=== PATIENT | female | born 1990 | race Caucasian/White ===

== ENCOUNTER 2023-08-16 20:47 | Outpatient (REF) | payer OTHER, SELFPAY ==
[2023-08-20 14:11] LABS: Age Gdln ACOG Testing Note (.); HPV Aptima Negative (Negative); IGP, Aptima HPV, rfx 16/18,45 Note (.)
== END 2023-08-16 20:48 | disposition home or self-care (01) ==
LOC: LAB 20:47
PROVIDERS: Visit Provider Obstetrics & Gynecology
DX: Z01.419 Encounter for gynecological examination (general) (routine) without abnormal findings (principal)
CPT/HCPCS: 87624; G0145

== ENCOUNTER 2024-01-21 08:25 | Outpatient (OUT) | payer OTHER, SELFPAY ==
--- OUTSIDE RECORDS SUMMARY | 2024-01-21 08:29 | XMS_ITS | CCD ---
Author Organization [facility] Care Team Providers Care Refrigerating Machine Operator Name Role Phone DR REMY GIPSON Admitting Unavailable LEONELA, DR ALBERTO Attending Unavailable JO ANN ZHAO Primary Care Unavailable LEONELA, DR ALBERTO Consulting Unavailable Joseline JOGGLE PRESS OPERATOR-WEATHERIZATION AND HOUSING INSPECTOR, Jo Ann Beckman Attending Unavailable Margarita JOGGLE PRESS OPERATOR-WEATHERIZATION AND HOUSING INSPECTOR, Edilma Vale Attend ing Unavailable Abeba GUPTA, Lea Blanc Attending Aniyah Zhao JOGGLE PRESS OPERATOR-WEATHERIZATION AND HOUSING INSPECTOR, Jo Ann Beckman Attending Unavailable REMY GIPSON Attending Unavailable Results Test Name Value Interpretation Reference Range Facil ity .eGFRon 12-04-2022 GFR/1.73 sq M.predicted MDRD (S/P/Bld) [Vol rate/Area] mL/min/{1.73_m2} Normal >=60 [facility] Comment on above: Result Comment: [facility] have implemented the eGFR calculation approach that does not have a coefficient for race and that conforms to the NKF-ASN Task Force Recommendations. Stages of Chronic Kidney Disease GFR Stage 3a Mild to moderate loss of kidney function 59 to 45 Stage 3b Moderate to severe loss of kidney function 44 to 33 Stage 4 Severe loss of kidney function 29 to 15 Stage 5 Kidney failure Less than 15 GFR calculated using the CKD-Epi Creatinine Equation (2020): eGFR = 142 X min(SCr/?, 1)? X max(SCr /?, 1)-1.200 X 0.9938Age X 1.012 [if female] Abbreviations/Units: eGFR (estimated glomerular filtration rate) = mL/min/1.73 m2 SCr (standardized serum creatinine) = mg/dL ? = 0.7 (females) or 0.9 (males) ? = -0.241 (females) or -0.302 (males) min = indicates the minimum of SCr/? or 1 max = indicates the maximum of SCr/? or 1 Age = years Performed By: #### E GFR #### [place] [id number] CBC w/ Diffon 12-04-2022 Erythrocyte distribution width (RBC) [Ratio] 12.3 % Normal 11.6-14.8 [facility] Comment on above: Performed By: #### C BC #### [place] [id number] Hematocrit (Bld) [Volume fraction] 38.8 % Normal 36.0-46.0 [facility] Comment on above: Performed By: #### C BC #### [place] [id number] Hemoglobin (Bld) [Mass/Vol] 13.5 g/dL Normal 12.0-16.0 [facility] Comment on above: Performed By: #### C BC #### [place] [id number] MCH (RBC) [Entitic mass] 32.1 pg Normal 27.0-35.0 [facility] Comment on above: Performed By: #### C BC #### [place] [id number] MCHC 34.9 % Normal 31.0-37.0 [facility] Comment on above: Performed By: #### C BC #### [place] [id number] MCV (RBC) [Entitic vol] 92.0 fL Normal 80.0-100.0 [facility] Comment on above: Performed By: #### C BC #### [place] [id number] Platelet 277 x10*3/mcL Normal 150-350 [facility] Comment on above: Performed By: #### C BC #### [address] [address] Platelet mean volume (Bld) [Entitic vol] 8.7 fL Normal 6.7-10.6 [facility] Comment on above: Performed By: #### C BC #### [address] [address] RBC 4.21 x10*6/mcL Normal 3.80-5.20 [facility] Comment on above: Performed By: #### C BC #### [address] [address] WBC 8.0 x10*3/mcL Normal 4.5-11.0 [facility] Comment on above: Performed By: #### C BC #### [address] [address] CMPon 12-04-2022 Albumin [Mass/Vol] 4.3 g/dL Normal 3.2-4.9 [facility] Comment on above: Performed By: #### C OMP #### [address] [address] Albumin/Globulin [Mass ratio] 1.6 {ratio} Normal 1.1-2.2 [facility] Comment on above: Performed By: #### C OMP #### [address] [address] Alk Phos 39 IU/L Normal 32-91 [facility] Comment on above: Performed By: #### C OMP #### [address] [address] ALT [Catalytic activity/Vol] 13 U/L Low 14-54 [facility] Comment on above: Performed By: #### C OMP #### [address] [address] Anion gap [Moles/Vol] 8 mmol/L Normal 7-17 [facility] Comment on above: Performed By: #### C OMP #### [address] [address] AST [Catalytic activity/Vol] 18 U/L Normal 15-41 [facility] Comment on above: Performed By: #### C OMP #### [address] [address] Bili Total 0.6 mg/dL Normal 0.3-1.2 [facility] Comment on above: Performed By: #### C OMP #### [address] [address] Calcium [Mass/Vol] 8.9 mg/dL Normal 8.5-10.3 [facility] Comment on above: Performed By: #### C OMP #### [address] [address] Chloride [Moles/Vol] 103 mmol/L Normal 98-110 [facility] Comment on above: Performed By: #### C OMP #### [address] [address] CO2 [Moles/Vol] 27 mmol/L Normal 22-32 [facility] Comment on above: Performed By: #### C OMP #### [address] [address] Creatinine [Mass/Vol] 0.64 mg/dL Normal 0.44-1.03 [facility] Comment on above: Performed By: #### C OMP #### [address] [address] Glucose [Mass/Vol] 111 mg/dL High 70-99 [facility] Comment on above: Performed By: #### C OMP #### [address] [address] Potassium [Moles/Vol] 3.5 mmol/L Normal 3.4-4.8 [facility] Comment on above: Performed By: #### C OMP #### [address] [address] Protein [Mass/Vol] 7.0 g/dL Normal 6.5-8.1 [facility] Comment on above: Performed By: #### C OMP #### [address] [address] Sodium [Moles/Vol] 135 mmol/L Normal 133-142 [facility] Comment on above: Performed By: #### C OMP #### [address] [address] Urea nitrogen [Mass/Vol] 14 mg/dL Normal 8-26 [facility] Comment on above: Performed By: #### C OMP #### [address] [address] Urea nitrogen/Creatinin e [Mass ratio] 21.9 mg/mg High 10.0-20.0 [facility] Comment on above: Performed By: #### C OMP #### [address] [address] Diff Autoon 12-04-2022 Baso Absolute 0.0 x10*3/mcL Normal 0.0-0.2 [facility] Comment on above: Performed By: #### . Automated Diff #### [address] [address] Basophils/100 WBC (Bld) 0.4 % Normal 0.0-1.5 [facility] Comment on above: Performed By: #### . Automated Diff #### [address] [address] Eos Absolute 0.0 x10*3/mcL Normal 0.0-0.4 [facility] Comment on above: Performed By: #### . Automated Diff #### [address] [address] Eosinophils/100 WBC (Bld) 0.4 % Normal 0.0-5.4 [facility] Comment on above: Performed By: #### . Automated Diff #### [address] [address] Lymph Absolute 1.9 x10*3/mcL Normal 1.0-4.8 [facility] Comment on above: Performed By: #### . Automated Diff #### [address] [address] Lymphocytes/100 WBC (Bld) 24.3 % Low 27.2-40.8 [facility] Comment on above: Performed By: #### . Automated Diff #### [address] [address] Carver Absolute 0.5 x10*3/mcL Normal 0.1-1.1 [facility] Comment on above: Performed By: #### . Automated Diff #### [address] [address] Monocytes/100 WBC (Bld) 5.7 % Normal 3.7-11.9 [facility] Comment on above: Performed By: #### . Automated Diff #### [address] [address] Neutro Absolute 5.5 x10*3/mcL Normal 1.8-7.7 [facility] Comment on above: Performed By: #### . Automated Diff #### [place] [id number] Neutro Auto 69.2 % Normal 47.2-70.8 [facility] Comment on above: Performed By: #### . Automated Diff #### [address] [address] Hgb A1con 12-04-2022 Glucose [Mass/Vol] 97 mg/dL Normal 68-114 [facility] Comment on above: Result Comment: Math ematical Calc approx. The mean gluc equivalency of A1c Performed By: #### H BA1C #### [place] [id number] Hgb A1c 5.0 % A1c Normal 4.0-5.6 [facility] Comment on above: Result Comment: Refe rence Range: 4.0 - 5.6 % Normal 5.7 - 6.4 % Pre-Diabetes > 6.5 % Diabetes Performed By: #### H BA1C #### [place] [id number] Insulinon 12-04-2022 Insulin Lvl 8.60 mcIU/mL Normal 1.90-23.00 [facility] Comment on above: Performed By: #### I NS #### [address] [address] Ironon 12-04-2022 Iron [Mass/Vol] 76 ug/dL Normal 28-170 [facility] Comment on above: Performed By: #### F E #### [address] [address] Lipid Panelon 12-04-2022 Cholesterol in LDL [Mass/Vol] 106 mg/dL High 0-99 [facility] Comment on above: Result Comment: The equation being used in this calculation is LDL = (Chol - HDL) - (Trig / 5) The optimal value of LDL for individual patients may vary. The patient's history of Artherosclerosis and other cardiac risk factors should be considered. Performed By: #### L CLANCY #### [address] [address] Cardiac Risk 2.7 Normal [facility] Comment on above: Result Comment: Men Women 1/2 Average 3.43 3.27 Average 4.97 4.44 2x Average 9.55 7.05 3x Average 23.99 11.04 Performed By: #### L CLANCY #### [address] [address] Cholesterol [Mass/Vol] 181 mg/dL Normal 25-199 [facility] Comment on above: Result Comment: 0 - 17 years of age: Desirable 0-170 Borderline High 170-199 High >=200 18 years and older: Acceptable <200 Borderline High 200-239 High >=240 Performed By: #### L CLANCY #### [address] [address] Cholesterol in HDL [Mass/Vol] 68.2 mg/dL High 40.0-60.0 [facility] Comment on above: Performed By: #### L CLANCY #### [address] [address] Cholesterol in VLDL [Mass/Vol] 7 mg/dL Low 8-39 [facility] Comment on above: Performed By: #### L CLANCY #### [address] [address] Triglyceride [Mass/Vol] 33 mg/dL Normal [facility] Comment on above: Result Comment: 0 - 17 years of age: Trig 90 - 129 Borderline High Trig => 130 High 18 years and older: Trig 150 - 199 Borderline High Trig 200 - 499 High Trig =>500 Very High Performed By: #### L CLANCY #### [address] [address] Thyroid Panelon 12-04-2022 Free T4 [Mass/Vol] 0.92 ng/dL Normal 0.61-1.12 [facility] Comment on above: Result Comment: Refe rence Ranges for Females: Females, 1st Trimester 0.52 ? 1.10 ng/dL Females, 2nd Trimester 0.45 ? 0.99 ng/dL Females, 3rd Trimester 0.48 - 0.95 ng/dL Performed By: #### T 347 #### [address] [address] TSH Qn 1.11 m[IU]/L Normal 0.45-5.33 [facility] Comment on above: Result Comment: Refe rence Ranges for individuals from to 18 years of age were obtained from The Mica Becker Handbook (20 ed) published by [facility]. Reference Ranges for Females: Females, 1st Trimester 0.05 ? 3.7 uIU/mL Females, 2nd Trimester 0.31 ? 4.35 uIU/mL Females, 3rd Trimester 0.41 ? 5.18 uIU/mL Performed By: #### T 347 #### [address] [address] Urgent Care Office/Clinic No pita 06-08-2022 Urgent Care Office/Clinic Note Chief Complaint Pt states left ear pain starting Wednesday. Pt is on ANB but feeling like its not helping. History of Present Illness Patient is a 32-year-old female presents with complaint of sinus congestion stuffy nose with postnasal drip. She is on amoxicillin for left ear infection that was started last week. She reports she does not feel like she is getting any better and is continues to have left ear pain. She is currently not taking any medication for sinus congestion. She denies sore throat nausea vomiting or skin rashes. She was afebrile on arrival to [facility] and reports no fevers at home. Review of Systems General: The patient denies fever and POSITIVE headache and pressure over the frontal maxillary sinuses HEENT: POSITIVE rhinorrhea. POSITIVE bilateral ear pressure/pain Denies eye pain. POSITIVE sore throat Cardiovascular: No chest pain or Cardiac history Pulmonary: No shortness of breath, wheezing POSITIVE dry cough GI: No nausea, vomiting or diarrhea Skin: no rashes Physical Exam Vitals & Measurements T: 36.7 ?C (Oral) HR: 78 (Peripheral) RR: 18 BP: 129/87 SpO2: 98 HT: 160 cm WT: 69 kg WT: 69 kg (Dosing) BMI: 26.95 Eyes: no conjunctivitis or drainage Ears: TMs are clear translucent with moderate amount of bulging. Both canals are without redness swelling or drainage Nose: no rhinitis seen Sinuses: Negative for maxillary and frontal tenderness. Throat: is red without exudate or swelling Neck: no anterior cervical adenopathy present Chest: Breath sounds clear without wheezing, rales or rhonchi, cough dry in office. Heart: regular rate without murmurs Additional Vitals No qualifying data available. Assessment/Plan 1. Rhinosinusitis Plan: 1) Patient started to drink at least 8 glasses of non-caffeinated nonalcoholic beverages per day 2) Patient instructed to take Medications as prescribed. Continue Amoxicillin for left otitis media given last week. Ordered Flonase 2 sprays each nostril every A.M. Ordered Zyrtec take 1 tablet daily in a.m. Recommended patient take Benadryl 25 mg at bedtime to help dry sinus drainage and help her rest. Recommended Nasal saline - 2 sprays each nostril every 2 hours to moisturize nasal passages Patient instructed to blow nose with both nostrils open - do not pinch and blow gently 3) If not better and the next 4 or 5 days followup with PCP. Ordered: cetirizine, 1 tabs, Oral, Daily, # 30 tabs, 0 Refill(s), Pharmacy: [facility][id number] fluticasone nasal, 2 sprays, Nasal, Daily, # 16 g, 0 Refill(s), Pharmacy: [facility] #[id number] Discharge Patient Medical Decision Making Viral Rhinosinusitis: less than 4 weeks purulent nasal drainage, facial pain and pressure, decreased smell, ear fullness, cough, headache Acute Bacterial Rhinosinusitis: Severe headache, periorbital edema, inflammation or erythema, vision changes, pain with eye movement, abnormal extra ocular movements, proptosis, cranial nerve palsies, altered mental state, neck stiffness or meningeal signs Chronic Rhinosinusitis: history of polys, nasal fracture, obstruction, swelling of nares with inflammation, facial pain, ear fullness, Common Cold: nasal congestion and discharge (rhinorrhea), sneezing, sore throat, cough, low-grade fever, headache, and malaise. Allergic Rhinitis/Rhinosinusiti s - not taking sinus medication, no fever or facial pressure Chronic conditions NOT treated during this visit that affected my overall medical decision making: [] Treatment plans discussed but not opted for at this time: [] Prescribed medication that requires intensive monitoring for toxicity: [] I have reviewed the patient?s medication list for medication interactions/contraind ications and/or for upcoming procedures: [yes ] Time Spent with the Patient I have personally spent [21] minutes on this date, directly related to today's patient visit, including pre and post visit work, for this date of service. Time listed does not include time spent on separately billable services. Provider Comments Reviewed assessment and plan of care with patient. Patient verbalized understanding and agreed with plan. No further questions or concerns upon discharge. Problem List/Past Medical History Ongoing No chronic problems Historical No qualifying data Procedure/Surgical History denies Medications Aspir 81, 81 mg, Oral, Daily Multi Vitamin+ Allergies No Known Allergies Social History Tobacco Never (less than 100 in lifetime) Use:. Family History Family history is negative Electronically signed by Edilma Marrufo 06/08/22 20:16 EST Normal [facility] Coding Summary.on 01-31-2020 Coding Summary. CODING DATE: 01/31/2020 FINAL [facility] STATUS: Home (Routine DC) PAYOR: Commercial Insurance ADMIT DX: REASON FOR VISIT DX: Z01.84 Encounter for antibody response examination FINAL DX: PRINCIPAL: Z01.84 Encounter for antibody response examination SECONDARY: Z11.59 Encounter for screening for other viral diseases PYMT PROC APC STAT DESCRIPTION DOCTOR NAME DATE NOTE: The code number assigned matches the documented diagnosis and / or procedure in the patient's chart. However, the narrative phrase printed from the coding software may appear abbreviated, or result in slightly different terminology. Coded By: Jocy Munroe Date Saved: 01/31/2020 07:26 pm Normal [facility] Physician Orderon 01-05-2020 Physician Order [id number] D:127 [facility] Encounters Encounter Date Encounter Type Care Provider Facility Start: 08-16-2023 End: 08-16-2023 ambulatory REMY GIPSON Not Available Start: 12-04-2022 End: 12-05-2022 ambulatory Jo Ann Zhao JOGGLE PRESS OPERATOR-[facility] Facility:[facility] Start: 08-11-2022 End: 08-11-[address] REMY GIPSON Facility:[facility] Start: 07-22-2022 ambulatory Lea Coon Facility:[facility] Start: 06-08-2022 End: 06-08-2022 ambulatory Edilma Avila JOGGLE PRESS OPERATOR-[facility] Facility:[facility] Payers Date Payer Category Payer Unknown 2021 Medicaid [id number] 1990 Unknown [id number] 09.10.83 [id number] 1990 Unknown [id number] 2. [id number] 1990 Unknown [id number] 2. [id number] 1990 Unknown [id number] 2. [id number] 1990 Unknown [id number] 2. [id number] 1990 Unknown [id number] [id number] 1959 Unknown [id number] Clinical Note 06-08-2022 Note Date & Type Note Facility 06-08-2022 Note Patient Education Chaz escamilla Name: Ary Ellis Current Date: 06/08/2022 20:15:39 [place] : 1990 The following sheet(s) are the Patient Education Leaflets for Ary Ellis Sinusitis (No Antibiotics) The sinuses are air-filled spaces in the bones of the face. They connect to the inside of the nose. Sinusitis is redness and swelling (inflammation) of the tissue that lines the sinuses. It can occur during a cold. It can also be due to allergies to pollens and other particles in the air. It can cause symptoms such as sinus congestion, headache, sore throat, face swelling, and a feeling of fullness. It may also cause a low-grade fever. Your sinusitis doesn't include an infection with bacteria. So antibiotics aren't used to treat this problem. Home care ? Drink plenty of water, hot tea, and other liquids, as directed by the healthcare provider. This may help thin nasal mucus. It also may help your sinuses drain fluids. ? Heat may help soothe painful parts of your face. Use a towel soaked in hot water. Or store standards associate the shower and direct the warm spray on your face. Using a vaporizer along with a menthol rub at night may also help soothe symptoms. ? An expectorant with guaifenesin may help thin nasal mucus and help your sinuses drain fluids. If you have any questions about an xdin-kqy-joygmeb medicine or its side effects, talk with your healthcare provider or pharmacist before taking it. ? You can use an tkmk-hfi-hcgqfzf decongestant, unless a similar medicine was prescribed to you. Nasal sprays work the fastest. Use one that has phenylephrine or oxymetazoline. First blow your nose gently. Then use the spray. Don't use these medicines more often than directed on the label. If you do, your symptoms may get worse. You may also take pills that contain pseudoephedrine. Don?t use products that combine multiple medicines. This may increase side effects. Read all medicine labels. You can also ask the pharmacist for help. (People with high blood pressure should not use decongestants. They can raise blood pressure.) ? Txih-srv-uisqwfa antihistamines or steroid nasal sprays, if advised by the healthcare provider, may help if allergies helped cause your sinusitis. ? Use acetaminophen or ibuprofen to control pain, unless another pain medicine was prescribed to you. If you have long-term (chronic) liver or kidney disease, or ever had a stomach ulcer, talk with your provider before using these medicines. Aspirin should never be taken by anyone under age 19 unless directed by the provider. It can lead to a risk for Apolonia syndrome. This is a rare but very serious disorder that most often affects the brain and the liver. ? Use nasal rinses or irrigation as instructed by your provider. ? Don't smoke. This can make symptoms worse. Follow-up care Follow up with your healthcare provider if you are not better in 1 week. When to get medical advice Call your healthcare provider if any of these occur: ? Green or yellow fluid draining from your nose or into your throat ? Facial pain or headache that gets worse ? Stiff neck ? Abnormal drowsiness or confusion ? Swelling of your forehead or eyelids ? Vision problems, such as blurred or double vision ? Fever of 100.4?F (38?C) or higher, or as directed by your provider ? Symptoms that don't go away in 10 days Call 911 Call 911 if any of these occur: ? Seizure ? Trouble breathing ? Feeling dizzy or faint ? Fingernails, skin, or lips look blue, purple, or loera ? [employer]. [address] [place] [address]. All rights reserved. This information is not intended as a substitute for professional medical care. Always follow your healthcare professional's instructions. 1. Rhinosinusitis Plan: 1) Patient started to drink at least 8 glasses of non-caffeinated nonalcoholic beverages per day 2) Patient instructed to take Medications as prescribed. Continue Amoxicillin for left otitis media given last week. Recommended patient use Flonase 2 sprays each nostril every A.M. Recommended patient start Zyrtec or Claritin take 1 tablet daily in a.m. Recommended patient take Benadryl 25 mg at bedtime to help dry sinus drainage and help her rest. Recommended Nasal saline - 2 sprays each nostril every 2 hours to moisturize nasal passages Patient instructed to blow nose with both nostrils open - do not pinch and blow gently 3) If not better and the next 4 or 5 days followup with PCP. [facility] Summary Purpose Family History No Family History Records FoundNo Family History Records FoundNo Family History Records FoundNo Family History Records Found Advance Directives No Advanced Directives Records FoundNo Advanced Directives Records FoundNo Advanced Directives Records FoundNo Advanced Directives Records Found Additional Source Comments INFORMATION SOURCE (unrecogn ized section and content) DATE CREATED AUTHOR [facility]10/2020 [facility] DATE CREATED AUTHOR AUTHOR'S ORGANIZ ATION 08/12/2022 [facility] DATE CREATED AUTHOR AUTHOR'S ORGANIZ ATION 12/05/2022 [facility] DATE CREATED AUTHOR AUTHOR'S ORGANIZ ATION 08/17/2023 [facility] [place] FOR RECORDS PERTAINING TO PATIENTS WHO ARE OR HAVE BEEN ENROLLED IN A CHEMICAL DEPENDENCY/SUBSTANCEABUSE PROGRAM, SOME INFORMATION MAY BE OMITTED. This clinical summary was aggregated from multiple sources. Caution should be exercised in using it in the provision of clinical care. This summary normalizes information from multiple sources, and as a consequence, information in this document may materially change the coding, format and clinical context of patient data. In addition, data may be omitted in some cases. CLINICAL DECISIONS SHOULD BE BASED ON THE PRIMARY CLINICAL RECORDS. [facility] Search to Phone [facility]. provides no warranty or guarantee of the accuracy or completeness of information in this document.
--- NOTE | 2024-01-21 08:31 | US_ITS ---
[address] [address] Patient Name: KATHERINE SPAIN MRN: [id number] date: 1990 Sex: F Assigned Patient Location: [facility] Current Patient Location: [facility] Accession/Order Number: [id number] Exam Date: 01/21/2024 08:31 Report Date: 01/21/2024 09:09 At the request of: REMY GIPSON Procedure: US OB transvaginal EXAMINATION: US OB transvaginal HISTORY: MISSED MENSES COMPARISON: No relevant comparison available. FINDINGS: Woo intrauterine gestation Gestational sac: 3.07 cm, 8 weeks 0 days CRL: 1.27 cm, 7 weeks 3 days Yolk sac: 3.3 mm Heart rate: 167 bpm Cervix: Closed, 4.7 cm The uterus is normal, anteverted, anteflexed The right ovary is not visualized The left ovary measures 5.7 x 4.1 x 4.3 cm. 4.6 cm area of anechoic echogenicity possibly corpus luteal cyst Clinical age: 8 weeks 1 day Clinical SANGEETA: 08/31/2024 Ultrasound age: 7 weeks 3 days Ultrasound SANGEETA: 09/05/2024 US/US OB transvaginal IMPRESSION: Viable woo intrauterine gestation measuring 7 weeks 3 days Electronically authenticated by: CHLOE SANTO Date: 01/21/2024 09:09
== END 2024-01-21 08:26 | disposition home or self-care (01) ==
LOC: NOMS 08:26
PROVIDERS: Visit Provider Obstetrics & Gynecology
DX: Z34.91 Encounter for supervision of normal pregnancy, unspecified, first trimester (principal); Z3A.01 Less than 8 weeks gestation of pregnancy; N92.6 Irregular menstruation, unspecified
CPT/HCPCS: 76817

== ENCOUNTER 2024-02-14 11:50 | Outpatient (OUT) | payer OTHER, SELFPAY ==
--- OUTSIDE RECORDS SUMMARY | 2024-02-14 12:11 | XMS_ITS | CCD ---
Author Organization [facility] Inform ion Partnership [facility] CliniSynm Care Team Providers Care Filemaker Developer Name Role Phone DR REMY RAY Admitting Unavailable FLOR, DR ALBERTO Attending Unavailable LEXI ZHAO Primary Care Unavailable FLOR, DR ALBERTO Consulting Unavailable REMY RAY Attending Unavailable FlorRemy batista DO Attending Unavaila ble Results Test Name Value Interpretation Reference Range Facil ity Trep Abon 02-01-2024 Treponema Total Ab <0.10 Normal [facility] Comment on above: Performed By: #### C [id number] #### [address] [address] Treponema Total Ab Interp Negative Normal Negative [facility] Comment on above: Result Comment: No s erologic evidence of syphilis. No follow- up necessary unless clinically indicated (eg, early syphilis). Performed By: #### C [id number] #### [address] [address] HIV1/2 Ab,Ag Scnon 4 HIV-1/2 Ab,Ag 0.26 Normal [facility] Comment on above: Performed By: #### C [id number] #### [address] [address] HIV-1/2 Ab,Ag Interp Non-Reactive Normal Non-Reactive [facility] Comment on above: Performed By: #### C [id number] #### [address] [address] Hep Bs Agon 01-31-2024 Hep Bs Ag Interp Non-Reactive Normal Non-Reactive [facility] Comment on above: Performed By: #### H BSAG #### [address] [address] Hep C Ab w/reflex HCV RNA Qn t, PCRon 01-31-2024 Hep C IgG Interp Non-Reactive Normal Non-Reactive [facility] Comment on above: Performed By: #### H CV #### [address] [address] C Urineon 01-30-2024 C Urine - ---- Final 30-50,000 cfu/ml Mixed gram positive alicia isolated. This urine contains 3 or more organisms which is inconsistent with clean catch collection. Consider the possibility of contamination during collection. No identification or susceptibility performed as results would be misleading Normal [facility] Comment on above: Performed By: #### U RC #### [address] [address] ABO/Rhon 01-29-2024 ABO/Rh ABO/Rh: A POS Normal [facility] Comment on above: Performed By: #### H CV #### [address] [address] CBC w/ Diffon 01-29-2024 Erythrocyte distribution width (RBC) [Ratio] 12.0 % Normal 11.6-14.8 [facility] Comment on above: Performed By: #### C BC #### [address] [address] Hematocrit (Bld) [Volume fraction] 37.7 % Normal 36.0-46.0 [facility] Comment on above: Performed By: #### C BC #### [address] [address] Hemoglobin (Bld) [Mass/Vol] 12.8 g/dL Normal 12.0-16.0 [facility] Comment on above: Performed By: #### C BC #### [address] [address] MCH (RBC) [Entitic mass] 31.0 pg Normal 27.0-35.0 [facility] Comment on above: Performed By: #### C BC #### [address] [address] MCHC 34.0 % Normal 31.0-37.0 [facility] Comment on above: Performed By: #### C BC #### [address] [address] MCV (RBC) [Entitic vol] 91.1 fL Normal 80.0-100.0 [facility] Comment on above: Performed By: #### C BC #### [address] [address] Platelet 370 x10*3/mcL Normal 150-450 [facility] Comment on above: Performed By: #### C BC #### [address] [address] Platelet mean volume (Bld) [Entitic vol] 8.0 fL Normal 6.7-10.6 [facility] Comment on above: Performed By: #### C BC #### [address] [address] RBC 4.13 x10*6/mcL Normal 3.80-5.20 [facility] Comment on above: Performed By: #### C BC #### [address] [address] WBC 12.3 x10*3/mcL High 4.5-11.0 [facility] Comment on above: Performed By: #### C BC #### [address] [address] Diff Autoon 01-29-2024 Baso Absolute 0.0 x10*3/mcL Normal 0.0-0.2 [facility] Comment on above: Performed By: #### . Automated Diff #### [address] [address] Basophils/100 WBC (Bld) 0.4 % Normal 0.0-1.5 [facility] Comment on above: Performed By: #### . Automated Diff #### [address] [address] Eos Absolute 0.0 x10*3/mcL Normal 0.0-0.4 [facility] Comment on above: Performed By: #### . Automated Diff #### [address] [address] Eosinophils/100 WBC (Bld) 0.3 % Normal 0.0-5.4 [facility] Comment on above: Performed By: #### . Automated Diff #### [address] [address] Lymph Absolute 2.0 x10*3/mcL Normal 1.0-4.8 [facility] Comment on above: Performed By: #### . Automated Diff #### [address] [address] Lymphocytes/100 WBC (Bld) 16.2 % Low 27.2-40.8 [facility] Comment on above: Performed By: #### . Automated Diff #### [address] [address] [place] Absolute 0.6 x10*3/mcL Normal 0.1-1.1 [facility] Comment on above: Performed By: #### . Automated Diff #### [address] [address] Monocytes/100 WBC (Bld) 4.6 % Normal 3.7-11.9 [facility] Comment on above: Performed By: #### . Automated Diff #### [address] [address] Neutro Absolute 9.7 x10*3/mcL High 1.8-7.7 [facility] Comment on above: Performed By: #### . Automated Diff #### [address] [address] Neutro Auto 78.5 % High 47.2-70.8 [facility] Comment on above: Performed By: #### . Automated Diff #### [place] [id number] Hgb A1con 01-29-2024 Glucose [Mass/Vol] 105 mg/dL Normal 68-114 [facility] Comment on above: Result Comment: Math ematical Calc approx. The mean gluc equivalency of A1c Performed By: #### H BA1C #### [place] [address] Hgb A1c 5.3 % A1c Normal 4.0-5.6 [facility] Comment on above: Result Comment: Refe rence Range: 4.0 - 5.6 % Normal 5.7 - 6.4 % Pre-Diabetes > 6.5 % Diabetes Performed By: #### H BA1C #### [place] [id number] Pren ABSCon 01-29-2024 Pren ABSC Negative Normal [facility] Comment on above: Performed By: #### A SRG #### [facility] ([facility] [address] [place], [place] [id number] Rubella IgGon 01-29-2024 Rubella IgG Ab Interp Positive Normal [facility] Comment on above: Result Comment: The presence of detectable IgG-class antibodies indicates immunity to the rubella virus through prior immunization or exposure. Individuals testing reactive (positive) are considered immune to rubella infection. This result was obtained with the Access Rubella IgG EIA. Despite calibration by means of a reference preparation, values obtained with different drawbridge tender's assay methods may not be used interchangeably. The magnitude of the reported IgG level CANNOT be correlated to an endpoint titer. Performed By: #### R UB #### [place] [address] Coding Summary.on 01-31-2020 Coding Summary. CODING DATE: 01/31/2020 FINAL [facility] STATUS: Home (Routine DC) PAYOR: Commercial Insurance [...] Jocy Munroe Date Saved: 01/31/2020 07:[address] [facility] Physician Orderon 01-05-2020 Physician Order [id number]#[id number] 0CD:[address] [facility] Encounters Encounter Date Encounter Type Care Provider Facility Start: 01-29-2024 End: 01-29-2024 ambulatory Remy Ray Facility:[facility] Start: 01-21-2024 End: 01-21-2024 ambulatory REMY RAY Not Available Start: 08-16-2023 End: 08-16-2023 ambulatory REMY RAY Not Available Start: 08-11-2022 End: 08-11-[address] REMY RAY Facility: Payers Date Payer Category Payer Unknown 2023 Unknown [id number] 2021 Medicaid [id number] 1990 Unknown [id number] 2.16.84 [id number] 1990 Unknown [id number] 2.16.84 [id number] 1990 Unknown [id number] 2.16.84 [id number] 1990 Unknown [id number] 2.16. [id number] 1959 Unknown [id number] Summary Purpose Family History No Family History Records FoundNo Family History Records FoundNo Family History Records FoundNo Family History Records Found Advance Directives No Advanced Directives Records FoundNo Advanced Directives Records FoundNo Advanced Directives Records FoundNo Advanced Directives Records Found Additional Source Comments INFORMATION SOURCE (unrecogn ized section and content) DATE CREATED AUTHOR 02/10/2020 [facility] DATE CREATED AUTHOR AUTHOR'S ORGANIZ ATION 08/12/2022 [facility] DATE CREATED AUTHOR AUTHOR'S ORGANIZ ATION 01/23/[address] [facility] dical [facility] DATE CREATED AUTHOR AUTHOR'S ORGANIZ ATION 02/07/2024 [facility] FOR RECORDS PERTAINING TO PATIENTS WHO ARE [...] BE BASED ON THE PRIMARY CLINICAL RECORDS. [employer] provides no warranty or guarantee of the accuracy or completeness of information in this document.
== END 2024-02-14 11:51 | disposition home or self-care (01) ==
LOC: LAB 11:52
PROVIDERS: Visit Provider Obstetrics & Gynecology
DX: Z34.80 Encounter for supervision of other normal pregnancy, unspecified trimester (principal)
CPT/HCPCS: 36415

== ENCOUNTER 2024-04-01 08:18 | Outpatient (OUT) | payer OTHER, SELFPAY ==
--- OUTSIDE RECORDS SUMMARY | 2024-04-01 08:21 | XMS_ITS | CCD ---
Author Organization [facility] Inform ion Partnership [facility] CliniSytx Care Team Providers Care Poker Supervisor Name Role Phone DR REMY RAY Admitting Unavailable FLOR, DR ALBERTO Attending Unavailable LEXI ZHAO Primary Care Unavailable FLOR, DR ALBERTO Consulting Unavailable FLORREMY Attending Unavailable FLORREMY Attending Unavailable Flor DORemy Attending Unavaila ble Flor DORemy Attending Unavaila ble Results Test Name Value Interpretation Reference Range Facil ity CBCon 03-18-2024 Erythrocyte distribution width (RBC) [Ratio] 13.0 % Normal 11.6-14.8 [facility] Comment on above: Performed By: #### C BCI #### [place] [address] Hematocrit (Bld) [Volume fraction] 36.7 % Normal 36.0-46.0 [facility] Comment on above: Performed By: #### C BCI #### [place] [id number] Hemoglobin (Bld) [Mass/Vol] 12.6 g/dL Normal 12.0-16.0 [facility] Comment on above: Performed By: #### C BCI #### [place] [id number] MCH (RBC) [Entitic mass] 31.8 pg Normal 27.0-35.0 [facility] Comment on above: Performed By: #### C BCI #### [place] [id number] MCHC 34.2 % Normal 31.0-37.0 [facility] Comment on above: Performed By: #### C BCI #### [place] [address] MCV (RBC) [Entitic vol] 92.9 fL Normal 80.0-100.0 [facility] Comment on above: Performed By: #### C BCI #### [address] [address] Platelet 295 x10*3/mcL Normal 150-450 [facility] Comment on above: Performed By: #### C BCI #### [place] [id number] Platelet mean volume (Bld) [Entitic vol] 8.7 fL Normal 6.7-10.6 [facility] Comment on above: Performed By: #### C BCI #### [place] [address] RBC 3.95 x10*6/mcL Normal 3.80-5.20 [facility] Comment on above: Performed By: #### C BCI #### [place] [address] WBC 11.6 x10*3/mcL High 4.5-11.0 [facility] Comment on above: Performed By: #### C BCI #### [place] [id number] Gest Diab Scn (ACOG)on 03-18 History of diabetes or gastric bypass? Unknown Normal [facility] Comment on above: Performed By: #### G DS #### [place] [id number] Glucose [Mass/Vol] 136 mg/dL High 70-134 [facility] Comment on above: Result Comment: Acco rding to the ADA, a glucose threshold of > 139 mg/dL after a 50-gram load identifies approximately 80% of women with gestational diabetes mellitus, while the sensitivity is further increased to approximately 90% by a threshold of >129 mg/dL. Performed By: #### G DS #### [place] [address] Trep Abon 02-01-2024 Treponema Total Ab <0.10 Normal [facility] Comment on above: Performed By: #### C [id number] #### [address] [address] Treponema Total Ab Interp Negative Normal Negative [facility] Comment on above: Result Comment: No s erologic evidence of syphilis. No follow- up necessary unless clinically indicated (eg, early syphilis). Performed By: #### C [id number] #### [address] [address] HIV1/2 Ab,Ag Scnon HIV-1/2 Ab,Ag 0.26 Normal [facility] Comment on above: Performed By: #### C [id number] #### [address] [address] HIV-1/2 Ab,Ag Interp Non-Reactive Normal Non-Reactive [facility] Comment on above: Performed By: #### C [id number] #### [address] [address] Hep Bs Agon 01-31-2024 Hep Bs Ag Interp Non-Reactive Normal Non-Reactive [facility] Comment on above: Performed By: #### H BSAG #### [address] [address] Hep C Ab w/reflex HCV RNA Qn t, PCRon 01-31-2024 Hep C IgG Interp Non-Reactive Normal Non-Reactive [facility] Comment on above: Performed By: #### H CV #### [address] [address] C Urineon 01-30-2024 C Urine - ---- Final 30-50,000 cfu/ml Mixed gram positive alicia isolated. This urine contains 3 or more organisms which is inconsistent with clean catch collection. Consider the possibility of contamination during collection. No identification or susceptibility performed as results would be misleading Normal [facility] Comment on above: Performed By: #### H CV #### [address] [address] ABO/Rhon 01-29-2024 ABO/Rh ABO/Rh: A POS Normal [facility] Comment on above: Performed By: #### H CV #### [address] [address] CBC w/ Diffon 01-29-2024 Erythrocyte distribution width (RBC) [Ratio] 12.0 % Normal 11.6-14.8 [facility] Comment on above: Performed By: #### C BC #### [address] [address] Hematocrit (Bld) [Volume fraction] 37.7 % Normal 36.0-46.0 [facility] Comment on above: Performed By: #### C BC #### [address] [address] Hemoglobin (Bld) [Mass/Vol] 12.8 g/dL Normal 12.0-16.0 [facility] Comment on above: Performed By: #### C BC #### [address] [address] MCH (RBC) [Entitic mass] 31.0 pg Normal 27.0-35.0 [facility] Comment on above: Performed By: #### C BC #### [address] [address] MCHC 34.0 % Normal 31.0-37.0 [facility] Comment on above: Performed By: #### C BC #### [address] [address] MCV (RBC) [Entitic vol] 91.1 fL Normal 80.0-100.0 [facility] Comment on above: Performed By: #### C BC #### [address] [address] Platelet 370 x10*3/mcL Normal 150-450 [facility] Comment on above: Performed By: #### C BC #### [address] [address] Platelet mean volume (Bld) [Entitic vol] 8.0 fL Normal 6.7-10.6 [facility] Comment on above: Performed By: #### C BC #### [address] [address] RBC 4.13 x10*6/mcL Normal 3.80-5.20 [facility] Comment on above: Performed By: #### C BC #### [address] [address] WBC 12.3 x10*3/mcL High 4.5-11.0 [facility] Comment on above: Performed By: #### C BC #### [address] [address] Diff Autoon 01-29-2024 Baso Absolute 0.0 x10*3/mcL Normal 0.0-0.2 [facility] Comment on above: Performed By: #### . Automated Diff #### [address] [address] Basophils/100 WBC (Bld) 0.4 % Normal 0.0-1.5 [facility] Comment on above: Performed By: #### . Automated Diff #### [address] [address] Eos Absolute 0.0 x10*3/mcL Normal 0.0-0.4 [facility] Comment on above: Performed By: #### . Automated Diff #### [address] [address] Eosinophils/100 WBC (Bld) 0.3 % Normal 0.0-5.4 [facility] Comment on above: Performed By: #### . Automated Diff #### [address] [address] Lymph Absolute 2.0 x10*3/mcL Normal 1.0-4.8 [facility] Comment on above: Performed By: #### . Automated Diff #### [address] [address] Lymphocytes/100 WBC (Bld) 16.2 % Low 27.2-40.8 [facility] Comment on above: Performed By: #### . Automated Diff #### [address] [address] [place] Absolute 0.6 x10*3/mcL Normal 0.1-1.1 [facility] Comment on above: Performed By: #### . Automated Diff #### [address] [address] Monocytes/100 WBC (Bld) 4.6 % Normal 3.7-11.9 [facility] Comment on above: Performed By: #### . Automated Diff #### [address] [address] Neutro Absolute 9.7 x10*3/mcL High 1.8-7.7 [facility] Comment on above: Performed By: #### . Automated Diff #### [address] [address] Neutro Auto 78.5 % High 47.2-70.8 [facility] Comment on above: Performed By: #### . Automated Diff #### [address] [address] Hgb A1con 01-29-2024 Glucose [Mass/Vol] 105 mg/dL Normal 68-114 [facility] Comment on above: Result Comment: Math ematical Calc approx. The mean gluc equivalency of A1c Performed By: #### H CV #### [address] [address] Hgb A1c 5.3 % A1c Normal 4.0-5.6 [facility] Comment on above: Result Comment: Refe rence Range: 4.0 - 5.6 % Normal 5.7 - 6.4 % Pre-Diabetes > 6.5 % Diabetes Performed By: #### H CV #### [facility] [address] [place] [address] Pren ABSCon 01-29-2024 Pren ABSC Negative Normal [facility] Comment on above: Performed By: #### A SRG #### [facility] ([facility]) [address] [place] [address] Rubella IgGon 01-29-2024 Rubella IgG Ab Interp Positive Normal [facility] Comment on above: Result Comment: The presence of detectable IgG-class antibodies indicates immunity to the rubella virus through prior immunization or exposure. Individuals testing reactive (positive) are considered immune to rubella infection. This result was obtained with the Access Rubella IgG EIA. Despite calibration by means of a reference preparation, values obtained with different jewelry casting model maker's assay methods may not be used interchangeably. The magnitude of the reported IgG level CANNOT be correlated to an endpoint titer. Performed By: #### R UB #### [facility] [address] [place] [address] Coding Summary.on 01-31-2020 Coding Summary. CODING DATE: 01/31/2020 FINAL [facility] STATUS: Home (Routine DC) PAYOR: Commercial Insurance [...] Jocy Munroe Date Saved: 01/31/2020 07:26 pm [facility] Physician Orderon 01-05-2020 Physician Order [id number] 0CD:127 [facility] Encounters Encounter Date Encounter Type Care Provider Facility Start: 03-18-2024 End: 03-18-2024 ambulatory Remy Ray DO Facility:[facility] Start: 02-29-2024 End: 02-29-2024 ambulatory REMY RAY Not Available Start: 01-29-2024 End: 01-29-2024 ambulatory Remy Tay Ray DO Facility:[facility] Start: 01-21-2024 End: 01-21-2024 ambulatory REMY FLOR Not Available Start: 08-16-2023 End: 08-16-2023 ambulatory REMY RAY Not Available Start: 08-11-2022 End: 08-11-[address] REMY RAY Facility: Payers Date Payer Category Payer Unknown 2023 Unknown [id number] 2021 Medicaid [id number] 1990 Unknown [id number] 2.16.84 [id number] 1990 Unknown [id number] 2.16.84 [id number] 1990 Unknown [id number] 2.16.84 [id number] 1990 Unknown [id number] 2.16.84 [id number] 1990 Unknown [id number] 2.16. [id number] 1990 Unknown [id number] 2.16. [id number] 1959 Unknown [id number] Summary Purpose Family History No Family History Records FoundNo Family History Records FoundNo Family History Records FoundNo Family History Records Found Advance Directives No Advanced Directives Records FoundNo Advanced Directives Records FoundNo Advanced Directives Records FoundNo Advanced Directives Records Found Additional Source Comments INFORMATION SOURCE (unrecogn ized section and content) DATE CREATED AUTHOR 02/10/2020 [facility] DATE CREATED AUTHOR AUTHOR'S ORGANIZ ATION 08/12/2022 Vika Cannon [facility] DATE CREATED AUTHOR AUTHOR'S ORGANIZ ATION 03/02/2024 [facility] DATE CREATED AUTHOR AUTHOR'S ORGANIZ ATION 03/20/2024 [facility] FOR RECORDS PERTAINING TO PATIENTS WHO [...] BE BASED ON THE PRIMARY CLINICAL RECORDS. [facility] [employer] [facility]. provides no warranty or guarantee of the accuracy or completeness of information in this document.
[2024-04-01 09:39] LABS: Glucose Fasting 109 mg/dL (<95)
[2024-04-01 10:55] LABS: Glucose 1 Hour 138 mg/dL (<180)
[2024-04-01 11:51] LABS: Glucose 2 Hour 128 mg/dL (<155)
[2024-04-01 12:40] LABS: Glucose 3 Hour 104 mg/dL (<140)
[2024-04-05 01:08] LABS: AFP Value 21.9 ng/mL (.); Gest. Age on Collection Date 17.7 weeks (.); Gestat. Age Based On As provided (.); Insulin Dep Diabetes No (.); Maternal Age At EDD 34.3 yr (.); OSBR Risk 1 IN 10000 (.); Results Report (.)
== END 2024-04-01 08:19 | disposition home or self-care (01) ==
PROVIDERS: PCP Nurse Practitioner Family; Visit Provider Obstetrics & Gynecology
DX: Z34.92 Encounter for supervision of normal pregnancy, unspecified, second trimester (principal); Z36.1 Encounter for antenatal screening for raised alphafetoprotein level; R73.09 Other abnormal glucose
CPT/HCPCS: 36415; 82105; 82951; 82952

== ENCOUNTER 2024-04-24 13:30 | Outpatient (OUT) | payer OTHER, SELFPAY ==
--- NOTE | 2024-04-24 13:32 | US_ITS ---
[address] [address] Patient Name: KATHERINE SPAIN MRN: [id number] date: 1990 Sex: F Assigned Patient Location: [facility] Current Patient Location: [facility] Accession/Order Number: [id number] Exam Date: 04/24/2024 13:34 Report Date: 04/24/2024 14:35 At the request of: TY LATIF Procedure: US OB cervical length EXAMINATION: US OB anatomy, US OB cervical length HISTORY: anatomic survey COMPARISON: Ultrasound OB transvaginal 01/13/2024 TECHNIQUE: Transabdominal sonographic examination was performed for obstetrical and evaluation. FINDINGS: Number: 1 Heart Rate: 143 bpm H.B. /min Amniotic Fluid Volume: Subjectively normal Placental Location: Anterior-fundal with lower margin 5.5 cm from os. Cervix Length: 5.42 cm ; closed BIOMETRY: BPD: 4.79 cm; 20 weeks 3 days; 11.40 % HC: 19.17 cm; 21 weeks 3 days; 32.80 % AC: 15.85 cm 21 weeks 0 days; 24.20 % FL: 3.60 cm; 21 weeks 3 days; 34.60 % EFW:375.10 g; 24.90 % FL/AC: 22.71 FL/BPD: 75.16 HC/AC: 1.21 GESTATIONAL AGE: Age by EDC: 21 weeks 4 days Age by current US: 21 weeks 1 day SANGEETA by current US: 2024-09-03 SANGEETA by EDC: 2024-08-31 US/US OB cervical length IMPRESSION: 1. Single live intrauterine with growth detailed above. Electronically authenticated by: RENEE NAVARRO Date: 04/24/2024 14:35
--- NOTE | 2024-04-24 13:32 | US_ITS ---
[address] [address] Patient Name: KATHERINE SPAIN MRN: [id number] date: 1990 Sex: F Assigned Patient Location: [facility] Current Patient Location: [facility] Accession/Order Number: [id number] Exam Date: 04/24/2024 13:34 Report Date: 04/24/2024 14:35 At the request of: TY LATIF Procedure: US OB anatomy EXAMINATION: US OB anatomy, US OB cervical length HISTORY: anatomic survey COMPARISON: Ultrasound OB transvaginal 01/13/2024 TECHNIQUE: Transabdominal sonographic examination was performed for obstetrical and evaluation. FINDINGS: Number: 1 Heart Rate: 143 bpm H.B. /min Amniotic Fluid Volume: Subjectively normal Placental Location: Anterior-fundal with lower margin 5.5 cm from os. Cervix Length: 5.42 cm ; closed BIOMETRY: BPD: 4.79 cm; 20 weeks 3 days; 11.40 % HC: 19.17 cm; 21 weeks 3 days; 32.80 % AC: 15.85 cm 21 weeks 0 days; 24.20 % FL: 3.60 cm; 21 weeks 3 days; 34.60 % EFW:375.10 g; 24.90 % FL/AC: 22.71 FL/BPD: 75.16 HC/AC: 1.21 GESTATIONAL AGE: Age by EDC: 21 weeks 4 days Age by current US: 21 weeks 1 day SANGEETA by current US: 2024-09-03 SANGEETA by EDC: 2024-08-31 US/US OB anatomy IMPRESSION: 1. Single live intrauterine with growth detailed above. Electronically authenticated by: RENEE NAVARRO Date: 04/24/2024 14:35
--- OUTSIDE RECORDS SUMMARY | 2024-04-24 13:38 | XMS_ITS | CCD ---
Author Organization [facility] Inform ion Partnership [facility] Care Team Providers Care Bus Transportation Manager Name Role Phone DR REMY RAY Admitting Unavailable FLOR, DR ALBERTO Attending Unavailable LEXI ZHAO Primary Care Unavailable FLOR, DR ALBERTO Consulting Unavailable FLORREMY Attending Unavailable FLORREMY Attending Unavailable Flor DORemy Attending Unavaila ble Flor DORemy Attending Unavaila ble Results Test Name Value Interpretation Reference Range Facil ity CBCon 03-18-2024 Erythrocyte distribution width (RBC) [Ratio] 13.0 % Normal 11.6-14.8 [facility] Comment on above: Performed By: #### C BCI #### [place] [address] Hematocrit (Bld) [Volume fraction] 36.7 % Normal 36.0-46.0 [facility] Comment on above: Performed By: #### C BCI #### [place] [id number] Hemoglobin (Bld) [Mass/Vol] 12.6 g/dL Normal 12.0-16.0 [facility] Comment on above: Performed By: #### C BCI #### [place] [id number] MCH (RBC) [Entitic mass] 31.8 pg Normal 27.0-35.0 [facility] Comment on above: Performed By: #### C BCI #### [place] [id number] MCHC 34.2 % Normal 31.0-37.0 [facility] Comment on above: Performed By: #### C BCI #### [place] [id number] MCV (RBC) [Entitic vol] 92.9 fL Normal 80.0-100.0 [facility] Comment on above: Performed By: #### C BCI #### [address] [address] Platelet 295 x10*3/mcL Normal 150-450 [facility] Comment on above: Performed By: #### C BCI #### [place] [id number] Platelet mean volume (Bld) [Entitic vol] 8.7 fL Normal 6.7-10.6 [facility] Comment on above: Performed By: #### C BCI #### [place] [id number] RBC 3.95 x10*6/mcL Normal 3.80-5.20 [facility] Comment on above: Performed By: #### C BCI #### [place] [id number] WBC 11.6 x10*3/mcL High 4.5-11.0 [facility] Comment on above: Performed By: #### C BCI #### [place] [id number] Gest Diab Scn (ACOG)on 03-18 History of diabetes or gastric bypass? Unknown Normal [facility] Comment on above: Performed By: #### G DS #### [place] [id number] Glucose [Mass/Vol] 136 mg/dL High 70-134 [facility] Comment on above: Result Comment: Acco rding to the ADA, a glucose threshold of > 139 mg/dL after a 50-gram load identifies approximately 80% of women with gestational diabetes mellitus, while the sensitivity is further increased to approximately 90% by a threshold of >129 mg/dL. Performed By: #### G DS #### [place] [address] Trep Abon 02-01-2024 Treponema Total Ab <0.10 Normal [facility] Comment on above: Performed By: #### C [id number] #### [address] [address] Treponema Total Ab Interp Negative Normal Negative [facility] Comment on above: Result Comment: No s erologic evidence of syphilis. No follow- up necessary unless clinically indicated (eg, early syphilis). Performed By: #### C [id number] #### [address] [address] HIV1/2 Ab,Ag Scnon HIV-1/2 Ab,Ag 0.26 Normal [facility] Comment on above: Performed By: #### C [id number] #### [address] [address] HIV-1/2 Ab,Ag Interp Non-Reactive Normal Non-Reactive [facility] Comment on above: Performed By: #### C [id number] #### [address] [address] Hep Bs Agon 01-31-2024 Hep Bs Ag Interp Non-Reactive Normal Non-Reactive [facility] Comment on above: Performed By: #### H BSAG #### [address] [address] Hep C Ab w/reflex HCV RNA Qn t, PCRon 01-31-2024 Hep C IgG Interp Non-Reactive Normal Non-Reactive [facility] Comment on above: Performed By: #### H CV #### [address] [address] C Urineon 01-30-2024 C Urine - ---- Final 30-50,000 cfu/ml Mixed gram positive alicia isolated. This urine contains 3 or more organisms which is inconsistent with clean catch collection. Consider the possibility of contamination during collection. No identification or susceptibility performed as results would be misleading Normal [facility] Comment on above: Performed By: #### H CV #### [address] [address] ABO/Rhon 01-29-2024 ABO/Rh ABO/Rh: A POS Normal [facility] Comment on above: Performed By: #### H CV #### [address] [address] CBC w/ Diffon 01-29-2024 Erythrocyte distribution width (RBC) [Ratio] 12.0 % Normal 11.6-14.8 [facility] Comment on above: Performed By: #### C BC #### [address] [address] Hematocrit (Bld) [Volume fraction] 37.7 % Normal 36.0-46.0 [facility] Comment on above: Performed By: #### C BC #### [address] [address] Hemoglobin (Bld) [Mass/Vol] 12.8 g/dL Normal 12.0-16.0 [facility] Comment on above: Performed By: #### C BC #### [address] [address] MCH (RBC) [Entitic mass] 31.0 pg Normal 27.0-35.0 [facility] Comment on above: Performed By: #### C BC #### [address] [address] MCHC 34.0 % Normal 31.0-37.0 [facility] Comment on above: Performed By: #### C BC #### [address] [address] MCV (RBC) [Entitic vol] 91.1 fL Normal 80.0-100.0 [facility] Comment on above: Performed By: #### C BC #### [address] [address] Platelet 370 x10*3/mcL Normal 150-450 [facility] Comment on above: Performed By: #### C BC #### [address] [address] Platelet mean volume (Bld) [Entitic vol] 8.0 fL Normal 6.7-10.6 [facility] Comment on above: Performed By: #### C BC #### [address] [address] RBC 4.13 x10*6/mcL Normal 3.80-5.20 [facility] Comment on above: Performed By: #### C BC #### [address] [address] WBC 12.3 x10*3/mcL High 4.5-11.0 [facility] Comment on above: Performed By: #### C BC #### [address] [address] Diff Autoon 01-29-2024 Baso Absolute 0.0 x10*3/mcL Normal 0.0-0.2 [facility] Comment on above: Performed By: #### . Automated Diff #### [address] [address] Basophils/100 WBC (Bld) 0.4 % Normal 0.0-1.5 [facility] Comment on above: Performed By: #### . Automated Diff #### [address] [address] Eos Absolute 0.0 x10*3/mcL Normal 0.0-0.4 [facility] Comment on above: Performed By: #### . Automated Diff #### [address] [address] Eosinophils/100 WBC (Bld) 0.3 % Normal 0.0-5.4 [facility] Comment on above: Performed By: #### . Automated Diff #### [address] [address] Lymph Absolute 2.0 x10*3/mcL Normal 1.0-4.8 [facility] Comment on above: Performed By: #### . Automated Diff #### [address] [address] Lymphocytes/100 WBC (Bld) 16.2 % Low 27.2-40.8 [facility] Comment on above: Performed By: #### . Automated Diff #### [address] [address] [place] Absolute 0.6 x10*3/mcL Normal 0.1-1.1 [facility] Comment on above: Performed By: #### . Automated Diff #### [address] [address] Monocytes/100 WBC (Bld) 4.6 % Normal 3.7-11.9 [facility] Comment on above: Performed By: #### . Automated Diff #### [address] [address] Neutro Absolute 9.7 x10*3/mcL High 1.8-7.7 [facility] Comment on above: Performed By: #### . Automated Diff #### [address] [address] Neutro Auto 78.5 % High 47.2-70.8 [facility] Comment on above: Performed By: #### . Automated Diff #### [address] [address] Hgb A1con 01-29-2024 Glucose [Mass/Vol] 105 mg/dL Normal 68-114 [facility] Comment on above: Result Comment: Math ematical Calc approx. The mean gluc equivalency of A1c Performed By: #### H CV #### [address] [address] Hgb A1c 5.3 % A1c Normal 4.0-5.6 [facility] Comment on above: Result Comment: Refe rence Range: 4.0 - 5.6 % Normal 5.7 - 6.4 % Pre-Diabetes > 6.5 % Diabetes Performed By: #### H CV #### [facility] [address] [place] [address] Pren ABSCon 01-29-2024 Pren ABSC Negative Normal [facility] Comment on above: Performed By: #### A SRG #### [facility] ([facility] [address] [place] [address] Rubella IgGon 01-29-2024 Rubella IgG Ab Interp Positive Normal [facility] Comment on above: Result Comment: The presence of detectable IgG-class antibodies indicates immunity to the rubella virus through prior immunization or exposure. Individuals testing reactive (positive) are considered immune to rubella infection. This result was obtained with the Access Rubella IgG EIA. Despite calibration by means of a reference preparation, values obtained with different house designer's assay methods may not be used interchangeably. The magnitude of the reported IgG level CANNOT be correlated to an endpoint titer. Performed By: #### R UB #### [facility] [address] [place] [address] Coding Summary.on 01-31-2020 Coding Summary. CODING DATE: 01/31/2020 FINAL [facility] STATUS: Home (Routine DC) PAYOR: Commercial [...] Jocy Munroe Date Saved: 01/31/2020 07:26 pm [facility] Physician Orderon 01-05-2020 Physician Order [id number] [facility] Encounters Encounter Date Encounter Type Care Provider Facility Start: 03-18-2024 End: 03-18-2024 ambulatory Remy Ray DO Facility:[facility] Start: 02-29-2024 End: 02-29-2024 ambulatory REMY RAY Not Available Start: 01-29-2024 End: 01-29-2024 ambulatory Remy Tay Ray DO Facility:[facility] Start: 01-21-2024 End: 01-21-2024 ambulatory REYM FLOR Not Available Start: 08-16-2023 End: 08-16-2023 ambulatory REMY RAY Not Available Start: 08-11-2022 End: 08-11-[address] REMY RAY Facility: Payers Date Payer Category Payer Unknown 2023 Unknown [id number] 2021 Medicaid [id number] 1990 Unknown [id number] 2.16.84 [id number] 1990 Unknown [id number] 2.16.84 [id number] 1990 Unknown [id number] 2.16.84 [id number] 1990 Unknown [id number] 2.16.84 [id number] 1990 Unknown [id number] 2.16. [id number] 1990 Unknown [id number] 2.16. [id number] 1959 Unknown [id number] Summary Purpose Family History No Family History Records FoundNo Family History Records FoundNo Family History Records FoundNo Family History Records Found Advance Directives No Advanced Directives Records FoundNo Advanced Directives Records FoundNo Advanced Directives Records FoundNo Advanced Directives Records Found Additional Source Comments INFORMATION SOURCE (unrecogn ized section and content) DATE CREATED AUTHOR 02/10/2020 [facility] DATE CREATED AUTHOR AUTHOR'S ORGANIZ ATION 08/12/2022 V[facility] DATE CREATED AUTHOR AUTHOR'S ORGANIZ ATION 03/02/2024 [facility] DATE CREATED AUTHOR AUTHOR'S ORGANIZ ATION 03/20/2024 [facility] FOR RECORDS PERTAINING TO PATIENTS WHO ARE [...] BE BASED ON THE PRIMARY CLINICAL RECORDS. [facility] [employer] [facility]. provides no warranty or guarantee of the accuracy or completeness of information in this document.
== END 2024-04-24 13:31 | disposition home or self-care (01) ==
LOC: NOMS 13:30
PROVIDERS: PCP Nurse Practitioner Family; Visit Provider Physician Assistant
DX: Z36.89 Encounter for other specified antenatal screening (principal); Z3A.21 21 weeks gestation of pregnancy
CPT/HCPCS: 76805; 76817

== ENCOUNTER 2024-07-11 06:09 | Outpatient (OUT) | payer OTHER, SELFPAY ==
--- OUTSIDE RECORDS SUMMARY | 2024-07-11 06:11 | XMS_ITS | CCD ---
Author Organization [facility] Care Team Providers Care Engineering Leader Name Role Phone DR REMY RAY Admitting Unavailable FLOR, DR ALBERTO Attending Unavailable LEXI ZHAO Primary Care Unavailable FLOR, DR ALBERTO Consulting Unavailable Unavailable Primary Care Provider Marielle Latif PA-C, Jenifer Blanc Attending Unavailable Flor DO, Remy Cross Attending Unavaila ble Flor DO, Remy Cross Attending Unavaila ble FLRO, REMY Attending Unavailable FLOR, REMY Attending Unavailable JENIFER LATIF Attending Unavailable FLOR, REMY Attending Unavailable JENIFER LATIF Attending Unavailable FLOR, REMY Attending Unavailable FLOR, REMY Attending Unavailable Medications Current Medications Medication Drug Class(es) Dates Sig (Normalized) Sig (Original) aspirin 81 mg delayed release oral tablet (12 sources) Platelet Aggregation Inhibitor, Nonsteroidal Anti-inflammatory Drug Start: 10-11-2023 take 1 tablet by mouth once daily aspirin (Aspirin Low Dose) 81 MG EC tablet Indications: Encounter for supervision of normal , unspecified, unspecified trimester TAKE 1 TABLET BY MOUTH EVERY DAY FOR 30 DAYS 30 tablet 3 03/28/2024 Active Blood Glucose Monitoring Suppl (D-Care Glucometer) w/Device kit (1 source) Start: 06-19-2024 End: 06-19-2025 Blood Glucose Monitoring Suppl (D-Care Glucometer) w/Device kit Indications: Gestational diabetes mellitus (GDM), antepartum, gestational diabetes method of control unspecified , Elevated glucose tolerance test 1 kit Daily Use four times daily to check FSBS. In the morning prior to breakfast & 1 hour after each meal for a total of 4times daily. 1 kit 06/19/2024 06/19/2025 Active cholecalciferol 0.01 mg oral tablet (12 sources) Vitamin D Cholecalciferol (Vitamin D) 125 MCG (5000 UT) capsule Active cholecalciferol (Vitamin D-3) 10 MCG (400 UNIT) tablet 1 (one) time each day at the same time Active Docusate (6 sources) Docusate Sodium (COLACE PO) Take by mouth Active Doxylamine Succinate, Sleep, (UNISOM PO) (6 sources) Doxylamine Succi chidi, Sleep, (UNISOM PO) Take by mouth Active isopropyl alcohol 0.7 ml/ml medicated pad (1 source) Start: 4 End: 4 Alcohol Swabs (Alcohol Prep Pad) 70 % pads Indications: Gestational diabetes mellitus (GDM), antepartum, gestational diabetes method of control unspecified , Elevated glucose tolerance test Apply 1 Pad topically Daily Use four times daily to check FSBS. 150 each 3 06/19/2024 07/19/2024 Active ondansetron 4 mg oral tablet (12 sources) Serotonin-3 Receptor Antagonist Start: 4 take 1 tablet by mouth every six hours as needed for nausea ondansetron (Zofran) 4 MG tablet Indications: Nausea TAKE 1 TABLET BY MOUTH EVERY 6 HOURS NEEDED NAUSEA/VOMITING UP TO 120 DOSES 30 tablet 3 04/27/2024 Active polyethylene glycol 3350 45315 mg powder for oral solution (6 sources) Osmotic Laxative polyethylene gl ycol, PEG, 3350 (Miralax) 17 g packet Take by mouth Active Vit-Fe Fumarate-FA (M- Plus) 27-1 MG tablet (6 sources) Start: 3 take 1 tablet by mouth once daily Vit-Fe Fumarate-FA (M-Leann Plus) 27-1 MG tablet Indications: Other specified health status TAKE 1 TABLET BY MOUTH EVERY DAY FOR 30 DAYS 90 tablet 2 04/15/2023 Active Vit-Fe Fumarate-FA (PNV Plus Multivitamin) 27-1 MG tablet (6 sources) Start: 4 take 1 tablet by mouth once daily Vit-Fe Fumarate-FA (PNV Plus Multivitamin) 27-1 MG tablet Indications: Encounter for supervision of normal , unspecified, unspecified trimester Take 1 tablet by mouth Daily 30 tablet 11 03/28/2024 Active Problems Problem Classification Problem Date Documented Da te Episodic/Chronic Diabetes mellitus without complication (2 sources) Abnormal glucose tolerance test; Translations: [Other abnormal glucose] 05-25-2024 Episodic Other and delivery including normal (10 sources) Second trimester ; Translations: [Encounter for supervision of normal , unspecified, second trimester] Onset: 04-24-2024 05-25-2024 Episodic Residual codes; unclassified (2 sources) Gestation period, 26 weeks; Translations: [26 weeks gestation of ] 05-25-2024 Episodic Residual codes; unclassified (6 sources) Gestation period, 21 weeks; Translations: [21 weeks gestation of ] Onset: 04-24-2024 04-24-2024 Episodic Residual codes; unclassified (2 sources) Gestation period, 29 weeks; Translations: [29 weeks gestation of ] 06-19-2024 Episodic Results Test Name Value Interpretation Reference Range Facil ity Urinalysis macro (dipstick) panel (U)on 06-19-2024 Bilirubin, UA Negative Negative - 4(70) +++ mg/dL [facility] Blood, UA Positive Negative - 50 Kyle/mcL [facility] Comment on above: trace Clarity, UA Clear [facility] Healthdc re Color, UA Yellow [facility] Healthcar e Glucose, UA Negative Negative - 1999(110) ++++ mg/dL [facility] Interpretation and review of laboratory results Abnormal [facility] Ketones, UA Negative Negative - 160(16) ++++ mg/dL [facility] Leukocytes, UA Positive Negative - 500+++ Ren/mcL [facility] Comment on above: small Nitrite, UA Negative Negative - Positive [facility] pH, UA 7 5 - 9 [facility] Protein, UA Negative Negative - 1999(20) ++++ mg/dL [facility] Spec Grav, UA 1.02 1 - 1.03 [facility] Urobilinogen, UA 0.2 0.2 - 12 mg/dL [facility] .Glu 1 Hron 06-03-2024 Glucose [Mass/Vol] 180 mg/dL Normal 70-199 [facility] Comment on above: Performed By: #### R UB #### [facility] [address] [place] [address] .Glu 2 Hron 06-03-2024 Glucose [Mass/Vol] 163 mg/dL High 70-139 [facility] Comment on above: Result Comment: A 2 Hour glucose of less than 140 mg/dL is normal. A value of more than 200 mg/dL after 2 hours indicates diabetes. A value between 140 and 199 mg/dL indicates pre-diabetes. Performed By: #### . Glucose 2 Hour #### [address] [address] .Glu 3 Hron 06-03-2024 Glucose [Mass/Vol] 69 mg/dL Low 70-99 [facility] Comment on above: Performed By: #### R UB #### [address] [address] .Glu Baseon 06-03-2024 Glucose [Mass/Vol] 108 mg/dL High 70-99 [facility] Comment on above: Performed By: #### R UB #### [address] [address] POC Glucon 06-03-2024 Glucose [Mass/Vol] 120 mg/dL Normal 78-120 [facility] Comment on above: Performed By: #### R UB #### [address] [address] Urinalysis macro (dipstick) panel (U)on 05-25-2024 Bilirubin, UA Negative Negative - 4(70) +++ mg/dL [facility] Blood, UA Negative Negative - 50 Kyle/mcL [facility] Clarity, UA Clear [facility] re Color, UA Yellow [facility] Healthcar e Glucose, UA Positive Negative - 1999(110) ++++ mg/dL [facility] Interpretation and review of laboratory results Abnormal [facility] Ketones, UA Negative Negative - 160(16) ++++ mg/dL [facility] Leukocytes, UA Negative Negative - 500+++ Ren/mcL [facility] Nitrite, UA Negative Negative - Positive [facility] pH, UA 7 5 - 9 [facility] Protein, UA Negative Negative - 1999(20) ++++ mg/dL [facility] Spec Grav, UA 1.02 1 - 1.03 [facility] care Urobilinogen, UA 1.0 0.2 - 12 mg/dL [facility] e CBCon 03-18-2024 Erythrocyte distribution width (RBC) [Ratio] 13.0 % Normal 11.6-14.8 [facility] Comment on above: Performed By: #### R UB #### [address] [address] Hematocrit (Bld) [Volume fraction] 36.7 % Normal 36.0-46.0 [facility] Comment on above: Performed By: #### R UB #### [address] [address] Hemoglobin (Bld) [Mass/Vol] 12.6 g/dL Normal 12.0-16.0 [facility] Comment on above: Performed By: #### R UB #### [address] [address] MCH (RBC) [Entitic mass] 31.8 pg Normal 27.0-35.0 [facility] Comment on above: Performed By: #### R UB #### [address] [address] MCHC 34.2 % Normal 31.0-37.0 [facility] Comment on above: Performed By: #### R UB #### [address] [address] MCV (RBC) [Entitic vol] 92.9 fL Normal 80.0-100.0 [facility] Comment on above: Performed By: #### R UB #### [address] [address] Platelet 295 x10*3/mcL Normal 150-450 [facility] Comment on above: Performed By: #### R UB #### [address] [address] Platelet mean volume (Bld) [Entitic vol] 8.7 fL Normal 6.7-10.6 [facility] Comment on above: Performed By: #### R UB #### [address] [address] RBC 3.95 x10*6/mcL Normal 3.80-5.20 [facility] Comment on above: Performed By: #### R UB #### [address] [address] WBC 11.6 x10*3/mcL High 4.5-11.0 [facility] Comment on above: Performed By: #### R UB #### [address] [address] Gest Diab Scn (ACOG)on 03-18 History of diabetes or gastric bypass? Unknown Normal [facility] Comment on above: Performed By: #### G DS #### [place] [id number] Glucose [Mass/Vol] 136 mg/dL High 70-134 [facility] Comment on above: Result Comment: Acco rding to the ADA, a glucose threshold of > 139 mg/dL after a 50-gram load identifies approximately 80% of women with gestational diabetes mellitus, while the sensitivity is further increased to approximately 90% by a threshold of >129 mg/dL. Performed By: #### G DS #### [address] [address] Trep Abon 02-01-2024 Treponema Total Ab <0.10 Normal [facility] Comment on above: Performed By: #### C [id number] #### [address] [address] Treponema Total Ab Interp Negative Normal Negative [facility] Comment on above: Result Comment: No s erologic evidence of syphilis. No follow- up necessary unless clinically indicated (eg, early syphilis). Performed By: #### C [id number] #### [address] [address] HIV1/2 Ab,Ag Scnon HIV-1/2 Ab,Ag 0.26 Normal [facility] Comment on above: Performed By: #### C [id number] #### [address] [address] HIV-1/2 Ab,Ag Interp Non-Reactive Normal Non-Reactive [facility] Comment on above: Performed By: #### C [id number] #### [address] [address] Hep Bs Agon 01-31-2024 Hep Bs Ag Interp Non-Reactive Normal Non-Reactive [facility] Comment on above: Performed By: #### H BSAG #### [address] [address] Hep C Ab w/reflex HCV RNA Qn t, PCRon 01-31-2024 Hep C IgG Interp Non-Reactive Normal Non-Reactive [facility] Comment on above: Performed By: #### H CV #### [address] [address] C Urineon 01-30-2024 C Urine ------- Final 30-50,000 cfu/ml Mixed gram positive alicia isolated. This urine contains 3 or more organisms which is inconsistent with clean catch collection. Consider the possibility of contamination during collection. No identification or susceptibility performed as results would be misleading [facility] Comment on above: Performed By: #### U RC #### [address] [address] ABO/Rhon 01-29-2024 ABO/Rh ABO/Rh: A POS Normal [facility] Comment on above: Performed By: #### A BAN #### [facility] (UNKNOWN) [address] [place] [id number] CBC w/ Diffon 01-29-2024 Erythrocyte distribution width (RBC) [Ratio] 12.0 % Normal 11.6-14.8 [facility] Comment on above: Performed By: #### R UB #### [address] [address] Hematocrit (Bld) [Volume fraction] 37.7 % Normal 36.0-46.0 [facility] Comment on above: Performed By: #### R UB #### [address] [address] Hemoglobin (Bld) [Mass/Vol] 12.8 g/dL Normal 12.0-16.0 [facility] Comment on above: Performed By: #### R UB #### [address] [address] MCH (RBC) [Entitic mass] 31.0 pg Normal 27.0-35.0 [facility] Comment on above: Performed By: #### R UB #### [address] [address] MCHC 34.0 % Normal 31.0-37.0 [facility] Comment on above: Performed By: #### R UB #### [address] [address] MCV (RBC) [Entitic vol] 91.1 fL Normal 80.0-100.0 [facility] Comment on above: Performed By: #### R UB #### [address] [address] Platelet 370 x10*3/mcL Normal 150-450 [facility] Comment on above: Performed By: #### R UB #### [address] [address] Platelet mean volume (Bld) [Entitic vol] 8.0 fL Normal 6.7-10.6 [facility] Comment on above: Performed By: #### R UB #### [address] [address] RBC 4.13 x10*6/mcL Normal 3.80-5.20 [facility] Comment on above: Performed By: #### R UB #### [address] [address] WBC 12.3 x10*3/mcL High 4.5-11.0 [facility] Comment on above: Performed By: #### R UB #### [address] [address] Diff Autoon 01-29-2024 Baso Absolute 0.0 x10*3/mcL Normal 0.0-0.2 [facility] Comment on above: Performed By: #### . Automated Diff #### [address] [address] Basophils/100 WBC (Bld) 0.4 % Normal 0.0-1.5 [facility] Comment on above: Performed By: #### . Automated Diff #### [address] [address] Eos Absolute 0.0 x10*3/mcL Normal 0.0-0.4 [facility] Comment on above: Performed By: #### . Automated Diff #### [address] [address] Eosinophils/100 WBC (Bld) 0.3 % Normal 0.0-5.4 [facility] Comment on above: Performed By: #### . Automated Diff #### [address] [address] Lymph Absolute 2.0 x10*3/mcL Normal 1.0-4.8 [facility] Comment on above: Performed By: #### . Automated Diff #### [address] [address] Lymphocytes/100 WBC (Bld) 16.2 % Low 27.2-40.8 [facility] Comment on above: Performed By: #### . Automated Diff #### [address] [address] Starke Absolute 0.6 x10*3/mcL Normal 0.1-1.1 [facility] Comment on above: Performed By: #### . Automated Diff #### [address] [address] Monocytes/100 WBC (Bld) 4.6 % Normal 3.7-11.9 [facility] Comment on above: Performed By: #### . Automated Diff #### [place] [id number] Neutro Absolute 9.7 x10*3/mcL High 1.8-7.7 [facility] Comment on above: Performed By: #### . Automated Diff #### [place] [id number] Neutro Auto 78.5 % High 47.2-70.8 [facility] Comment on above: Performed By: #### . Automated Diff #### [place] [id number] Hgb A1con 01-29-2024 Glucose [Mass/Vol] 105 mg/dL Normal 68-114 [facility] Comment on above: Result Comment: Math ematical Calc approx. The mean gluc equivalency of A1c Performed By: #### R UB #### [place] [id number] Hgb A1c 5.3 % A1c Normal 4.0-5.6 [facility] Comment on above: Result Comment: Refe rence Range: 4.0 - 5.6 % Normal 5.7 - 6.4 % Pre-Diabetes > 6.5 % Diabetes Performed By: #### R UB #### [address] [address] Pren ABSCon 01-29-2024 Pren ABSC Negative Normal [facility] Comment on above: Performed By: #### R UB #### [address] [address] Rubella IgGon 01-29-2024 Rubella IgG Ab Interp Positive Normal [facility] Comment on above: Result Comment: The presence of detectable IgG-class antibodies indicates immunity to the rubella virus through prior immunization or exposure. Individuals testing reactive (positive) are considered immune to rubella infection. This result was obtained with the Access Rubella IgG EIA. Despite calibration by means of a reference preparation, values obtained with different missile inspector's assay methods may not be used interchangeably. The magnitude of the reported IgG level CANNOT be correlated to an endpoint titer. Performed By: #### R UB #### [place] [address] [place] [id number] Coding Summary.on 01-31-2020 Coding Summary. CODING DATE: 01/31/2020 [facility] STATUS: Home (Routine DC) PAYOR: Commercial Insurance [...] Jocy Munroe Date Saved: 01/31/2020 07:26 pm [facility] Physician Orderon 01-05-2020 Physician Order [id number] [facility] Vital Signs Date Time Vital Sign Value Performing Clinician Dilciai lity 06-19-2024 15:50-0500 Body mass index (BMI) [Ratio] 31.18 kg/m2 [employer] Work Phone: [facility] 06-19-2024 15:50-0500 Body weight 79.83 kg [employer] Work Phone: [facility] 06-19-2024 15:50-0500 Diastolic blood pressure 72 mm[Hg] Remy Flor [place] [facility] [place] Work Phone: [facility] 06-19-2024 15:50-0500 Systolic blood pressure 118 mm[Hg] Remy Flor [place] [place] Work Phone: [facility] 05-25-2024 16:00-0400 Body mass index (BMI) [Ratio] 30.61 kg/m2 Jenifer SHEEHAN Work Phone: [facility] 05-25-2024 16:00-0400 Body weight 78.38 kg Jenifer SHEEHAN Work Phone: [facility] 05-25-2024 16:00-0400 Diastolic blood pressure 74 mm[Hg] Jenifer SHEEHAN Work Phone: [facility] 05-25-2024 16:00-0400 Systolic blood pressure 110 mm[Hg] Jenifer SHEEHAN Work Phone: [facility] Encounters Encounter Date Encounter Type Care Provider Facility Start: 07-05-2024 End: 07-05-2024 ambulatory REMY FLOR Not Available Start: 07-05-2024 End: 07-05-2024 Bamboo flowsheet Remy Flor DO Work Phone: [facility] Start: 07-05-2024 End: 07-05-2024 Bamboo flowsheet Remy Flor DO Work Phone: [facility] Start: 06-19-2024 End: 06-19-2024 flow sheet Remy Flor DO Work Phone: [facility] Comment on above: Third trimester preg matthias; 29 weeks gestation of Start: 06-19-2024 End: 06-19-2024 ambulatory REMY FLRO Not Available Start: 06-19-2024 End: 06-19-2024 Bamboo flowsheet Remy Flor DO Work Phone: [facility] Start: 06-19-2024 End: 06-19-2024 Bamboo flowsheet Remy Flor DO Work Phone: [facility] Start: 06-03-2024 End: 06-03-2024 ambulatory Jenifer Latif PA-C Facility:[facility] Start: 05-25-2024 End: 05-25-2024 ambulatory JENIFER LATIF Not Available Start: 05-25-2024 End: 05-25-2024 flow sheet Jenifer SHEEHAN Work Phone: [facility] Comment on above: 26 weeks gestation o f ; Second trimester ; Elevated glucose tolerance test Start: 04-24-2024 End: 04-24-2024 ambulatory REMY FLOR Not Available Start: 03-28-2024 End: 03-28-2024 ambulatory JENIFER LATIF Not Available Start: 03-18-2024 End: 03-18-2024 ambulatory Remy Ray DO Facility:[facility] Start: 02-29-2024 End: 02-29-2024 ambulatory REMY CROWDERZIO Not Available Start: 01-29-2024 End: 01-29-2024 ambulatory Remy Tay Flor SCHAEFER Facility:[facility] Start: 01-21-2024 End: 01-21-2024 ambulatory REMY CROWDERZIO Not Available Start: 08-16-2023 End: 08-16-2023 ambulatory REMY CROWDERZIO Not Available Start: 08-11-2022 End: 08-11-[address] REMY RAY Facility:[facility] Procedures Date Procedure Procedure Detail Performing Clinician Start: 06-19-2024 Urnls dip stick/tabl et rgnt non-auto w/o micrscp Remy Ray DO Work Phone: Start: 05-25-2024 Urnls dip stick/tabl et rgnt non-auto w/o micrscp Jenifer Latif PA Work Phone: Plan of Treatment Date Care Activity Detail Author Start: 08-21-2024 End: 08-21-2024 Patient encounter procedure 08/21/2024 2:00 PM EST Office Visit [facility] [address] [place] [id number] Remy Ray DO [address] [place] [address] [facility] Start: 07-05-2024 End: 07-05-2024 Patient encounter procedure [facility] Comment on above: Arrived Start: 06-19-2024 End: 06-19-2024 Patient encounter procedure [facility] Comment on above: Arrived Start: 05-25-2024 End: 05-25-2025 Measurement of glucose 3 hours after glucose challenge for glucose tolerance test Glucose tolerance, 3 hours Lab Routine Elevated glucose tolerance test Expected: 05/25/2024 (Approximate), Expires: 05/25/2025 [facility] Work Phone: Comment on above: Expected: 05/25/2024 (Approximate), Expires: 05/25/2025 Payers Date Payer Category Payer Unknown 2023 Private Health Insurance [facility] Member Subscriber Plan / Payer (Effective 2023-Present) Name: Ary Ellis Member ID: [id number] Relation to Subscriber: Spouse Name: Sam Ellis Subscriber ID: [id number] Date of : 1990 Address: [address] [place] [address] [place] [address] Payer ID: Not on file Group ID: [id number] Type: Not on file Address: [place] [address] [place] [id number] [id number] 2023 Unknown [id number] 2021 Medicaid [id number] 1990 Unknown [id number] [id number]. 593 1990 Unknown [id number] [id number]. 196 1990 Unknown [id number] [id number]. 196 1990 Unknown [id number] [id number]. 196 1990 Unknown [id number] [id number]. 1259 1990 Unknown [id number] 2.16.840.1.414485.3.579.2. 1259 1990 Unknown [id number] 2.16840.1.447550.3.579.2. 1259 1990 Unknown [id number] [id number]. 1259 1990 Unknown [id number] 2.16.840.1.928691.3.579.2. 1259 1990 Unknown [id number] [id number]. 1259 1990 Unknown [id number] [id number]. 1259 1990 Unknown [id number] [id number]. 1259 1959 Unknown [id number] Social History Date Type Detail Facility Start: [facility]28[facility]23 [facility] Start: 07-28-2023 Tobacco use and exposure Smokeless t obacco non-user [facility] Start: 04-24-2024 Alcoholic beverage intake Curr ent drinker of alcohol (finding) [facility] Start: 08-16-2023 End: 04-24-2024 Alcoholic beverage intake [facility] Start: 08-16-2023 Tobacco use panel [facility] Start: 07-28-2023 Alcohol Comment Occasional alcohol u se [facility] Start: 12-09-2023 [facility] Start: 1990 Sex assigned at Female [facility] Start: 08-11-2023 Gender identity Identifies as female gender (finding) [facility] Start: 08-11-2023 Sexual orientation Heterosexual (fin ding) [facility] Medical Equipment Procedure Code Equipment Code Equipment Origin al Text Equipment Identifier Dates 1 strip by In Vi tro route Daily Use in the morning prior to breakfast, 1 hour after each meal for a total of 4times daily. [id number] Start: 06-19-2024 End: 07-19-2024 1 each by In Vit ro route Daily Use to check FSBS four times daily [id number] Start: 06-19-2024 End: 07-19-2024 History of Present illness Narrative 06-19-2024 Sadaf Little LPN - 06/19/2024 3:30 PM EST Note Date & Type Note Facility 06-19-2024 History of Presen t illness Narrative Reason for Appointment: Patient ID: Ary Ellis is a 34 y.o. female who presents for Routine Visit Patient presents today for Return OB appointment. MEDICATIONS Current Outpatient Medications Medication Instructions aspirin (Aspirin Low Dose) 81 MG EC tablet TAKE 1 TABLET BY MOUTH EVERY DAY FOR 30 DAYS aspirin (Aspirin Low Dose) 81 MG EC tablet TAKE 1 TABLET BY MOUTH EVERY DAY FOR 30 DAYS Cholecalciferol (Vitamin D) 125 MCG (5000 UT) capsule cholecalciferol (Vitamin D-3) 10 MCG (400 UNIT) tablet Every 24 hours Docusate Sodium (COLACE PO) Oral Doxylamine Succinate, Sleep, (UNISOM PO) Oral ondansetron (Zofran) 4 MG tablet TAKE 1 TABLET BY MOUTH EVERY 6 HOURS NEEDED NAUSEA/VOMITING UP TO 120 DOSES ondansetron (ZOFRAN) 4 mg, Oral, Every 6 hours PRN, Take 1 tablet by mouth every 6 hours as needed for nausea. polyethylene glycol, PEG, 3350 (Miralax) 17 g packet Oral Vit-Fe Fumarate-FA (M- Plus) 27-1 MG tablet TAKE 1 TABLET BY MOUTH EVERY DAY FOR 30 DAYS Vit-Fe Fumarate-FA (PNV Plus Multivitamin) 27-1 MG tablet 1 tablet, Oral, Daily ALLERGIES No Known Allergies PROBLEMS Active Ambulatory Problems Diagnosis Date Noted 21 weeks gestation of 04/24/2024 Second trimester 04/24/2024 Resolved Ambulatory Problems Diagnosis Date Noted No Resolved Ambulatory Problems Past Medical History: Diagnosis Date BMI 23.0-23.9, adult Depression screening Encounter for well woman exam Family history of diabetes mellitus Family history of pulmonary embolism Mother currently breast-feeding MTHFR gene mutation hypertension HISTORY PAST MEDICAL HISTORY SOCIAL HISTORY Past Medical History: Diagnosis Date BMI 23.0-23.9, adult Depression screening Encounter for well woman exam Family history of diabetes mellitus Family history of pulmonary embolism Mother currently breast-feeding MTHFR gene mutation hypertension Social History Tobacco Use Smoking status: Never Smokeless tobacco: Never Substance Use Topics Alcohol use: Yes Alcohol/week: 5.0 standard drinks of alcohol Types: 5 Cans of beer per week Comment: Occasional alcohol use Drug use: Never FAMILY HISTORY Family History Problem Relation Name Age of Onset Hypertension Father Sergio Casillas Osteoarthritis Father Sergio Casillas Cancer Other Grandfather SURGICAL HISTORY Past Surgical History: Procedure Laterality Date MOUTH SURGERY 2005 REVIEW OF SYSTEMS Review of Systems: Review of Systems All other systems reviewed and are negative. OBJECTIVE Objective: Physical Exam Constitutional: Appearance: Normal appearance. She is well-developed. Cardiovascular: Rate and Rhythm: Normal rate and regular rhythm. Pulmonary: Effort: Pulmonary effort is normal. Breath sounds: Normal breath sounds. Abdominal: General: Bowel sounds are normal. There is no distension. Palpations: Abdomen is soft. Tenderness: There is no abdominal tenderness. There is no guarding or rebound. Musculoskeletal: General: No swelling. Normal range of motion. Right lower leg: No edema. Left lower leg: No edema. Neurological: Mental Status: She is alert and oriented to person, place, and time. Skin: General: Skin is warm and dry. Psychiatric: Mood and Affect: Mood normal. Behavior: Behavior normal. Vitals and nursing note reviewed. Exam conducted with a senior accounts payable clerk present. Vitals: Estimated body mass index is 31.18 kg/m as calculated from the following: Height as of 08/11/22: 5' 3 . Weight as of this encounter: 176 lb. BP: 118/72 Patient's last menstrual period was 11/25/2023. ASSESSMENT & PLAN ICD-10-CM 1. Third trimester Z34.93 POCT urinalysis dipstick manually resulted 2. 29 weeks gestation of Z3A.29 Patient presents today for a routine obstetrics appointment. Patient is currently 29w4d with a Estimated Date of Delivery: 08/31/24. Patient verbalized results for recent glucose testing. Nursing will obtain results and diabetic supplies already sent to patients pharmacy. Patient to return to clinic in 2 weeks. Documented by Sadaf Little LPN on behalf of: Remy Ray DO documented in this encounter [facility] History of Present illness Narrative 05-25-2024 AGUILA Carbone - 05/25/2024 3:50 PM EDT Note Date & Type Note Facility 05-25-2024 History of Presen t illness Narrative Reason for Appointment: Patient ID: Ary Ellis is a 34 y.o. female who presents for Routine Visit Patient presents today for Return OB appointment. MEDICATIONS Current Outpatient Medications Medication Instructions aspirin (Aspirin Low Dose) 81 MG EC tablet TAKE 1 TABLET BY MOUTH EVERY DAY FOR 30 DAYS aspirin (Aspirin Low Dose) 81 MG EC tablet TAKE 1 TABLET BY MOUTH EVERY DAY FOR 30 DAYS Cholecalciferol (Vitamin D) 125 MCG (5000 UT) capsule cholecalciferol (Vitamin D-3) 10 MCG (400 UNIT) tablet Every 24 hours Docusate Sodium (COLACE PO) Oral Doxylamine Succinate, Sleep, (UNISOM PO) Oral ondansetron (Zofran) 4 MG tablet TAKE 1 TABLET BY MOUTH EVERY 6 HOURS NEEDED NAUSEA/VOMITING UP TO 120 DOSES ondansetron (ZOFRAN) 4 mg, Oral, Every 6 hours PRN, Take 1 tablet by mouth every 6 hours as needed for nausea. polyethylene glycol, PEG, 3350 (Miralax) 17 g packet Oral Vit-Fe Fumarate-FA (M- Plus) 27-1 MG tablet TAKE 1 TABLET BY MOUTH EVERY DAY FOR 30 DAYS Vit-Fe Fumarate-FA (PNV Plus Multivitamin) 27-1 MG tablet 1 tablet, Oral, Daily ALLERGIES No Known Allergies PROBLEMS Active Ambulatory Problems Diagnosis Date Noted 21 weeks gestation of 04/24/2024 Second trimester 04/24/2024 Resolved Ambulatory Problems Diagnosis Date Noted No Resolved Ambulatory Problems Past Medical History: Diagnosis Date BMI 23.0-23.9, adult Depression screening Encounter for well woman exam Family history of diabetes mellitus Family history of pulmonary embolism Mother currently breast-feeding MTHFR gene mutation hypertension HISTORY PAST MEDICAL HISTORY SOCIAL HISTORY Past Medical History: Diagnosis Date BMI 23.0-23.9, adult Depression screening Encounter for well woman exam Family history of diabetes mellitus Family history of pulmonary embolism Mother currently breast-feeding MTHFR gene mutation hypertension Social History Tobacco Use Smoking status: Never Smokeless tobacco: Never Substance Use Topics Alcohol use: Yes Alcohol/week: 5.0 standard drinks of alcohol Types: 5 Cans of beer per week Comment: Occasional alcohol use Drug use: Never FAMILY HISTORY Family History Problem Relation Name Age of Onset Hypertension Father Sergio Casillas Osteoarthritis Father Sergio Casillas Cancer Other Grandfather SURGICAL HISTORY Past Surgical History: Procedure Laterality Date MOUTH SURGERY 2005 REVIEW OF SYSTEMS Review of Systems: Review of Systems Constitutional: Negative. HENT: Negative. Eyes: Negative. Respiratory: Negative. Cardiovascular: Negative. Gastrointestinal: Negative. Genitourinary: Negative. Musculoskeletal: Negative. Skin: Negative. Neurological: Negative. All other systems reviewed and are negative. Hematological: Negative. Endocrine: Negative. Allergic/Immunologic: Negative. OBJECTIVE Objective: Physical Exam Constitutional: Appearance: Normal appearance. She is normal weight. HENT: Head: Normocephalic. Cardiovascular: Rate and Rhythm: Normal rate. Pulses: Normal pulses. Pulmonary: Effort: Pulmonary effort is normal. Breath sounds: Normal breath sounds. Abdominal: Palpations: Abdomen is soft. Musculoskeletal: General: Normal range of motion. Neurological: General: No focal deficit present. Mental Status: She is alert and oriented to person, place, and time. Psychiatric: Mood and Affect: Mood normal. Behavior: Behavior normal. Thought Content: Thought content normal. Judgment: Judgment normal. Vitals and nursing note reviewed. Vitals: Estimated body mass index is 30.61 kg/m as calculated from the following: Height as of 08/11/22: 5' 3 . Weight as of this encounter: 172 lb 12.8 oz. BP: 110/74 Patient's last menstrual period was 11/25/2023. ASSESSMENT & PLAN ICD-10-CM 1. 26 weeks gestation of Z3A.26 Urine dip 2. Second trimester Z34.92 Urine dip 3. Elevated glucose tolerance test R73.09 Glucose tolerance, 3 hours Glucose tolerance, 3 hours Documented by AGUILA Carbone on behalf of: AGUILA Carbone documented in this encounter [facility] Evaluation note Note Date & Type Note Facility Evaluation note Diagnosis 26 weeks gestation of Second trimester state, incidental Elevated glucose tolerance test Impaired glucose tolerance test documented in this encounter [facility] Evaluation note Note Date & Type Note Facility Evaluation note Diagnosis Third trimester state, incidental 29 weeks gestation of documented in this encounter [facility] Healthcare Summary Purpose Family History No Family History Records FoundNo Family History Records FoundNo Family History Records FoundNo Family History Records Found Advance Directives No Advanced Directives Records FoundNo Advanced Directives Records FoundNo Advanced Directives Records FoundNo Advanced Directives Records Found Additional Source Comments INFORMATION SOURCE (unrecogn ized section and content) DATE CREATED AUTHOR [facility] DATE CREATED AUTHOR AUTHOR'S ORGANIZ ATION 08/12/2022 [facility] DATE CREATED AUTHOR AUTHOR'S ORGANIZ ATION 07/06/2024 [facility] DATE CREATED AUTHOR AUTHOR'S ORGANIZ ATION 07/08/2024 [facility] EPIC Reason for Visit (unrecogniz ed section and content) Reason Comments Routine Visit FOR RECORDS PERTAINING TO PATIENTS WHO ARE [...] BE BASED ON THE PRIMARY CLINICAL RECORDS. [facility] [employer] [facility]. provides no warranty or guarantee of the accuracy or completeness of information in this document.
[2024-07-11 17:05] VITALS: BP 134/86; PULSE 115
--- NOTE | 2024-07-11 17:07 | US_ITS ---
[address] [address] Patient Name: KATHERINE SPAIN MRN: [id number] date: 1990 Sex: F Assigned Patient Location: [facility] [place] Current Patient Location: [facility] [place] Accession/Order Number: [id number] Exam Date: 07/11/2024 17:33 Report Date: 07/12/2024 05:50 At the request of: REMY GIPSON Procedure: US OB growth EXAMINATION: US OB growth HISTORY: GDM COMPARISON: No relevant comparison available. FINDINGS: Heart Rate: 141.36 bpm Amniotic Fluid Volume: 12.0 cm; normal range. Number: 1 Position: CEPHALIC BIOMETRY: BPD: 7.93 cm; 31 weeks 6 days; 18.80 % HC: 29.68 cm; 32 weeks 6 days; 17 % AC: 27.59 cm; 31 weeks 5 days; 20.60 % FL: 6.14 cm; 31 weeks 6 days; 17.80 % EFW: 1851.40 g; 17.40 % FL/AC: 22.27 FL/BPD: 77.45 HC/AC: 1.08 GESTATIONAL AGE: Age by EDC: 32 weeks 5 days SANGEETA by EDC: 2024-08-31 Age by US: 32 weeks 1 day SANGEETA by US: 2024-09-04 US/US OB growth IMPRESSION: 1. Single live intrauterine with growth detailed above. Electronically authenticated by: RENEE NAVARRO Date: 07/12/2024 05:50
--- NOTE | 2024-07-11 17:07 | US_ITS ---
[address] [address] Patient Name: KATHERINE SPAIN MRN: [id number] date: 1990 Sex: F Assigned Patient Location: [facility] [place] Patient Location: [facility] [place] Accession/Order Number: [id number] Exam Date: 07/11/2024 17:33 Report Date: 07/12/2024 05:49 At the request of: REMY GIPSON Procedure: US OB BPP w non-stress EXAM: US OB BPP w non-stress HISTORY: GDM COMPARISON: Obstetric ultrasound dated 04/24/2024. TECHNIQUE: Routine sonographic biophysical profile examination. FINDINGS: breathing movement: Adequate, score 2 gross body movement: Adequate, score 2 tone: Adequate, score 2 Amniotic fluid: Adequate, score 2 Total sonographic biophysical profile score: 8/8 Single live intrauterine in cephalic presentation with a heart rate of 141 bpm. Amniotic fluid index 12.0 cm. US/US OB BPP w non-stress IMPRESSION: Normal sonographic biophysical profile score of 8/8. Electronically authenticated by: DANE BYRNES Date: 07/12/2024 05:49
== END 2024-07-11 18:08 | disposition home or self-care (01) ==
LOC: FBCO 16:57 → FBC 17:00
PROVIDERS: PCP Nurse Practitioner Family; Visit Provider Obstetrics & Gynecology
DX: O24.419 Gestational diabetes mellitus in pregnancy, unspecified control (principal); Z15.89 Genetic susceptibility to other disease; Z3A.32 32 weeks gestation of pregnancy
CPT/HCPCS: 76816; 76818

== ENCOUNTER 2024-07-14 05:24 | Outpatient (OUT) | payer OTHER, SELFPAY ==
--- OUTSIDE RECORDS SUMMARY | 2024-07-14 05:26 | XMS_ITS | CCD ---
Author Organization [facility] InformFormerly [facility] Care Team Providers Care Demonstrator [employer]ing [employer] Name Role Phone DR REMY RAY Admitting Unavailable FLOR, DR ALBERTO Attending Unavailable LEXI ZHAO Primary Care Unavailable FLOR, DR ALBERTO Consulting Unavailable Unavailable Primary Care Provider Marielle Latif PA-C, Jenifer Blanc Attending Unavailable Flor DO, Remy Cross Attending Unavaila ble Flor DO, Remy Cross Attending Unavaila ble FLOR, REMY Attending Unavailable FLOR, REMY Attending Unavailable JENIFER LATIF Attending Unavailable FLOR, REMY Attending Unavailable JENIFER LATIF Attending Unavailable FLOR, REMY Attending Unavailable FLOR, REMY Attending Unavailable Medications Current Medications Medication Drug Class(es) Dates Sig (Normalized) Sig (Original) aspirin 81 mg delayed release oral tablet (20 sources) Platelet Aggregation Inhibitor, Nonsteroidal Anti-inflammatory Drug Start: 10-11-2023 End: 03-28-2024 take 1 tablet by mouth once daily aspirin (Aspirin Low Dose) 81 MG EC tablet Indications: Encounter for supervision of normal , unspecified, unspecified trimester TAKE 1 TABLET BY MOUTH EVERY DAY FOR 30 DAYS 30 tablet 3 03/28/2024 Active Blood Glucose Monitoring Suppl (D-Care Glucometer) w/Device kit (3 sources) Start: 06-19-2024 End: 06-19-2025 Blood Glucose Monitoring [...] 06/19/2025 Active cholecalciferol 0.01 mg oral tablet (20 sources) Vitamin D Cholecalciferol (Vitamin D) 125 MCG (5000 UT) capsule Active cholecalciferol (Vitamin D-3) 10 MCG (400 UNIT) tablet 1 (one) time each day at the same time Active Docusate (13 sources) Docusate Sodium (COLACE PO) Take by mouth Active Doxylamine Succinate, Sleep, (UNISOM PO) (13 sources) Doxylamine Succinate, Sleep, (UNISOM PO) Take by mouth Active isopropyl alcohol 0.7 ml/ml medicated pad (3 sources) Start: End: 4 Alcohol Swabs (Alcohol Prep Pad) 70 % pads Indications: Gestational diabetes mellitus (GDM), antepartum, gestational diabetes method of control unspecified , Elevated glucose tolerance test Apply 1 Pad topically Daily Use four times daily to check FSBS. 150 each 3 06/19/2024 07/19/2024 Active ondansetron 4 mg oral tablet (20 sources) Serotonin-3 Receptor Antagonist Start: take 1 tablet by mouth every six hours as needed for nausea ondansetron (Zofran) 4 MG tablet Indications: Nausea TAKE 1 TABLET BY MOUTH EVERY 6 HOURS NEEDED NAUSEA/VOMITING UP TO 120 DOSES 30 tablet 3 04/27/2024 Active Start: 01-21-2024 take 1 tablet by chip th every six hours as needed for nausea and vomiting and nausea and nausea ondansetron (Zofran) 4 MG tablet Indications: Nausea Take 1 tablet (4 mg) by mouth every 6 (six) hours if needed for nausea or vomiting for up to 120 doses Take 1 tablet by mouth every 6 hours as needed for nausea. 30 tablet 3 01/21/2024 Active polyethylene glycol 3350 45451 mg powder for oral solution (13 sources) Osmotic Laxative polyethylene gl ycol, PEG, 3350 (Miralax) 17 g packet Take by mouth Active Vit-Fe Fumarate-FA (M- Plus) 27-1 MG tablet (13 sources) Start: 04-15-2023 take 1 tablet by mouth once daily Vit-Fe Fumarate-FA (M- Plus) 27-1 MG tablet Indications: Other specified health status TAKE 1 TABLET BY MOUTH EVERY DAY FOR 30 DAYS 90 tablet 2 04/15/2023 Active Vit-Fe Fumarate-FA (PNV Plus Multivitamin) 27-1 MG tablet (12 sources) Start: 03-28-2024 take 1 tablet by mouth once daily Vit-Fe Fumarate-FA (PNV Plus Multivitamin) 27-1 MG tablet Indications: Encounter for supervision of normal , unspecified, unspecified trimester Take 1 tablet by mouth Daily 30 tablet 11 03/28/2024 Active Completed/Discontinued Medications Medication Drug Class(es) Dates Sig (Normalized) Sig (Original) insulin isophane, human 100 unt/ml injectable suspension (2 sources) Start: 07-05-2024 End: 07-06-2024 inject 5 [IU] by subcutaneous injection at bedtime insulin NPH, Isophane, (NovoLIN N) 100 UNIT/ML injection Indications: Gestational diabetes mellitus (GDM), antepartum, gestational diabetes method of control unspecified Inject 5 Units under the skin at bedtime 10 mL 2 07/05/2024 07/06/2024 Discontinued (Reorder) Vit w/ Fe Bisg-FA (PNV Tabs 20-1) 20-1 MG tablet (2 sources) Start: 03-28-2024 End: 03-28-2024 Vit w/ Fe Bisg-FA (PNV Tabs 20-1) 20-1 MG tablet Indications: Encounter for supervision of normal , unspecified, unspecified trimester Take 1 tablet by mouth Daily 30 tablet 11 03/28/2024 03/28/2024 Discontinued Problems Active Problems Problem Classification Problem Date Documented Date Episodic/Chronic Diabetes mellitus without complication (2 sources) Abnormal glucose tolerance test; Translations: [Other abnormal glucose] 05-25-2024 Episodic Diabetes or abnormal glucose tolerance complicating ; childbirth; or the puerperium (2 sources) Gestational diabetes mellitus; Translations: [Gestational diabetes mellitus in , unspecified control] 07-05-2024 Episodic Other and delivery including normal (18 sources) Second trimester ; Translations: [Encounter for supervision of normal , unspecified, second trimester] Onset: 04-24-2024 05-25-2024 Episodic Residual codes; unclassified (2 sources) Gestation period, 26 weeks; Translations: [26 weeks gestation of ] 05-25-2024 Episodic Residual codes; unclassified (8 sources) Gestation period, 21 weeks; Translations: [21 weeks gestation of ] Onset: 04-24-2024 04-24-2024 Episodic Residual codes; unclassified (2 sources) Gestation period, 29 weeks; Translations: [29 weeks gestation of ] 06-19-2024 Episodic Residual codes; unclassified (2 sources) Gestation period, 30 weeks; Translations: [30 weeks gestation of ] 07-05-2024 Episodic Residual codes; unclassified (2 sources) Hereditary disorder of endocrine system; Translations: [Genetic susceptibility to other disease] 07-05-2024 Episodic Past or Other Problems Problem Classification Problem Date Documented Da te Episodic/Chronic Immunizations and screening for infectious disease (2 sources) Exposure to sexually transmissible disorder; Translations: [Contact with and (suspected) exposure to infections with a predominantly sexual mode of transmission] 03-28-2024 Episodic Other screening for suspected conditions (not mental disorders or infectious disease) (4 sources) Alpha-fetoprotein blood test status; Translations: [Encounter for screening for raised alphafetoprotein level] 03-28-2024 Episodic Results Test Name Value Interpretation Reference Range Facil ity Urinalysis macro (dipstick) panel (U)on 07-05-2024 Bilirubin, UA Negative Negative - 4(70) +++ mg/dL [facility] Blood, UA Negative Negative - 50 Kyle/mcL [facility] Clarity, UA Clear [facility] re Color, UA Yellow [facility] Glucose, UA Negative Negative - 1999(110) ++++ mg/dL [facility] Interpretation and review of laboratory results Abnormal [facility] Ketones, UA Positive Negative - 160(16) ++++ mg/dL [facility] Comment on above: 15 Leukocytes, UA Positive Negative - 500+++ Ren/mcL [facility] Comment on above: small Nitrite, UA Negative Negative - Positive [facility] pH, UA 7 5 - 9 [facility] Protein, UA Negative Negative - 1999(20) ++++ mg/dL [facility] Spec Grav, UA 1.02 1 - 1.03 [facility] Urobilinogen, UA 0.2 0.2 - 12 mg/dL [facility] Urinalysis macro (dipstick) panel (U)on 06-19-2024 Bilirubin, UA Negative Negative - 4(70) +++ mg/dL [facility] Blood, UA Positive Negative - 50 Kyle/mcL [facility] Comment on above: trace Clarity, UA Clear [facility] re Color, UA Yellow [facility] Glucose, UA Negative Negative - 1999(110) ++++ mg/dL [facility] Interpretation and review of laboratory results Abnormal [facility] Ketones, UA Negative Negative - 160(16) ++++ mg/dL [facility] Leukocytes, UA Positive Negative - 500+++ Ren/mcL [facility] Comment on above: small Nitrite, UA Negative Negative - Positive [facility] pH, UA 7 5 - 9 [facility] Protein, UA Negative Negative - 1999(20) ++++ mg/dL [facility] Spec Grav, UA 1.02 1 - 1.03 [facility] Urobilinogen, UA 0.2 0.2 - 12 mg/dL [facility] .Glu 1 Hron 06-03-2024 Glucose [Mass/Vol] 180 mg/dL Normal 70-[address] [facility] Comment on above: Performed By: #### R UB #### [place] [address] .Glu 2 Hron 06-03-2024 Glucose [Mass/Vol] 163 mg/dL High 70-[address] [facility] Comment on above: Result Comment: A 2 Hour glucose of less than 140 mg/dL is normal. A value of more than 200 mg/dL after 2 hours indicates diabetes. A value between 140 and 199 mg/dL indicates pre-diabetes. Performed By: #### . Glucose 2 Hour #### [place] [id number] .Glu 3 Hron 06-03-2024 Glucose [Mass/Vol] 69 mg/dL Low 70-[address] [facility] Comment on above: Performed By: #### R UB #### [place] [id number] .Glu Baseon 06-03-2024 Glucose [Mass/Vol] 108 mg/dL High 70-[address] [facility] Comment on above: Performed By: #### R UB #### [place] [address] POC Glucon 06-03-2024 Glucose [Mass/Vol] 120 mg/dL Normal 78-[address] [facility] Comment on above: Performed By: #### R UB #### [facility] [address] [place] [address] Urinalysis macro (dipstick) panel (U)on 05-25-2024 Bilirubin, UA Negative Negative - 4(70) +++ mg/dL [facility] Blood, UA Negative Negative - 50 Kyle/mcL [facility] Clarity, UA Clear [facility] re Color, UA Yellow [facility] Glucose, UA Positive Negative - 1999(110) ++++ mg/dL [facility] Interpretation and review of laboratory results Abnormal [facility] Ketones, UA Negative Negative - 160(16) ++++ mg/dL [facility] Leukocytes, UA Negative Negative - 500+++ Ren/mcL [facility] Nitrite, UA Negative Negative - Positive [facility] pH, UA 7 5 - 9 [facility] e Protein, UA Negative Negative - 1999(20) ++++ mg/dL [facility] Spec Grav, UA 1.02 1 - 1.03 [facility] Urobilinogen, UA 1.0 0.2 - 12 mg/dL [facility] GLUCOSE TOLERANCE 3 HOURon 0 04-01-2024 GLUCOSE TOLERANCE 3 HOUR High mg/dL [facility] Comment on above: GLU FAST 109H (<95) Col: 04/01/24 0839 GLU 1HR 138 (<180) Col: 04/01/24 0945 GLU 2HR 128 (<155) Col: 04/01/24 1043 GLU 3HR 104 (<140) Col: 04/01/24 1143 Interpretation and review of laboratory results Abnormal [facility] URETHRITIS/DISCHARGE PLUS VA GINITIS (HTRX)on 03-29-2024 ATOPOBIUM VAGINAE 0.000 [facility] ATOPOBIUM VAGINAE Not detected [facility] BVAB 2,3 (BACTERIAL VAGINOSIS ASSOCIATED BACTERIA 2, 3); MOBILUNCUS SPP 0.000 [facility] BVAB 2,3 (BACTERIAL VAGINOSIS ASSOCIATED BACTERIA 2, 3); MOBILUNCUS SPP Not detected [facility] SERAFIN ALBICANS, PARAPSILOSIS, TROPICALIS 0.000 [facility] SERAFIN ALBICANS, PARAPSILOSIS, TROPICALIS Not detected [facility] SERAFIN GLABRATA 0.000 [facility] SERAFIN GLABRATA Not detected [facility] SERAFIN KRUSEI 0.000 [facility] SERAFIN KRUSEI Not detected [facility] CHLAMYDIA TRACHOMATIS 0.000 [facility] CHLAMYDIA TRACHOMATIS [facility] GARDN[facility]LLA [facility]AL[facility] GARDNERELLA VAGINALIS Not detected [facility] MEGASPHAERA (TYPES 1, 2) 0.000 [facility] MEGASPHA[facility]A (TYPES 1, 2) Not detected [facility] MYCOPLASMA GENITALIUM 0.000 [facility] MYCOPLAS[facility] GENITALIUM Not [facility] NEISSERIA GONORRHOEAE 0.000 [facility] NEISSERIA GONORRHOEAE Not detected [facility] TRICHOMONAS VAGINALIS 0.000 [facility] TRICHOMONAS VAGINALIS Not detected [facility] Urinalysis macro (dipstick) panel (U)on 03-28-2024 Bilirubin, UA Negative Negative - 4(70) +++ mg/dL [facility] Blood, UA Negative Negative - 50 Kyle/mcL [facility] Clarity, UA Clear [facility] re Color, UA Yellow [facility] Glucose, UA Negative Negative - 1999(110) ++++ mg/dL [facility] Interpretation and review of laboratory results Abnormal [facility] Ketones, UA Negative Negative - 160(16) ++++ mg/dL [facility] Leukocytes, UA Trace Negative - 500+++ Ren/mcL [facility] Nitrite, UA Negative Negative - Positive [facility] pH, UA 6.5 5 - 9 [facility] Protein, UA Negative Negative - 1999(20) ++++ mg/dL [facility] Spec Grav, UA 1.020 1 - 1.03 [facility] Urobilinogen, UA 0.2 0.2 - 12 mg/dL [facility] CBCon 03-18-2024 Erythrocyte distribution width (RBC) [Ratio] 13.0 % Normal 11.6-14.8 [facility] Comment on above: Performed By: #### R UB #### [facility] [address] [place] [address] Hematocrit (Bld) [Volume fraction] 36.7 % Normal 36.0-46.0 [facility] Comment on above: Performed By: #### R UB #### [address] [address] Hemoglobin (Bld) [Mass/Vol] 12.6 g/dL Normal 12.0-16.0 [facility] Comment on above: Performed By: #### R UB #### [address] [address] MCH (RBC) [Entitic mass] 31.8 pg Normal 27.0-35.0 [facility] Comment on above: Performed By: #### R UB #### [address] [address] MCHC 34.2 % Normal 31.0-37.0 [facility] Comment on above: Performed By: #### R UB #### [address] [address] MCV (RBC) [Entitic vol] 92.9 fL Normal 80.0-100.0 [facility] Comment on above: Performed By: #### R UB #### [address] [address] Platelet 295 x10*3/mcL Normal 150-450 [facility] Comment on above: Performed By: #### R UB #### [address] [address] Platelet mean volume (Bld) [Entitic vol] 8.7 fL Normal 6.7-10.6 [facility] Comment on above: Performed By: #### R UB #### [address] [address] RBC 3.95 x10*6/mcL Normal 3.80-5.20 [facility] Comment on above: Performed By: #### R UB #### [address] [address] WBC 11.6 x10*3/mcL High 4.5-11.0 [facility] Comment on above: Performed By: #### R UB #### [address] [address] Gest Diab Scn (ACOG)on 03-18 History of diabetes or gastric bypass? Unknown Normal [facility] Comment on above: Performed By: #### G DS #### [address] [address] Glucose [Mass/Vol] 136 mg/dL High 70-[address] [facility] Comment on above: Result Comment: Acco rding to the ADA, a glucose threshold of > 139 mg/dL after a 50-gram load identifies approximately 80% of women with gestational diabetes mellitus, while the sensitivity is further increased to approximately 90% by a threshold of >129 mg/dL. Performed By: #### G DS #### [address] [address] Trep Abon 02-01-2024 Treponema Total Ab <0.[address] [facility] Comment on above: Performed By: #### C [id number] #### [address] [address] Treponema Total Ab Interp Negative Normal Negative [facility] Comment on above: Result Comment: No s erologic evidence of syphilis. No follow- up necessary unless clinically indicated (eg, early syphilis). Performed By: #### C [id number] #### [address] [address] HIV1/2 Ab,Ag Scnon HIV-1/2 Ab,Ag 0.26 Normal [facility] Comment on above: Performed By: #### C [id number] #### [address] [address] HIV-1/2 Ab,Ag Interp Non-Reactive Normal Non-Reactive [facility] Comment on above: Performed By: #### C [id number] #### [address] [address] Hep Bs Agon 07-08-2024 Hep Bs Ag Interp Non-Reactive Normal Non-Reactive [facility] Comment on above: Performed By: #### H BSAG #### [address] [address] Hep C Ab w/reflex HCV RNA Qn t, PCRon 01-31-2024 Hep C IgG Interp Non-Reactive Normal Non-Reactive [facility] Comment on above: Performed By: #### H CV #### [address] [address] C Urineon 01-30-2024 C Urine ------- Final 30-50,000 cfu/ml Mixed gram positive alicia isolated. This urine contains 3 or more organisms which is inconsistent with clean catch collection. Consider the possibility of contamination during collection. No identification or susceptibility performed as results would be misleading Normal [facility] Comment on above: Performed By: #### U RC #### [address] [address] ABO/Rhon 01-29-2024 ABO/Rh ABO/Rh: A POS Normal [facility] Comment on above: Performed By: #### A BAN #### [facility] (UNKNOWN) [address] [place] [address] CBC w/ Diffon 01-29-2024 Erythrocyte distribution width (RBC) [Ratio] 12.0 % Normal 11.6-14.8 [facility] Comment on above: Performed By: #### R UB #### [address] [address] Hematocrit (Bld) [Volume fraction] 37.7 % Normal 36.0-46.0 [facility] Comment on above: Performed By: #### R UB #### [address] [address] Hemoglobin (Bld) [Mass/Vol] 12.8 g/dL Normal 12.0-16.0 [facility] Comment on above: Performed By: #### R UB #### [place] [id number] MCH (RBC) [Entitic mass] 31.0 pg Normal 27.0-35.0 [facility] Comment on above: Performed By: #### R UB #### [place] [id number] MCHC 34.0 % Normal 31.0-37.0 [facility] Comment on above: Performed By: #### R UB #### [place] [id number] MCV (RBC) [Entitic vol] 91.1 fL Normal 80.0-100.0 [facility] Comment on above: Performed By: #### R UB #### [place] [id number] Platelet 370 x10*3/mcL Normal 150-450 [facility] Comment on above: Performed By: #### R UB #### [place] [id number] Platelet mean volume (Bld) [Entitic vol] 8.0 fL Normal 6.7-10.6 [facility] Comment on above: Performed By: #### R UB #### [place] [id number] RBC 4.13 x10*6/mcL Normal 3.80-5.20 [facility] Comment on above: Performed By: #### R UB #### [place] [id number] WBC 12.3 x10*3/mcL High 4.5-11.0 [facility] Comment on above: Performed By: #### R UB #### [place] [address] Diff Autoon 01-29-2024 Baso Absolute 0.0 x10*3/mcL Normal 0.0-0.2 [facility] Comment on above: Performed By: #### . Automated Diff #### [address] [address] Basophils/100 WBC (Bld) 0.4 % Normal 0.0-1.5 [facility] Comment on above: Performed By: #### . Automated Diff #### [address] [address] Eos Absolute 0.0 x10*3/mcL Normal 0.0-0.4 [facility] Comment on above: Performed By: #### . Automated Diff #### [address] [address] Eosinophils/100 WBC (Bld) 0.3 % Normal 0.0-5.4 [facility] Comment on above: Performed By: #### . Automated Diff #### [address] [address] Lymph Absolute 2.0 x10*3/mcL Normal 1.0-4.8 [facility] Comment on above: Performed By: #### . Automated Diff #### [address] [address] Lymphocytes/100 WBC (Bld) 16.2 % Low 27.2-40.8 [facility] Comment on above: Performed By: #### . Automated Diff #### [address] [address] Fannin Absolute 0.6 x10*3/mcL Normal 0.1-1.1 [facility] Comment on above: Performed By: #### . Automated Diff #### [address] [address] Monocytes/100 WBC (Bld) 4.6 % Normal 3.7-11.9 [facility] Comment on above: Performed By: #### . Automated Diff #### [address] [address] Neutro Absolute 9.7 x10*3/mcL High 1.8-7.[address] [facility] Comment on above: Performed By: #### . Automated Diff #### [address] [address] Neutro Auto 78.5 % High 47.2-70.8 [facility] Comment on above: Performed By: #### . Automated Diff #### [address] [address] Hgb A1con 01-29-2024 Glucose [Mass/Vol] 105 mg/dL Normal 68-[address] [facility] Comment on above: Result Comment: Math ematical Calc approx. The mean gluc equivalency of A1c Performed By: #### R UB #### [place] [id number] Hgb A1c 5.3 % A1c Normal 4.0-5.6 [facility] Comment on above: Result Comment: Refe rence Range: 4.0 - 5.6 % Normal 5.7 - 6.4 % Pre-Diabetes > 6.5 % Diabetes Performed By: #### R UB #### [address] [address] Pren ABSCon 01-29-2024 Pren ABSC Negative Normal [facility] Comment on above: Performed By: #### R UB #### [address] [address] Rubella IgGon 01-29-2024 Rubella IgG Ab Interp Positive Normal [facility] Comment on above: Result Comment: The presence of detectable IgG-class antibodies indicates immunity to the rubella virus through prior immunization or exposure. Individuals testing reactive (positive) are considered immune to rubella infection. This result was obtained with the Access Rubella IgG EIA. Despite calibration by means of a reference preparation, values obtained with different space operations officer's assay methods may not be used interchangeably. The magnitude of the reported IgG level CANNOT be correlated to an endpoint titer. Performed By: #### R UB #### [place] [id number] Coding Summary.on 01-31-2020 Coding Summary. CODING DATE: 01/31/2020 [facility] STATUS: Home (Routine DC) PAYOR: Commercial [...] Jocy Munroe Date Saved: 01/31/2020 07:26 pm [facility] Physician Orderon 01-05-2020 Physician Order [id number] [facility] Vital Signs Date Time Vital Sign Value Performing Clinician Keira araujo 07-05-2024 16:18-0500 Body mass index (BMI) [Ratio] 30.65 kg/m2 [employer] Work Phone: [facility] 07-05-2024 16:18-0500 Body weight 78.47 kg Remy Flor DO Work Phone: [facility] 07-05-2024 16:18-0500 Diastolic blood pressure 70 mm[Hg] Remy Flor DO Work Phone: [facility] 07-05-2024 16:18-0500 Systolic blood pressure 118 mm[Hg] Remy Flor DO Work Phone: [facility] 06-19-2024 15:50-0500 Body mass index (BMI) [Ratio] 31.18 kg/m2 Remy Flor DO Work Phone: [facility] 06-19-2024 15:50-0500 Body weight 79.83 kg Remy Flor DO Work Phone: [facility] 06-19-2024 15:50-0500 Diastolic blood pressure 72 mm[Hg] Remy Flor Chloe + Isabel Work Phone: [facility] 06-19-2024 15:50-0500 Systolic blood pressure 118 mm[Hg] Remy Flor DO Work Phone: [facility] 05-25-2024 16:00-0400 Body mass index (BMI) [Ratio] 30.61 kg/m2 Jenifer Marjan PA Work Phone: [facility] 05-25-2024 16:00-0400 Body weight 78.38 kg Jenifer Waupaca PA Work Phone: [facility] 05-25-2024 16:00-0400 Diastolic blood pressure 74 mm[Hg] Jenifer Marjan PA Work Phone: [facility] 05-25-2024 16:00-0400 Systolic blood pressure 110 mm[Hg] Jenifer Waupaca PA Work Phone: [facility] 03-28-2024 14:01-0400 Body mass index (BMI) [Ratio] 29.23 kg/m2 Jenifer Waupaca PA Work Phone: [facility] 03-28-2024 14:01-0400 Body weight 74.84 kg Jenifer Waupaca PA Work Phone: [facility] 03-28-2024 14:01-0400 Diastolic blood pressure 74 mm[Hg] Jenifer Marjan PA Work Phone: [facility] 03-28-2024 14:01-0400 Systolic blood pressure 116 mm[Hg] Jenifer Marjan PA Work Phone: [facility] Healthcare Encounters Encounter Date Encounter Type Care Provider Facility Start: 07-05-2024 End: 07-05-2024 flow sheet Remy Flor DO Work Phone: [facility] BCP OB Comment on above: Third trimester preg matthias; 30 weeks gestation of ; Gestational diabetes mellitus (GDM), antepartum, gestational diabetes method of control unspecified; MTHFR mutation Start: 07-05-2024 End: 07-05-2024 ambulatory REMY FLOR Not Available Start: 07-05-2024 End: 07-05-2024 Bamboo flowsheet Remy Flor DO Work Phone: [facility] Start: 07-05-2024 End: 07-05-2024 Bamboo flowsheet Remy Flor DO Work Phone: [facility] Start: 06-19-2024 End: 06-19-2024 flow sheet Remy Flor DO Work Phone: [facility] Comment on above: Third trimester preg matthias; 29 weeks gestation of Start: 06-19-2024 End: 06-19-2024 ambulatory REMY FLOR Not Available Start: 06-19-2024 End: 06-19-2024 Bamboo flowsheet Remy Flor DO Work Phone: [facility] Start: 06-19-2024 End: 06-19-2024 Bamboo flowsheet Remy Flor DO Work Phone: [facility] Start: 06-03-2024 End: 06-03-2024 ambulatory Jenifer Latif PA-C Facility:[facility] Start: 05-25-2024 End: 05-25-2024 ambulatory JENIFER LATIF Not Available Start: 05-25-2024 End: 05-25-2024 flow sheet Jenifer SHEEHAN Work Phone: [facility] Comment on above: 26 weeks gestation o f ; Second trimester ; Elevated glucose tolerance test Start: 04-24-2024 End: 04-24-2024 ambulatory REMY FLOR Not Available Start: 04-01-2024 End: 04-01-2024 Clinisync Result Encounter Remy Flor DO Work Phone: [facility] External Department Unsolicited Start: 04-01-2024 End: 04-01-2024 Clinisync Result Encounter Remy Flor DO Work Phone: [facility] External Department Unsolicited Start: 03-28-2024 End: 03-28-2024 Bamboo flowsheet Jenifer SHEEHAN Work Phone: [facility] Start: 03-28-2024 End: 03-29-2024 Bamboo flowsheet Jenifer SHEEHAN Work Phone: [facility] Start: 03-28-2024 End: 03-29-2024 External Result Encounter Jenifer SHEEHAN Work Phone: [facility] External Department Unsolicited Start: 03-28-2024 End: 03-28-2024 flow sheet Jenifer SHEEHAN Work Phone: [facility] Comment on above: Exposure to STD; Need for maternal serum alpha-protein (MSAFP) screening; Screening, , for anatomic survey; Second trimester ; Encounter for supervision of normal , unspecified, unspecified trimester Start: 03-28-2024 End: 03-28-2024 ambulatory JENIFER LATIF Not Available Start: 03-18-2024 End: 03-18-2024 ambulatory Remy Ray DO Facility:[facility] Start: 02-29-2024 End: 02-29-2024 ambulatory REMY RAY Not Available Start: 01-29-2024 End: 01-29-2024 ambulatory Remy Ray DO Facility:[facility] Start: 01-21-2024 End: 01-21-2024 ambulatory REMY RAY Not Available Start: 08-16-2023 End: 08-16-2023 ambulatory REMY RAY Not Available Start: 08-11-2022 End: 08-11-[address] REMY RAY Facility: Procedures Date Procedure Procedure Detail Performing Clinician Start: 07-05-2024 Urnls dip stick/tabl et rgnt non-auto w/o micrscp Remy Flor DO Work Phone: Start: 06-19-2024 Urnls dip stick/tabl et rgnt non-auto w/o micrscp Remy Flor DO Work Phone: Start: 05-25-2024 Urnls dip stick/tabl et rgnt non-auto w/o micrscp Jenifer SHEEHAN Work Phone: Start: 04-01-2024 GLUCOSE TOLERANCE 3 HOUR Remy Flor DO Work Phone: Start: 03-28-2024 Urnls dip stick/tabl et rgnt non-auto w/o micrscp Jenifer SHEEHAN Work Phone: Start: 03-28-2024 URETHRITIS/DISCHARGE PLUS VAGINITIS (HTRX) Jenifer SHEEHAN Work Phone: Plan of Treatment Date Care Activity Detail Author Start: 08-21-2024 End: 08-21-2024 Patient encounter procedure 08/21/2024 2:00 PM EST Office Visit [facility] [address] [place] [id number] Remy Ray, DO [address] [place] [address] [facility] Start: 07-17-2024 End: 07-17-2024 Patient encounter procedure 07/17/2024 3:40 PM EST Routine [facility] [address] [place] [id number] Remy Ray, DO [address] [place] [address] [facility] Start: 07-05-2024 End: 07-05-2024 Patient encounter procedure [facility] Comment on above: Arrived Start: 07-05-2024 End: 07-05-2025 US biophysical profile w non stress test US biophysical profile w non stress test Imaging Routine Gestational diabetes mellitus (GDM), antepartum, gestational diabetes method of control unspecified MTHFR mutation Expected: 07/05/2024, Expires: 07/05/2025 [facility] Work Phone: Comment on above: Expected: 07/05/2024 , Expires: 07/05/2025 Start: 07-05-2024 End: 07-05-2025 US for US OB SCAN FOR GROWTH Imaging Routine Gestational diabetes mellitus (GDM), antepartum, gestational diabetes method of control unspecified MTHFR mutation Expected: 07/05/2024 (Approximate), Expires: 07/05/2025 [facility] Comment on above: Expected: 07/05/2024 (Approximate), Expires: 07/05/2025 Start: 06-19-2024 End: 06-19-2024 Patient encounter procedure [facility] Comment on above: Arrived Start: 05-25-2024 End: 05-25-2025 Measurement of glucose 3 hours after glucose challenge for glucose tolerance test Glucose tolerance, 3 hours Lab Routine Elevated glucose tolerance test Expected: 05/25/2024 (Approximate), Expires: 05/25/2025 [facility] Work Phone: Comment on above: Expected: 05/25/2024 (Approximate), Expires: 05/25/2025 Start: 04-24-2024 End: 04-24-2024 Patient encounter procedure 04/24/2024 2:40 PM EDT Routine [facility] [address] [place] [address] Remy Ray, [address], [place] [id number] [facility] Start: 04-24-2024 End: 04-24-2024 Professional / ancillary services management 04/24/2024 1:30 PM EDT Ancillary Procedure [facility] [address] [place] [address] [facility] Start: 03-28-2024 End: 04-27-2024 Alpha fetoprotein, maternal Alpha fetoprotein, maternal Lab Routine Need for maternal serum alpha-protein (MSAFP) screening Expected: 03/28/2024 (Approximate), Expires: 04/27/2024 [facility] Comment on above: Expected: 03/28/2024 (Approximate), Expires: 04/27/2024 Start: 03-28-2024 End: 03-28-2025 US for US OB ANATOMY SINGLE W US OB CERVICAL LENGTH Imaging Routine Screening, , for anatomic survey Expected: 03/28/2024 (Approximate), Expires: 03/28/2025 [facility] Comment on above: Expected: 03/28/2024 (Approximate), Expires: 03/28/2025 CHLAMYDIA TRACHOMATI S (GENITO/STI) CHLAMYDIA TRACHOMATIS (GENITO/STI) Lab Routine Exposure to STD Ordered: 03/28/2024 [facility] Comment on above: Ordered: 03/28/2024 Neisseria gonorrhoea e DNA [Presence] in Unspecified specimen by EFRAIN with probe detection Neisseria gonorrhea DNA probe, direct Lab Routine Exposure to STD Ordered: 03/28/2024 [facility] Comment on above: Ordered: 03/28/2024 SURESWAB(R) ADVANCED VAGINITIS PLUS, TMA SURESWAB(R) ADVANCED VAGINITIS PLUS, TMA Pathology and Cytology Routine Exposure to STD Ordered: 03/28/2024 [facility] Work Phone: Comment on above: Ordered: 03/28/2024 Payers Date Payer Category Payer Private Health Insurance [facility] [place] [id number] 2023 Unknown 2023 Unknown [id number] 2021 Medicaid [id number] 1990 Unknown [id number]. 593 1990 Unknown [id number] [id number]. 196 1990 Unknown [id number] [id number]. 196 1990 Unknown [id number] [id number]. 196 1990 Unknown [id number] [id number]. 1259 1990 Unknown [id number] [id number]. 1259 1990 Unknown [id number] [id number]. 1259 1990 Unknown [id number] [id number]. 1259 1990 Unknown [id number] [id number]. 1259 1990 Unknown [id number] 2.16.840.1.194539.3.579.2. 1259 1990 Unknown [id number] [id number]. 1259 1990 Unknown [id number] [id number]. 1259 1959 Unknown [id number] Social History Date Type Detail Facility Start: 07-28-2023 Tobacco smoking stat [facility] Never smoked tobacco [facility] Start: 07-28-2023 Tobacco use and exposure Smokeless t obacco non-user [facility] Start: 02-29-2024 End: 04-24-2024 Alcoholic beverage intake Current drinker of alcohol (finding) [facility] Start: [...] meal for a total of 4times daily. [id number] Start: 06-19-2024 End: 07-19-2024 1 each by In Vit ro route Daily Use to check FSBS four times daily [id number] Start: 06-19-2024 End: 07-19-2024 Use as instructed [id number] Start: 07-05-2024 History of Present illness Narrative 07-05-2024 Monica Casey, GEORGE - 07/05/2024 3:30 PM EST Note Date & Type Note Facility 07-05-2024 History of Presen t illness Narrative Reason for Appointment: Patient ID: Ary Ellis is a 34 y.o. female who presents for Routine Visit Patient presents today for Return OB appointment. MEDICATIONS Current Outpatient Medications Medication Instructions Alcohol Swabs (Alcohol Prep Pad) 70 % pads 1 Pad, Topical, Daily, Use four times daily to check FSBS. aspirin (Aspirin Low Dose) 81 MG EC tablet TAKE 1 TABLET BY MOUTH EVERY DAY FOR 30 DAYS aspirin (Aspirin Low Dose) 81 MG EC tablet TAKE 1 TABLET BY MOUTH EVERY DAY FOR 30 DAYS Blood Glucose Monitoring Suppl (D-Care Glucometer) w/Device kit 1 kit, Does not apply, Daily, Use four times daily to check FSBS. In the morning prior to breakfast & 1 hour after each meal for a total of 4times daily. Cholecalciferol (Vitamin D) 125 MCG (5000 UT) capsule cholecalciferol (Vitamin D-3) 10 MCG (400 UNIT) tablet Every 24 hours Docusate Sodium (COLACE PO) Oral Doxylamine Succinate, Sleep, (UNISOM PO) Oral Glucose Blood (Blood Glucose Test) strip 1 strip, In Vitro, Daily, Use in the morning prior to breakfast, 1 hour after each meal for a total of 4times daily. Lancets Ultra Thin misc 1 each, In Vitro, Daily, Use to check FSBS four times daily ondansetron (Zofran) 4 MG tablet TAKE 1 TABLET BY MOUTH EVERY 6 HOURS NEEDED NAUSEA/VOMITING UP TO 120 DOSES ondansetron (ZOFRAN) 4 mg, Oral, Every 6 hours PRN, Take 1 tablet by mouth every 6 hours as needed for nausea. polyethylene glycol, PEG, 3350 (Miralax) 17 g packet Oral Vit-Fe Fumarate-FA (M-Leann Plus) 27-1 MG tablet TAKE 1 TABLET [...] nursing note reviewed. 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 Vitals: Estimated body mass index is 30.65 kg/m as calculated from the following: Height as of 08/11/22: 5' 3 . Weight as of this encounter: 173 lb. BP: 118/70 Patient's last menstrual period was 11/25/2023. ASSESSMENT & PLAN ICD-10-CM 1. Third trimester Z34.93 POCT urinalysis dipstick manually resulted 2. 30 weeks gestation of Z3A.30 Return OB: Patient presents today for a routine obstetrics appointment. Patient is currently 31w6d . Patient states she is doing well but has complaints of being tired due to current . Patient has verbalizes frequent movement. labor precautions was discussed/given and patient was instructed to perform kick counts three times a day. Rx for NPH 5 units at hs ordered Pt given NST/BPP and growth ultrasound orders to have obtained. Orders Placed This Encounter Procedures POCT urinalysis dipstick manually resulted Follow Up: Patient is to return to office in 2 week for routine OB appointment. Documented by Monica Casey LPN on behalf of: Remy Ray DO documented in this encounter [facility] History of Present illness Narrative 06-19-2024 Sadaf [...] nursing note reviewed. 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 Vitals: Estimated body mass index is [...] Surgical History: Procedure Laterality Date MOUTH SURGERY 2006 REVIEW OF SYSTEMS Review of Systems: Review [...] Carbone documented in this encounter [facility] History of Present illness Narrative 03-28-2024 AGUILA Carbone - 03/28/2024 1:40 PM EDT Note Date & Type Note Facility 03-28-2024 History of Presen t illness Narrative Reason for Appointment: Patient ID: Ary Ellis is a 33 y.o. female who presents for Routine Visit [...] Doxylamine Succinate, Sleep, (UNISOM PO) Oral ondansetron (ZOFRAN) 4 mg, Oral, Every 6 hours PRN, Take 1 tablet by mouth every 6 hours as needed for nausea. polyethylene glycol, PEG, 3350 (Miralax) 17 g packet Oral Vit-Fe Fumarate-FA (M-Leann Plus) 27-1 MG tablet TAKE 1 TABLET BY MOUTH EVERY DAY FOR 30 DAYS ALLERGIES No Known Allergies PROBLEMS Active Ambulatory Problems Diagnosis Date Noted No Active Ambulatory Problems Resolved Ambulatory Problems Diagnosis Date Noted No [...] reviewed. Vitals: Estimated body mass index is 29.23 kg/m as calculated from the following: Height as of 08/11/22: 5' 3 . Weight as of this encounter: 165 lb. BP: 116/74 Patient's last menstrual period was 11/25/2023. ASSESSMENT & PLAN ICD-10-CM 1. Exposure to STD Z20.2 SURESWAB(R) ADVANCED VAGINITIS PLUS, TMA CHLAMYDIA TRACHOMATIS (GENITO/STI) Neisseria gonorrhea DNA probe, direct 2. Need for maternal serum alpha-protein (MSAFP) screening Z36.1 Alpha fetoprotein, maternal Alpha fetoprotein, maternal 3. Screening, , for anatomic survey Z36.89 US OB ANATOMY SINGLE W US OB CERVICAL LENGTH 4. Second trimester Z34.92 POCT urinalysis dipstick manually resulted Pt present today for OB visit and only issue she has is vaginal odor off and on. Pt is having vaginal cx's done on today's visit. Cx's were preformed and collected by Jenifer Latif. Pt was given her MSAFP and 3 hour glucose orders to have done at [facility] prior to next visit. Pt verbally understood. Return OB: Patient presents today for a routine obstetrics appointment. Patient is currently 17w5d . Patient states she is doing well but has complaints of being tired due to current . Patient has verbalizes frequent movement. Orders Placed This Encounter Procedures US OB ANATOMY SINGLE W US OB CERVICAL LENGTH CHLAMYDIA TRACHOMATIS (GENITO/STI) Neisseria gonorrhea DNA probe, direct Alpha fetoprotein, maternal POCT urinalysis dipstick manually resulted Follow Up: Patient is to return to office in 4 week for routine OB appointment. 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 documented in this encounter [facility] Evaluation note Note Date & Type Note Facility Evaluation note Diagnosis Exposure to STD Need for maternal serum alpha-protein (MSAFP) screening Screening, , for anatomic survey Encounter for anatomic survey Second trimester state, incidental Encounter for supervision of normal , unspecified, unspecified trimester documented in this encounter [facility] Summary Purpose Family History No Family History Records FoundNo Family History Records FoundNo Family History Records FoundNo Family History Records Found Advance Directives No Advanced Directives Records FoundNo Advanced Directives Records FoundNo Advanced Directives Records FoundNo Advanced Directives Records Found Additional Source Comments INFORMATION SOURCE (unrecogn ized section and content) DATE CREATED AUTHOR [facility]10/2020 [facility] DATE CREATED AUTHOR AUTHOR'S ORGANIZ ATION 08/12/2022 [facility] DATE CREATED AUTHOR AUTHOR'S ORGANIZ ATION 07/06/2024 [facility] DATE CREATED AUTHOR AUTHOR'S ORGANIZ ATION 07/08/2024 [facility] [place] Reason for Visit (unrecogniz ed section and [...] BE BASED ON THE PRIMARY CLINICAL RECORDS. [facility] [employer] provides no warranty or guarantee of the accuracy or completeness of information in this document.
[2024-07-14 17:04] VITALS: BP 127/89; PULSE 101
== END 2024-07-14 17:30 | disposition home or self-care (01) ==
LOC: FBCO 05:24 → FBC 16:53
PROVIDERS: PCP Nurse Practitioner Family; Visit Provider Obstetrics & Gynecology
DX: O24.419 Gestational diabetes mellitus in pregnancy, unspecified control (principal)
CPT/HCPCS: 59025

== ENCOUNTER 2024-07-17 05:52 | Outpatient (OUT) | payer OTHER, SELFPAY ==
--- OUTSIDE RECORDS SUMMARY | 2024-07-17 05:56 | XMS_ITS | CCD ---
Author Organization [facility] InformFormerly [facility] Care Team Providers Care Chair Lift Operator Name Role Phone DR REMY RYA Admitting Unavailable FLOR, DR ALBERTO Attending Unavailable [...] day at the same time Active Docusate (16 sources) Docusate Sodium (COLACE PO) Take by mouth Active Doxylamine Succinate, Sleep, (UNISOM PO) (16 sources) Doxylamine Succinate, Sleep, (UNISOM PO) Take [...] tablet 3 01/21/2024 Active polyethylene glycol 3350 03420 mg powder for oral solution (16 sources) Osmotic Laxative polyethylene gl ycol, PEG, 3350 (Miralax) 17 g packet Take by mouth Active Vit-Fe Fumarate-FA (M- Plus) 27-1 MG tablet (16 sources) Start: 04-15-2023 take 1 tablet by mouth once daily Vit-Fe Fumarate-FA (M- Plus) 27-1 MG tablet Indications: Other specified health status TAKE 1 TABLET BY MOUTH EVERY DAY FOR 30 DAYS 90 tablet 2 04/15/2023 Active Vit-Fe Fumarate-FA (PNV Plus Multivitamin) 27-1 MG tablet (15 sources) Start: 03-28-2024 take 1 tablet by [...] 07-05-2024 Episodic Other and delivery including normal (20 sources) Second trimester ; Translations: [Encounter for supervision of normal , unspecified, second trimester] Onset: 04-24-2024 05-25-2024 Episodic Residual codes; unclassified (2 sources) Gestation period, 26 weeks; Translations: [26 weeks gestation of ] 05-25-2024 Episodic Residual codes; unclassified (12 sources) Gestation period, 21 weeks; Translations: [21 [...] UA Negative Negative - 4(70) +++ mg/dL [facility] Blood, UA Negative Negative - 50 Kyle/mcL [facility] Clarity, UA [facility] re Color, UA Yellow [facility] Healthcar e Glucose, UA Negative Negative - 1999(110) ++++ mg/dL [facility] Interpretation and review of laboratory results Abnormal [facility] Ketones, UA Positive Negative - 160(16) ++++ mg/dL [facility] Comment on above: 15 Leukocytes, UA Positive Negative - 500+++ Ren/mcL [facility] Comment on above: small Nitrite, UA Negative Negative - Positive [facility] pH, UA 7 5 - 9 [facility] Health[facility] Protein, UA Negative Negative - 1999(20) ++++ mg/dL [facility] Spec Grav, UA 1.02 1 - 1.03 [facility] Urobilinogen, UA 0.2 0.2 - 12 mg/dL [facility] Urinalysis macro (dipstick) panel (U)on 06-19-2024 Bilirubin, UA Negative Negative - 4(70) +++ mg/dL [facility] Blood, UA Positive Negative - 50 Kyle/mcL [facility] Comment on above: trace Clarity, UA Clear [facility] Healthca re Color, UA Yellow [facility] Glucose, UA Negative Negative - 1999(110) ++++ mg/dL [facility] Interpretation and review of laboratory results Abnormal [facility] Ketones, UA Negative Negative - 160(16) ++++ mg/dL [facility] Leukocytes, UA Positive Negative - 500+++ Ren/mcL [facility] Comment on above: small Nitrite, UA Negative Negative - Positive [facility] pH, UA 7 5 - 9 [facility] Health[facility] Protein, UA Negative Negative - 1999(20) ++++ mg/dL [facility] Spec Grav, UA 1.02 1 - 1.03 [facility] Urobilinogen, UA 0.2 0.2 - 12 mg/dL [facility] .Glu 1 Hron 06-03-2024 Glucose [Mass/Vol] 180 mg/dL Normal 70-199 [facility] Comment on above: Performed By: #### R UB #### [place] [address] .Glu 2 Hron 06-03-2024 Glucose [Mass/Vol] 163 mg/dL High 70-139 [facility] Comment on above: Result Comment: A 2 Hour glucose of less than 140 mg/dL is normal. A value of more than 200 mg/dL after 2 hours indicates diabetes. A value between 140 and 199 mg/dL indicates pre-diabetes. Performed By: #### . Glucose 2 Hour #### [place] [id number] .Glu 3 Hron 06-03-2024 Glucose [Mass/Vol] 69 mg/dL Low 70-99 [facility] Comment on above: Performed By: #### R UB #### [place] [id number] .Glu Baseon 06-03-2024 Glucose [Mass/Vol] 108 mg/dL High 70-99 [facility] Comment on above: Performed By: #### R UB #### [place] [address] POC Glucon 06-03-2024 Glucose [Mass/Vol] 120 mg/dL Normal 78-120 [facility] Comment on above: Performed By: #### R UB #### [facility] [address] [place] [address] Urinalysis macro (dipstick) panel (U)on 05-25-2024 Bilirubin, UA Negative Negative - 4(70) +++ mg/dL [facility] Blood, UA Negative Negative - 50 Kyle/mcL [facility] Clarity, UA Clear [facility] Color, UA Yellow [facility] Glucose, UA Positive Negative - 1999(110) ++++ mg/dL [facility] Interpretation and review of laboratory results Abnormal [facility] Ketones, UA Negative Negative - 160(16) ++++ mg/dL [facility] Leukocytes, UA Negative Negative - 500+++ Ren/mcL [facility] Nitrite, UA Negative Negative - Positive [facility] pH, UA 7 5 - 9 [facility] Protein, UA Negative Negative - 1999(20) ++++ mg/dL [facility] Spec Grav, UA 1.02 1 - 1.03 [facility] Urobilinogen, UA 1.0 0.2 - 12 mg/dL [facility] Urinalysis macro (dipstick) panel (U)on 04-24-2024 Bilirubin, UA Negative Negative - 4(70) +++ mg/dL [facility] Blood, UA Negative Negative - 50 Kyle/mcL [facility] Clarity, UA Clear [facility] Color, UA Light Yellow [facility] Glucose, UA Negative Negative - 1999(110) ++++ mg/dL [facility] Healthcare Interpretation and review of laboratory results Abnormal [facility] Healthcare Ketones, UA Negative Negative - 160(16) ++++ mg/dL [facility] Leukocytes, UA Trace Negative - 500+++ Ren/mcL [facility] Nitrite, UA Negative Negative - Positive [facility] pH, UA 6.0 5 - 9 [facility] Protein, UA Negative Negative - 1999(20) ++++ mg/dL [facility] Spec Grav, UA 1.015 1 - 1.03 [facility] Urobilinogen, UA 1.0 0.2 - 12 mg/dL [facility] GLUCOSE TOLERANCE 3 HOURon 0 04-01-2024 GLUCOSE TOLERANCE 3 HOUR High mg/dL [facility] Comment on above: GLU FAST 109H (<95) Col: 04/01/24 0839 GLU 1HR 138 (<180) Col: 04/01/24 0945 GLU 2HR 128 (<155) Col: 04/01/24 1043 GLU 3HR 104 (<140) Col: 04/01/24 1143 Interpretation and review of laboratory results Abnormal [facility] e URETHRITIS/DISCHARGE PLUS VA GINITIS (HTRX)on 03-29-2024 ATOPOBIUM VAGINAE 0.000 [facility] ATOPOBIUM VAGINAE Not detected [facility] BVAB 2,3 (BACTERIAL VAGINOSIS ASSOCIATED BACTERIA 2, 3); MOBILUNCUS SPP 0.000 [facility] BVAB 2,3 (BACTERIAL VAGINOSIS ASSOCIATED BACTERIA 2, 3); MOBILUNCUS SPP Not detected [facility] SERAFIN ALBICANS, PARAPSILOSIS, TROPICALIS 0.000 [facility] SERAFIN ALBICANS, PARAPSILOSIS, TROPICALIS Not detected [facility] SERAFIN GLABRATA 0.000 [facility] Hea lthcare SERAFIN GLABRATA Not detected [facility] ealthcare SERAFIN KRUSEI 0.000 [facility] SERAFIN KRUSEI Not [facility] CHLAMYDIA TRACHOMATIS 0.000 [facility] CHLAMYDIA TRACHOMATIS Not detected [facility] GARDNERELLA VAGINALIS 0.000 [facility] GARDNERELLA VAGINALIS Not detected [facility] MEGASPHAERA (TYPES 1, 2) 0.000 [facility] MEGASPHAERA (TYPES 1, 2) Not detected [facility] MYCOPLASMA GENITALIUM 0.000 [facility] MYCOPLASMA GENITALIUM Not detected [facility] NEISSERIA GONORRHOEAE 0.000 [facility] NEISSERIA GONORRHOEAE Not detected [facility] TRICHOMONAS VAGINALIS 0.000 [facility] TRICHOMONAS VAGINALIS Not detected [facility] Urinalysis macro (dipstick) panel (U)on 03-28-2024 Bilirubin, UA Negative Negative - 4(70) +++ mg/dL [facility] Blood, UA Negative Negative - 50 Kyle/mcL [facility] Clarity, UA [facility] re Color, UA Yellow [facility] e Glucose, UA Negative Negative - 1999(110) ++++ mg/dL [facility] Interpretation and review of laboratory results Abnormal [facility] Ketones, UA Negative Negative - 160(16) ++++ mg/dL [facility] Leukocytes, UA Trace Negative - 500+++ Ren/mcL [facility] Nitrite, UA Negative Negative - Positive [facility] pH, UA 6.5 5 - 9 [facility] e Protein, UA Negative Negative - 1999(20) ++++ mg/dL [facility] Spec Grav, UA 1.020 1 - 1.03 [facility] Urobilinogen, UA 0.2 0.2 - 12 mg/dL [facility] CBCon 03-18-2024 Erythrocyte distribution width (RBC) [Ratio] 13.0 % Normal 11.6-14.8 [facility] Comment on above: Performed By: #### R UB #### [place] [id number] Hematocrit (Bld) [Volume fraction] 36.7 % Normal 36.0-46.0 [facility] Comment on above: Performed By: #### R UB #### [address] [address] Hemoglobin (Bld) [Mass/Vol] 12.6 g/dL Normal 12.0-16.0 [facility] Comment on above: Performed By: #### R UB #### [address] [address] MCH (RBC) [Entitic mass] 31.8 pg Normal 27.0-35.0 [facility] Comment on above: Performed By: #### R UB #### [address] [address] MCHC 34.2 % Normal 31.0-37.0 [facility] Comment on above: Performed By: #### R UB #### [address] [address] MCV (RBC) [Entitic vol] 92.9 fL Normal 80.0-100.0 [facility] Comment on above: Performed By: #### R UB #### [address] [address] Platelet 295 x10*3/mcL Normal 150-450 [facility] Comment on above: Performed By: #### R UB #### [address] [address] Platelet mean volume (Bld) [Entitic vol] 8.7 fL Normal 6.7-10.6 [facility] Comment on above: Performed By: #### R UB #### [address] [address] RBC 3.95 x10*6/mcL Normal 3.80-5.20 [facility] Comment on above: Performed By: #### R UB #### [address] [address] WBC 11.6 x10*3/mcL High 4.5-11.0 [facility] Comment on above: Performed By: #### R UB #### [address] [address] Gest Diab Scn (ACOG)on 03-18 History of diabetes or gastric bypass? Unknown Normal [facility] Comment on above: Performed By: #### G DS #### [address] [address] Glucose [Mass/Vol] 136 mg/dL High 70-134 [facility] Comment on above: Result Comment: Acco rding to the ADA, a glucose threshold of > 139 mg/dL after a 50-gram load identifies approximately 80% of women with gestational diabetes mellitus, while the sensitivity is further increased to approximately 90% by a threshold of >129 mg/dL. Performed By: #### G DS #### [address] [address] Trep Abon 02-01-2024 Treponema Total Ab <0.10 Normal [facility] Comment on above: Performed By: #### C D:[id number] #### [address] [address] Treponema Total Ab Interp Negative Normal Negative [facility] Comment on above: Result Comment: No s erologic evidence of syphilis. No follow- up necessary unless clinically indicated (eg, early syphilis). Performed By: #### C D:[id number] #### [address] [address] HIV1/2 Ab,Ag Scnon HIV-1/2 Ab,Ag 0.26 Normal [facility] Comment on above: Performed By: #### C [id number] #### [address] [address] HIV-1/2 Ab,Ag Interp Non-Reactive Normal Non-Reactive [facility] Comment on above: Performed By: #### C D:[id number] #### [address] [address] Hep Bs Agon 01-31-2024 Hep Bs Ag Interp Non-Reactive Normal Non-Reactive [facility] Comment on above: Performed By: #### H BSAG #### [address] [address] Hep C Ab w/reflex HCV RNA Qn t, PCRon 01-31-2024 Hep C IgG Interp Non-Reactive Normal Non-Reactive [facility] Comment on above: Performed By: #### H CV #### [address] [address] C Urineon 01-30-2024 C Urine ------- Final 30-50,000 cfu/ml Mixed gram positive alicia isolated. This urine contains 3 or more organisms which is inconsistent with clean catch collection. Consider the possibility of contamination during collection. No identification or susceptibility performed as results would be misleading [facility] Comment on above: Performed By: #### U RC #### [address] [address] ABO/Rhon 01-29-2024 ABO/Rh ABO/Rh: A POS Normal [facility] Comment on above: Performed By: #### A BAN #### [facility] (UNKNOWN) [address] [place] [address] CBC w/ Diffon 01-29-2024 Erythrocyte distribution width (RBC) [Ratio] 12.0 % Normal 11.6-14.8 [facility] Comment on above: Performed By: #### R UB #### [address] [address] Hematocrit (Bld) [Volume fraction] 37.7 % Normal 36.0-46.0 [facility] Comment on above: Performed By: #### R UB #### [address] [address] Hemoglobin (Bld) [Mass/Vol] 12.8 g/dL Normal 12.0-16.0 [facility] Comment on above: Performed By: #### R UB #### [address] [address] MCH (RBC) [Entitic mass] 31.0 pg Normal 27.0-35.0 [facility] Comment on above: Performed By: #### R UB #### [address] [address] MCHC 34.0 % Normal 31.0-37.0 [facility] Comment on above: Performed By: #### R UB #### [address] [address] MCV (RBC) [Entitic vol] 91.1 fL Normal 80.0-100.0 [facility] Comment on above: Performed By: #### R UB #### [address] [address] Platelet 370 x10*3/mcL Normal 150-450 [facility] Comment on above: Performed By: #### R UB #### [address] [place] [address] Platelet mean volume (Bld) [Entitic vol] 8.0 fL Normal 6.7-10.6 [facility] Comment on above: Performed By: #### R UB #### [address] [address] RBC 4.13 x10*6/mcL Normal 3.80-5.20 [facility] Comment on above: Performed By: #### R UB #### [address] [address] WBC 12.3 x10*3/mcL High 4.5-11.0 [facility] Comment on above: Performed By: #### R UB #### [address] [address] Diff Autoon 01-29-2024 Baso Absolute 0.0 x10*3/mcL Normal 0.0-0.2 [facility] Comment on above: Performed By: #### . Automated Diff #### [address] [address] Basophils/100 WBC (Bld) 0.4 % Normal 0.0-1.5 [facility] Comment on above: Performed By: #### . Automated Diff #### [address] [address] Eos Absolute 0.0 x10*3/mcL Normal 0.0-0.4 [facility] Comment on above: Performed By: #### . Automated Diff #### [address] [address] Eosinophils/100 WBC (Bld) 0.3 % Normal 0.0-5.4 [facility] Comment on above: Performed By: #### . Automated Diff #### [address] [address] Lymph Absolute 2.0 x10*3/mcL Normal 1.0-4.8 [facility] Comment on above: Performed By: #### . Automated Diff #### [address] [address] Lymphocytes/100 WBC (Bld) 16.2 % Low 27.2-40.8 [facility] Comment on above: Performed By: #### . Automated Diff #### [address] [address] [place] Absolute 0.6 x10*3/mcL Normal 0.1-1.1 [facility] Comment on above: Performed By: #### . Automated Diff #### [address] [address] Monocytes/100 WBC (Bld) 4.6 % Normal 3.7-11.9 [facility] Comment on above: Performed By: #### . Automated Diff #### [address] [address] Neutro Absolute 9.7 x10*3/mcL High 1.8-7.7 [facility] Comment on above: Performed By: #### . Automated Diff #### [place] [id number] Neutro Auto 78.5 % High 47.2-70.8 [facility] Comment on above: Performed By: #### . Automated Diff #### [address] [address] Hgb A1con 01-29-2024 Glucose [Mass/Vol] 105 mg/dL Normal 68-114 [facility] Comment on above: Result Comment: Math ematical Calc approx. The mean gluc equivalency of A1c Performed By: #### R UB #### [address] [address] Hgb A1c 5.3 % A1c Normal 4.0-5.6 [facility] Comment on above: Result Comment: Refe rence Range: 4.0 - 5.6 % Normal 5.7 - 6.4 % Pre-Diabetes > 6.5 % Diabetes Performed By: #### R UB #### [address] [address] Pren ABSCon 01-29-2024 Pren ABSC Negative Normal [facility] Comment on above: Performed By: #### R UB #### [address] [address] Rubella IgGon 01-29-2024 Rubella IgG Ab Interp Positive Normal [facility] Comment on above: Result Comment: The presence of detectable IgG-class antibodies indicates immunity to the rubella virus through prior immunization or exposure. Individuals testing reactive (positive) are considered immune to rubella infection. This result was obtained with the Access Rubella IgG EIA. Despite calibration by means of a reference preparation, values obtained with different video presentation operator's assay methods may not be used interchangeably. The magnitude of the reported IgG level CANNOT be correlated to an endpoint titer. Performed By: #### R UB #### [address] [address] Coding Summary.on 01-31-2020 Coding Summary. CODING DATE: 01/31/2020 [facility] STATUS: Home (Routine DC) PAYOR: Commercial Insurance [...] Munroe Date Saved: 01/31/2020 07:26 pm Normal [facility] Physician Orderon 01-05-2020 Physician Order [id number] Normal [facility] Vital Signs Date Time Vital Sign Value Performing Clinician Keira araujo 07-05-2024 16:18-0500 Body mass index (BMI) [Ratio] 30.65 kg/m2 Remy Flor DO Work Phone: [facility] 07-05-2024 16:18-0500 Body weight 78.47 kg Remy [employer] Work Phone: [facility] 07-05-2024 16:18-0500 Diastolic blood pressure 70 mm[Hg] Remy Flor DO Work Phone: [facility] 07-05-2024 16:18-0500 Systolic blood pressure 118 mm[Hg] Remy Flor DO Work Phone: [facility] 06-19-2024 15:50-0500 Body mass index (BMI) [Ratio] 31.18 kg/m2 Remy Flor DO Work Phone: [facility] 06-19-2024 15:50-0500 Body weight 79.83 kg Remy Flor DO Work Phone: [facility] 06-19-2024 15:50-0500 Diastolic blood pressure 72 mm[Hg] Remy Flor DO Work Phone: [facility] 06-19-2024 15:50-0500 Systolic blood pressure 118 mm[Hg] Remy Flor DO Work Phone: [facility] 05-25-2024 16:00-0400 Body mass index (BMI) [Ratio] 30.61 kg/m2 Jenifer Latif PA Work Phone: [facility] 05-25-2024 16:00-0400 Body weight 78.38 kg Jenifer Latif PA Work Phone: [facility] 05-25-2024 16:00-0400 Diastolic blood pressure 74 mm[Hg] Jenifer Latif PA Work Phone: [facility] 05-25-2024 16:00-0400 Systolic blood pressure 110 mm[Hg] Jenifer Marjan PA Work Phone: [facility] 04-24-2024 14:42-0400 Body mass index (BMI) [Ratio] 29.58 kg/m2 Remy Flor DO Work Phone: [facility] 04-24-2024 14:42-0400 Body weight 75.75 kg Remy Flor DO Work Phone: [facility] 04-24-2024 14:42-0400 Diastolic blood pressure 76 mm[Hg] Remy Flor DO Work Phone: [facility] 04-24-2024 14:42-0400 Systolic blood pressure 114 mm[Hg] Remy Flor DO Work Phone: [facility] 03-28-2024 14:01-0400 Body mass index (BMI) [Ratio] 29.23 kg/m2 Jenifer SHEEHAN Work Phone: [facility] 03-28-2024 14:01-0400 Body weight 74.84 kg Jenifer SHEEHAN Work Phone: [facility] 03-28-2024 14:01-0400 Diastolic blood pressure 74 mm[Hg] Jenifer SHEEHAN Work Phone: [facility] 03-28-2024 14:01-0400 Systolic blood pressure 116 mm[Hg] Jenifer SHEEHAN Work Phone: [facility] Healthcare Encounters Encounter Date Encounter Type Care Provider Facility Start: 07-05-2024 End: 07-05-2024 flow sheet Remy Flor DO Work Phone: [facility] Comment on above: Third trimester preg matthias; 30 weeks gestation of ; Gestational diabetes mellitus (GDM), antepartum, gestational diabetes method of control unspecified; MTHFR mutation Start: 07-05-2024 End: 07-05-2024 ambulatory REMY FLOR Not Available Start: 07-05-2024 End: 07-05-2024 Bamboo flowsheet Remy Flor DO Work Phone: [facility] Start: 07-05-2024 End: 07-05-2024 [...] DO Work Phone: [facility] Start: 06-03-2024 End: 06-03-2024 ambulatory Jenifer Latif PA-C Facility:[facility] Start: 05-25-2024 End: 05-25-2024 ambulatory JENIFER LATIF Not Available Start: 05-25-2024 End: 05-25-2024 flow sheet Jenifer SHEEHAN Work Phone: [facility] Comment on above: 26 weeks gestation o f ; Second trimester ; Elevated glucose tolerance test Start: 04-24-2024 End: 04-24-2024 flow sheet Remy Flor DO Work Phone: [facility] Comment on above: Second trimester pre gnancy; 21 weeks gestation of Start: 04-24-2024 End: 04-24-2024 ambulatory REMY FLOR Not Available Start: 04-24-2024 End: 04-24-2024 Bamboo flowsheet Remy Flor DO Work Phone: [facility] Start: 04-24-2024 End: 04-24-2024 Bamboo flowsheet Remy Flor DO Work Phone: [facility] Start: 04-01-2024 End: 04-01-2024 Clinisync Result Encounter Remy Flor DO Work Phone: [facility] Unsolicited Start: 04-01-2024 End: 04-01-2024 Clinisync Result Encounter Remy Flor DO Work Phone: [facility] Unsolic[facility] Start: 03-28-2024 End: 03-28-2024 Bamboo flowsheet Jenifer SHEEHAN Work Phone: [facility] Start: 03-28-2024 End: 03-29-2024 Bamboo flowsheet Jenifer SHEEHAN Work Phone: [facility] Start: 03-28-2024 End: 03-29-2024 External Result Encounter Jenifer SHEEHAN Work Phone: [facility] External Department Unsolicited Start: 03-28-2024 End: [...] 03-18-2024 End: 03-18-2024 ambulatory Remy Ray DO Facility:[facility] Start: 02-29-2024 End: 02-29-2024 ambulatory REMY RAY Not Available Start: 01-29-2024 End: 01-29-2024 ambulatory Remy Ray DO Facility:[facility] Start: 01-21-2024 End: 01-21-2024 ambulatory REMY [...] w/o micrscp Jenifer SHEEHAN Work Phone: Start: 04-24-2024 Urnls dip stick/tabl et rgnt non-auto w/o micrscp Remy Flor DO Work Phone: Start: 04-01-2024 GLUCOSE TOLERANCE 3 HOUR Remy Ray DO Work Phone: Start: 03-28-2024 Urnls dip stick/tabl et rgnt non-auto w/o micrscp Jenifer SHEEHAN Work Phone: Start: 03-28-2024 URETHRITIS/DISCHARGE PLUS VAGINITIS (HTRX) Jenifer SHEEHAN Work Phone: Plan of Treatment Date Care Activity Detail Author Start: 08-21-2024 End: 08-21-2024 Patient encounter procedure 08/21/2024 2:00 PM EST Office Visit [facility] [address] [facility] [facility] [place] [id number] Remy Ray, DO [address] [place], [place] [id number] [facility] Start: 07-17-2024 End: 07-17-2024 Patient encounter procedure 07/17/2024 3:40 PM EST Routine [facility] [address] [place] [id number] Remy Ray, DO [address], [place] [id number] [facility] Start: 07-05-2024 End: 07-05-2024 Patient encounter procedure [facility] Comment on above: Arrived Start: 07-05-2024 End: 07-05-2025 US biophysical profile w non stress test US biophysical profile w non stress test Imaging Routine Gestational diabetes mellitus (GDM), antepartum, gestational diabetes method of control unspecified MTHFR mutation Expected: 07/05/2024, Expires: 07/05/2025 [facility] Work Phone: Comment on above: Expected: 07/05/2024 , Expires: 07/05/2025 Start: 07-05-2024 End: 07-05-2025 US for US OB SCAN FOR GROWTH Imaging Routine Gestational diabetes mellitus (GDM), antepartum, gestational diabetes method of control unspecified MTHFR mutation Expected: 07/05/2024 (Approximate), Expires: 07/05/2025 [facility] Comment on above: Expected: 07/05/2024 (Approximate), Expires: 07/05/2025 Start: 06-19-2024 End: 06-19-[address] [facility] Comment on above: Arrived Start: 05-25-2024 End: 05-25-2024 Patient encounter procedure 05/25/2024 3:[address] [facility] [address] [place] [id number] Jenifer Latif PA [address] [place], [place] [id number] [facility] Start: 05-25-2024 End: 05-25-2025 Measurement of glucose 3 hours after glucose challenge for glucose tolerance test Glucose tolerance, 3 hours Lab Routine Elevated glucose tolerance test Expected: 05/25/2024 (Approximate), Expires: 05/25/2025 [facility] Work Phone: Comment on above: Expected: 05/25/2024 (Approximate), Expires: 05/25/2025 Start: 04-24-2024 End: 04-24-[address] [facility] Comment on above: Arrived Start: 04-24-2024 End: 04-24-2024 Professional / ancillary services management 04/24/2024 1:30 PM EDT Ancillary Procedure [facility] [address] [facility] [place] [address] [facility] Start: 03-28-2024 End: 04-27-2024 Alpha fetoprotein, maternal Alpha fetoprotein, maternal Lab Routine Need for maternal serum alpha-protein (MSAFP) screening Expected: 03/28/2024 (Approximate), Expires: 04/27/2024 [facility] Comment on above: Expected: 03/28/2024 (Approximate), Expires: 04/27/2024 Start: 03-28-2024 End: 03-28-2025 US for US OB ANATOMY SINGLE W US OB CERVICAL LENGTH Imaging Routine Screening, , for anatomic survey Expected: 03/28/2024 (Approximate), Expires: 03/28/2025 [facility] Comment on above: Expected: 03/28/2024 (Approximate), Expires: 03/28/2025 CHLAMYDIA TRACHOMATI S (GENITO/STI) CHLAMYDIA TRACHOMATIS (GENITO/STI) Lab Routine Exposure to STD Ordered: 03/28/2024 [facility] Comment on above: Ordered: 03/28/2024 Neisseria gonorrhoea e DNA [Presence] in Unspecified specimen by EFRAIN with probe detection Neisseria gonorrhea DNA probe, direct Lab Routine Exposure to STD Ordered: 03/28/2024 [facility] Comment on above: Ordered: 03/28/2024 SURESWAB(R) ADVANCED VAGINITIS PLUS, TMA SURESWAB(R) ADVANCED VAGINITIS PLUS, TMA Pathology and Cytology Routine Exposure to STD Ordered: 03/28/2024 [facility] Work Phone: Comment on above: Ordered: 03/28/2024 Payers Date Payer Category Payer Private Health Insurance [facility] [place] [id number] 2023 Unknown 2023 Unknown [id number] 2021 Medicaid [id number] 1990 Unknown [id number]. 593 1990 Unknown [id number] 20.1.424915.3.579.2. 196 1990 Unknown [id number] 2.16.840.1.890220.3.579.2. 196 1990 Unknown [id number] 2.16.840.1.006925.3.579.2. 196 1990 Unknown [id number] 2.16.840.1.557768.3.579.2. 1259 1990 Unknown [id number] 2.16.840.1.458242.3.579.2. 1259 1990 Unknown [id number] 2.16.840.1.624752.3.579.2. 1259 1990 Unknown [id number] 2.16.840.1.115441.3.579.2. 1259 1990 Unknown [id number] 2.16.840.1.851689.3.579.2. 1259 1990 Unknown [id number] 2.16.840.1.550968.3.579.2. 1259 1990 Unknown [id number] 2.16.840.1.528618.3.579.2. 1259 1990 Unknown [id number] 2.16.840.1.779998.3.579.2. 1259 1959 Unknown [id number] Social History Date Type Detail Facility Start: 07-28-2023 Tobacco smoking stat [facility] Never smoked tobacco [facility] Start: 07-28-2023 [...] [facility] Start: 08-11-2023 Sexual orientation Heterosexual (alphonso colón) [facility] Medical Equipment Procedure Code Equipment Code Equipment Origin al Text Equipment Identifier Dates 1 strip by In Vi tro route Daily Use in the morning prior to breakfast, 1 hour after each meal for a total of 4times daily. [id number] Start: 06-19-2024 End: 07-19-2024 1 each by In Vit ro route Daily Use to check FSBS four times daily [id number] Start: 06-19-2024 End: 07-19-2024 Use as instructed [id number] Start: 07-05-2024 History of Present illness Narrative 07-05-2024 Monica Casey, ADULT NEUROPSYCHOLOGIST - 07/05/2024 3:30 PM EST Note Date [...] nursing note reviewed. Exam conducted with a manager business management present. Vitals: Estimated body mass index is [...] nursing note reviewed. Exam conducted with a manager business management present. Vitals: Estimated body mass index is [...] calculated from the following: Height as of 23: 5' 3 . Weight as of this [...] [facility] History of Present illness Narrative 04-24-2024 Sadaf Little LPN - 04/24/2024 2:40 PM EDT Note Date & Type Note Facility 04-24-2024 History of Presen t illness Narrative Reason [...] nursing note reviewed. Exam conducted with a manager business management present. Vitals: Estimated body mass index is 29.58 kg/m as calculated from the following: Height as of 08/11/22: 5' 3 . Weight as of this encounter: 167 lb. BP: 114/76 Patient's last menstrual period was 11/25/2023. ASSESSMENT & PLAN ICD-10-CM 1. Second trimester Z34.92 POCT urinalysis dipstick manually resulted Patient presents today for a routine obstetrics appointment. Patient is currently 21w4d with a Estimated Date of Delivery: 08/31/24. Patient had anatomy scan done prior to appointment today. Patient to return to clinic in 4 weeks for routine OB appointment. Patient passed 3 hour gtt. Patient will recheck glucose routinely at normal time during . Patient is able to obtain Flu Vaccine and Tdap. Ptient to RTC in 4 weeks. Documented by Sadaf Little LPN on [...] hour glucose orders to have done at [facility] prior to next visit. Pt [...] trimester documented in this encounter [facility] Evaluation note Note Date & Type Note Facility Evaluation note Diagnosis Second trimester state, incidental 21 weeks gestation of documented in this encounter [facility] Summary Purpose Family History No Family History Records FoundNo Family History Records FoundNo Family History Records FoundNo Family History Records Found Advance Directives No Advanced Directives Records FoundNo Advanced Directives Records FoundNo Advanced Directives Records FoundNo Advanced Directives Records Found Additional Source Comments INFORMATION SOURCE (unrecogn ized section and content) DATE CREATED AUTHOR 02/10/2020 Michael Suresh [facility] DATE CREATED AUTHOR AUTHOR'S ORGANIZ ATION 08/12/2022 [facility] DATE CREATED AUTHOR AUTHOR'S ORGANIZ ATION 07/06/2024 [facility] DATE CREATED AUTHOR AUTHOR'S ORGANIZ ATION 07/08/2024 [facility] EPIC Reason for Visit (unrecogniz ed [...] BE BASED ON THE PRIMARY CLINICAL RECORDS. [facility] [employer] [facility]. provides no warranty or guarantee of the accuracy or completeness of information in this document.
--- NOTE | 2024-07-17 19:59 | US_ITS ---
[address] [address] Patient Name: KATHERINE SPAIN MRN: [id number] date: 1990 Sex: F Assigned Patient Location: [facility] Current Patient Location: Accession/Order Number: [id number] Exam Date: 07/17/2024 20:05 Report Date: 07/20/2024 08:07 At the request of: REMY GIPSON Procedure: US OB BPP w non-stress EXAMINATION: US OB BPP w non-stress HISTORY:GESTATIONAL DIABETES MELLITUS O24.419 COMPARISON: Ultrasound OB biophysical 07/11/2024 TECHNIQUE: Ultrasound biophysical profile was performed in the radiology department. BREATHING MOVEMENTS: 2 GROSS BODY MOVEMENTS: 2 TONE: 2 QUALITATIVE AMNIOTIC FLUID VOLUME: 2 PRESENTATION: CEPHALIC HEART RATE: 138.46 bpm AMNIOTIC FLUID VOLUME: 10.98 cm GESTATIONAL AGE: 33 weeks 4 days US/US OB BPP w non-stress IMPRESSION: Total biophysical profile score: 8 Electronically authenticated by: RENEE NAVARRO Date: 07/20/2024 08:07
[2024-07-17 20:37] VITALS: BP 135/89; PULSE 95
[2024-07-17 20:57] VITALS: BP 129/79; PULSE 82
== END 2024-07-17 21:01 | disposition home or self-care (01) ==
LOC: US 05:53 → FBCO 06:05 → FBC 19:54
PROVIDERS: PCP Nurse Practitioner Family; Visit Provider Obstetrics & Gynecology
DX: O24.419 Gestational diabetes mellitus in pregnancy, unspecified control (principal); Z3A.33 33 weeks gestation of pregnancy
CPT/HCPCS: 76818

== ENCOUNTER 2024-07-21 00:05 | Outpatient (OUT) | payer OTHER, SELFPAY ==
--- OUTSIDE RECORDS SUMMARY | 2024-07-21 00:08 | XMS_ITS | CCD ---
Author Organization [facility] Care Team Providers Care Electronic Test Technician Name Role Phone DR REMY RAY Admitting [...] REMY Attending Unavailable FLOR, REMY Attending Unavailable FLOR, REMY Attending Unavailable Medications Current Medications Medication Drug Class(es) Dates Sig (Normalized) Sig (Original) Blood Glucose Monitoring Suppl (D-Care Glucometer) w/Device kit (6 sources) Start: 06-19-2024 End: 06-19-2025 Blood Glucose [...] day at the same time Active Docusate (19 sources) Docusate Sodium (COLACE PO) Take by mouth Active Doxylamine Succinate, Sleep, (UNISOM PO) (19 sources) Doxylamine Succinate, Sleep, (UNISOM PO) Take by mouth Active insulin isophane, human 100 unt/ml injectable suspension (5 sources) Start: 07-05-20 End: 10-05-19 inject 5 [IU] by subcutaneous injection at bedtime insulin NPH, Isophane, (NovoLIN N) 100 UNIT/ML injection Indications: Gestational diabetes mellitus (GDM), antepartum, gestational diabetes method of control unspecified Inject 5 Units under the skin at bedtime 10 mL 2 07/06/2024 10/04/2024 Active isopropyl alcohol 0.7 ml/ml medicated pad (6 sources) Start: 06-19-20 End: 07-19-20 Alcohol Swabs (Alcohol Prep Pad) 70 % pads Indications: Gestational diabetes mellitus (GDM), antepartum, gestational diabetes method of control unspecified , Elevated glucose tolerance test Apply 1 Pad topically Daily Use four times daily to check FSBS. 150 each 3 06/19/2024 07/19/2024 Active ondansetron 4 mg oral tablet (20 sources) Serotonin-3 Receptor Antagonist Start: 04-27-20 End: 07-17-20 take 1 tablet by mouth every six hours as needed for nausea and vomiting and nausea and nausea ondansetron (Zofran) 4 MG tablet Indications: Nausea Take 1 tablet (4 mg) by mouth every 6 (six) hours if needed for nausea or vomiting for up to 120 doses Take 1 tablet by mouth every 6 hours as needed for nausea. 30 tablet 3 04/27/2024 Active Start: 01-21-2024 [...] tablet 3 01/21/2024 Active polyethylene glycol 3350 06371 mg powder for oral solution (19 sources) Osmotic Laxative polyethylene gl ycol, PEG, 3350 (Miralax) 17 g packet Take by mouth Active Vit-Fe Fumarate-FA (PNV Plus Multivitamin) 27-1 MG tablet (18 sources) Start: 03-28-2024 take 1 tablet by [...] Inhibitor, Nonsteroidal Anti-inflammatory Drug Start: 10-11-2023 End: 07-17-2024 take 1 tablet by mouth once daily aspirin (Aspirin Low Dose) 81 MG EC tablet Indications: Encounter for supervision of normal , unspecified, unspecified trimester TAKE 1 TABLET BY MOUTH EVERY DAY FOR 30 DAYS 30 tablet 3 03/28/2024 07/17/2024 Discontinued Vit w/ Fe Bisg-FA (PNV Tabs 20-1) 20-1 MG tablet (2 sources) Start: 03-28-2024 End: 03-28-2024 Vit w/ Fe Bisg-FA (PNV Tabs 20-1) 20-1 MG tablet Indications: Encounter for supervision of normal , unspecified, unspecified trimester Take 1 tablet by mouth Daily 30 tablet 11 03/28/2024 03/28/2024 Discontinued Vit-Fe Fumarate-FA (M- Plus) 27-1 MG tablet (19 sources) Start: 04-15-2023 End: 07-17-2024 take 1 tablet by mouth once daily Vit-Fe Fumarate-FA (M-Leann Plus) 27-1 MG tablet Indications: Other specified health status TAKE 1 TABLET BY MOUTH EVERY DAY FOR 30 DAYS 90 tablet 2 04/15/2023 07/17/2024 Discontinued Start: 04-15-2023 take 1 tablet by chip th once daily Vit-Fe Fumarate-FA (M- Plus) 27-1 MG tablet Indications: Other specified health status TAKE 1 TABLET BY MOUTH EVERY DAY FOR 30 DAYS 90 tablet 2 04/15/2023 Active Problems Active Problems Problem Classification Problem Date [...] of ] 05-25-2024 Episodic Residual codes; unclassified (15 sources) Gestation period, 21 weeks; Translations: [21 [...] [Genetic susceptibility to other disease] 07-05-2024 Episodic Residual codes; unclassified (2 sources) Gestation period, 33 weeks; Translations: [33 weeks gestation of ] 07-17-2024 Episodic Past or Other Problems Problem Classification [...] Facil ity Urinalysis macro (dipstick) panel (U)on 07-17-2024 Bilirubin, UA Negative Negative - 4(70) +++ mg/dL [facility] Blood, UA Negative Negative - 50 Kyle/mcL [facility] Clarity, UA Clear [facility] re Color, UA Yellow [facility] Glucose, UA Negative Negative - 2000(110) ++++ mg/dL [facility] Interpretation and review of laboratory results Abnormal [facility] Ketones, UA Negative Negative - 160(16) ++++ mg/dL [facility] Leukocytes, UA Trace Negative - 500+++ Ren/mcL [facility] Nitrite, UA Negative Negative - Positive [facility] pH, UA 7 5 - 9 [facility] Protein, UA Negative Negative - 1999(20) ++++ mg/dL [facility] Spec Grav, UA 1.015 1 - 1.03 [facility] Urobilinogen, UA 0.2 0.2 - 12 mg/dL [facility] Urinalysis macro (dipstick) panel (U)on 07-05-2024 Bilirubin, UA Negative Negative - 4(70) +++ mg/dL [facility] Blood, UA Negative Negative - 50 Kyle/mcL [facility] Clarity, UA Clear [facility] Color, UA Yellow [facility] Glucose, UA Negative Negative - 1999(110) ++++ mg/dL [facility] Interpretation and review of laboratory results Abnormal [facility] Ketones, UA Positive Negative - 160(16) ++++ mg/dL [facility] Comment on above: 15 Leukocytes, UA Positive Negative - 500+++ Ren/mcL [facility] Comment on above: small Nitrite, UA Negative Negative - Positive [facility] pH, UA 7 5 - 9 [facility] Protein, UA Negative Negative - 1999(20) ++++ mg/dL [facility] Spec Grav, UA 1.02 1 - 1.03 [facility] Urobilinogen, UA 0.2 0.2 - 12 mg/dL [facility] Urinalysis macro (dipstick) panel (U)on 06-19-2024 Bilirubin, UA Negative Negative - 4(70) +++ mg/dL [facility] Blood, UA Positive Negative - 50 Kyle/mcL [facility] Comment on above: trace Clarity, UA Clear [facility] Color, UA Yellow [facility] Glucose, UA Negative Negative - 1999(110) ++++ mg/dL [facility] Interpretation and review of laboratory results Abnormal [facility] Ketones, UA Negative Negative - 160(16) ++++ mg/dL [facility] Leukocytes, UA Positive Negative - 500+++ Ren/mcL [facility] Comment on above: small Nitrite, UA Negative Negative - Positive [facility] pH, UA 7 5 - 9 [facility] Protein, UA Negative Negative - 1999(20) ++++ mg/dL [facility] Spec Grav, UA 1.02 1 - 1.03 [facility] care Urobilinogen, UA 0.2 0.2 - 12 mg/dL [facility] .Glu 1 Hron 06-03-2024 Glucose [Mass/Vol] 180 mg/dL Normal 70-199 [facility] Comment on above: Performed By: #### R UB #### [place] [id number] .Glu 2 Hron 06-03-2024 Glucose [Mass/Vol] 163 mg/dL High 70-139 [facility] Comment on above: Result Comment: A 2 Hour glucose of less than 140 mg/dL is normal. A value of more than 200 mg/dL after 2 hours indicates diabetes. A value between 140 and 199 mg/dL indicates pre-diabetes. Performed By: #### . Glucose 2 Hour #### [place] [id number] .Glu 3 Hron 06-03-2024 Glucose [Mass/Vol] 69 mg/dL Low 70-99 [facility] Comment on above: Performed By: #### R UB #### [place] [id number] .Glu Baseon 06-03-2024 Glucose [Mass/Vol] 108 mg/dL High 70-99 [facility] Comment on above: Performed By: #### R UB #### [place] [id number] POC Glucon 06-03-2024 Glucose [Mass/Vol] 120 mg/dL Normal 78-120 [facility] Comment on above: Performed By: #### R UB #### [place] [id number] Urinalysis macro (dipstick) panel (U)on 05-25-2024 Bilirubin, UA Negative Negative - 4(70) +++ mg/dL [facility] Blood, UA Negative Negative - 50 Kyle/mcL [facility] Clarity, UA Clear [facility] re Color, UA Yellow [facility] Glucose, UA Positive Negative - 1999(110) ++++ mg/dL [facility] Interpretation and review of laboratory results Abnormal [facility] Ketones, UA Negative Negative - 160(16) ++++ mg/dL [facility] Leukocytes, UA Negative Negative - 500+++ Ren/mcL [facility] Nitrite, UA Negative Negative - Positive [facility] pH, UA 7 5 - 9 [facility] Protein, UA Negative Negative - 1999(20) ++++ mg/dL [facility] Spec Grav, UA 1.02 1 - 1.03 [facility] Urobilinogen, UA 1.0 0.2 - 12 mg/dL [facility] Urinalysis macro (dipstick) panel (U)on 04-24-2024 Bilirubin, UA Negative Negative - 4(70) +++ mg/dL [facility] Blood, UA Negative Negative - 50 Kyle/mcL [facility] Clarity, UA Clear [facility] re Color, UA Light Yellow [facility] are Glucose, UA Negative Negative - 1999(110) ++++ mg/dL [facility] Interpretation and review of laboratory results Abnormal [facility] Ketones, UA Negative Negative - 160(16) ++++ mg/dL [facility] Leukocytes, UA Trace Negative - 500+++ Ren/mcL [facility] Nitrite, UA Negative Negative - Positive [facility] pH, UA 6.0 5 - 9 [facility] Protein, UA Negative Negative - 1999(20) ++++ mg/dL [facility] Spec Grav, UA 1.015 1 - 1.03 [facility] Urobilinogen, UA 1.0 0.2 - 12 mg/dL [facility] GLUCOSE TOLERANCE 3 HOURon 0 04-01-2024 GLUCOSE TOLERANCE 3 HOUR High mg/dL [facility] Comment on above: GLU FAST 109H (<95) Col: 04/01/24 0839 GLU 1HR 138 (<180) Col: 04/01/24 0945 GLU 2HR 128 (<155) Col: 04/01/24 1043 GLU 3HR 104 (<140) Col: 04/01/24 1143 Interpretation and review of laboratory results Abnormal [facility] URETHRITIS/DISCHARGE PLUS VA GINITIS (HTRX)on 03-29-2024 ATOPOBIUM VAGINAE 0.000 [facility] ATOPOBIUM VAGINAE Not detected [facility] BVAB 2,3 (BACTERIAL VAGINOSIS ASSOCIATED BACTERIA 2, 3); MOBILUNCUS SPP 0.000 [facility] BVAB 2,3 (BACTERIAL VAGINOSIS ASSOCIATED BACTERIA 2, 3); MOBILUNCUS SPP Not detected [facility] SERAFIN ALBICANS, PARAPSILOSIS, TROPICALIS 0.000 [facility] SERAFIN ALBICANS, PARAPSILOSIS, TROPICALIS Not detected [facility] SERAFIN GLABRATA 0.000 [facility] SERAFIN GLABRATA Not [facility] SERAFIN KRUSEI 0.000 [facility] SEARFIN KRUSEI Not detected [facility] CHLAMYDIA TRACHOMATIS 0.000 [facility] CHLAM[facility] TRACHOMATIS Not detected [facility] GARDNERELLA VAGINALIS 0.000 [facility] GARDNERELLA VAGINALIS Not detected [facility] MEGASPHAERA (TYPES 1, 2) 0.000 [facility] MEGASPHAERA (TYPES 1, 2) Not detected [facility] MYCOPLASMA GENITALIUM 0.000 [facility] MYCOPLASMA GENITALIUM Not detected [facility] NEISSERIA GONORRHOEAE 0.000 [facility] NEISSERIA GONORRHOEAE Not detected [facility] TRICHOMONAS VAGINALIS 0.000 [facility] TRICHOMONAS VAGINALIS Not detected [facility] Urinalysis macro (dipstick) panel (U)on 03-28-2024 Bilirubin, UA Negative Negative - 4(70) +++ mg/dL [facility] Blood, UA Negative Negative - 50 Kyle/mcL [facility] Clarity, UA Clear [facility] re Color, UA Yellow [facility] e Glucose, UA Negative Negative - 1999(110) ++++ mg/dL [facility] Interpretation and review of laboratory results Abnormal [facility] Ketones, UA Negative Negative - 160(16) ++++ mg/dL [facility] Leukocytes, UA Trace Negative - 500+++ Ren/mcL [facility] Nitrite, UA Negative Negative - Positive [facility] pH, UA 6.5 5 - 9 [facility] e Protein, UA Negative Negative - 1999(20) ++++ mg/dL [facility] Spec Grav, UA 1.020 1 - 1.03 [facility] Urobilinogen, UA 0.2 0.2 - 12 mg/dL [facility] CBCon 03-18-2024 Erythrocyte distribution width (RBC) [Ratio] 13.0 % Normal 11.6-14.8 [facility] Comment on above: Performed By: #### R UB #### [address] [address] Hematocrit (Bld) [Volume fraction] 36.7 % Normal 36.0-46.0 [facility] Comment on above: Performed By: #### R UB #### [address] [address] Hemoglobin (Bld) [Mass/Vol] 12.6 g/dL Normal 12.0-16.0 [facility] Comment on above: Performed By: #### R UB #### [address] [address] MCH (RBC) [Entitic mass] 31.8 pg Normal 27.0-35.0 [facility] Comment on above: Performed By: #### R UB #### [address] [address] MCHC 34.2 % Normal 31.0-37.0 [facility] Comment on above: Performed By: #### R UB #### [address] [address] MCV (RBC) [Entitic vol] 92.9 fL Normal 80.0-100.0 [facility] Comment on above: Performed By: #### R UB #### [address] [address] Platelet 295 x10*3/mcL Normal 150-450 [facility] Comment on above: Performed By: #### R UB #### [address] [address] Platelet mean volume (Bld) [Entitic vol] 8.7 fL Normal 6.7-10.6 [facility] Comment on above: Performed By: #### R UB #### [address] [address] RBC 3.95 x10*6/mcL Normal 3.80-5.20 [facility] Comment on above: Performed By: #### R UB #### [address] [address] WBC 11.6 x10*3/mcL High 4.5-11.0 [facility] Comment on above: Performed By: #### R UB #### [address] [address] Gest Diab Scn (ACOG)on 03-18 History of diabetes or gastric bypass? Unknown Normal [facility] Comment on above: Performed By: #### G DS #### [place] [id number] Glucose [Mass/Vol] 136 mg/dL High 70-134 [facility] Comment on above: Result Comment: Acco rding to the ADA, a glucose threshold of > 139 mg/dL after a 50-gram load identifies approximately 80% of women with gestational diabetes mellitus, while the sensitivity is further increased to approximately 90% by a threshold of >129 mg/dL. Performed By: #### G DS #### [address] [address] Trep Abon 02-01-2024 Treponema Total Ab <0.10 Normal [facility] Comment on above: Performed By: #### C [id number] #### [address] [address] Treponema Total Ab Interp Negative Normal Negative [facility] Comment on above: Result Comment: No s erologic evidence of syphilis. No follow- up necessary unless clinically indicated (eg, early syphilis). Performed By: #### C [id number] #### [address] [address] HIV1/2 Ab,Ag Scnon HIV-1/2 Ab,Ag 0.26 Normal [facility] Comment on above: Performed By: #### C [id number] #### [address] [address] HIV-1/2 Ab,Ag Interp Non-Reactive Normal Non-Reactive [facility] Comment on above: Performed By: #### C [id number] #### [address] [address] Hep Bs Agon 01-31-2024 Hep Bs Ag Interp Non-Reactive Normal Non-Reactive [facility] Comment on above: Performed By: #### H BSAG #### [address] [address] Hep C Ab w/reflex HCV RNA Qn t, PCRon 01-31-2024 Hep C IgG Interp Non-Reactive Normal Non-Reactive [facility] Comment on above: Performed By: #### H CV #### [address] [address] C Urineon 01-30-2024 C Urine ------- Final 30-50,000 cfu/ml Mixed gram positive alicia isolated. This urine contains 3 or more organisms which is inconsistent with clean catch collection. Consider the possibility of contamination during collection. No identification or susceptibility performed as results would be misleading [facility] Comment on above: Performed By: #### U RC #### [address] [address] ABO/Rhon 01-29-2024 ABO/Rh ABO/Rh: A POS Normal [facility] Comment on above: Performed By: #### A BAN #### [facility] (UNKNOWN) [address] [place] [id number] CBC w/ Diffon 01-29-2024 Erythrocyte distribution width (RBC) [Ratio] 12.0 % Normal 11.6-14.8 [facility] Comment on above: Performed By: #### R UB #### [address] [address] Hematocrit (Bld) [Volume fraction] 37.7 % Normal 36.0-46.0 [facility] Comment on above: Performed By: #### R UB #### [address] [address] Hemoglobin (Bld) [Mass/Vol] 12.8 g/dL Normal 12.0-16.0 [facility] Comment on above: Performed By: #### R UB #### [address] [address] MCH (RBC) [Entitic mass] 31.0 pg Normal 27.0-35.0 [facility] Comment on above: Performed By: #### R UB #### [address] [address] MCHC 34.0 % Normal 31.0-37.0 [facility] Comment on above: Performed By: #### R UB #### [address] [address] MCV (RBC) [Entitic vol] 91.1 fL Normal 80.0-100.0 [facility] Comment on above: Performed By: #### R UB #### [address] [address] Platelet 370 x10*3/mcL Normal 150-450 [facility] Comment on above: Performed By: #### R UB #### [address] [address] Platelet mean volume (Bld) [Entitic vol] 8.0 fL Normal 6.7-10.6 [facility] Comment on above: Performed By: #### R UB #### [address] [address] RBC 4.13 x10*6/mcL Normal 3.80-5.20 [facility] Comment on above: Performed By: #### R UB #### [address] [address] WBC 12.3 x10*3/mcL High 4.5-11.0 [facility] Comment on above: Performed By: #### R UB #### [address] [address] Diff Autoon 01-29-2024 Baso Absolute 0.0 x10*3/mcL Normal 0.0-0.2 [facility] Comment on above: Performed By: #### . Automated Diff #### [address] [address] Basophils/100 WBC (Bld) 0.4 % Normal 0.0-1.5 [facility] Comment on above: Performed By: #### . Automated Diff #### [address] [address] Eos Absolute 0.0 x10*3/mcL Normal 0.0-0.4 [facility] Comment on above: Performed By: #### . Automated Diff #### [address] [address] Eosinophils/100 WBC (Bld) 0.3 % Normal 0.0-5.4 [facility] Comment on above: Performed By: #### . Automated Diff #### [address] [address] Lymph Absolute 2.0 x10*3/mcL Normal 1.0-4.8 [facility] Comment on above: Performed By: #### . Automated Diff #### [address] [address] Lymphocytes/100 WBC (Bld) 16.2 % Low 27.2-40.8 [facility] Comment on above: Performed By: #### . Automated Diff #### [address] [address] [place] Absolute 0.6 x10*3/mcL Normal 0.1-1.1 [facility] Comment on above: Performed By: #### . Automated Diff #### [address] [address] Monocytes/100 WBC (Bld) 4.6 % Normal 3.7-11.9 [facility] Comment on above: Performed By: #### . Automated Diff #### [address] [address] Neutro Absolute 9.7 x10*3/mcL High 1.8-7.7 [facility] Comment on above: Performed By: #### . Automated Diff #### [place] [id number] Neutro Auto 78.5 % High 47.2-70.8 [facility] Comment on above: Performed By: #### . Automated Diff #### [place] [id number] Hgb A1con 01-29-2024 Glucose [Mass/Vol] 105 mg/dL Normal 68-114 [facility] Comment on above: Result Comment: Math ematical Calc approx. The mean gluc equivalency of A1c Performed By: #### R UB #### [place] [id number] Hgb A1c 5.3 % A1c Normal 4.0-5.6 [facility] Comment on above: Result Comment: Refe rence Range: 4.0 - 5.6 % Normal 5.7 - 6.4 % Pre-Diabetes > 6.5 % Diabetes Performed By: #### R UB #### [place] [id number] Pren ABSCon 01-29-2024 Pren ABSC Negative Normal [facility] Comment on above: Performed By: #### R UB #### [address] [address] Rubella IgGon 01-29-2024 Rubella IgG Ab Interp Positive Normal [facility] Comment on above: Result Comment: The presence of detectable IgG-class antibodies indicates immunity to the rubella virus through prior immunization or exposure. Individuals testing reactive (positive) are considered immune to rubella infection. This result was obtained with the Access Rubella IgG EIA. Despite calibration by means of a reference preparation, values obtained with different card checker's assay methods may not be used interchangeably. The magnitude of the reported IgG level CANNOT be correlated to an endpoint titer. Performed By: #### R UB #### [address] [address] Coding Summary.on 01-31-2020 Coding Summary. CODING DATE: 01/31/2020 FINAL [facility] STATUS: Home (Routine DC) PAYOR: Commercial [...] Munroe Date Saved: 01/31/2020 07:26 pm Normal [facility] Physician Orderon 01-05-2020 Physician Order [id number]:[id number] Normal [facility] Vital Signs Date Time Vital Sign Value Performing Clinician Dilciai lity 07-17-2024 16:07-0500 Body mass index (BMI) [Ratio] 30.89 kg/m2 Remy Flor DO Work Phone: [facility] 07-17-2024 16:07-0500 Body weight 79.11 kg Remy Flor DO Work Phone: [facility] 07-17-2024 16:07-0500 Diastolic blood pressure 80 mm[Hg] Remy Flor DO Work Phone: [facility] 07-17-2024 16:07-0500 Systolic blood pressure 122 mm[Hg] Remy Flor DO Work Phone: [facility] 07-05-2024 16:18-0500 Body mass index (BMI) [Ratio] 30.65 kg/m2 Remy Flor DO Work Phone: [facility] 07-05-2024 16:18-0500 Body weight 78.47 kg Remy Flor DO Work Phone: [facility] 07-05-2024 16:18-0500 Diastolic blood pressure 70 mm[Hg] Remy Flor DO Work Phone: [facility] 07-05-2024 16:18-0500 Systolic blood pressure 118 mm[Hg] Remy Flor DO Work Phone: [facility] 06-19-2024 15:50-0500 Body mass index (BMI) [Ratio] 31.18 kg/m2 Remy Flor DO Work Phone: [facility] 06-19-2024 15:50-0500 Body weight 79.83 kg Remy Flor DO Work Phone: [facility] 06-19-2024 15:50-0500 Diastolic blood pressure 72 mm[Hg] Remy Flor DO Work Phone: [facility] 06-19-2024 15:50-0500 Systolic blood pressure 118 mm[Hg] Remy Flor DO Work Phone: [facility] 05-25-2024 16:00-0400 Body mass index (BMI) [Ratio] 30.61 kg/m2 Jenifer SHEEHAN Work Phone: [facility] 05-25-2024 16:00-0400 Body weight 78.38 kg Jenifer SHEEHAN Work Phone: [facility] 05-25-2024 16:00-0400 Diastolic blood pressure 74 mm[Hg] Jenifer SHEEHAN Work Phone: [facility] 05-25-2024 16:00-0400 Systolic blood pressure 110 mm[Hg] Jenifer SHEEHAN Work Phone: [facility] 04-24-2024 14:42-0400 Body mass index (BMI) [Ratio] 29.58 kg/m2 Remy Flor DO Work Phone: [facility] 04-24-2024 14:42-0400 Body weight 75.75 kg Remy Flor DO Work Phone: [facility] 04-24-2024 14:42-0400 Diastolic blood pressure 76 mm[Hg] Remy Flor DO Work Phone: [facility] 04-24-2024 14:42-0400 Systolic blood pressure 114 mm[Hg] Remy Flor DO Work Phone: [facility] 03-28-2024 14:01-0400 Body mass index (BMI) [Ratio] 29.23 kg/m2 Jenifer SHEEHAN Work Phone: [facility] 03-28-2024 14:01-0400 Body weight 74.84 kg Jenifer SHEEHAN Work Phone: [facility] 03-28-2024 14:01-0400 Diastolic blood pressure 74 mm[Hg] Jenifer SHEEHAN Work Phone: [facility] 03-28-2024 14:01-0400 Systolic blood pressure 116 mm[Hg] Jenifer SHEEHAN Work Phone: [facility] Healthcare Encounters Encounter Date Encounter Type Care Provider Facility Start: 07-17-2024 End: 07-17-2024 flow sheet Remy Flor DO Work Phone: [facility] Comment on above: 33 weeks gestation o f ; Third trimester Start: 07-17-2024 End: 07-17-2024 ambulatory REMY FLOR Not Available Start: 07-17-2024 End: 07-17-2024 Bamboo flowsheet Remy Flor DO Work Phone: [facility] Start: 07-17-2024 End: 07-17-2024 Bamboo flowsheet Remy Flor DO Work Phone: [facility] Start: 07-05-2024 End: 07-05-2024 flow sheet Remy Flor DO Work Phone: [facility] Comment on above: Third trimester preg matthias; 30 weeks gestation of ; Gestational diabetes mellitus (GDM), antepartum, gestational diabetes method of control unspecified; MTHFR mutation Start: 07-05-2024 End: 07-05-2024 ambulatory REMY FLOR Not Available Start: 07-05-2024 End: 07-05-2024 Bamboo flowsheet Remy Flor DO Work Phone: [facility] Start: 07-05-2024 End: 07-05-2024 Bamboo [...] End: 06-03-2024 ambulatory Jenifer Latif PA-C Facility:[facility] Start: 05-25-2024 End: 05-25-2024 ambulatory JENIFER LATIF Not Available Start: 05-25-2024 End: 05-25-2024 flow sheet Jenifer Latif PA Work Phone: [facility] Comment on [...] DO Work Phone: [facility] Start: 04-24-2024 End: 04-24-2024 Bamboo flowsheet Remy Flor DO Work Phone: [facility] Start: 04-01-2024 End: 04-01-2024 Clinisync Result Encounter Remy Flor DO Work Phone: [facility] Unsolicited Start: 04-01-2024 End: 04-01-2024 Clinisync Result Encounter Remy Flor DO Work Phone: [facility]solic[facility] Start: 03-28-2024 End: 03-28-2024 Bamboo flowsheet Jenifer SHEEHAN Work Phone: [facility] Start: 03-28-2024 End: 03-29-2024 Bamboo flowsheet Jenifer SHEEHAN Work Phone: [facility] Start: 03-28-2024 End: 03-29-2024 External [...] Available Start: 03-18-2024 End: 03-18-2024 ambulatory Remy Tay Amoro DO Facility:[facility] Start: 02-29-2024 End: 02-29-2024 ambulatory REMY FLOR Not Available Start: 01-29-2024 End: 01-29-2024 ambulatory Remy Tay Flor DO Facility:[facility] Start: 01-21-2024 End: 01-21-2024 ambulatory REMY FLOR Not Available Start: 08-16-2023 End: 08-16-2023 ambulatory REMY FLOR Not Available Start: 08-11-2022 End: 08-11-[address] REMY RAY Facility:[facility] Procedures Date Procedure Procedure Detail Performing Clinician Start: 07-17-2024 Urnls dip stick/tabl et rgnt non-auto w/o micrscp Remy Flor DO Work Phone: Start: 07-05-2024 Urnls dip stick/tabl et rgnt [...] Office Visit [facility] [address] [place] [id number] Remy Ray DO [address] [place] [address] [facility] Start: 08-15-2024 End: 08-15-2024 Patient encounter procedure 08/15/2024 2:50 PM EST Routine [facility] [address] [place] [address] Remy Ray, DO [address] [place] [address] [facility] Start: 08-08-2024 End: 08-08-2024 Patient encounter procedure 08/08/2024 2:50 PM EST Routine [facility] [address] [facility] [place] [place] [address] Remy Ray, DO [address] [place] [address] [facility] Start: 08-01-2024 End: 08-01-2024 Patient encounter procedure 08/01/2024 2:40 PM EST Routine [facility] [address] [facility] [place] [place] [id number] Remy Ray, DO [address] [facility] [address] [place] [address] [facility] Start: 07-17-2024 End: 07-17-2024 Patient encounter procedure [facility] Comment on above: Arrived Start: 07-05-2024 End: 07-05-2024 Patient encounter procedure [...] MTHFR mutation Expected: 07/05/2024 (Approximate), Expires: 07/05/2025 [facility] Comment on above: Expected: 07/05/2024 (Approximate), Expires: 07/05/2025 Start: 06-19-2024 End: 06-19-2024 Patient encounter procedure [facility] Comment on above: Arrived Start: 05-25-2024 End: 05-25-2024 Patient encounter procedure 05/25/2024 3:50 PM EDT Routine [facility] [address] [facility] [place] [place] [address] Jenifer Latif PA [address], [place] [id number] [facility] Start: 05-25-2024 End: 05-25-2025 Measurement of glucose 3 hours after glucose challenge for glucose tolerance test Glucose tolerance, 3 hours Lab Routine Elevated glucose tolerance test Expected: 05/25/2024 (Approximate), Expires: 05/25/2025 [facility] Work Phone: Comment on above: Expected: 05/25/2024 (Approximate), Expires: 05/25/2025 Start: 04-24-2024 End: 04-24-2024 Patient encounter procedure [facility] Comment on above: Arrived Start: 04-24-2024 End: 04-24-2024 Professional / ancillary services management 04/24/2024 1:30 PM EDT Ancillary Procedure [facility] [address] [facility] [place] [place] [address] [facility] Start: 03-28-2024 End: 04-27-2024 Alpha fetoprotein, maternal Alpha fetoprotein, maternal Lab Routine Need for maternal serum alpha-protein (MSAFP) screening Expected: 03/28/2024 (Approximate), Expires: 04/27/2024 [facility] Comment on above: Expected: 03/28/2024 (Approximate), Expires: 04/27/2024 Start: 03-28-2024 End: 03-28-2025 US for US OB ANATOMY SINGLE W US OB CERVICAL LENGTH Imaging Routine Screening, , for anatomic survey Expected: 03/28/2024 (Approximate), Expires: 03/28/2025 [facility] Comment on above: Expected: 03/28/2024 (Approximate), Expires: 03/28/2025 CHLAMYDIA TRACHOMATI S (GENITO/STI) CHLAMYDIA TRACHOMATIS (GENITO/STI) Lab Routine Exposure to STD Ordered: 03/28/2024 [facility] Comment on above: Ordered: 03/28/2024 Neisseria gonorrhoea e DNA [Presence] in Unspecified specimen by EFRAIN with probe detection Neisseria gonorrhea DNA probe, direct Lab Routine Exposure to STD Ordered: 03/28/2024 [facility] Comment on above: Ordered: 03/28/2024 SURESWAB(R) ADVANCED VAGINITIS PLUS, TMA SURESWAB(R) ADVANCED VAGINITIS PLUS, TMA Pathology and Cytology Routine Exposure to STD Ordered: 03/28/2024 [facility] Work Phone: Comment on above: Ordered: 03/28/2024 Payers Date Payer Category Payer Private Health Insurance [facility] [place] [id number] 2023 Unknown 2023 Unknown [id number] 2021 Medicaid [id number] 1990 Unknown [id number] [id number]. 593 1990 Unknown [id number] 2.16.840.1.671635.3.579.2. 196 1990 Unknown [id number] 2.16.840.1.492510.3.579.2. 196 1990 Unknown [id number] 2.16.840.1.280532.3.579.2. 196 1990 Unknown [id number] 2.16.840.1.126771.3.579.2. 1259 1990 Unknown [id number] 2.16.840.1.208836.3.579.2. 1259 1990 Unknown [id number] 2.16.840.1.818832.3.579.2. 1259 1990 Unknown [id number] 2.16.840.1.365845.3.579.2. 1259 1990 Unknown [id number] 2.16.840.1.201738.3.579.2. 1259 1990 Unknown [id number] 2.16.840.1.888708.3.579.2. 9 1990 Unknown [id number] 2.16.840.1.000612.3.579.2. 1259 1990 Unknown [id number] 2.16.840.1.675378.3.579.2. 9 1990 Unknown [id number] [id number]. 1259 1959 Unknown [id number] Social History Date Type Detail Facility Start: 07-28-2023 Tobacco smoking stat [facility] Never smoked tobacco [facility] Start: 07-28-2023 Tobacco use and exposure Smokeless t obacco non-user [facility] Start: 04-24-2024 End: 07-17-2024 Alcoholic beverage intake Current drinker of alcohol (finding) [facility] Start: 08-16-2023 End: 04-24-2024 [facility]coholic beverage intake [facility] Start: 08-16-2023 Tobacco use panel [facility] Start: 07-28-2023 Alcohol Comment Occasional alcohol u se [facility] Start: 12-09-2023 [facility] Start: 1990 Sex assigned at Female [facility] Start: 08-11-2023 Gender identity Identifies as female gender (finding) [facility] Start: 08-11-2023 Sexual orientation Heterosexual (alphonso colón) [facility] Medical Equipment Procedure Code Equipment Code Equipment Origin al Text Equipment Identifier Dates 1 strip by In Vi tro route Daily Use in the morning prior to breakfast, 1 hour after each meal for a total of 4times daily. [id number] Start: 06-19-2024 End: 07-19-2024 1 each by In Vit ro route Daily Use to check FSBS four times daily [id number] Start: 06-19-2024 End: 07-19-2024 Use as instructed [id number] Start: 07-05-2024 1 each by In Vit ro route Daily Use to check FSBS four times daily [id number] Start: 07-14-2024 End: 08-13-2024 Clinical Notes 03-28-2024 to 07-17-2024 Sadaf Little, [facility] - 07/17/2024 3:40 PM Rupal Casey, [facility] - 07/05/2024 3:30 PM Louis Little, [facility] - 06/19/2024 3:30 PM AGUILA Reynolds - 05/25/2024 3:50 PM EDT Note Date & Type Note Facility 07-17-2024 History of Presen t illness Narrative Reason [...] Every 24 hours Docusate Sodium (COLACE PO) Take by mouth Doxylamine Succinate, Sleep, (UNISOM PO) Take by mouth Glucose Blood (Blood Glucose Test) strip 1 strip, In Vitro, Daily, Use in the morning prior to breakfast, 1 hour after each meal for a total of 4times daily. insulin syringe 29G X 1/2 0.5 mL misc Use as instructed Lancets Ultra Thin misc 1 each, In Vitro, Daily, Use to check FSBS four times daily NovoLIN N 5 Units, Subcutaneous, Nightly ondansetron (ZOFRAN) 4 mg, Oral, Every 6 hours PRN, Take 1 tablet by mouth every 6 hours as needed for nausea. polyethylene glycol, PEG, 3350 (Miralax) 17 g packet Take by mouth Vit-Fe Fumarate-FA (PNV Plus Multivitamin) 27-1 MG [...] nursing note reviewed. Exam conducted with a water softener servicer present. Vitals: Estimated body mass index is 30.89 kg/m as calculated from the following: Height as of 08/11/22: 5' 3 . Weight as of this encounter: 174 lb 6.4 oz. BP: 122/80 Patient's last menstrual period was 11/25/2023. ASSESSMENT & PLAN ICD-10-CM 1. 33 weeks gestation of Z3A.33 POCT urinalysis dipstick manually resulted 2. Third trimester Z34.93 POCT urinalysis dipstick manually resulted Patient presents today for a routine obstetrics appointment. Patient is currently 33w4d with a Estimated Date of Delivery: 08/31/24. Documented by Sadaf Little LPN on behalf of: Remy Ray DO documented in this encounter [facility] 07-05-2024 History of Presen t illness Narrative [...] nursing note reviewed. Exam conducted with a water softener servicer present. Vitals: Estimated body mass index is [...] Remy Ray DO documented in this encounter [facility] 06-19-2024 History of Presen t illness Narrative [...] nursing note reviewed. Exam conducted with a water softener servicer present. Vitals: Estimated body mass index is [...] Remy Ray DO documented in this encounter [facility] 05-25-2024 History of Presen t illness Narrative [...] of: AGUILA Carbone documented in this encounter [facility] 04-24-2024 History of Presen t illness Narrative [...] nursing note reviewed. Exam conducted with a water softener servicer present. Vitals: Estimated body mass index is [...] Remy Ray DO documented in this encounter [facility] 03-28-2024 History of Presen t illness Narrative [...] hour glucose orders to have done at [facility] prior to next visit. 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 documented [facility]* Diagnosis Exposure to STD Need for maternal serum alpha-protein (MSAFP) screening Screening, , for anatomic survey Encounter for anatomic survey Second trimester state, incidental Encounter for supervision of normal , unspecified, unspecified trimester [facility] Diagnosis Second trimester state, incidental 21 weeks gestation of documented [facility] Diagnosis 33 weeks gestation of Third trimester state, incidental documented in this encounter [facility] Summary Purpose Family History No Family History Records FoundNo Family History Records FoundNo Family History Records FoundNo Family History Records Found Advance Directives No Advanced Directives Records FoundNo Advanced Directives Records FoundNo Advanced Directives Records FoundNo Advanced Directives Records Found Additional Source Comments INFORMATION SOURCE (unrecogn ized section and content) DATE CREATED AUTHOR 02/10/2020 [employer] [facility] DATE CREATED AUTHOR AUTHOR'S ORGANIZ ATION 08/12/2022 [facility] DATE CREATED AUTHOR AUTHOR'S ORGANIZ ATION 07/06/2024 [facility] DATE CREATED AUTHOR AUTHOR'S ORGANIZ ATION 07/20/2024 [facility] EPIC Reason for Visit (unrecogniz [...] BE BASED ON THE PRIMARY CLINICAL RECORDS. [facility] [employer] [facility]. provides no warranty or guarantee of the accuracy or completeness of information in this document.
[2024-07-21 17:17] VITALS: BP 130/77; PULSE 85
== END 2024-07-21 18:00 | disposition home or self-care (01) ==
LOC: FBCO 00:05 → FBC 16:58
PROVIDERS: PCP Nurse Practitioner Family; Visit Provider Obstetrics & Gynecology
DX: O24.419 Gestational diabetes mellitus in pregnancy, unspecified control (principal); Z3A.34 34 weeks gestation of pregnancy
CPT/HCPCS: 59025

== ENCOUNTER 2024-07-25 05:35 | Outpatient (OUT) | payer OTHER, SELFPAY ==
--- OUTSIDE RECORDS SUMMARY | 2024-07-25 05:37 | XMS_ITS | CCD ---
Author Organization [facility] Care Team Providers Care [employer] Name Role Phone DR REMY RAY Admitting [...] tablet 3 01/21/2024 Active polyethylene glycol 3350 64989 mg powder for oral solution (19 sources) [...] UA Negative Negative - 4(70) +++ mg/dL [facility] Blood, UA Negative Negative - 50 Kyle/mcL [facility] Clarity, UA Clear [facility] Color, UA Yellow [facility] Glucose, UA Negative Negative - 2000(110) ++++ mg/dL [facility] Interpretation and review of laboratory results Abnormal [facility] Ketones, UA Negative Negative - 160(16) ++++ mg/dL [facility] Leukocytes, UA Trace Negative - 500+++ Ren/mcL [facility] Nitrite, UA Negative Negative - Positive [facility] pH, UA 7 5 - 9 [facility] Protein, UA Negative Negative - 1999(20) ++++ mg/dL [facility] Spec Grav, UA 1.015 1 - 1.03 [facility] Urobilinogen, UA 0.2 0.2 - 12 mg/dL [facility]inal[facility] macro (dipstick) panel (U)on 07-05-2024 Bilirubin, UA Negative Negative - 4(70) +++ mg/dL [facility] Blood, UA Negative Negative - 50 Kyle/mcL [facility] Clarity, UA Clear [facility] Color, UA Yellow [facility] Glucose, UA Negative Negative - 1999(110) ++++ mg/dL [facility] Interpretation and review of laboratory results Abnormal [facility] Ketones, UA Positive Negative - 160(16) ++++ mg/dL [facility] Comment on above: 15 Leukocytes, UA Positive Negative - 500+++ Ren/mcL [facility] Comment on above: small Nitrite, UA Negative Negative - Positive [facility] pH, UA 7 5 - 9 [facility] Protein, UA Negative Negative - 1999(20) ++++ mg/dL [facility] Spec Grav, UA 1.02 1 - 1.03 [facility] Urobilinogen, UA 0.2 0.2 - 12 mg/dL [facility] macro (dipstick) panel (U)on 06-19-2024 Bilirubin, UA Negative Negative - 4(70) +++ mg/dL [facility] Blood, UA Positive Negative - 50 Kyle/mcL [facility] Comment on above: trace Clarity, UA Clear [facility] Color, UA Yellow [facility] Glucose, UA Negative Negative - 1999(110) ++++ mg/dL [facility] Interpretation and review of laboratory results Abnormal [facility] Ketones, UA Negative Negative - 160(16) ++++ mg/dL [facility] Leukocytes, UA Positive Negative - 500+++ Ren/mcL [facility] Comment on above: small Nitrite, UA Negative Negative - Positive [facility] pH, UA 7 5 - 9 [facility] Protein, UA Negative Negative - 1999(20) ++++ mg/dL [facility] Spec Grav, UA 1.02 1 - 1.03 [facility] care Urobilinogen, UA 0.2 0.2 - 12 mg/dL [facility] .Glu 1 Hron 06-03-2024 Glucose [Mass/Vol] 180 mg/dL Normal 70-199 [facility] Comment on above: Performed By: #### R UB #### [place] [id number] .Glu 2 Hron 06-03-2024 Glucose [Mass/Vol] 163 mg/dL High 70-139 [facility] Comment on above: Result Comment: A 2 Hour glucose of less than 140 mg/dL is normal. A value of more than 200 mg/dL after 2 hours indicates diabetes. A value between 140 and 199 mg/dL indicates pre-diabetes. Performed By: #### . Glucose 2 Hour #### [place] [address] .Glu 3 Hron 06-03-2024 Glucose [Mass/Vol] 69 mg/dL Low 70-99 [facility] Comment on above: Performed By: #### R UB #### [place] [id number] .Glu Baseon 06-03-2024 Glucose [Mass/Vol] 108 mg/dL High 70-99 [facility] Comment on above: Performed By: #### R UB #### [place] [id number] POC Glucon 06-03-2024 Glucose [Mass/Vol] 120 mg/dL Normal 78-120 [facility] Comment on above: Performed By: #### R UB #### [place] [id number] Urinalysis macro (dipstick) panel (U)on 05-25-2024 Bilirubin, UA Negative Negative - 4(70) +++ mg/dL [facility] Blood, UA Negative Negative - 50 Kyle/mcL [facility] Clarity, UA Clear [facility] re Color, UA Yellow [facility] Glucose, UA Positive Negative - 1999(110) ++++ mg/dL [facility] Interpretation and review of laboratory results Abnormal [facility] Ketones, UA Negative Negative - 160(16) ++++ mg/dL [facility] Leukocytes, UA Negative Negative - 500+++ Ren/mcL [facility] Nitrite, UA Negative Negative - Positive [facility] pH, UA 7 5 - 9 [facility] Protein, UA Negative Negative - 1999(20) ++++ mg/dL [facility] Spec Grav, UA 1.02 1 - 1.03 [facility] Urobilinogen, UA 1.0 0.2 - 12 mg/dL [facility] Urinalysis macro (dipstick) panel (U)on 04-24-2024 Bilirubin, UA Negative Negative - 4(70) +++ mg/dL [facility] Blood, UA Negative Negative - 50 Kyle/mcL [facility] Clarity, UA Clear [facility] re Color, UA Light Yellow [facility] are Glucose, UA Negative Negative - 1999(110) ++++ mg/dL [facility] Interpretation and review of laboratory results Abnormal [facility] Ketones, UA Negative Negative - 160(16) ++++ mg/dL [facility] Leukocytes, UA Trace Negative - 500+++ Ren/mcL [facility] Nitrite, UA Negative Negative - Positive [facility] pH, UA 6.0 5 - 9 [facility] Protein, UA Negative Negative - 1999(20) ++++ mg/dL [facility] Spec Grav, UA 1.015 1 - 1.03 [facility] Urobilinogen, UA 1.0 0.2 - 12 mg/dL [facility] GLUCOSE TOLERANCE 3 HOURon 0 04-01-2024 GLUCOSE TOLERANCE 3 HOUR High mg/dL [facility] Comment on above: GLU FAST 109H (<95) Col: 04/01/24 0839 GLU 1HR 138 (<180) Col: 04/01/24 0945 GLU 2HR 128 (<155) Col: 04/01/24 1043 GLU 3HR 104 (<140) Col: 04/01/24 1143 Interpretation and review of laboratory results Abnormal [facility] URETHRITIS/DISCHARGE PLUS VA GINITIS (HTRX)on 03-29-2024 ATOPOBIUM VAGINAE 0.000 [facility] ATOPOBIUM VAGINAE Not detected [facility] BVAB 2,3 (BACTERIAL VAGINOSIS ASSOCIATED BACTERIA 2, 3); MOBILUNCUS SPP 0.000 [facility] BVAB 2,3 (BACTERIAL VAGINOSIS ASSOCIATED BACTERIA 2, 3); MOBILUNCUS SPP Not detected [facility] SERAFIN ALBICANS, PARAPSILOSIS, TROPICALIS 0.000 [facility] SERAFIN ALBICANS, PARAPSILOSIS, TROPICALIS Not detected [facility] SERAFIN GLABRATA 0.000 [facility] SERAFIN GLABRATA Not [facility] SERAFIN KRUSEI 0.000 [facility] SERAFIN KRUSEI Not detected [facility] CHLAMYDIA TRACHOMATIS 0.000 [facility] CHLAMYDIA TRACHOMATIS Not detected [facility] GARDNERELLA VAGINALIS 0.000 [facility] GARDNERELLA VAGINALIS Not detected [facility] MEGASPHAERA (TYPES 1, 2) 0.000 [facility] MEGASPHAERA (TYPES 1, 2) Not detected [facility] MYCOPLASMA GENITALIUM 0.000 [facility] MYCOPLASMA GENITALIUM Not detected [facility] NEISSERIA GONORRHOEAE 0.000 [facility] NEISSERIA GONORRHOEAE Not detected [facility] TRICHOMONAS VAGINALIS 0.000 [facility] TRICHOMONAS VAGINALIS Not detected [facility] Urinalysis macro (dipstick) panel (U)on 03-28-2024 Bilirubin, UA Negative Negative - 4(70) +++ mg/dL [facility] Blood, UA Negative Negative - 50 Kyle/mcL [facility] Clarity, UA Clear [facility] re Color, UA Yellow [facility] e Glucose, UA Negative Negative - 1999(110) ++++ mg/dL [facility] Interpretation and review of laboratory results Abnormal [facility] Ketones, UA Negative Negative - 160(16) ++++ mg/dL [facility] Leukocytes, UA Trace Negative - 500+++ Ren/mcL [facility] Nitrite, UA Negative Negative - Positive [facility] pH, UA 6.5 5 - 9 [facility] e Protein, UA Negative Negative - 1999(20) ++++ mg/dL [facility] Spec Grav, UA 1.020 1 - 1.03 [facility] Urobilinogen, UA 0.2 0.2 - 12 mg/dL [facility]-18-2024 Erythrocyte distribution width (RBC) [Ratio] 13.0 % Normal 11.6-14.8 [facility] Comment on above: Performed By: #### R UB #### [address] [address] Hematocrit (Bld) [Volume fraction] 36.7 % Normal 36.0-46.0 [facility] Comment on above: Performed By: #### R UB #### [address] [address] Hemoglobin (Bld) [Mass/Vol] 12.6 g/dL Normal 12.0-16.0 [facility] Comment on above: Performed By: #### R UB #### [address] [address] MCH (RBC) [Entitic mass] 31.8 pg Normal 27.0-35.0 [facility] Comment on above: Performed By: #### R UB #### [address] [address] MCHC 34.2 % Normal 31.0-37.0 [facility] Comment on above: Performed By: #### R UB #### [address] [address] MCV (RBC) [Entitic vol] 92.9 fL Normal 80.0-100.0 [facility] Comment on above: Performed By: #### R UB #### [address] [address] Platelet 295 x10*3/mcL Normal 150-450 [facility] Comment on above: Performed By: #### R UB #### [address] [address] Platelet mean volume (Bld) [Entitic vol] 8.7 fL Normal 6.7-10.6 [facility] Comment on above: Performed By: #### R UB #### [address] [address] RBC 3.95 x10*6/mcL Normal 3.80-5.20 [facility] Comment on above: Performed By: #### R UB #### [address] [address] WBC 11.6 x10*3/mcL High 4.5-11.0 [facility] Comment on above: Performed By: #### R UB #### [address] [address] Gest Diab Scn (ACOG)on 03-18 History of diabetes or gastric bypass? Unknown Normal [facility] Comment on above: Performed By: #### G DS #### [place] [id number] Glucose [Mass/Vol] 136 mg/dL High 70-134 [facility] Comment on above: Result Comment: Acco rding to the ADA, a glucose threshold of > 139 mg/dL after a 50-gram load identifies approximately 80% of women with gestational diabetes mellitus, while the sensitivity is further increased to approximately 90% by a threshold of >129 mg/dL. Performed By: #### G DS #### [address] [address] Trep Abon 02-01-2024 Treponema Total Ab <0.10 Normal [facility] Comment on above: Performed By: #### C [id number] #### [address] [address] Treponema Total Ab Interp Negative Normal Negative [facility] Comment on above: Result Comment: No s erologic evidence of syphilis. No follow- up necessary unless clinically indicated (eg, early syphilis). Performed By: #### C [id number] #### [address] [address] HIV1/2 Ab,Ag Scnon HIV-1/2 Ab,Ag 0.26 Normal [facility] Comment on above: Performed By: #### C [id number] #### [address] [address] HIV-1/2 Ab,Ag Interp Non-Reactive Normal Non-Reactive [facility] Comment on above: Performed By: #### C [id number] #### [address] [address] Hep Bs Agon 01-31-2024 Hep Bs Ag Interp Non-Reactive Normal Non-Reactive [facility] Comment on above: Performed By: #### H BSAG #### [address] [address] Hep C Ab w/reflex HCV RNA Qn t, PCRon 01-31-2024 Hep C IgG Interp Non-Reactive Normal Non-Reactive [facility] Comment on above: Performed By: #### H CV #### [address] [address] C Urineon 01-30-2024 C Urine ------- Final 30-50,000 cfu/ml Mixed gram positive alicia isolated. This urine contains 3 or more organisms which is inconsistent with clean catch collection. Consider the possibility of contamination during collection. No identification or susceptibility performed as results would be misleading [facility] Comment on above: Performed By: #### U RC #### [address] [address] ABO/Rhon 01-29-2024 ABO/Rh ABO/Rh: A POS Normal [facility] Comment on above: Performed By: #### A BAN #### [facility] (UNKNOWN) [address] [place] [address] CBC w/ Diffon 01-29-2024 Erythrocyte distribution width (RBC) [Ratio] 12.0 % Normal 11.6-14.8 [facility] Comment on above: Performed By: #### R UB #### [address] [address] Hematocrit (Bld) [Volume fraction] 37.7 % Normal 36.0-46.0 [facility] Comment on above: Performed By: #### R UB #### [address] [address] Hemoglobin (Bld) [Mass/Vol] 12.8 g/dL Normal 12.0-16.0 [facility] Comment on above: Performed By: #### R UB #### [address] [address] MCH (RBC) [Entitic mass] 31.0 pg Normal 27.0-35.0 [facility] Comment on above: Performed By: #### R UB #### [address] [address] MCHC 34.0 % Normal 31.0-37.0 [facility] Comment on above: Performed By: #### R UB #### [address] [address] MCV (RBC) [Entitic vol] 91.1 fL Normal 80.0-100.0 [facility] Comment on above: Performed By: #### R UB #### [address] [address] Platelet 370 x10*3/mcL Normal 150-450 [facility] Comment on above: Performed By: #### R UB #### [address] [address] Platelet mean volume (Bld) [Entitic vol] 8.0 fL Normal 6.7-10.6 [facility] Comment on above: Performed By: #### R UB #### [address] [address] RBC 4.13 x10*6/mcL Normal 3.80-5.20 [facility] Comment on above: Performed By: #### R UB #### [address] [address] WBC 12.3 x10*3/mcL High 4.5-11.0 [facility] Comment on above: Performed By: #### R UB #### [address] [address] Diff Autoon 01-29-2024 Baso Absolute 0.0 x10*3/mcL Normal 0.0-0.2 [facility] Comment on above: Performed By: #### . Automated Diff #### [address] [address] Basophils/100 WBC (Bld) 0.4 % Normal 0.0-1.5 [facility] Comment on above: Performed By: #### . Automated Diff #### [address] [address] Eos Absolute 0.0 x10*3/mcL Normal 0.0-0.4 [facility] Comment on above: Performed By: #### . Automated Diff #### [address] [address] Eosinophils/100 WBC (Bld) 0.3 % Normal 0.0-5.4 [facility] Comment on above: Performed By: #### . Automated Diff #### [address] [address] Lymph Absolute 2.0 x10*3/mcL Normal 1.0-4.[address] [facility] Comment on above: Performed By: #### . Automated Diff #### [address] [address] Lymphocytes/100 WBC (Bld) 16.2 % Low 27.2-40.8 [facility] Comment on above: Performed By: #### . Automated Diff #### [address] [address] Gibson Absolute 0.6 x10*3/mcL Normal 0.1-1.1 [facility] Comment on above: Performed By: #### . Automated Diff #### [address] [address] Monocytes/100 WBC (Bld) 4.6 % Normal 3.7-11.9 [facility] Comment on above: Performed By: #### . Automated Diff #### [address] [address] Neutro Absolute 9.7 x10*3/mcL High 1.8-7.7 [facility] Comment on above: Performed By: #### . Automated Diff #### [place] [id number] Neutro Auto 78.5 % High 47.2-70.8 [facility] Comment on above: Performed By: #### . Automated Diff #### [place] [id number] Hgb A1con 01-29-2024 Glucose [Mass/Vol] 105 mg/dL Normal 68-114 [facility] Comment on above: Result Comment: Math ematical Calc approx. The mean gluc equivalency of A1c Performed By: #### R UB #### [place] [id number] Hgb A1c 5.3 % A1c Normal 4.0-5.6 [facility] Comment on above: Result Comment: Refe rence Range: 4.0 - 5.6 % Normal 5.7 - 6.4 % Pre-Diabetes > 6.5 % Diabetes Performed By: #### R UB #### [place] [id number] Pren ABSCon 01-29-2024 Pren ABSC Negative Normal [facility] Comment on above: Performed By: #### R UB #### [address] [address] Rubella IgGon 01-29-2024 Rubella IgG Ab Interp Positive Normal [facility] Comment on above: Result Comment: The presence of detectable IgG-class antibodies indicates immunity to the rubella virus through prior immunization or exposure. Individuals testing reactive (positive) are considered immune to rubella infection. This result was obtained with the Access Rubella IgG EIA. Despite calibration by means of a reference preparation, values obtained with different electronics supervisor's assay methods may not be used interchangeably. The magnitude of the reported IgG level CANNOT be correlated to an endpoint titer. Performed By: #### R UB #### [address] [address] Coding Summary.on 01-31-2020 Coding Summary. CODING DATE: 01/31/2020 FINAL [facility] STATUS: Home (Routine DC) PAYOR: Commercial Insurance [...] Munroe Date Saved: 01/31/2020 07:26 pm Normal [facility] Physician Orderon 01-05-2020 Physician Order [id number] Normal [facility] Vital Signs Date Time Vital Sign Value Performing Clinician Dilciai lity 07-17-2024 16:07-0500 Body mass index (BMI) [Ratio] 30.89 kg/m2 Remy Flor DO Work Phone: [facility] 07-17-2024 16:07-0500 Body weight 79.11 kg Remy Flor DO Work Phone: [facility] 07-17-2024 16:07-0500 Diastolic blood pressure 80 mm[Hg] Remy Flor DO Work Phone: [facility] 07-17-2024 16:07-0500 Systolic blood pressure 122 mm[Hg] Remy Flor DO Work Phone: [facility] 07-05-2024 16:18-0500 Body mass index (BMI) [Ratio] 30.65 kg/m2 Remy Flor DO Work Phone: [facility] 07-05-2024 16:18-0500 Body weight 78.47 kg Remy Flor DO Work Phone: [facility] 07-05-2024 16:18-0500 Diastolic blood pressure 70 mm[Hg] Remy Flor DO Work Phone: [facility] 07-05-2024 16:18-0500 Systolic blood pressure 118 mm[Hg] Remy Flor DO Work Phone: [facility] 06-19-2024 15:50-0500 Body mass index (BMI) [Ratio] 31.18 kg/m2 Remy Flor DO Work Phone: [facility] 06-19-2024 15:50-0500 Body weight 79.83 kg Remy Flor DO Work Phone: [facility] 06-19-2024 15:50-0500 Diastolic blood pressure 72 mm[Hg] Remy Flor DO Work Phone: [facility] 06-19-2024 15:50-0500 Systolic blood pressure 118 mm[Hg] Remy Flor DO Work Phone: [facility] 05-25-2024 16:00-0400 Body mass index (BMI) [Ratio] 30.61 kg/m2 Jenifer SHEEHAN Work Phone: [facility] 05-25-2024 16:00-0400 Body weight 78.38 kg Jenifer SHEEHAN Work Phone: [facility] 05-25-2024 16:00-0400 Diastolic blood pressure 74 mm[Hg] Jenifer SHEEHAN Work Phone: [facility] 05-25-2024 16:00-0400 Systolic blood pressure 110 mm[Hg] Jenifer SHEEHAN Work Phone: [facility] 04-24-2024 14:42-0400 Body mass index (BMI) [Ratio] 29.58 kg/m2 Remy Flor DO Work Phone: [facility] 04-24-2024 14:42-0400 Body weight 75.75 kg Remy Flor DO Work Phone: [facility] 04-24-2024 14:42-0400 Diastolic blood pressure 76 mm[Hg] Remy Flor DO Work Phone: [facility] 04-24-2024 14:42-0400 Systolic blood pressure 114 mm[Hg] Remy Flor DO Work Phone: [facility] 03-28-2024 14:01-0400 Body mass index (BMI) [Ratio] 29.23 kg/m2 Jenifer SHEEHAN Work Phone: [facility] 03-28-2024 14:01-0400 Body weight 74.84 kg Jenifer SHEEHAN Work Phone: [facility] 03-28-2024 14:01-0400 Diastolic blood pressure 74 mm[Hg] Jenifer SHEEHAN Work Phone: [facility] 03-28-2024 14:01-0400 Systolic blood pressure 116 mm[Hg] Jenifer SHEEHAN Work Phone: [facility] Healthcare Encounters Encounter Date Encounter Type Care Provider Facility Start: 07-17-2024 End: 07-17-2024 flow sheet Remy Flor DO Work Phone: [facility] Comment on above: 33 weeks gestation o f ; Third trimester Start: 07-17-2024 End: 07-17-2024 ambulatory REMY FLOR Not Available Start: 07-17-2024 End: 07-17-2024 Bamboo flowsheet Remy Flor DO Work Phone: [facility] Start: 07-17-2024 End: 07-17-2024 Bamboo flowsheet Remy Flor DO Work Phone: [facility] Start: 07-05-2024 End: 07-05-2024 flow sheet Remy Flor DO Work Phone: [facility] Comment on above: Third [...] 06-03-2024 End: 06-03-2024 ambulatory Jenifer Latif PA-C Facility:[facility] Start: 05-25-2024 End: 05-25-2024 ambulatory JENIFER [...] End: 03-18-2024 ambulatory Remy Tay Amoro DO Facility:[facility] Start: 02-29-2024 End: 02-29-2024 ambulatory REMY FLOR Not Available Start: 01-29-2024 End: 01-29-2024 ambulatory Remy Tay Flor DO Facility:[facility] Start: 01-21-2024 End: 01-21-2024 ambulatory REMY [...] OB [address] [place] [id number] Remy Ray DO [address] [place] [address] [facility] Start: 08-15-2024 End: 08-15-2024 Patient encounter procedure 08/15/2024 2:50 PM EST Routine [facility] [address] [place] [address] Remy Ray, DO [address] [place] [address] [facility] Start: 08-08-2024 End: 08-08-2024 Patient encounter procedure 08/08/2024 2:50 PM EST Routine [facility] [address] [facility] [place] [place] [address] Remy Ray, DO [address] [place] [address] [facility] Start: 08-01-2024 End: 08-01-2024 Patient encounter procedure 08/01/2024 2:40 PM EST Routine [facility] [address] [facility] [place] [place] [id number] Remy Ray, DO [address] [address] [facility] Start: 07-17-2024 End: 07-17-2024 [...] MTHFR mutation Expected: 07/05/2024 (Approximate), Expires: 07/05/2025 [facility] Comment on above: Expected: 07/05/2024 (Approximate), Expires: 07/05/2025 Start: 06-19-2024 End: 06-19-2024 Patient encounter procedure [facility] Comment on above: Arrived Start: 05-25-2024 End: 05-25-2024 Patient encounter procedure 05/25/2024 3:50 PM EDT Routine [facility] [address] [facility] [place] [address] Jenifer Latif PA [address] [place], [place] [id number] [facility] Start: 05-25-2024 End: 05-25-2025 Measurement of glucose 3 hours after glucose challenge for glucose tolerance test Glucose tolerance, 3 hours Lab Routine Elevated glucose tolerance test Expected: 05/25/2024 (Approximate), Expires: 05/25/2025 [facility] Work Phone: Comment on above: Expected: 05/25/2024 (Approximate), Expires: 05/25/2025 Start: 04-24-2024 End: 04-24-2024 Patient encounter procedure [facility] Comment on above: Arrived Start: 04-24-2024 End: 04-24-2024 Professional / ancillary services management 04/24/2024 1:30 PM EDT Ancillary Procedure [facility] [address] [facility] [place] [address] [facility] Start: 03-28-2024 End: 04-27-2024 Alpha fetoprotein, maternal Alpha fetoprotein, maternal Lab Routine Need for maternal serum alpha-protein (MSAFP) screening Expected: 03/28/2024 (Approximate), Expires: 04/27/2024 [facility] Comment on above: Expected: 03/28/2024 (Approximate), Expires: 04/27/2024 Start: 03-28-2024 End: 03-28-2025 US for US OB ANATOMY SINGLE W US OB CERVICAL LENGTH Imaging Routine Screening, , for anatomic survey Expected: 03/28/2024 (Approximate), Expires: 03/28/2025 [facility] Comment on above: Expected: 03/28/2024 (Approximate), Expires: 03/28/2025 CHLAMYDIA TRACHOMATI S (GENITO/STI) CHLAMYDIA TRACHOMATIS (GENITO/STI) Lab Routine Exposure to STD Ordered: 03/28/2024 [facility] Comment on above: Ordered: 03/28/2024 Neisseria gonorrhoea e DNA [Presence] in Unspecified specimen by EFRAIN with probe detection Neisseria gonorrhea DNA probe, direct Lab Routine Exposure to STD Ordered: 03/28/2024 [facility] Comment on above: Ordered: 03/28/2024 SURESWAB(R) ADVANCED VAGINITIS PLUS, TMA SURESWAB(R) ADVANCED VAGINITIS PLUS, TMA Pathology and Cytology Routine Exposure to STD Ordered: 03/28/2024 [facility] Work Phone: Comment on above: Ordered: 03/28/2024 Payers Date Payer Category Payer Private Health Insurance [facility] [id number] 2023 Unknown 2023 Unknown [id number] 2021 Medicaid [id number] 1990 Unknown [id number] 1990 Unknown [id number] 2.16.840.1.408454.3.579.2. 196 1990 Unknown [id number] 2.16.840.1.495911.3.579.2. 196 1990 Unknown [id number] 2.16.840.1.785961.3.579.2. 196 1990 Unknown [id number] 2.16.840.1.999951.3.579.2. 1259 1990 Unknown [id number] 2.16.840.1.392416.3.579.2. 1259 1990 Unknown [id number] 2.16.840.1.494953.3.579.2. 1259 1990 Unknown [id number] 2.16.840.1.519189.3.579.2. 1259 1990 Unknown [id number] 2.16.840.1.965917.3.579.2. 1259 1990 Unknown [id number] 2.16.840.1.194515.3.579.2. 9 1990 Unknown [id number] 2.16.840.1.847531.3.579.2. 1259 1990 Unknown [id number] 2.16.840.1.805395.3.579.2. 9 1990 Unknown [id number] 2.16.840.1.056598.3.579.2. 1259 1959 Unknown [id number] Social History Date Type Detail Facility Start: 07-28-2023 Tobacco smoking stat [facility] Never smoked tobacco [facility] Start: [...] Gender identity Identifies as female gender (finding) [facility] Start: 08-11-2023 Sexual orientation Heterosexual (alphonso colón) [facility] Medical Equipment Procedure Code Equipment Code Equipment Origin al Text Equipment Identifier Dates 1 strip by In Vi tro route Daily Use in the morning prior to breakfast, 1 hour after each meal for a total of 4times daily. [id number] Start: 06-19-2024 End: 07-19-2024 1 each by In Vit ro route Daily Use to check FSBS four times daily [id number] Start: 06-19-2024 End: 07-19-2024 Use as instructed [id number] Start: 07-05-2024 1 each by In Vit ro route Daily Use to check FSBS four times daily [id number] Start: 07-14-2024 End: 08-13-2024 Clinical Notes 03-28-2024 to 07-17-2024 Sadaf Little, [facility] - 07/17/2024 3:40 PM Rupal Casey, [facility] - 07/05/2024 3:30 PM Louis Little, [facility] - 06/19/2024 3:30 PM AGUILA Reynolds - [...] nursing note reviewed. Exam conducted with a kettle cleaner present. Vitals: Estimated body mass index is [...] Remy Ray DO documented in this encounter [facility] 07-05-2024 History of Presen t illness [...] nursing note reviewed. Exam conducted with a kettle cleaner present. Vitals: Estimated body mass index is [...] Remy Ray DO documented in this encounter [facility] 06-19-2024 History of Presen t illness [...] nursing note reviewed. Exam conducted with a kettle cleaner present. Vitals: Estimated body mass index is [...] Remy Ray DO documented in this encounter [facility] 05-25-2024 History of Presen t illness [...] of: AGUILA Carbone documented in this encounter [facility] 04-24-2024 History of Presen t illness Narrative Reason for Appointment: Patient ID: Ayr Ellis is a 33 y.o. female who [...] nursing note reviewed. Exam conducted with a kettle cleaner present. Vitals: Estimated body mass index is [...] Remy Ray DO documented in this encounter [facility] 03-28-2024 History of Presen t illness [...] hour glucose orders to have done at [facility] prior to next visit. Pt verbally understood. [...] and content) DATE CREATED AUTHOR 02/10/2020 [facility] [employer] [facility] DATE CREATED AUTHOR AUTHOR'S ORGANIZ ATION 08/12/2022 [facility] DATE CREATED AUTHOR AUTHOR'S ORGANIZ ATION 07/06/2024 [facility] DATE CREATED AUTHOR AUTHOR'S ORGANIZ ATION 07/20/2024 [facility] EPIC Reason for Visit [...] BE BASED ON THE PRIMARY CLINICAL RECORDS. [facility] [employer] [facility]. provides no warranty or guarantee of the accuracy or completeness of information in this document.
--- NOTE | 2024-07-25 16:52 | US_ITS ---
[address] [address] Patient Name: KATHERINE SPAIN MRN: [id number] date: 1990 Sex: F Assigned Patient Location: [facility] Current Patient Location: Accession/Order Number: [id number] Exam Date: 07/25/2024 16:53 Report Date: 07/26/2024 03:28 At the request of: REMY GIPSON Procedure: US OB BPP w non-stress EXAMINATION: US OB BPP w non-stress HISTORY:GESTATIONAL DIABETES MELLITUS O24.419 COMPARISON: Ultrasound OB biophysical 07/17/2024 TECHNIQUE: Ultrasound biophysical profile was performed in the radiology department. BREATHING MOVEMENTS: 2 GROSS BODY MOVEMENTS: 2 TONE: 2 QUALITATIVE AMNIOTIC FLUID VOLUME: 2 PRESENTATION: CEPHALIC HEART RATE: 142.11 bpm AMNIOTIC FLUID VOLUME: 13.89 cm GESTATIONAL AGE: 34 weeks 5 days US/US OB BPP w non-stress IMPRESSION: Total biophysical profile score: 8 Electronically authenticated by: RENEE NAVARRO Date: 07/26/2024 03:28
[2024-07-25 17:17] VITALS: BP 127/80; PULSE 88
== END 2024-07-25 17:50 | disposition home or self-care (01) ==
LOC: US 05:35 → FBC 16:49
PROVIDERS: PCP Nurse Practitioner Family; Visit Provider Obstetrics & Gynecology
DX: O24.419 Gestational diabetes mellitus in pregnancy, unspecified control (principal); Z3A.34 34 weeks gestation of pregnancy
CPT/HCPCS: 76818

== ENCOUNTER 2024-07-28 01:24 | Outpatient (OUT) | payer OTHER, SELFPAY ==
--- OUTSIDE RECORDS SUMMARY | 2024-07-28 01:27 | XMS_ITS | CCD ---
Author Organization [facility] Care Team Providers Care Hand Candy Cutter Name Role Phone DR REMY RAY Admitting [...] tablet 3 01/21/2024 Active polyethylene glycol 3350 43950 mg powder for oral solution (19 sources) [...] tablet 11 03/28/2024 03/28/2024 Discontinued Vit-Fe Fumarate-FA (M-Leann Plus) 27-1 MG tablet (19 sources) Start: [...] UA Negative Negative - 4(70) +++ mg/dL [facility] Blood, UA Negative Negative - 50 Kyle/mcL [facility] Clarity, UA Clear [facility] re Color, UA Yellow [facility] Glucose, UA Negative Negative - 2000(110) ++++ mg/dL [facility] Interpretation and review of laboratory results Abnormal [facility] Ketones, UA Negative Negative - 160(16) ++++ mg/dL [facility] Leukocytes, UA Trace Negative - 500+++ Ren/mcL [facility] Nitrite, UA Negative Negative - Positive [facility] pH, UA 7 5 - 9 [facility] Protein, UA Negative Negative - 1999(20) ++++ mg/dL [facility] Spec Grav, UA 1.015 1 - 1.03 [facility] Urobilinogen, UA 0.2 0.2 - 12 mg/dL [facility] Urinalysis macro (dipstick) panel (U)on 07-05-2024 Bilirubin, UA Negative Negative - 4(70) +++ mg/dL [facility] Blood, UA Negative Negative - 50 Kyle/mcL [facility] Clarity, UA Clear [facility] Color, UA Yellow [facility] Glucose, UA Negative Negative - 1999(110) ++++ mg/dL [facility] Interpretation and review of laboratory results Abnormal [facility] Ketones, UA Positive Negative - 160(16) ++++ mg/dL [facility] Comment on above: 15 Leukocytes, UA Positive Negative - 500+++ Ren/mcL [facility] Comment on above: small Nitrite, UA Negative Negative - Positive [facility] pH, UA 7 5 - 9 [facility] Protein, UA Negative Negative - 1999(20) ++++ mg/dL [facility] Spec Grav, UA 1.02 1 - 1.03 [facility] Urobilinogen, UA 0.2 0.2 - 12 mg/dL [facility] Urinalysis macro (dipstick) panel (U)on 06-19-2024 Bilirubin, UA Negative Negative - 4(70) +++ mg/dL [facility] Blood, UA Positive Negative - 50 Kyle/mcL [facility] Comment on above: trace Clarity, UA Clear [facility] Color, UA Yellow [facility] Glucose, UA Negative Negative - 1999(110) ++++ mg/dL [facility] Interpretation and review of laboratory results Abnormal [facility] Ketones, UA Negative Negative - 160(16) ++++ mg/dL [facility] Leukocytes, UA Positive Negative - 500+++ Ren/mcL [facility] Comment on above: small Nitrite, UA Negative Negative - Positive [facility] pH, UA 7 5 - 9 [facility] Protein, UA Negative Negative - 1999(20) ++++ mg/dL [facility] Spec Grav, UA 1.02 1 - 1.03 [facility] care Urobilinogen, UA 0.2 0.2 - 12 mg/dL [facility] .Glu 1 Hron 06-03-2024 Glucose [Mass/Vol] 180 mg/dL Normal 70-199 [facility] Comment on above: Performed By: #### R UB #### [place] [id number] .Glu 2 Hron 06-03-2024 Glucose [Mass/Vol] 163 mg/dL High 70-139 [facility] Comment on above: Result Comment: A 2 Hour glucose of less than 140 mg/dL is normal. A value of more than 200 mg/dL after 2 hours indicates diabetes. A value between 140 and 199 mg/dL indicates pre-diabetes. Performed By: #### . Glucose 2 Hour #### [place] [address] .Glu 3 Hron 06-03-2024 Glucose [Mass/Vol] 69 mg/dL Low 70-99 [facility] Comment on above: Performed By: #### R UB #### [place] [id number] .Glu Baseon 06-03-2024 Glucose [Mass/Vol] 108 mg/dL High 70-99 [facility] Comment on above: Performed By: #### R UB #### [place] [id number] POC Glucon 06-03-2024 Glucose [Mass/Vol] 120 mg/dL Normal 78-120 [facility] Comment on above: Performed By: #### R UB #### [place] [id number] Urinalysis macro (dipstick) panel (U)on 05-25-2024 Bilirubin, UA Negative Negative - 4(70) +++ mg/dL [facility] Blood, UA Negative Negative - 50 Ykle/mcL [facility] Clarity, UA Clear [facility] re Color, UA Yellow [facility] Glucose, UA Positive Negative - 1999(110) ++++ mg/dL [facility] Interpretation and review of laboratory results Abnormal [facility] Ketones, UA Negative Negative - 160(16) ++++ mg/dL [facility] Leukocytes, UA Negative Negative - 500+++ Ren/mcL [facility] Nitrite, UA Negative Negative - Positive [facility] pH, UA 7 5 - 9 [facility] Protein, UA Negative Negative - 1999(20) ++++ mg/dL [facility] Spec Grav, UA 1.02 1 - 1.03 [facility] Urobilinogen, UA 1.0 0.2 - 12 mg/dL [facility] Urinalysis macro (dipstick) panel (U)on 04-24-2024 Bilirubin, UA Negative Negative - 4(70) +++ mg/dL [facility] Blood, UA Negative Negative - 50 Kyle/mcL [facility] Clarity, UA Clear [facility] re Color, UA Light Yellow [facility] are Glucose, UA Negative Negative - 1999(110) ++++ mg/dL [facility] Interpretation and review of laboratory results Abnormal [facility] Ketones, UA Negative Negative - 160(16) ++++ mg/dL [facility] Leukocytes, UA Trace Negative - 500+++ Ren/mcL [facility] Nitrite, UA Negative Negative - Positive [facility] pH, UA 6.0 5 - 9 [facility] Protein, UA Negative Negative - 1999(20) ++++ mg/dL [facility] Spec Grav, UA 1.015 1 - 1.03 [facility] Urobilinogen, UA 1.0 0.2 - 12 mg/dL [facility] GLUCOSE TOLERANCE 3 HOURon 0 04-01-2024 GLUCOSE TOLERANCE 3 HOUR High mg/dL [facility] Comment on above: GLU FAST 109H (<95) Col: 04/01/24 0839 GLU 1HR 138 (<180) Col: 04/01/24 0945 GLU 2HR 128 (<155) Col: 04/01/24 1043 GLU 3HR 104 (<140) Col: 04/01/24 1143 Interpretation and review of laboratory results Abnormal [facility] URETHRITIS/DISCHARGE PLUS VA GINITIS (HTRX)on 03-29-2024 ATOPOBIUM VAGINAE 0.000 [facility] ATOPOBIUM VAGINAE Not detected [facility] BVAB 2,3 (BACTERIAL VAGINOSIS ASSOCIATED BACTERIA 2, 3); MOBILUNCUS SPP 0.000 [facility] BVAB 2,3 (BACTERIAL VAGINOSIS ASSOCIATED BACTERIA 2, 3); MOBILUNCUS SPP Not detected [facility] SERAFIN ALBICANS, PARAPSILOSIS, TROPICALIS 0.000 [facility] SERAFIN ALBICANS, PARAPSILOSIS, TROPICALIS Not detected [facility] SERAFIN GLABRATA 0.000 [facility] SERAFIN GLABRATA Not detected [facility] SERAFIN KRUSEI 0.000 [facility] SERAFIN KRUSEI Not detected [facility] CHLAMYDIA TRACHOMATIS 0.000 [facility] CHLAM[facility] TRACHOMATIS Not detected [facility] GARDNERELLA VAGINALIS 0.000 [facility] GARDNERELLA VAGINALIS Not detected [facility] MEGASPHAERA (TYPES 1, 2) 0.000 [facility] MEGASPHAERA (TYPES 1, 2) Not detected [facility] MYCOPLASMA GENITALIUM 0.000 [facility] MYCOPLASMA GENITALIUM Not detected [facility] NEISSERIA GONORRHOEAE 0.000 [facility] NEISSERIA GONORRHOEAE Not detected [facility] TRICHOMONAS VAGINALIS 0.000 [facility] TRICHOMONAS VAGINALIS Not detected [facility] Urinalysis macro (dipstick) panel (U)on 03-28-2024 Bilirubin, UA Negative Negative - 4(70) +++ mg/dL [facility] Blood, UA Negative Negative - 50 Kyle/mcL [facility] Clarity, UA Clear [facility] re Color, UA Yellow [facility] e Glucose, UA Negative Negative - 1999(110) ++++ mg/dL [facility] Interpretation and review of laboratory results Abnormal [facility] Ketones, UA Negative Negative - 160(16) ++++ mg/dL [facility] Leukocytes, UA Trace Negative - 500+++ Ren/mcL [facility] Nitrite, UA Negative Negative - Positive [facility] pH, UA 6.5 5 - 9 [facility] e Protein, UA Negative Negative - 1999(20) ++++ mg/dL [facility] Spec Grav, UA 1.020 1 - 1.03 [facility] Urobilinogen, UA 0.2 0.2 - 12 mg/dL [facility] CBCon 03-18-2024 Erythrocyte distribution width (RBC) [Ratio] 13.0 % Normal 11.6-14.8 [facility] Comment on above: Performed By: #### R UB #### [address] [address] Hematocrit (Bld) [Volume fraction] 36.7 % Normal 36.0-46.0 [facility] Comment on above: Performed By: #### R UB #### [address] [address] Hemoglobin (Bld) [Mass/Vol] 12.6 g/dL Normal 12.0-16.0 [facility] Comment on above: Performed By: #### R UB #### [address] [address] MCH (RBC) [Entitic mass] 31.8 pg Normal 27.0-35.0 [facility] Comment on above: Performed By: #### R UB #### [address] [address] MCHC 34.2 % Normal 31.0-37.0 [facility] Comment on above: Performed By: #### R UB #### [address] [address] MCV (RBC) [Entitic vol] 92.9 fL Normal 80.0-100.0 [facility] Comment on above: Performed By: #### R UB #### [address] [address] Platelet 295 x10*3/mcL Normal 150-450 [facility] Comment on above: Performed By: #### R UB #### [address] [address] Platelet mean volume (Bld) [Entitic vol] 8.7 fL Normal 6.7-10.6 [facility] Comment on above: Performed By: #### R UB #### [address] [address] RBC 3.95 x10*6/mcL Normal 3.80-5.20 [facility] Comment on above: Performed By: #### R UB #### [address] [address] WBC 11.6 x10*3/mcL High 4.5-11.0 [facility] Comment on above: Performed By: #### R UB #### [address] [address] Gest Diab Scn (ACOG)on 03-18 History of diabetes or gastric bypass? Unknown Normal [facility] Comment on above: Performed By: #### G DS #### [place] [id number] Glucose [Mass/Vol] 136 mg/dL High 70-134 [facility] Comment on above: Result Comment: Acco rding to the ADA, a glucose threshold of > 139 mg/dL after a 50-gram load identifies approximately 80% of women with gestational diabetes mellitus, while the sensitivity is further increased to approximately 90% by a threshold of >129 mg/dL. Performed By: #### G DS #### [address] [address] Trep Abon 02-01-2024 Treponema Total Ab <0.10 Normal [facility] Comment on above: Performed By: #### C [id number] #### [address] [address] Treponema Total Ab Interp Negative Normal Negative [facility] Comment on above: Result Comment: No s erologic evidence of syphilis. No follow- up necessary unless clinically indicated (eg, early syphilis). Performed By: #### C [id number] #### [address] [address] HIV1/2 Ab,Ag Scnon HIV-1/2 Ab,Ag 0.26 Normal [facility] Comment on above: Performed By: #### C [id number] #### [address] [address] HIV-1/2 Ab,Ag Interp Non-Reactive Normal Non-Reactive [facility] Comment on above: Performed By: #### C [id number] #### [address] [address] Hep Bs Agon 01-31-2024 Hep Bs Ag Interp Non-Reactive Normal Non-Reactive [facility] Comment on above: Performed By: #### H BSAG #### [address] [address] Hep C Ab w/reflex HCV RNA Qn t, PCRon 01-31-2024 Hep C IgG Interp Non-Reactive Normal Non-Reactive [facility] Comment on above: Performed By: #### H CV #### [address] [address] C Urineon 01-30-2024 C Urine ------- Final 30-50,000 cfu/ml Mixed gram positive alicia isolated. This urine contains 3 or more organisms which is inconsistent with clean catch collection. Consider the possibility of contamination during collection. No identification or susceptibility performed as results would be misleading [facility] Comment on above: Performed By: #### U RC #### [address] [address] ABO/Rhon 01-29-2024 ABO/Rh ABO/Rh: A POS Normal [facility] Comment on above: Performed By: #### A BAN #### [facility] (UNKNOWN) [address] [place] [address] CBC w/ Diffon 01-29-2024 Erythrocyte distribution width (RBC) [Ratio] 12.0 % Normal 11.6-14.8 [facility] Comment on above: Performed By: #### R UB #### [address] [address] Hematocrit (Bld) [Volume fraction] 37.7 % Normal 36.0-46.0 [facility] Comment on above: Performed By: #### R UB #### [address] [address] Hemoglobin (Bld) [Mass/Vol] 12.8 g/dL Normal 12.0-16.0 [facility] Comment on above: Performed By: #### R UB #### [address] [address] MCH (RBC) [Entitic mass] 31.0 pg Normal 27.0-35.0 [facility] Comment on above: Performed By: #### R UB #### [address] [address] MCHC 34.0 % Normal 31.0-37.0 [facility] Comment on above: Performed By: #### R UB #### [address] [address] MCV (RBC) [Entitic vol] 91.1 fL Normal 80.0-100.0 [facility] Comment on above: Performed By: #### R UB #### [address] [address] Platelet 370 x10*3/mcL Normal 150-450 [facility] Comment on above: Performed By: #### R UB #### [address] [address] Platelet mean volume (Bld) [Entitic vol] 8.0 fL Normal 6.7-10.6 [facility] Comment on above: Performed By: #### R UB #### [address] [address] RBC 4.13 x10*6/mcL Normal 3.80-5.20 [facility] Comment on above: Performed By: #### R UB #### [address] [address] WBC 12.3 x10*3/mcL High 4.5-11.0 [facility] Comment on above: Performed By: #### R UB #### [address] [address] Diff Autoon 01-29-2024 Baso Absolute 0.0 x10*3/mcL Normal 0.0-0.2 [facility] Comment on above: Performed By: #### . Automated Diff #### [address] [address] Basophils/100 WBC (Bld) 0.4 % Normal 0.0-1.5 [facility] Comment on above: Performed By: #### . Automated Diff #### [address] [address] Eos Absolute 0.0 x10*3/mcL Normal 0.0-0.4 [facility] Comment on above: Performed By: #### . Automated Diff #### [address] [address] Eosinophils/100 WBC (Bld) 0.3 % Normal 0.0-5.4 [facility] Comment on above: Performed By: #### . Automated Diff #### [address] [address] Lymph Absolute 2.0 x10*3/mcL Normal 1.0-4.8 [facility] Comment on above: Performed By: #### . Automated Diff #### [address] [address] Lymphocytes/100 WBC (Bld) 16.2 % Low 27.2-40.8 [facility] Comment on above: Performed By: #### . Automated Diff #### [address] [address] [address] Absolute 0.6 x10*3/mcL Normal 0.1-1.1 [facility] Comment on above: Performed By: #### . Automated Diff #### [address] [address] Monocytes/100 WBC (Bld) 4.6 % Normal 3.7-11.9 [facility] Comment on above: Performed By: #### . Automated Diff #### [address] [address] Neutro Absolute 9.7 x10*3/mcL High 1.8-7.7 [facility] Comment on above: Performed By: #### . Automated Diff #### [place] [id number] Neutro Auto 78.5 % High 47.2-70.8 [facility] Comment on above: Performed By: #### . Automated Diff #### [place] [id number] Hgb A1con 01-29-2024 Glucose [Mass/Vol] 105 mg/dL Normal 68-114 [facility] Comment on above: Result Comment: Math ematical Calc approx. The mean gluc equivalency of A1c Performed By: #### R UB #### [place] [id number] Hgb A1c 5.3 % A1c Normal 4.0-5.6 [facility] Comment on above: Result Comment: Refe rence Range: 4.0 - 5.6 % Normal 5.7 - 6.4 % Pre-Diabetes > 6.5 % Diabetes Performed By: #### R UB #### [place] [id number] Pren ABSCon 01-29-2024 Pren ABSC Negative Normal [facility] Comment on above: Performed By: #### R UB #### [address] [address] Rubella IgGon 01-29-2024 Rubella IgG Ab Interp [...] a reference preparation, values obtained with different bookkeeping assistant's assay methods may not be used interchangeably. The magnitude of the reported IgG level CANNOT be correlated to an endpoint titer. Performed By: #### R UB #### [address] [address] Coding Summary.on 01-31-2020 Coding Summary. CODING DATE: 01/31/2020 FINAL [facility] STATUS: Home (Routine DC) PAYOR: Commercial [...] Munroe Date Saved: 01/31/2020 07:26 pm Normal [facility] Physician Orderon 01-05-2020 Physician Order [id number] Normal [facility] Vital Signs Date Time Vital Sign Value Performing Clinician Dilciai lity 07-17-2024 16:07-0500 Body mass index (BMI) [Ratio] 30.89 kg/m2 Remy Flor DO Work Phone: [facility] 07-17-2024 16:07-0500 Body weight 79.11 kg Remy Flor DO Work Phone: [facility] 07-17-2024 16:07-0500 Diastolic blood pressure 80 mm[Hg] Remy Flor DO Work Phone: [facility] 07-17-2024 16:07-0500 Systolic blood pressure 122 mm[Hg] Remy Flor DO Work Phone: [facility] 07-05-2024 16:18-0500 Body mass index (BMI) [Ratio] 30.65 kg/m2 Remy Flor DO Work Phone: [facility] 07-05-2024 16:18-0500 Body weight 78.47 kg Remy Flor DO Work Phone: [facility] 07-05-2024 16:18-0500 Diastolic blood pressure 70 mm[Hg] Remy Flor DO Work Phone: [facility] 07-05-2024 16:18-0500 Systolic blood pressure 118 mm[Hg] Ermy Flor DO Work Phone: [facility] 06-19-2024 15:50-0500 Body mass index (BMI) [Ratio] 31.18 kg/m2 Remy Flor DO Work Phone: [facility] 06-19-2024 15:50-0500 Body weight 79.83 kg Remy Flor DO Work Phone: [facility] 06-19-2024 15:50-0500 Diastolic blood pressure 72 mm[Hg] Remy Flor DO Work Phone: [facility] 06-19-2024 15:50-0500 Systolic blood pressure 118 mm[Hg] Remy Flor DO Work Phone: [facility] 05-25-2024 16:00-0400 Body mass index (BMI) [Ratio] 30.61 kg/m2 Jenifer SHEEHAN Work Phone: [facility] 05-25-2024 16:00-0400 Body weight 78.38 kg Jenifer SHEEHAN Work Phone: [facility] 05-25-2024 16:00-0400 Diastolic blood pressure 74 mm[Hg] Jenifer SHEEHAN Work Phone: [facility] 05-25-2024 16:00-0400 Systolic blood pressure 110 mm[Hg] Jenifer SHEEHAN Work Phone: [facility] 04-24-2024 14:42-0400 Body mass index (BMI) [Ratio] 29.58 kg/m2 Remy Flor DO Work Phone: [facility] 04-24-2024 14:42-0400 Body weight 75.75 kg Remy Flor DO Work Phone: [facility] 04-24-2024 14:42-0400 Diastolic blood pressure 76 mm[Hg] Remy Flor DO Work Phone: [facility] 04-24-2024 14:42-0400 Systolic blood pressure 114 mm[Hg] Remy Flor DO Work Phone: [facility] 03-28-2024 14:01-0400 Body mass index (BMI) [Ratio] 29.23 kg/m2 Jenifer SHEEHAN Work Phone: [facility] 03-28-2024 14:01-0400 Body weight 74.84 kg Jenifer SHEEHAN Work Phone: [facility] 03-28-2024 14:01-0400 Diastolic blood pressure 74 mm[Hg] Jenifer SHEEHAN Work Phone: [facility] 03-28-2024 14:01-0400 Systolic blood pressure 116 mm[Hg] Jenifer SHEEHAN Work Phone: [facility] Healthcare Encounters Encounter Date Encounter Type Care Provider Facility Start: 07-17-2024 End: 07-17-2024 flow sheet Remy Flor DO Work Phone: [facility] Comment on above: 33 weeks gestation o f ; Third trimester Start: 07-17-2024 End: 07-17-2024 ambulatory REMY FLOR Not Available Start: 07-17-2024 End: 07-17-2024 Bamboo flowsheet Remy Flor DO Work Phone: [facility] Start: 07-17-2024 End: 07-17-2024 Bamboo flowsheet Remy Flor DO Work Phone: [facility] Start: 07-05-2024 End: 07-05-2024 flow sheet Remy Flor DO Work Phone: [facility] Comment on above: Third trimester [...] 06-03-2024 End: 06-03-2024 ambulatory Jenifer Latif PA-C Facility:[facility] Start: 05-25-2024 End: 05-25-2024 ambulatory JENIFER [...] End: 03-18-2024 ambulatory Remy Tay Amoro DO Facility:[facility] Start: 02-29-2024 End: 02-29-2024 ambulatory REMY FLOR Not Available Start: 01-29-2024 End: 01-29-2024 ambulatory Remy Tay Flor DO Facility:[facility] Start: 01-21-2024 End: 01-21-2024 ambulatory REMY FLOR [...] OB [address] [place] [id number] Remy Ray DO [address] [place] [address] [facility] Start: 08-15-2024 End: 08-15-2024 Patient encounter procedure 08/15/2024 2:50 PM EST Routine [facility] [address] [place] [address] Remy Ray, DO [address] [place] [address] [facility] Start: 08-08-2024 End: 08-08-2024 Patient encounter procedure 08/08/2024 2:50 PM EST Routine [facility] [address] [facility] [place] [address] Remy Ray, DO [address] [place] [address] [facility] Start: 08-01-2024 End: 08-01-2024 Patient encounter procedure 08/01/2024 2:40 PM EST Routine [facility] [address] [facility] [place] [address] Remy Ray, DO [address] [facility] [address] [place] [address] [facility] Start: 07-17-2024 End: 07-17-2024 [...] MTHFR mutation Expected: 07/05/2024 (Approximate), Expires: 07/05/2025 [facility] Comment on above: Expected: 07/05/2024 (Approximate), Expires: 07/05/2025 Start: 06-19-2024 End: 06-19-2024 Patient encounter procedure [facility] Comment on above: Arrived Start: 05-25-2024 End: 05-25-2024 Patient encounter procedure 05/25/2024 3:50 PM EDT Routine [facility] [address] [facility] [place] [address] Jenifer Latif PA [address] [place], [place] [id number] [facility] Start: 05-25-2024 End: 05-25-2025 Measurement of glucose 3 hours after glucose challenge for glucose tolerance test Glucose tolerance, 3 hours Lab Routine Elevated glucose tolerance test Expected: 05/25/2024 (Approximate), Expires: 05/25/2025 [facility] Work Phone: Comment on above: Expected: 05/25/2024 (Approximate), Expires: 05/25/2025 Start: 04-24-2024 End: 04-24-2024 Patient encounter procedure [facility] Comment on above: Arrived Start: 04-24-2024 End: 04-24-2024 Professional / ancillary services management 04/24/2024 1:30 PM EDT Ancillary Procedure [facility] [address] [facility] [place] [address] [facility] Start: 03-28-2024 End: 04-27-2024 Alpha fetoprotein, maternal Alpha fetoprotein, maternal Lab Routine Need for maternal serum alpha-protein (MSAFP) screening Expected: 03/28/2024 (Approximate), Expires: 04/27/2024 [facility] Comment on above: Expected: 03/28/2024 (Approximate), Expires: 04/27/2024 Start: 03-28-2024 End: 03-28-2025 US for US OB ANATOMY SINGLE W US OB CERVICAL LENGTH Imaging Routine Screening, , for anatomic survey Expected: 03/28/2024 (Approximate), Expires: 03/28/2025 [facility] Comment on above: Expected: 03/28/2024 (Approximate), Expires: 03/28/2025 CHLAMYDIA TRACHOMATI S (GENITO/STI) CHLAMYDIA TRACHOMATIS (GENITO/STI) Lab Routine Exposure to STD Ordered: 03/28/2024 [facility] Comment on above: Ordered: 03/28/2024 Neisseria gonorrhoea e DNA [Presence] in Unspecified specimen by EFRAIN with probe detection Neisseria gonorrhea DNA probe, direct Lab Routine Exposure to STD Ordered: 03/28/2024 [facility] Comment on above: Ordered: 03/28/2024 SURESWAB(R) ADVANCED VAGINITIS PLUS, TMA SURESWAB(R) ADVANCED VAGINITIS PLUS, TMA Pathology and Cytology Routine Exposure to STD Ordered: 03/28/2024 [facility] Work Phone: Comment on above: Ordered: 03/28/2024 Payers Date Payer Category Payer Private Health Insurance [facility] [place] [id number] 2023 Unknown 2023 Unknown [id number] 2021 Medicaid [id number] 1990 Unknown [id number] 2.16.840.1.993052.3.579.2. 593 1990 Unknown [id number] 2.16.840.1.286742.3.579.2. 196 1990 Unknown [id number] 2.16.840.1.026799.3.579.2. 196 1990 Unknown [id number] 2.16.840.1.776976.3.579.2. 196 1990 Unknown [id number] 2.16.840.1.869723.3.579.2. 1259 1990 Unknown [id number] 2.16.840.1.152903.3.579.2. 1259 1990 Unknown [id number] 2.16.840.1.982547.3.579.2. 1259 1990 Unknown [id number] 2.16.840.1.535203.3.579.2. 1259 1990 Unknown [id number] 2.16.840.1.065918.3.579.2. 1259 1990 Unknown [id number] 2.16.840.1.650810.3.579.2. 9 1990 Unknown [id number] 2.16.840.1.493172.3.579.2. 1259 1990 Unknown [id number] 2.16.840.1.526073.3.579.2. 9 1990 Unknown [id number] 2.16.840.1.972885.3.579.2. 1259 1959 Unknown [id number] Social History Date Type Detail Facility Start: 07-28-2023 Tobacco smoking stat [facility] Never smoked tobacco [facility] Start: 07-28-2023 [...] Gender identity Identifies as female gender (finding) [facility] Start: 08-11-2023 Sexual orientation Heterosexual (alphonso colón) [facility] Medical Equipment Procedure Code Equipment Code Equipment Origin al Text Equipment Identifier Dates 1 strip by In Vi tro route Daily Use in the morning prior to breakfast, 1 hour after each meal for a total of 4times daily. [id number] Start: 06-19-2024 End: 07-19-2024 1 each by In Vit ro route Daily Use to check FSBS four times daily [id number] Start: 06-19-2024 End: 07-19-2024 Use as instructed [id number] Start: 07-05-2024 1 each by In Vit ro route Daily Use to check FSBS four times daily [id number] Start: 07-14-2024 End: 08-13-2024 Clinical Notes 03-28-2024 to 07-17-2024 Sadaf Little, [facility] - 07/17/2024 3:40 PM Rupal Casey, [facility] - 07/05/2024 3:30 PM Louis Little, [facility] - 06/19/2024 3:30 PM AGUILA Reynolds [...] nursing note reviewed. Exam conducted with a poultry offal worker present. Vitals: Estimated body mass index is [...] Remy Ray DO documented in this encounter [facility] 07-05-2024 History of Presen t illness Narrative [...] nursing note reviewed. Exam conducted with a poultry offal worker present. Vitals: Estimated body mass index is [...] Remy Ray DO documented in this encounter [facility] 06-19-2024 History of Presen t illness Narrative [...] nursing note reviewed. Exam conducted with a poultry offal worker present. Vitals: Estimated body mass index is [...] Remy Ray DO documented in this encounter [facility] 05-25-2024 History of Presen t illness Narrative [...] of: AGUILA Carbone documented in this encounter [facility] 04-24-2024 History of Presen t illness Narrative [...] nursing note reviewed. Exam conducted with a poultry offal worker present. Vitals: Estimated body mass index is [...] Remy Ray DO documented in this encounter [facility] 03-28-2024 History of Presen t illness Narrative [...] hour glucose orders to have done at [facility] prior to next visit. Pt verbally [...] and content) DATE CREATED AUTHOR 02/10/2020 [employer] [facility] DATE CREATED AUTHOR AUTHOR'S ORGANIZ ATION 08/12/2022 [facility] DATE CREATED AUTHOR AUTHOR'S ORGANIZ ATION 07/06/2024 [facility] DATE CREATED AUTHOR AUTHOR'S ORGANIZ ATION 07/20/2024 [facility] EPIC Reason for Visit [...] BE BASED ON THE PRIMARY CLINICAL RECORDS. [facility] [employer] [facility]. provides no warranty or guarantee of the accuracy or completeness of information in this document.
[2024-07-28 16:55] VITALS: BP 137/92; PULSE 111
[2024-07-28 17:05] VITALS: BP 129/79; PULSE 104
[2024-07-28 17:15] VITALS: BP 121/80; PULSE 100
== END 2024-07-28 17:34 | disposition home or self-care (01) ==
LOC: FBCO 01:24 → FBC 16:43
PROVIDERS: PCP Nurse Practitioner Family; Visit Provider Obstetrics & Gynecology
DX: O24.419 Gestational diabetes mellitus in pregnancy, unspecified control (principal)
CPT/HCPCS: 59025

== ENCOUNTER 2024-08-01 00:08 | Outpatient (OUT) | payer BC, SELFPAY ==
[2024-08-01 16:26] VITALS: BP 135/84; PULSE 94
--- NOTE | 2024-08-01 17:44 | US_ITS ---
[address] [address] Patient Name: KATHERINE SPAIN MRN: [id number] date: 1990 Sex: F Assigned Patient Location: [facility] [place] Current Patient Location: Accession/Order Number: [id number] Exam Date: 08/01/2024 17:55 Report Date: 08/02/2024 07:15 At the request of: REMY GIPSON Procedure: US OB BPP w non-stress EXAMINATION: US OB BPP w non-stress HISTORY: GDM O24.419 COMPARISON: No relevant comparison available. TECHNIQUE: Ultrasound biophysical profile was performed in the radiology department. non-reactive stress testing was performed by nursing staff in the birthing center. FINDINGS: BREATHING MOVEMENTS: 2 GROSS BODY MOVEMENTS: 2 TONE: 2 QUALITATIVE AMNIOTIC FLUID VOLUME: 2 PRESENTATION: CEPHALIC HEART RATE: 135.68 bpm AMNIOTIC FLUID VOLUME: 15.0 GESTATIONAL AGE: 35 weeks 5 days US/US OB BPP w non-stress IMPRESSION: Total biophysical profile score: 8 Electronically authenticated by: CHLOE SANTO Date: 08/02/2024 07:15
--- NOTE | 2024-08-01 17:44 | US_ITS ---
[address] [address] Patient Name: KATHERINE SPAIN MRN: [id number] date: 1990 Sex: F Assigned [place] [facility] [place] Patient Location: [facility] [place] Accession/Order Number: [id number] Exam Date: 08/01/2024 17:55 Report Date: 08/02/2024 07:17 At the request of: REMY GIPSON Procedure: US OB growth EXAMINATION: US OB growth HISTORY: GDM O24.419 COMPARISON: No relevant comparison available. FINDINGS: Heart Rate: 135.68 bpm Amniotic Fluid Volume: 15.0 cm, largest fluid pocket 5.2 cm Number: 1 Position: Cephalic presentation longitudinal lie BIOMETRY: BPD: 8.31 cm; 33 weeks 3 days; 5.50 % HC: 31.99 cm; 36 weeks 0 days; 26.30 % AC: 30.76 cm; 34 weeks 5 days; 29.70 % FL: 6.77 cm; 34 weeks 6 days; 21.40 % EFW: 2502.05 g; 23.80 %, 5 lbs. 8 oz. FL/AC: 22.00 FL/BPD: 81.46 HC/AC: 1.04 GESTATIONAL AGE: Age by EDC: 35 weeks 5 days SANGEETA by EDC: 2024-08-31 Age by US: 34 weeks 5 days SANGEETA by US: 2024-09-07 US/US OB growth IMPRESSION: BPD at the 5th percentile, otherwise normal interval growth Electronically authenticated by: CHLOE SANTO Date: 08/02/2024 07:17
== END 2024-08-01 18:16 | disposition home or self-care (01) ==
LOC: FBCO 00:08 → FBC 16:09
PROVIDERS: PCP Nurse Practitioner Family; Visit Provider Obstetrics & Gynecology
DX: O99.283 Endocrine, nutritional and metabolic diseases complicating pregnancy, third trimester (principal); O24.419 Gestational diabetes mellitus in pregnancy, unspecified control; Z3A.35 35 weeks gestation of pregnancy
CPT/HCPCS: 76816; 76818; 87150; 87186

== ENCOUNTER 2024-08-01 19:49 | Outpatient (REF) | payer BC, SELFPAY ==
[2024-08-02 14:34] LABS: BOX Test Reference Lab FIRELANDS; BOX Test Sent Out GROUP B CULTURE
== END 2024-08-01 19:50 | disposition home or self-care (01) ==
LOC: LAB 19:49
PROVIDERS: PCP Nurse Practitioner Family; Visit Provider Obstetrics & Gynecology
DX: Z34.93 Encounter for supervision of normal pregnancy, unspecified, third trimester (principal); O99.283 Endocrine, nutritional and metabolic diseases complicating pregnancy, third trimester; O24.419 Gestational diabetes mellitus in pregnancy, unspecified control; Z3A.35 35 weeks gestation of pregnancy
CPT/HCPCS: 36415; 87081; 87150; 87186

== ENCOUNTER 2024-08-04 00:43 | Outpatient (OUT) | payer OTHER, SELFPAY ==
--- OUTSIDE RECORDS SUMMARY | 2024-08-04 00:46 | XMS_ITS | CCD ---
Author Organization [facility] Care Team Providers Care Chief Environmental Commitment Officer Name Role Phone DR REMY RAY Admitting [...] tablet 3 01/21/2024 Active polyethylene glycol 3350 28468 mg powder for oral solution (19 sources) [...] UA Negative Negative - 4(70) +++ mg/dL [facility] Blood, UA Negative Negative - 50 Kyle/mcL [facility] Clarity, UA Clear [facility] Color, UA Yellow [facility] Glucose, UA Negative Negative - 2000(110) ++++ mg/dL [facility] Interpretation and review of laboratory results Abnormal [facility] Ketones, UA Negative Negative - 160(16) ++++ mg/dL [facility] Leukocytes, UA Trace Negative - 500+++ Ren/mcL [facility] Nitrite, UA Negative Negative - Positive [facility] pH, UA 7 5 - 9 [facility] Protein, UA Negative Negative - 1999(20) ++++ mg/dL [facility] Spec Grav, UA 1.015 1 - 1.03 [facility] Urobilinogen, UA 0.2 0.2 - 12 mg/dL [facility]inal[facility] macro (dipstick) panel (U)on 07-05-2024 Bilirubin, UA Negative Negative - 4(70) +++ mg/dL [facility] Blood, UA Negative Negative - 50 Kyle/mcL [facility] Clarity, UA Clear [facility] Color, UA Yellow [facility] Glucose, UA Negative Negative - 1999(110) ++++ mg/dL [facility] Interpretation and review of laboratory results Abnormal [facility] Ketones, UA Positive Negative - 160(16) ++++ mg/dL [facility] Comment on above: 15 Leukocytes, UA Positive Negative - 500+++ Ren/mcL [facility] Comment on above: small Nitrite, UA Negative Negative - Positive [facility] pH, UA 7 5 - 9 [facility] Protein, UA Negative Negative - 1999(20) ++++ mg/dL [facility] Spec Grav, UA 1.02 1 - 1.03 [facility] Urobilinogen, UA 0.2 0.2 - 12 mg/dL [facility]inal[facility] macro (dipstick) panel (U)on 06-19-2024 Bilirubin, UA Negative Negative - 4(70) +++ mg/dL [facility] Blood, UA Positive Negative - 50 Kyle/mcL [facility] Comment on above: trace Clarity, UA Clear [facility] Color, UA Yellow [facility] Glucose, UA Negative Negative - 1999(110) ++++ mg/dL [facility] Interpretation and review of laboratory results Abnormal [facility] Ketones, UA Negative Negative - 160(16) ++++ mg/dL [facility] Leukocytes, UA Positive Negative - 500+++ Ren/mcL [facility] Comment on above: small Nitrite, UA Negative Negative - Positive [facility] pH, UA 7 5 - 9 [facility] Protein, UA Negative Negative - 1999(20) ++++ mg/dL [facility] Spec Grav, UA 1.02 1 - 1.03 [facility] care Urobilinogen, UA 0.2 0.2 - 12 mg/dL [facility] .Glu 1 Hron 06-03-2024 Glucose [Mass/Vol] 180 mg/dL Normal 70-199 [facility] Comment on above: Performed By: #### R UB #### [place] [id number] .Glu 2 Hron 06-03-2024 Glucose [Mass/Vol] 163 mg/dL High 70-139 [facility] Comment on above: Result Comment: A 2 Hour glucose of less than 140 mg/dL is normal. A value of more than 200 mg/dL after 2 hours indicates diabetes. A value between 140 and 199 mg/dL indicates pre-diabetes. Performed By: #### . Glucose 2 Hour #### [place] [address] .Glu 3 Hron 06-03-2024 Glucose [Mass/Vol] 69 mg/dL Low 70-99 [facility] Comment on above: Performed By: #### R UB #### [place] [id number] .Glu Baseon 06-03-2024 Glucose [Mass/Vol] 108 mg/dL High 70-99 [facility] Comment on above: Performed By: #### R UB #### [place] [id number] POC Glucon 06-03-2024 Glucose [Mass/Vol] 120 mg/dL Normal 78-120 [facility] Comment on above: Performed By: #### R UB #### [place] [id number] Urinalysis macro (dipstick) panel (U)on 05-25-2024 Bilirubin, UA Negative Negative - 4(70) +++ mg/dL [facility] Blood, UA Negative Negative - 50 Kyle/mcL [facility] Clarity, UA Clear [facility] Color, UA Yellow [facility] Glucose, UA Positive Negative - 1999(110) ++++ mg/dL [facility] Interpretation and review of laboratory results Abnormal [facility] Ketones, UA Negative Negative - 160(16) ++++ mg/dL [facility] Leukocytes, UA Negative Negative - 500+++ Ren/mcL [facility] Nitrite, UA Negative Negative - Positive [facility] pH, UA 7 5 - 9 [facility] Protein, UA Negative Negative - 1999(20) ++++ mg/dL [facility] Spec Grav, UA 1.02 1 - 1.03 [facility] Urobilinogen, UA 1.0 0.2 - 12 mg/dL [facility] Urinalysis macro (dipstick) panel (U)on 04-24-2024 Bilirubin, UA Negative Negative - 4(70) +++ mg/dL [facility] Blood, UA Negative Negative - 50 Kyle/mcL [facility] Clarity, UA Clear [facility] re Color, UA Light Yellow [facility] are Glucose, UA Negative Negative - 1999(110) ++++ mg/dL [facility] Interpretation and review of laboratory results Abnormal [facility] Ketones, UA Negative Negative - 160(16) ++++ mg/dL [facility] Leukocytes, UA Trace Negative - 500+++ Ren/mcL [facility] Nitrite, UA Negative Negative - Positive [facility] pH, UA 6.0 5 - 9 [facility] Protein, UA Negative Negative - 1999(20) ++++ mg/dL [facility] Spec Grav, UA 1.015 1 - 1.03 [facility] Urobilinogen, UA 1.0 0.2 - 12 mg/dL [facility] GLUCOSE TOLERANCE 3 HOURon 0 04-01-2024 GLUCOSE TOLERANCE 3 HOUR High mg/dL [facility] Comment on above: GLU FAST 109H (<95) Col: 04/01/24 0839 GLU 1HR 138 (<180) Col: 04/01/24 0945 GLU 2HR 128 (<155) Col: 04/01/24 1043 GLU 3HR 104 (<140) Col: 04/01/24 1143 Interpretation and review of laboratory results Abnormal [facility] URETHRITIS/DISCHARGE PLUS VA GINITIS (HTRX)on 03-29-2024 ATOPOBIUM VAGINAE 0.000 [facility] ATOPOBIUM VAGINAE Not detected [facility] BVAB 2,3 (BACTERIAL VAGINOSIS ASSOCIATED BACTERIA 2, 3); MOBILUNCUS SPP 0.000 [facility] BVAB 2,3 (BACTERIAL VAGINOSIS ASSOCIATED BACTERIA 2, 3); MOBILUNCUS SPP Not detected [facility] SERAFIN ALBICANS, PARAPSILOSIS, TROPICALIS 0.000 [facility] SERAFIN ALBICANS, PARAPSILOSIS, TROPICALIS Not detected [facility] SERAFIN GLABRATA 0.000 [facility] SERAFIN GLABRATA Not detected [facility] SERAFIN KRUSEI 0.000 [facility] SERAFIN KRUSEI Not detected [facility] CHLAMYDIA TRACHOMATIS 0.000 [facility] CHLAM[facility] TRACHOMATIS Not detected [facility] GARDNERELLA VAGINALIS 0.000 [facility] GARDNERELLA VAGINALIS Not detected [facility] MEGASPHAERA (TYPES 1, 2) 0.000 [facility] MEGASPHAERA (TYPES 1, 2) Not detected [facility] MYCOPLASMA GENITALIUM 0.000 [facility] MYCOPLASMA GENITALIUM Not detected [facility] NEISSERIA GONORRHOEAE 0.000 [facility] NEISSERIA GONORRHOEAE Not detected [facility] TRICHOMONAS VAGINALIS 0.000 [facility] TRICHOMONAS VAGINALIS Not detected [facility] Urinalysis macro (dipstick) panel (U)on 03-28-2024 Bilirubin, UA Negative Negative - 4(70) +++ mg/dL [facility] Blood, UA Negative Negative - 50 Kyle/mcL [facility] Clarity, UA Clear [facility] re Color, UA Yellow [facility] e Glucose, UA Negative Negative - 1999(110) ++++ mg/dL [facility] Interpretation and review of laboratory results Abnormal [facility] Ketones, UA Negative Negative - 160(16) ++++ mg/dL [facility] Leukocytes, UA Trace Negative - 500+++ Ren/mcL [facility] Nitrite, UA Negative Negative - Positive [facility] pH, UA 6.5 5 - 9 [facility] e Protein, UA Negative Negative - 1999(20) ++++ mg/dL [facility] Spec Grav, UA 1.020 1 - 1.03 [facility] Urobilinogen, UA 0.2 0.2 - 12 mg/dL [facility] CBCon 03-18-2024 Erythrocyte distribution width (RBC) [Ratio] 13.0 % Normal 11.6-14.8 [facility] Comment on above: Performed By: #### R UB #### [address] [address] Hematocrit (Bld) [Volume fraction] 36.7 % Normal 36.0-46.0 [facility] Comment on above: Performed By: #### R UB #### [address] [address] Hemoglobin (Bld) [Mass/Vol] 12.6 g/dL Normal 12.0-16.0 [facility] Comment on above: Performed By: #### R UB #### [address] [address] MCH (RBC) [Entitic mass] 31.8 pg Normal 27.0-35.0 [facility] Comment on above: Performed By: #### R UB #### [address] [address] MCHC 34.2 % Normal 31.0-37.0 [facility] Comment on above: Performed By: #### R UB #### [address] [address] MCV (RBC) [Entitic vol] 92.9 fL Normal 80.0-100.0 [facility] Comment on above: Performed By: #### R UB #### [address] [address] Platelet 295 x10*3/mcL Normal 150-450 [facility] Comment on above: Performed By: #### R UB #### [address] [address] Platelet mean volume (Bld) [Entitic vol] 8.7 fL Normal 6.7-10.6 [facility] Comment on above: Performed By: #### R UB #### [address] [address] RBC 3.95 x10*6/mcL Normal 3.80-5.20 [facility] Comment on above: Performed By: #### R UB #### [address] [address] WBC 11.6 x10*3/mcL High 4.5-11.0 [facility] Comment on above: Performed By: #### R UB #### [address] [address] Gest Diab Scn (ACOG)on 03-18 History of diabetes or gastric bypass? Unknown Normal [facility] Comment on above: Performed By: #### G DS #### [place] [id number] Glucose [Mass/Vol] 136 mg/dL High 70-134 [facility] Comment on above: Result Comment: Acco rding to the ADA, a glucose threshold of > 139 mg/dL after a 50-gram load identifies approximately 80% of women with gestational diabetes mellitus, while the sensitivity is further increased to approximately 90% by a threshold of >129 mg/dL. Performed By: #### G DS #### [address] [address] Trep Abon 02-01-2024 Treponema Total Ab <0.10 Normal [facility] Comment on above: Performed By: #### C [id number] #### [address] [address] Treponema Total Ab Interp Negative Normal Negative [facility] Comment on above: Result Comment: No s erologic evidence of syphilis. No follow- up necessary unless clinically indicated (eg, early syphilis). Performed By: #### C [id number] #### [address] [address] HIV1/2 Ab,Ag Scnon HIV-1/2 Ab,Ag 0.26 Normal [facility] Comment on above: Performed By: #### C [id number] #### [address] [address] HIV-1/2 Ab,Ag Interp Non-Reactive Normal Non-Reactive [facility] Comment on above: Performed By: #### C [id number] #### [address] [address] Hep Bs Agon 01-31-2024 Hep Bs Ag Interp Non-Reactive Normal Non-Reactive [facility] Comment on above: Performed By: #### H BSAG #### [address] [address] Hep C Ab w/reflex HCV RNA Qn t, PCRon 01-31-2024 Hep C IgG Interp Non-Reactive Normal Non-Reactive [facility] Comment on above: Performed By: #### H CV #### [address] [address] C Urineon 01-30-2024 C Urine ------- Final 30-50,000 cfu/ml Mixed gram positive alicia isolated. This urine contains 3 or more organisms which is inconsistent with clean catch collection. Consider the possibility of contamination during collection. No identification or susceptibility performed as results would be misleading [facility] Comment on above: Performed By: #### U RC #### [address] [address] ABO/Rhon 01-29-2024 ABO/Rh ABO/Rh: A POS Normal [facility] Comment on above: Performed By: #### A BAN #### [facility] (UNKNOWN) [address] [place] [address] CBC w/ Diffon 01-29-2024 Erythrocyte distribution width (RBC) [Ratio] 12.0 % Normal 11.6-14.8 [facility] Comment on above: Performed By: #### R UB #### [address] [address] Hematocrit (Bld) [Volume fraction] 37.7 % Normal 36.0-46.0 [facility] Comment on above: Performed By: #### R UB #### [address] [address] Hemoglobin (Bld) [Mass/Vol] 12.8 g/dL Normal 12.0-16.0 [facility] Comment on above: Performed By: #### R UB #### [address] [address] MCH (RBC) [Entitic mass] 31.0 pg Normal 27.0-35.0 [facility] Comment on above: Performed By: #### R UB #### [address] [address] MCHC 34.0 % Normal 31.0-37.0 [facility] Comment on above: Performed By: #### R UB #### [address] [address] MCV (RBC) [Entitic vol] 91.1 fL Normal 80.0-100.0 [facility] Comment on above: Performed By: #### R UB #### [address] [address] Platelet 370 x10*3/mcL Normal 150-450 [facility] Comment on above: Performed By: #### R UB #### [address] [address] Platelet mean volume (Bld) [Entitic vol] 8.0 fL Normal 6.7-10.6 [facility] Comment on above: Performed By: #### R UB #### [address] [address] RBC 4.13 x10*6/mcL Normal 3.80-5.20 [facility] Comment on above: Performed By: #### R UB #### [address] [address] WBC 12.3 x10*3/mcL High 4.5-11.0 [facility] Comment on above: Performed By: #### R UB #### [address] [address] Diff Autoon 01-29-2024 Baso Absolute 0.0 x10*3/mcL Normal 0.0-0.2 [facility] Comment on above: Performed By: #### . Automated Diff #### [address] [address] Basophils/100 WBC (Bld) 0.4 % Normal 0.0-1.5 [facility] Comment on above: Performed By: #### . Automated Diff #### [address] [address] Eos Absolute 0.0 x10*3/mcL Normal 0.0-0.4 [facility] Comment on above: Performed By: #### . Automated Diff #### [address] [address] Eosinophils/100 WBC (Bld) 0.3 % Normal 0.0-5.4 [facility] Comment on above: Performed By: #### . Automated Diff #### [address] [address] Lymph Absolute 2.0 x10*3/mcL Normal 1.0-4.8 [facility] Comment on above: Performed By: #### . Automated Diff #### [address] [address] Lymphocytes/100 WBC (Bld) 16.2 % Low 27.2-40.8 [facility] Comment on above: Performed By: #### . Automated Diff #### [address] [address] [place] Absolute 0.6 x10*3/mcL Normal 0.1-1.1 [facility] Comment on above: Performed By: #### . Automated Diff #### [address] [address] Monocytes/100 WBC (Bld) 4.6 % Normal 3.7-11.9 [facility] Comment on above: Performed By: #### . Automated Diff #### [address] [address] Neutro Absolute 9.7 x10*3/mcL High 1.8-7.7 [facility] Comment on above: Performed By: #### . Automated Diff #### [place] [id number] Neutro Auto 78.5 % High 47.2-70.8 [facility] Comment on above: Performed By: #### . Automated Diff #### [place] [id number] Hgb A1con 01-29-2024 Glucose [Mass/Vol] 105 mg/dL Normal 68-114 [facility] Comment on above: Result Comment: Math ematical Calc approx. The mean gluc equivalency of A1c Performed By: #### R UB #### [place] [id number] Hgb A1c 5.3 % A1c Normal 4.0-5.6 [facility] Comment on above: Result Comment: Refe rence Range: 4.0 - 5.6 % Normal 5.7 - 6.4 % Pre-Diabetes > 6.5 % Diabetes Performed By: #### R UB #### [place] [id number] Pren ABSCon 01-29-2024 Pren ABSC Negative Normal [facility] Comment on above: Performed By: #### R UB #### [address] [address] Rubella IgGon 01-29-2024 Rubella IgG Ab Interp Positive Normal [facility] Comment on above: Result Comment: The presence of detectable IgG-class antibodies indicates immunity to the rubella virus through prior immunization or exposure. Individuals testing reactive (positive) are considered immune to rubella infection. This result was obtained with the Access Rubella IgG EIA. Despite calibration by means of a reference preparation, values obtained with different contact agent's assay methods may not be used interchangeably. The magnitude of the reported IgG level CANNOT be correlated to an endpoint titer. Performed By: #### R UB #### [address] [address] Coding Summary.on 01-31-2020 Coding Summary. CODING DATE: 01/31/2020 FINAL [facility] STATUS: Home (Routine DC) [...] Munroe Date Saved: 01/31/2020 07:26 pm Normal [facility] Physician Orderon 01-05-2020 Physician Order [id number]:[id number] Normal [facility] Vital Signs Date Time Vital Sign Value Performing Clinician Dilciai lity 07-17-2024 16:07-0500 Body mass index (BMI) [Ratio] 30.89 kg/m2 Remy Flor DO Work Phone: [facility] 07-17-2024 16:07-0500 Body weight 79.11 kg Remy Flor DO Work Phone: [facility] 07-17-2024 16:07-0500 Diastolic blood pressure 80 mm[Hg] Remy Flor DO Work Phone: [facility] 07-17-2024 16:07-0500 Systolic blood pressure 122 mm[Hg] Remy Flor DO Work Phone: [facility] 07-05-2024 16:18-0500 Body mass index (BMI) [Ratio] 30.65 kg/m2 Remy Flor DO Work Phone: [facility] 07-05-2024 16:18-0500 Body weight 78.47 kg Remy Flor DO Work Phone: [facility] 07-05-2024 16:18-0500 Diastolic blood pressure 70 mm[Hg] Remy Flor DO Work Phone: [facility] 07-05-2024 16:18-0500 Systolic blood pressure 118 mm[Hg] Remy Flor DO Work Phone: [facility] 06-19-2024 15:50-0500 Body mass index (BMI) [Ratio] 31.18 kg/m2 Remy Flor DO Work Phone: [facility] 06-19-2024 15:50-0500 Body weight 79.83 kg Remy Flor DO Work Phone: [facility] 06-19-2024 15:50-0500 Diastolic blood pressure 72 mm[Hg] Remy Flor DO Work Phone: [facility] 06-19-2024 15:50-0500 Systolic blood pressure 118 mm[Hg] Remy Flor DO Work Phone: [facility] 05-25-2024 16:00-0400 Body mass index (BMI) [Ratio] 30.61 kg/m2 Jenifer SHEEHAN Work Phone: [facility] 05-25-2024 16:00-0400 Body weight 78.38 kg Jenifer SHEEHAN Work Phone: [facility] 05-25-2024 16:00-0400 Diastolic blood pressure 74 mm[Hg] Jenifer SHEEHAN Work Phone: [facility] 05-25-2024 16:00-0400 Systolic blood pressure 110 mm[Hg] Jenifer SHEEHAN Work Phone: [facility] 04-24-2024 14:42-0400 Body mass index (BMI) [Ratio] 29.58 kg/m2 Remy Flor DO Work Phone: [facility] 04-24-2024 14:42-0400 Body weight 75.75 kg Remy Flor DO Work Phone: [facility] 04-24-2024 14:42-0400 Diastolic blood pressure 76 mm[Hg] Remy Flor DO Work Phone: [facility] 04-24-2024 14:42-0400 Systolic blood pressure 114 mm[Hg] Remy Flor DO Work Phone: [facility] 03-28-2024 14:01-0400 Body mass index (BMI) [Ratio] 29.23 kg/m2 Jenifer SHEEHAN Work Phone: [facility] 03-28-2024 14:01-0400 Body weight 74.84 kg Jenifer SHEEHAN Work Phone: [facility] 03-28-2024 14:01-0400 Diastolic blood pressure 74 mm[Hg] Jenifer SHEEHAN Work Phone: [facility] 03-28-2024 14:01-0400 Systolic blood pressure 116 mm[Hg] Jenifer SHEEHAN [facility] Encounters Encounter Date Encounter Type Care Provider Facility Start: 07-17-2024 End: 07-17-2024 flow sheet Remy Flor DO Work Phone: [facility] Comment on above: 33 weeks gestation o f ; Third trimester Start: 07-17-2024 End: 07-17-2024 ambulatory REMY FLOR Not Available Start: 07-17-2024 End: 07-17-2024 Bamboo flowsheet Remy Flor DO Work Phone: [facility] Start: 07-17-2024 End: 07-17-2024 Bamboo flowsheet Remy Flor DO Work Phone: [facility] Start: 07-05-2024 End: 07-05-2024 flow sheet Remy Flor DO Work Phone: [facility] Comment on above: Third trimester [...] [facility] Start: 06-03-2024 End: 06-03-2024 ambulatory Jeinfer Latif PA-C Facility:[facility] Start: 05-25-2024 End: 05-25-2024 ambulatory JENIFER LATIF [...] End: 03-18-2024 ambulatory Remy Tay Amoro DO Facility:[facility] Start: 02-29-2024 End: 02-29-2024 ambulatory REMY FLOR Not Available Start: 01-29-2024 End: 01-29-2024 ambulatory Remy Tay Flor DO Facility:[facility] Start: 01-21-2024 End: 01-21-2024 ambulatory REMY FLRO Not Available Start: 08-16-2023 End: 08-16-2023 ambulatory [...] OB [address] [place] [id number] Remy Ray DO [address] [place] [address] [facility] Start: 08-15-2024 End: 08-15-2024 Patient encounter procedure 08/15/2024 2:50 PM EST Routine [facility] [address] [place] [address] Remy Rya, DO [address] [place] [address] [facility] Start: 08-08-2024 End: 08-08-2024 Patient encounter procedure 08/08/2024 2:50 PM EST Routine [facility] [address] [facility] [place] [address] Remy Ray, DO [address] [place] [address] [facility] Start: 08-01-2024 End: 08-01-2024 Patient encounter procedure 08/01/2024 2:40 PM EST Routine [facility] [address] [facility] [place] [id number] Remy Ray, DO [address] [place] [address] [facility] Start: 07-17-2024 End: 07-17-2024 [...] MTHFR mutation Expected: 07/05/2024 (Approximate), Expires: 07/05/2025 [facility] Comment on above: Expected: 07/05/2024 (Approximate), Expires: 07/05/2025 Start: 06-19-2024 End: 06-19-2024 Patient encounter procedure [facility] Comment on above: Arrived Start: 05-25-2024 End: 05-25-2024 Patient encounter procedure 05/25/2024 3:50 PM EDT Routine [facility] [address] [facility] [place] [address] Jenifer Latif PA [address] [place], [place] [id number] [facility] Start: 05-25-2024 End: 05-25-2025 Measurement of glucose 3 hours after glucose challenge for glucose tolerance test Glucose tolerance, 3 hours Lab Routine Elevated glucose tolerance test Expected: 05/25/2024 (Approximate), Expires: 05/25/2025 [facility] Work Phone: Comment on above: Expected: 05/25/2024 (Approximate), Expires: 05/25/2025 Start: 04-24-2024 End: 04-24-2024 Patient encounter procedure [facility] Comment on above: Arrived Start: 04-24-2024 End: 04-24-2024 Professional / ancillary services management 04/24/2024 1:30 PM EDT Ancillary Procedure [facility] [address] [facility] [place] [address] [facility] Start: 03-28-2024 End: 04-27-2024 Alpha fetoprotein, maternal Alpha fetoprotein, maternal Lab Routine Need for maternal serum alpha-protein (MSAFP) screening Expected: 03/28/2024 (Approximate), Expires: 04/27/2024 [facility] Comment on above: Expected: 03/28/2024 (Approximate), Expires: 04/27/2024 Start: 03-28-2024 End: 03-28-2025 US for US OB ANATOMY SINGLE W US OB CERVICAL LENGTH Imaging Routine Screening, , for anatomic survey Expected: 03/28/2024 (Approximate), Expires: 03/28/2025 [facility] Comment on above: Expected: 03/28/2024 (Approximate), Expires: 03/28/2025 CHLAMYDIA TRACHOMATI S (GENITO/STI) CHLAMYDIA TRACHOMATIS (GENITO/STI) Lab Routine Exposure to STD Ordered: 03/28/2024 [facility] Comment on above: Ordered: 03/28/2024 Neisseria gonorrhoea e DNA [Presence] in Unspecified specimen by EFRAIN with probe detection Neisseria gonorrhea DNA probe, direct Lab Routine Exposure to STD Ordered: 03/28/2024 [facility] Comment on above: Ordered: 03/28/2024 SURESWAB(R) ADVANCED VAGINITIS PLUS, TMA SURESWAB(R) ADVANCED VAGINITIS PLUS, TMA Pathology and Cytology Routine Exposure to STD Ordered: 03/28/2024 [facility] Work Phone: Comment on above: Ordered: 03/28/2024 Payers Date Payer Category Payer Private Health Insurance [facility] Member Subscriber Plan / Payer (Effective 2023-Present) Name: Ary Ellis Member ID: [id number] Relation to Subscriber: Spouse Name: Sam Ellis Subscriber ID: [id number] Date of : 1990 Address: [address] [place] [address] [place] [address] Payer ID: Not on file Group ID: [id number] Type: Not on file Address: [place] [address] [place] [id number] 2023 Unknown 2023 Unknown [id number] 2021 Medicaid [id number] 1990 Unknown [id number] 2.16.840.1.396401.3.579.2. 593 1990 Unknown [id number] 2.16.840.1.121585.3.579.2. 196 1990 Unknown [id number] 2.16.840.1.461301.3.579.2. 196 1990 Unknown [id number] 2.16.840.1.196746.3.579.2. 196 1990 Unknown [id number] 2.16.840.1.317662.3.579.2. 1259 1990 Unknown [id number] 2.16.840.1.771764.3.579.2. 1259 1990 Unknown [id number] 2.16.840.1.589914.3.579.2. 1259 1990 Unknown [id number] 2.16.840.1.579704.3.579.2. 1259 1990 Unknown [id number] 2.16.840.1.451877.3.579.2. 1259 1990 Unknown [id number] 2.16.840.1.283626.3.579.2. 9 1990 Unknown [id number] 2.16.840.1.998244.3.579.2. 1259 1990 Unknown [id number] 2.16.840.1.176320.3.579.2. 9 1990 Unknown [id number] 2.16.840.1.822726.3.579.2. 1259 1959 Unknown [id number] Social History Date Type Detail Facility Start: 07-28-2023 Tobacco smoking stat [facility] Never smoked tobacco [facility] Start: 07-28-2023 [...] Gender identity Identifies as female gender (finding) [facility] Start: 08-11-2023 Sexual orientation Heterosexual (alphonso colón) [facility] Medical Equipment Procedure Code Equipment Code Equipment Origin al Text Equipment Identifier Dates 1 strip by In Vi tro route Daily Use in the morning prior to breakfast, 1 hour after each meal for a total of 4times daily. [id number] Start: 06-19-2024 End: 07-19-2024 1 each by In Vit ro route Daily Use to check FSBS four times daily [id number] Start: 06-19-2024 End: 07-19-2024 Use as instructed [id number] Start: 07-05-2024 1 each by In Vit ro route Daily Use to check FSBS four times daily [id number] Start: 07-14-2024 End: 08-13-2024 Clinical Notes 03-28-2024 to 07-17-2024 Sadaf Little, [facility] - 07/17/2024 3:40 PM Rupal Casey, [facility] - 07/05/2024 3:30 PM Louis Little, [facility] - 06/19/2024 3:30 PM AGUILA Reynolds - [...] nursing note reviewed. Exam conducted with a sales utility representative present. Vitals: Estimated body mass index is [...] Remy Ray DO documented in this encounter [facility] 07-05-2024 History of Presen t illness [...] nursing note reviewed. Exam conducted with a sales utility representative present. Vitals: Estimated body mass index is [...] Remy Ray DO documented in this encounter [facility] 06-19-2024 History of Presen t illness [...] nursing note reviewed. Exam conducted with a sales utility representative present. Vitals: Estimated body mass index is [...] Remy Ray DO documented in this encounter [facility] 05-25-2024 History of Presen t illness [...] of: AGUILA Carbone documented in this encounter [facility] 04-24-2024 History of Presen t illness [...] nursing note reviewed. Exam conducted with a sales utility representative present. Vitals: Estimated body mass index is [...] Sadaf Little LPN on behalf of: Remy Rya DO documented in this encounter [facility] 03-28-2024 History of Presen t illness [...] hour glucose orders to have done at [facility] prior to next visit. Pt verbally [...] and content) DATE CREATED AUTHOR 02/10/2020 [employer] [facility] DATE CREATED AUTHOR AUTHOR'S ORGANIZ ATION 08/12/2022 [facility] DATE CREATED AUTHOR AUTHOR'S ORGANIZ ATION 07/06/2024 [facility] DATE CREATED AUTHOR AUTHOR'S ORGANIZ ATION 07/20/2024 [facility] EPIC Reason for Visit [...] BE BASED ON THE PRIMARY CLINICAL RECORDS. [facility] [employer] [facility]. provides no warranty or guarantee of the accuracy or completeness of information in this document.
[2024-08-04 16:56] VITALS: BP 133/87; PULSE 112
== END 2024-08-04 17:30 | disposition home or self-care (01) ==
LOC: FBCO 00:43 → FBC 16:51
PROVIDERS: PCP Nurse Practitioner Family; Visit Provider Obstetrics & Gynecology
DX: O24.419 Gestational diabetes mellitus in pregnancy, unspecified control (principal); Z3A.36 36 weeks gestation of pregnancy
CPT/HCPCS: 59025

== ENCOUNTER 2024-08-08 00:32 | Outpatient (OUT) | payer BC, SELFPAY ==
[2024-08-08] VITALS (7 sets, daily range): BP systolic 121–146; BP diastolic 76–96; PULSE 81–93
--- OUTSIDE RECORDS SUMMARY | 2024-08-08 00:36 | XMS_ITS | CCD ---
Author Organization [facility] Care Team Providers Care Safety Spec Name Role Phone DR REMY RAY Admitting [...] Platelet Aggregation Inhibitor, Nonsteroidal Anti-inflammatory Drug Start: 07-24-2024 take 1 tablet by mouth once daily aspirin (Aspirin Low Dose) 81 MG EC tablet Indications: Encounter for supervision of normal , unspecified, unspecified trimester TAKE 1 TABLET BY MOUTH EVERY DAY FOR 30 DAYS 30 tablet 3 07/24/2024 Active Start: 10-11-2023 End: 07-17-2024 take 1 tablet by mouth once daily aspirin (Aspirin Low Dose) 81 MG EC tablet Indications: Encounter for supervision of normal , unspecified, unspecified trimester TAKE 1 TABLET BY MOUTH EVERY DAY FOR 30 DAYS 30 tablet 3 03/28/2024 07/17/2024 Discontinued Blood Glucose Monitoring Suppl (D-Care Glucometer) w/Device kit (9 sources) Start: 06-19-2024 End: 06-19-2025 Blood Glucose [...] day at the same time Active Docusate (20 sources) Docusate Sodium (COLACE PO) Take by mouth Active Doxylamine Succinate, Sleep, (UNISOM PO) (20 sources) Doxylamine Succinate, Sleep, (UNISOM PO) Take by mouth Active insulin isophane, human 100 unt/ml injectable suspension (8 sources) Start: 07-05-20 End: 10-05-19 inject 5 [...] tablet 3 01/21/2024 Active polyethylene glycol 3350 66101 mg powder for oral solution (20 sources) Osmotic Laxative polyethylene gl ycol, PEG, 3350 (Miralax) 17 g packet Take by mouth Active Vit-Fe Fumarate-FA (PNV Plus Multivitamin) 27-1 MG tablet (20 sources) Start: 03-28-2024 take 1 tablet by mouth once daily Vit-Fe Fumarate-FA (PNV Plus Multivitamin) 27-1 MG tablet Indications: Encounter for supervision of normal , unspecified, unspecified trimester Take 1 tablet by mouth Daily 30 tablet 11 03/28/2024 Active Completed/Discontinued Medications Medication Drug Class(es) Dates Sig (Normalized) Sig (Original) Vit w/ Fe Bisg-FA (PNV Tabs 20-1) [...] by chip th once daily Vit-Fe Fumarate-FA (M-Leann Plus) 27-1 [...] of ] 05-25-2024 Episodic Residual codes; unclassified (2 sources) [...] [33 weeks gestation of ] 07-17-2024 Episodic Residual codes; unclassified (2 sources) Gestation period, 35 weeks; Translations: [35 weeks gestation of ] 08-01-2024 Episodic Past or Other Problems Problem Classification Problem Date Documented Date Episodic/Chronic Immunizations and screening for infectious disease (2 sources) Exposure to sexually transmissible disorder; Translations: [Contact with and (suspected) exposure to infections with a predominantly sexual mode of transmission] 03-28-2024 Episodic Other screening for suspected conditions (not mental disorders or infectious disease) (4 sources) Alpha-fetoprotein blood test status; Translations: [Encounter for screening for raised alphafetoprotein level] 03-28-2024 Episodic Residual codes; unclassified (18 sources) Gestation period, 21 weeks; Translations: [21 weeks gestation of ] Onset: 04-24-2024 04-24-2024 Episodic Results Test Name Value Interpretation Reference Range Facil ity Urinalysis macro (dipstick) panel (U)on 08-01-2024 Bilirubin, UA Negative Negative - 4(70) +++ mg/dL [facility] Blood, UA Positive Negative - 50 Kyle/mcL [facility] Comment on above: trace-intact Clarity, UA Clear [facility] re Color, UA Yellow [facility] Glucose, UA Negative Negative - 1999(110) ++++ mg/dL [facility] Interpretation and review of laboratory results Abnormal [facility] Ketones, UA Positive Negative - 160(16) ++++ mg/dL [facility] Comment on above: 15 Leukocytes, UA Positive Negative - 500+++ Ren/mcL [facility] Comment on above: small Nitrite, UA Negative Negative - Positive [facility] pH, UA 6.5 5 - 9 [facility] Protein, UA Positive Negative - 1999(20) ++++ mg/dL [facility] Comment on above: 30 Spec Grav, UA 1.025 1 - 1.03 [facility] Urobilinogen, UA 0.2 0.2 - 12 mg/dL [facility] Urinalysis macro (dipstick) panel (U)on 07-17-2024 Bilirubin, UA Negative Negative - 4(70) +++ mg/dL [facility] Blood, UA Negative Negative - 50 Kyle/mcL [facility] Clarity, UA Clear [facility] re Color, UA Yellow [facility] Glucose, UA Negative Negative - 1999(110) ++++ mg/dL [facility] Interpretation and review of laboratory results Abnormal [facility] Ketones, UA Negative Negative - 160(16) ++++ mg/dL [facility] Leukocytes, UA Trace Negative - 500+++ Ren/mcL [facility] Nitrite, UA Negative Negative - Positive [facility] pH, UA 7 5 - 9 [facility] Protein, UA Negative Negative - 1999(20) ++++ mg/dL [facility] Spec Grav, UA 1.015 1 - 1.03 [facility] Urobilinogen, UA 0.2 0.2 - 12 mg/dL [facility] Urinalysis macro (dipstick) panel (U)on 07-05-2024 Bilirubin, UA Negative Negative - 4(70) +++ mg/dL [facility] Blood, UA Negative Negative - 50 Kyle/mcL [facility] Clarity, UA Clear [facility] re Color, UA Yellow [facility] Glucose, UA Negative Negative - 1999(110) ++++ mg/dL [facility] Interpretation and review of laboratory results Abnormal [facility] Ketones, UA Positive Negative - 160(16) ++++ mg/dL [facility] Comment on above: 15 Leukocytes, UA Positive Negative - 500+++ Ren/mcL [facility] Comment on above: small Nitrite, UA Negative Negative - Positive [facility] pH, UA 7 5 - 9 [facility] Protein, UA Negative Negative - 1999(20) ++++ mg/dL [facility] Spec Grav, UA 1.02 1 - 1.03 [facility] Urobilinogen, UA 0.2 0.2 - 12 mg/dL [facility] Urinalysis macro (dipstick) panel (U)on 06-19-2024 Bilirubin, UA Negative Negative - 4(70) +++ mg/dL [facility] Blood, UA Positive Negative - 50 Kyle/mcL [facility] Comment on above: trace Clarity, UA Clear [facility] re Color, UA Yellow [facility] Glucose, UA Negative Negative - 1999(110) ++++ mg/dL [facility] Interpretation and review of laboratory results Abnormal [facility] Ketones, UA Negative Negative - 160(16) ++++ mg/dL [facility] Leukocytes, UA Positive Negative - 500+++ Ren/mcL [facility] Comment on above: small Nitrite, UA Negative Negative - Positive [facility] pH, UA 7 5 - 9 [facility] Protein, UA Negative Negative - 1999(20) ++++ mg/dL [facility] Spec Grav, UA 1.02 1 - 1.03 [facility] Urobilinogen, UA 0.2 0.2 - 12 mg/dL [facility] .Glu 1 Hron 06-03-2024 Glucose [Mass/Vol] 180 mg/dL Normal 70-199 [facility] Comment on above: Performed By: #### R UB #### [facility] [address] [place] [address] .Glu 2 Hron 06-03-2024 Glucose [Mass/Vol] 163 mg/dL High 70-139 [facility] Comment on above: Result Comment: A 2 Hour glucose of less than 140 mg/dL is normal. A value of more than 200 mg/dL after 2 hours indicates diabetes. A value between 140 and 199 mg/dL indicates pre-diabetes. Performed By: #### . Glucose 2 Hour #### [address] [address] .Glu 3 Hron 06-03-2024 Glucose [Mass/Vol] 69 mg/dL Low 70-99 [facility] Comment on above: Performed By: #### R UB #### [address] [address] .Glu Baseon 06-03-2024 Glucose [Mass/Vol] 108 mg/dL High 70-99 [facility] Comment on above: Performed By: #### R UB #### [address] [address] POC Glucon 06-03-2024 Glucose [Mass/Vol] 120 mg/dL Normal 78-120 [facility] Comment on above: Performed By: #### R UB #### [address] [address] Urinalysis macro (dipstick) panel (U)on 05-25-2024 Bilirubin, UA Negative Negative - 4(70) +++ mg/dL [facility] Blood, UA Negative Negative - 50 Kyle/mcL [facility] Clarity, UA Clear [facility] re Color, UA Yellow [facility] Glucose, UA Positive Negative - 1999(110) ++++ mg/dL [facility] Interpretation and review of laboratory results Abnormal [facility] Ketones, UA Negative Negative - 160(16) ++++ mg/dL [facility] Leukocytes, UA Negative Negative - 500+++ Ren/mcL [facility] Nitrite, UA Negative Negative - Positive [facility] pH, UA 7 5 - 9 [facility] Protein, UA Negative Negative - 1999(20) ++++ mg/dL [facility] Spec Grav, UA 1.02 1 - 1.03 [facility] care Urobilinogen, UA 1.0 0.2 - 12 mg/dL [facility] Urinalysis macro (dipstick) panel (U)on 04-24-2024 Bilirubin, UA Negative Negative - 4(70) +++ mg/dL [facility] Blood, UA Negative Negative - 50 Kyle/mcL [facility] Clarity, UA Clear [facility] re Color, UA Light Yellow [facility] are Glucose, UA Negative Negative - 1999(110) ++++ mg/dL [facility] Interpretation and review of laboratory results Abnormal [facility] Ketones, UA Negative Negative - 160(16) ++++ mg/dL [facility] Leukocytes, UA Trace Negative - 500+++ Ren/mcL [facility] Nitrite, UA Negative Negative - Positive [facility] pH, UA 6.0 5 - 9 [facility] Protein, UA Negative Negative - 1999(20) ++++ mg/dL [facility] Spec Grav, UA 1.015 1 - 1.03 [facility] Urobilinogen, UA 1.0 0.2 - 12 mg/dL [facility] e GLUCOSE TOLERANCE 3 HOURon 0 04-01-2024 GLUCOSE TOLERANCE 3 HOUR High mg/dL [facility] Comment on above: GLU FAST 109H (<95) Col: 04/01/24 0839 GLU 1HR 138 (<180) Col: 04/01/24 0945 GLU 2HR 128 (<155) Col: 04/01/24 1043 GLU 3HR 104 (<140) Col: 04/01/24 1143 Interpretation and review of laboratory results Abnormal [facility] e URETHRITIS/DISCHARGE PLUS VA GINITIS (HTRX)on 03-29-2024 ATOPOBIUM VAGINAE 0.000 [facility] ATOPOBIUM VAGINAE Not detected [facility] BVAB 2,3 (BACTERIAL VAGINOSIS ASSOCIATED BACTERIA 2, 3); MOBILUNCUS SPP 0.000 [facility] BVAB 2,3 (BACTERIAL VAGINOSIS ASSOCIATED BACTERIA 2, 3); MOBILUNCUS SPP Not detected [facility] SERAFIN ALBICANS, PARAPSILOSIS, TROPICALIS 0.000 [facility] SERAFIN ALBICANS, PARAPSILOSIS, TROPICALIS Not detected [facility] SER[facility] GLABRATA 0.000 [facility] GLABRATA Not detected [facility] SERAFIN KRUSEI 0.000 [facility] SERAFIN KRUSEI Not detected [facility] CHLAMYDIA TRACHOMATIS 0.000 [facility] CHLAMYDIA TRACHOMATIS Not detected [facility] GARDNERELLA VAGINALIS 0.000 [facility] GARDNERELLA VAGINALIS Not detected [facility] MEGASPHAERA (TYPES 1, 2) 0.000 [facility] MEGASPHAERA (TYPES 1, 2) Not detected [facility] MYCOPLASMA [facility]UM 0.[facility] MYCOPLAS[facility] GEN[facility] Not detected [facility] NEISSERIA GONORRHOEAE 0.000 [facility] NEISSERIA GONORRHOEAE Not detected [facility] TRICHOMONAS VAGINALIS 0.000 [facility] TRICHOMONAS VAGINALIS Not detected [facility] Urinalysis macro (dipstick) panel (U)on 03-28-2024 Bilirubin, UA Negative Negative - 4(70) +++ mg/dL [facility] Blood, UA Negative Negative - 50 Kyle/mcL [facility] Clarity, UA Clear [facility] re Color, UA Yellow [facility] Glucose, UA Negative Negative - 1999(110) ++++ mg/dL [facility] Interpretation and review of laboratory results Abnormal [facility] Ketones, UA Negative Negative - 160(16) ++++ mg/dL [facility] Leukocytes, UA Trace Negative - 500+++ Ren/mcL [facility] Nitrite, UA Negative Negative - Positive [facility] pH, UA 6.5 5 - 9 [facility] Protein, UA Negative Negative - 1999(20) ++++ mg/dL [facility] Spec Grav, UA 1.020 1 - 1.03 [facility] Urobilinogen, UA 0.2 0.2 - 12 mg/dL [facility] CBCon 03-18-2024 Erythrocyte distribution width (RBC) [Ratio] 13.0 % Normal 11.6-14.8 [facility] Comment on above: Performed By: #### R UB #### [address] [address] Hematocrit (Bld) [Volume fraction] 36.7 % Normal 36.0-46.0 [facility] Comment on above: Performed By: #### R UB #### [address] [address] Hemoglobin (Bld) [Mass/Vol] 12.6 g/dL Normal 12.0-16.0 [facility] Comment on above: Performed By: #### R UB #### [place] [id number] MCH (RBC) [Entitic mass] 31.8 pg Normal 27.0-35.0 [facility] Comment on above: Performed By: #### R UB #### [place] [address] MCHC 34.2 % Normal 31.0-37.0 [facility] Comment on above: Performed By: #### R UB #### [place] [id number] MCV (RBC) [Entitic vol] 92.9 fL Normal 80.0-100.0 [facility] Comment on above: Performed By: #### R UB #### [place] [id number] Platelet 295 x10*3/mcL Normal 150-450 [facility] Comment on above: Performed By: #### R UB #### [place] [id number] Platelet mean volume (Bld) [Entitic vol] 8.7 fL Normal 6.7-10.6 [facility] Comment on above: Performed By: #### R UB #### [place] [id number] RBC 3.95 x10*6/mcL Normal 3.80-5.20 [facility] Comment on above: Performed By: #### R UB #### [address] [address] WBC 11.6 x10*3/mcL High 4.5-11.0 [facility] Comment on above: Performed By: #### R UB #### [place] [id number] Gest Diab Scn (ACOG)on 03-18 History of diabetes or gastric bypass? Unknown Normal [facility] Comment on above: Performed By: #### G DS #### [address] [address] Glucose [Mass/Vol] 136 mg/dL High 70-134 [facility] Comment on above: Result Comment: Acco rding to the ADA, a glucose threshold of > 139 mg/dL after a 50-gram load identifies approximately 80% of women with gestational diabetes mellitus, while the sensitivity is further increased to approximately 90% by a threshold of >129 mg/dL. Performed By: #### G DS #### [address] [address] Trep Abon 02-01-2024 Treponema Total Ab <0.10 Normal [facility] Comment on above: Performed By: #### C [id number] #### [address] [address] Treponema Total Ab Interp Negative Normal Negative [facility] Comment on above: Result Comment: No s erologic evidence of syphilis. No follow- up necessary unless clinically indicated (eg, early syphilis). Performed By: #### C [id number] #### [address] [address] HIV1/2 Ab,Ag Scnon HIV-1/2 Ab,Ag 0.26 Normal [facility] Comment on above: Performed By: #### C [id number] #### [address] [address] HIV-1/2 Ab,Ag Interp Non-Reactive Normal Non-Reactive [facility] Comment on above: Performed By: #### C [id number] #### [address] [address] Hep Bs Agon 01-31-2024 Hep Bs Ag Interp Non-Reactive Normal Non-Reactive [facility] Comment on above: Performed By: #### H BSAG #### [address] [address] Hep C Ab w/reflex HCV RNA Qn t, PCRon 01-31-2024 Hep C IgG Interp Non-Reactive Normal Non-Reactive [facility] Comment on above: Performed By: #### H CV #### [address] [address] C Urineon 01-30-2024 C Urine ------- Final 30-50,000 cfu/ml Mixed gram positive alicia isolated. This urine contains 3 or more organisms which is inconsistent with clean catch collection. Consider the possibility of contamination during collection. No identification or susceptibility performed as results would be misleading Normal [facility] Comment on above: Performed By: #### U RC #### [place] [id number] ABO/Rhon 01-29-2024 ABO/Rh ABO/Rh: A POS Normal [facility] Comment on above: Performed By: #### A BAN #### [facility] ([facility] [address] [place], [place] [id number] CBC w/ Diffon 01-29-2024 Erythrocyte distribution width (RBC) [Ratio] 12.0 % Normal 11.6-14.8 [facility] Comment on above: Performed By: #### R UB #### [place] [id number] Hematocrit (Bld) [Volume fraction] 37.7 % Normal 36.0-46.0 [facility] Comment on above: Performed By: #### R UB #### [place] [id number] Hemoglobin (Bld) [Mass/Vol] 12.8 g/dL Normal 12.0-16.0 [facility] Comment on above: Performed By: #### R UB #### [place] [id number] MCH (RBC) [Entitic mass] 31.0 pg Normal 27.0-35.0 [facility] Comment on above: Performed By: #### R UB #### [address] [address] MCHC 34.0 % Normal 31.0-37.0 [facility] Comment on above: Performed By: #### R UB #### [address] [address] MCV (RBC) [Entitic vol] 91.1 fL Normal 80.0-100.0 [facility] Comment on above: Performed By: #### R UB #### [address] [address] Platelet 370 x10*3/mcL Normal 150-450 [facility] Comment on above: Performed By: #### R UB #### [address] [address] Platelet mean volume (Bld) [Entitic vol] 8.0 fL Normal 6.7-10.6 [facility] Comment on above: Performed By: #### R UB #### [address] [address] RBC 4.13 x10*6/mcL Normal 3.80-5.20 [facility] Comment on above: Performed By: #### R UB #### [address] [address] WBC 12.3 x10*3/mcL High 4.5-11.0 [facility] Comment on above: Performed By: #### R UB #### [address] [address] Diff Autoon 01-29-2024 Baso Absolute 0.0 x10*3/mcL Normal 0.0-0.2 [facility] Comment on above: Performed By: #### . Automated Diff #### [address] [address] Basophils/100 WBC (Bld) 0.4 % Normal 0.0-1.5 [facility] Comment on above: Performed By: #### . Automated Diff #### [address] [address] Eos Absolute 0.0 x10*3/mcL Normal 0.0-0.4 [facility] Comment on above: Performed By: #### . Automated Diff #### [address] [address] Eosinophils/100 WBC (Bld) 0.3 % Normal 0.0-5.4 [facility] Comment on above: Performed By: #### . Automated Diff #### [address] [address] Lymph Absolute 2.0 x10*3/mcL Normal 1.0-4.8 [facility] Comment on above: Performed By: #### . Automated Diff #### [address] [address] Lymphocytes/100 WBC (Bld) 16.2 % Low 27.2-40.8 [facility] Comment on above: Performed By: #### . Automated Diff #### [address] [address] Chase Absolute 0.6 x10*3/mcL Normal 0.1-1.1 [facility] Comment on above: Performed By: #### . Automated Diff #### [address] [address] Monocytes/100 WBC (Bld) 4.6 % Normal 3.7-11.9 [facility] Comment on above: Performed By: #### . Automated Diff #### [address] [address] Neutro Absolute 9.7 x10*3/mcL High 1.8-7.7 [facility] Comment on above: Performed By: #### . Automated Diff #### [address] [address] Neutro Auto 78.5 % High 47.2-70.8 [facility] Comment on above: Performed By: #### . Automated Diff #### [address] [address] Hgb A1con 01-29-2024 Glucose [Mass/Vol] 105 mg/dL Normal 68-114 [facility] Comment on above: Result Comment: Math ematical Calc approx. The mean gluc equivalency of A1c Performed By: #### R UB #### [address] [address] Hgb A1c 5.3 % A1c Normal 4.0-5.6 [facility] Comment on above: Result Comment: Refe rence Range: 4.0 - 5.6 % Normal 5.7 - 6.4 % Pre-Diabetes > 6.5 % Diabetes Performed By: #### R UB #### [address] [address] Pren ABSCon 01-29-2024 Pren ABSC Negative Normal [facility] Comment on above: Performed By: #### R UB #### [address] [address] Rubella IgGon 01-29-2024 Rubella IgG Ab Interp Positive Normal [facility] Comment on above: Result Comment: The presence of detectable IgG-class antibodies indicates immunity to the rubella virus through prior immunization or exposure. Individuals testing reactive (positive) are considered immune to rubella infection. This result was obtained with the Access Rubella IgG EIA. Despite calibration by means of a reference preparation, values obtained with different marine pipefitter's assay methods may not be used interchangeably. The magnitude of the reported IgG level CANNOT be correlated to an endpoint titer. Performed By: #### R UB #### [address] [address] Coding Summary.on 01-31-2020 Coding Summary. CODING DATE: 01/31/2020 FINAL [facility] STATUS: Home (Routine DC) PAYOR: Commercial [...] Jocy Munroe Date Saved: 01/31/2020 07:26 pm [facility] Physician Orderon 01-05-2020 Physician Order [id number]:[id number] [facility] Vital Signs Date Time Vital Sign Value Performing Clinician Keira araujo 08-01-2024 15:05-0500 Body mass index (BMI) [Ratio] 30.72 kg/m2 Remy Flor DO Work Phone: [facility] 08-01-2024 15:05-0500 Body weight 78.65 kg Remy Flor DO Work Phone: [facility] 08-01-2024 15:05-0500 Diastolic blood pressure 70 mm[Hg] Remy Flor DO Work Phone: [facility] 08-01-2024 15:05-0500 Systolic blood pressure 120 mm[Hg] Remy Flor DO Work Phone: [facility] 07-17-2024 16:07-0500 Body mass index (BMI) [Ratio] 30.89 kg/m2 Remy Flor DO Work Phone: [facility] 07-17-2024 16:07-0500 Body weight 79.11 kg Remy Flor DO Work Phone: [facility] 07-17-2024 16:07-0500 Diastolic blood pressure 80 mm[Hg] Remy Flor DO Work Phone: [facility] 07-17-2024 16:07-0500 Systolic blood pressure 122 mm[Hg] Remy Flor DO Work Phone: [facility] 07-05-2024 16:18-0500 Body mass index (BMI) [Ratio] 30.65 kg/m2 Remy Flor DO Work Phone: [facility] 07-05-2024 16:18-0500 Body weight 78.47 kg Remy Flor DO Work Phone: [facility] 07-05-2024 16:18-0500 Diastolic blood pressure 70 mm[Hg] Remy Flor DO Work Phone: [facility] 07-05-2024 16:18-0500 Systolic blood pressure 118 mm[Hg] Remy Flor DO Work Phone: [facility] 06-19-2024 15:50-0500 Body mass index (BMI) [Ratio] 31.18 kg/m2 Remy Flor DO Work Phone: [facility] 06-19-2024 15:50-0500 Body weight 79.83 kg Remy Flor DO Work Phone: [facility] 06-19-2024 15:50-0500 Diastolic blood pressure 72 mm[Hg] Remy Flor DO Work Phone: [facility] 06-19-2024 15:50-0500 Systolic blood pressure 118 mm[Hg] Remy Flor DO Work Phone: [facility] 05-25-2024 16:00-0400 Body mass index (BMI) [Ratio] 30.61 kg/m2 Jenifer SHEEHAN Work Phone: [facility] 05-25-2024 16:00-0400 Body weight 78.38 kg Jenifer SHEEHAN Work Phone: [facility] 05-25-2024 16:00-0400 Diastolic blood pressure 74 mm[Hg] Jenifer SHEEHAN Work Phone: [facility] 05-25-2024 16:00-0400 Systolic blood pressure 110 mm[Hg] Jenifer SHEEHAN Work Phone: [facility] 04-24-2024 14:42-0400 Body mass index (BMI) [Ratio] 29.58 kg/m2 Remy Flor DO Work Phone: [facility] 04-24-2024 14:42-0400 Body weight 75.75 kg Remy Flor DO Work Phone: [facility] 04-24-2024 14:42-0400 Diastolic blood pressure 76 mm[Hg] Remy Flor DO Work Phone: [facility] 04-24-2024 14:42-0400 Systolic blood pressure 114 mm[Hg] Remy Flor DO Work Phone: [facility] 03-28-2024 14:01-0400 Body mass index (BMI) [Ratio] 29.23 kg/m2 Jenifer SHEEHAN Work Phone: [facility] 03-28-2024 14:01-0400 Body weight 74.84 kg Jenifer SHEEHAN Work Phone: [facility] 03-28-2024 14:01-0400 Diastolic blood pressure 74 mm[Hg] Jenifer SHEEHAN Work Phone: [facility] 03-28-2024 14:01-0400 Systolic blood pressure 116 mm[Hg] Jenifer SHEEHAN Work Phone: [facility] Encounters Encounter Date Encounter Type Care Provider Facility Start: 08-01-2024 End: 08-01-2024 ambulatory REMY FLOR Not Available Start: 08-01-2024 End: 08-01-2024 flow sheet Remy Flor DO Work Phone: [facility] Comment on above: 35 weeks gestation o f ; Third trimester Start: 08-01-2024 End: 08-01-2024 Bamboo flowsheet Remy Flor DO Work Phone: [facility] Start: 08-01-2024 End: 08-01-2024 Bamboo flowsheet Remy Flor DO Work Phone: [facility] Start: 07-17-2024 End: 07-17-2024 flow sheet Remy Flor DO Work Phone: [facility] Comment on above: 33 weeks gestation o f ; Third trimester Start: 07-17-2024 End: 07-17-2024 ambulatory REMY FLOR Not Available Start: 07-17-2024 End: 07-17-2024 Bamboo flowsheet Remy Flor DO Work Phone: [facility] Start: 07-17-2024 End: 07-17-2024 Bamboo flowsheet Remy Flor DO Work Phone: [facility] Start: 07-05-2024 End: 07-05-2024 flow [...] End: 06-03-2024 ambulatory Jenifer Latif PA-C Facility:[facility] Start: 05-25-2024 End: 05-25-2024 ambulatory JENIFER LATIF Not Available Start: 05-25-2024 End: 05-25-2024 flow sheet Jenifer SHEEHAN Work Phone: [facility] Comment on above: 26 weeks gestation o f ; Second trimester ; Elevated glucose tolerance test Start: 04-24-2024 End: 04-24-2024 flow sheet Remy Flor DO Work Phone: [facility] Comment on above: Second trimester pre gnancy; 21 weeks gestation of Start: 04-24-2024 End: 04-24-2024 ambulatory REMY FLOR Not Available Start: 04-24-2024 End: 04-24-2024 Bamboo flowsheet Remy Flor DO Work Phone: [facility] Start: 04-24-2024 End: 04-24-2024 Bamboo flowsheet Remy Flor DO Work Phone: [facility] Start: 04-01-2024 End: 04-01-2024 Clinisync Result Encounter Remy Flor DO Work Phone: [facility] Unsolicited Start: 04-01-2024 End: 04-01-2024 Clinisync Result Encounter Remy Flor DO Work Phone: [facility] Start: 03-28-2024 End: 03-28-2024 Bamboo flowsheet Jenifer SHEEHAN Work Phone: [facility] Start: 03-28-2024 End: 03-29-2024 [...] End: 03-18-2024 ambulatory Remy Ray DO Facility:[facility] Start: 02-29-2024 End: 02-29-2024 ambulatory REMY RAY Not Available Start: 01-29-2024 End: 01-29-2024 ambulatory Remy Ray DO Facility:[facility] Start: 01-21-2024 End: 01-21-2024 ambulatory REMY CUNNINGHAMO Not Available Start: 08-16-2023 End: 08-16-2023 ambulatory REMY CUNNINGHAMO Not Available Start: 08-11-2022 End: 08-11-[address] REMY RAY Facility: Procedures Date Procedure Procedure Detail Performing Clinician Start: 08-01-2024 Urnls dip stick/tabl et rgnt non-auto w/o micrscp Remy Flor DO Work Phone: Start: 07-17-2024 Urnls dip stick/tabl et rgnt non-auto w/o micrscp Remy Flor DO Work Phone: Start: 07-05-2024 Urnls dip stick/tabl et rgnt non-auto w/o micrscp Remy Flor DO Work Phone: Start: 06-19-2024 Urnls dip stick/tabl et rgnt non-auto w/o micrscp Remy Flor DO Work Phone: Start: 05-25-2024 Urnls dip stick/tabl et rgnt non-auto w/o micrscp Jenifer Latif PA Work Phone: Start: 04-24-2024 Urnls dip stick/tabl [...] Visit [facility] [address] [place] [id number] Remy Ray, DO [address] [place], [place] [id number] [facility] Start: 08-15-2024 End: 08-15-2024 Patient encounter procedure 08/15/2024 2:50 PM EST Routine [facility] [address] [place] [id number] Remy Ray, DO [address] [place] [address] [facility] Start: 08-08-2024 End: 08-08-2024 Patient encounter procedure 08/08/2024 2:50 PM EST Routine [facility] [address] [place] [id number] Remy Ray, DO [address] [place] [address] [facility] Start: 08-01-2024 End: 08-01-2024 Patient encounter procedure 08/01/2024 2:40 PM EST Routine [facility] [address] [place] [phone] Remy Ray, DO [address] [place] [address] [facility] Start: 08-01-2024 End: 08-01-2025 CULTURE, GROUP B STREP WITH SUSCEPTIBLITY CULTURE, GROUP B STREP WITH SUSCEPTIBLITY Lab Routine Third trimester Expected: 08/01/2024, Expires: 08/01/2025 [facility] Work Phone: Comment on above: Expected: 08/01/2024 , Expires: 08/01/2025 Start: 07-17-2024 End: 07-17-2024 Patient encounter procedure [...] MTHFR mutation Expected: 07/05/2024 (Approximate), Expires: 07/05/2025 [facility] Comment on above: Expected: 07/05/2024 (Approximate), Expires: 07/05/2025 Start: 06-19-2024 End: 06-19-2024 Patient encounter procedure [facility] Comment on above: Arrived Start: 05-25-2024 End: 05-25-2024 Patient encounter procedure 05/25/2024 3:50 PM EDT Routine [facility] [address] [place] [address] Jenifer Latif PA [address] [place] [address] [facility] Start: 05-25-2024 End: 10-31-2025 Measurement of glucose 3 hours after glucose challenge for glucose tolerance test Glucose tolerance, 3 hours Lab Routine Elevated glucose tolerance test Expected: 05/25/2024 (Approximate), Expires: 05/25/2025 [facility] Work Phone: Comment on above: Expected: 05/25/2024 (Approximate), Expires: 05/25/2025 Start: 04-24-2024 End: 04-24-2024 Patient encounter procedure [facility] Comment on above: Arrived Start: 04-24-2024 End: 04-24-2024 Professional / ancillary services management 04/24/2024 1:30 PM EDT Ancillary Procedure [facility] [address] [place] [address] [facility] Start: 03-28-2024 End: 04-27-2024 Alpha fetoprotein, maternal Alpha fetoprotein, maternal Lab Routine Need for maternal serum alpha-protein (MSAFP) screening Expected: 03/28/2024 (Approximate), Expires: 04/27/2024 [facility] Comment on above: Expected: 03/28/2024 (Approximate), Expires: 04/27/2024 Start: 03-28-2024 End: 03-28-2025 US for US OB ANATOMY SINGLE W US OB CERVICAL LENGTH Imaging Routine Screening, , for anatomic survey Expected: 03/28/2024 (Approximate), Expires: 03/28/2025 [facility] Comment on above: Expected: 03/28/2024 (Approximate), Expires: 03/28/2025 CHLAMYDIA TRACHOMATI S (GENITO/STI) CHLAMYDIA TRACHOMATIS (GENITO/STI) Lab Routine Exposure to STD Ordered: 03/28/2024 [facility] Comment on above: Ordered: 03/28/2024 Neisseria gonorrhoea e DNA [Presence] in Unspecified specimen by EFRAIN with probe detection Neisseria gonorrhea DNA probe, direct Lab Routine Exposure to STD Ordered: 03/28/2024 [facility] Comment on above: Ordered: 03/28/2024 SURESWAB(R) ADVANCED VAGINITIS PLUS, TMA SURESWAB(R) ADVANCED VAGINITIS PLUS, TMA Pathology and Cytology Routine Exposure to STD Ordered: 03/28/2024 [facility] Work Phone: Comment on above: Ordered: 03/28/2024 Payers Date Payer Category Payer [facility] [id number] 2024 Unknown [id number] 2023 Private Health Insurance [facility] [id number] 2023 Unknown 2023 Unknown [id number] 2021 Medicaid [id number] 1990 Unknown [id number] 2.16.840.1.405109.3.579.2. 593 1990 Unknown [id number] 2.16.840.1.996853.3.579.2. 196 1990 Unknown [id number] 2.16.840.1.130908.3.579.2. 196 1990 Unknown [id number] 2.16.840.1.915931.3.579.2. 196 1990 Unknown [id number] 2.16.840.1.528100.3.579.2. 1259 1990 Unknown [id number] 2.16.840.1.576792.3.579.2. 9 1990 Unknown [id number] 2.16.840.1.339877.3.579.2. 9 1990 Unknown [id number] 2.16.840.1.951832.3.579.2. 1259 1990 Unknown [id number] 2.16.840.1.781544.3.579.2. 9 1990 Unknown [id number] 2.16.840.1.390364.3.579.2. 9 1990 Unknown [id number] 2.16.840.1.720571.3.579.2. 9 1990 Unknown [id number] 2.16.840.1.919830.3.579.2. 9 1990 Unknown [id number] 2.16.840.1.940001.3.579.2. 9 1990 Unknown [id number] 2.16.840.1.345144.3.579.2. 1259 1959 Unknown [id number] Social History Date Type Detail Facility Start: 07-28-2023 Tobacco smoking stat [facility] Never smoked tobacco [facility] Start: 07-28-2023 Tobacco use and exposure Smokeless t obacco non-user [facility] Start: 04-24-2024 End: 08-01-2024 Alcoholic beverage intake Current drinker of alcohol (finding) [facility] Start: 08-16-2023 End: 04-24-2024 Alcoholic beverage intake [facility] Start: 08-16-2023 Tobacco use panel [facility] Start: 07-28-2023 Alcohol Comment Occasional alcohol u se [facility] Start: 12-09-2023 [facility] Start: 1990 Sex assigned at Female [facility] Start: 08-11-2023 Gender identity Identifies as female gender (finding) [facility] Start: 08-11-2023 Sexual orientation Heterosexual (alphonso eldon) [facility] Medical Equipment Procedure Code Equipment Code Equipment Origin al Text Equipment Identifier Dates 1 strip by In Vi tro route Daily Use in the morning prior to breakfast, 1 hour after each meal for a total of 4times daily. [id number] Start: 06-19-2024 End: 07-19-2024 1 each by In Vit ro route Daily Use to check FSBS four times daily [id number] Start: 06-19-2024 End: 07-19-2024 Use as instructed [id number] Start: 07-05-2024 1 each by In Vit ro route Daily Use to check FSBS four times daily [id number] Start: 07-14-2024 End: 08-13-2024 Clinical Notes 03-28-2024 to 08-01-2024 Monica Casey, DATA PROCESSING SPECIALIST - 08/01/2024 2:40 PM ESTSdaniel Little, [facility] - 07/17/2024 3:40 PM Rupal Casey, [facility] - 07/05/2024 3:30 PM ESTSusawilfred Little, [facility] - 06/19/2024 3:30 PM EST Note Date & Type Note Facility 08-01-2024 History of Presen t illness Narrative Reason [...] Succinate, Sleep, (UNISOM PO) Take by mouth insulin syringe 29G X 1/2 0.5 mL [...] Constitutional: Appearance: Normal appearance. She is well-developed. Genitourinary: Vulva normal. Cardiovascular: Rate and Rhythm: Normal rate and [...] nursing note reviewed. Exam conducted with a therapist speech present. Vitals: Estimated body mass index is 30.72 kg/m as calculated from the following: Height as of 08/11/22: 5' 3 . Weight as of this encounter: 173 lb 6.4 oz. BP: 120/70 Patient's last menstrual period was 11/25/2023. ASSESSMENT & PLAN ICD-10-CM 1. 35 weeks gestation of Z3A.35 POCT urinalysis dipstick manually resulted 2. Third trimester Z34.93 POCT urinalysis dipstick manually resulted CULTURE, GROUP B STREP WITH SUSCEPTIBLITY Patient is doing well but has complaints of being tired and having maternal discomfort due to . Patient verbalized frequent movement and was instructed to perform kick counts three times per day. labor precautions were given, LARC consent was signed/declined, and GBS was obtained. Cervical check was performed and patient is 1cm dilated. Orders Placed This Encounter Procedures CULTURE, GROUP B STREP WITH SUSCEPTIBLITY POCT urinalysis dipstick manually resulted Follow Up: Patient is to return to office in 1 week for routine OB appointment Documented by Monica Casey LPN on behalf of: Remy Ray DO documented in this encounter [facility] 07-17-2024 History of Presen t illness Narrative [...] FOR 30 DAYS Blood Glucose Monitoring Suppl (D-[employer]force Glucometer) w/Device kit 1 kit, Does not [...] nursing note reviewed. Exam conducted with a therapist speech present. Vitals: Estimated body mass index is [...] Remy Ray DO documented in this encounter [facility] 07-05-2024 History of Presen t illness [...] FOR 30 DAYS Blood Glucose Monitoring Suppl (D-Readyforce Glucometer) w/Device kit 1 kit, Does not [...] nursing note reviewed. Exam conducted with a therapist speech present. Vitals: Estimated body mass index is [...] Remy Ray DO documented in this encounter [facility] 06-19-2024 History of Presen t illness [...] nursing note reviewed. Exam conducted with a therapist speech present. Vitals: Estimated body mass index is [...] Remy Ray DO documented in this encounter [facility] 05-25-2024 History of Presen t illness [...] of: AGUILA Carbone documented in this encounter [facility] 04-24-2024 History of Presen t illness [...] nursing note reviewed. Exam conducted with a therapist speech present. Vitals: Estimated body mass index is [...] Remy Ray DO documented in this encounter [facility] 03-28-2024 History of Presen t illness [...] hour glucose orders to have done at [facility] prior to next visit. Pt verbally [...] state, incidental documented [facility] this encounter [facility] Diagnosis 35 weeks gestation of Third trimester state, incidental [...] and content) DATE CREATED AUTHOR 02/10/2020 [employer] [facility] DATE CREATED AUTHOR AUTHOR'S ORGANIZ ATION 08/12/[address] [facility] DATE CREATED AUTHOR AUTHOR'S ORGANIZ ATION 07/06/2024 [facility] DATE CREATED AUTHOR AUTHOR'S ORGANIZ ATION 08/07/2024 [facility] EPIC Reason for Visit (unrecogniz ed [...] BE BASED ON THE PRIMARY CLINICAL RECORDS. [facility] [employer] [facility]. provides no warranty or guarantee of the accuracy or completeness of information in this document.
--- NOTE | 2024-08-08 18:38 | US_ITS ---
[address] [address] Patient Name: KATHERINE SPAIN MRN: [id number] date: 1990 Sex: F Assigned Patient Location: [facility] Current Patient Location: Accession/Order Number: [id number] Exam Date: 08/08/2024 19:06 Report Date: 08/09/2024 04:40 At the request of: REMY GIPSON Procedure: US OB BPP w non-stress EXAMINATION: US OB BPP w non-stress HISTORY:GESTATIONAL DIABETES MELLITUS O24.419 COMPARISON: Ultrasound OB biophysical 08/01/2024 TECHNIQUE: Ultrasound biophysical profile was performed in the radiology department. BREATHING MOVEMENTS: 2 GROSS BODY MOVEMENTS: 2 TONE: 2 QUALITATIVE AMNIOTIC FLUID VOLUME: 2 PRESENTATION: Cephalic HEART RATE: 123 AMNIOTIC FLUID VOLUME: 12.4 cm; normal range GESTATIONAL AGE: 36 weeks 5 days US/US OB BPP w non-stress IMPRESSION: Total biophysical profile score: 8 Electronically authenticated by: RENEE NAVARRO Date: 08/09/2024 04:40
== END 2024-08-08 20:04 | disposition home or self-care (01) ==
LOC: FBCO 18:20 → FBC 18:25
PROVIDERS: PCP Nurse Practitioner Family; Visit Provider Obstetrics & Gynecology
DX: O24.419 Gestational diabetes mellitus in pregnancy, unspecified control (principal); Z3A.36 36 weeks gestation of pregnancy
CPT/HCPCS: 76818

== ENCOUNTER 2024-08-11 00:20 | Outpatient (OUT) | payer BC, SELFPAY ==
--- OUTSIDE RECORDS SUMMARY | 2024-08-11 00:24 | XMS_ITS | CCD ---
Author Organization [facility] Care Team Providers Care Production Support Supervisor Name Role Phone DR REMY RAY [...] Glucose Monitoring Suppl (D-Care Glucometer) w/Device kit (12 sources) Start: 06-19-2024 End: 06-19-2025 Blood Glucose [...] insulin isophane, human 100 unt/ml injectable suspension (11 sources) Start: 07-05-20 End: 10-05-19 inject 5 [...] tablet 3 01/21/2024 Active polyethylene glycol 3350 95003 mg powder for oral solution (20 sources) [...] tolerance complicating ; childbirth; or the puerperium (4 sources) Gestational diabetes mellitus; Translations: [Gestational diabetes [...] [35 weeks gestation of ] 08-01-2024 Episodic Residual codes; unclassified (2 sources) Gestation period, 36 weeks; Translations: [36 weeks gestation of ] 08-08-2024 Episodic Past or Other Problems Problem Classification [...] alphafetoprotein level] 03-28-2024 Episodic Residual codes; unclassified (20 sources) Gestation period, 21 weeks; Translations: [21 weeks gestation of ] Onset: 04-24-2024 04-24-2024 Episodic Results Test Name Value Interpretation Reference Range Facil ity BOX TESTon 08-08-2024 BOX TEST RESULT SEE SCANNED REPORT N [facility] BOX TEST SENT OUT GROUP B CULTURE NO [facility] BOX1 [facility] e BOX2 08/01/24 [facility] GROUP B [facility] Urinalysis macro (dipstick) panel (U)on 08-08-2024 Bilirubin, UA Negative Negative - 4(70) +++ mg/dL [facility] Blood, UA Negative Negative - 50 Kyle/mcL [facility] Clarity, UA Clear [facility] re Color, UA Yellow [facility] Glucose, UA Negative Negative - 1999(110) ++++ mg/dL [facility] Interpretation and review of laboratory results Abnormal [facility] Ketones, UA Positive Negative - 160(16) ++++ mg/dL [facility] Leukocytes, UA Trace Negative - 500+++ Ren/mcL [facility] Nitrite, UA Negative Negative - Positive [facility] pH, UA 6.5 5 - 9 [facility] Protein, UA Positive Negative - 1999(20) ++++ mg/dL [facility] Spec Grav, UA 1.03 1 - 1.03 [facility] Urobilinogen, UA 0.2 0.2 - 12 mg/dL [facility] Urinalysis macro (dipstick) panel (U)on 08-01-2024 Bilirubin, UA Negative Negative - 4(70) +++ mg/dL [facility] Blood, UA Positive Negative - 50 Kyle/mcL [facility] Comment on above: trace-intact Clarity, UA Clear [facility] re Color, UA Yellow [facility] Glucose, UA Negative Negative - 1999(110) ++++ mg/dL [facility] Interpretation and review of laboratory results Abnormal [facility] Ketones, UA Positive Negative - 160(16) ++++ mg/dL [facility] Comment on above: 15 Leukocytes, UA Positive Negative - 500+++ Ren/mcL [facility] Comment on above: small Nitrite, UA Negative Negative - Positive [facility] pH, UA 6.5 5 - 9 [facility] Protein, UA Positive Negative - 1999(20) ++++ mg/dL [facility] Comment on above: 30 Spec Grav, UA 1.025 1 - 1.03 [facility] Urobilinogen, UA 0.2 0.2 - 12 mg/dL [facility] macro (dipstick) panel (U)on 07-17-2024 Bilirubin, UA Negative Negative - 4(70) +++ mg/dL [facility] Blood, UA Negative Negative - 50 Kyle/mcL [facility] Healthcare Clarity, UA Clear [facility] re Color, UA Yellow [facility] Glucose, UA Negative Negative - 1999(110) ++++ mg/dL [facility] Interpretation and review of laboratory results Abnormal [facility] Ketones, UA Negative Negative - 160(16) ++++ mg/dL [facility] Leukocytes, UA Trace Negative - 500+++ Ren/mcL [facility] Nitrite, UA Negative Negative - Positive [facility] pH, UA 7 5 - 9 [facility] Protein, UA Negative Negative - 1999(20) ++++ mg/dL [facility] Spec Grav, UA 1.015 1 - 1.03 [facility] Urobilinogen, UA 0.2 0.2 - 12 mg/dL [facility] Urinalysis macro (dipstick) panel (U)on 07-05-2024 Bilirubin, UA Negative Negative - 4(70) +++ mg/dL [facility] Blood, UA Negative Negative - 50 Kyle/mcL [facility] Clarity, UA Clear [facility] re Color, UA Yellow [facility] Glucose, UA Negative Negative - 1999(110) ++++ mg/dL [facility] Interpretation and review of laboratory results Abnormal [facility] Ketones, UA Positive Negative - 160(16) ++++ mg/dL [facility] Comment on above: 15 Leukocytes, UA Positive Negative - 500+++ Ren/mcL [facility] Comment on above: small Nitrite, UA Negative Negative - Positive [facility] pH, UA 7 5 - 9 [facility] e Protein, UA Negative Negative - 1999(20) ++++ mg/dL [facility] Spec Grav, UA 1.02 1 - 1.03 [facility] Urobilinogen, UA 0.2 0.2 - 12 mg/dL [facility] Urinalysis macro (dipstick) panel (U)on 06-19-2024 Bilirubin, UA Negative Negative - 4(70) +++ mg/dL [facility] Blood, UA Positive Negative - 50 Kyle/mcL [facility] Comment on above: trace Clarity, UA Clear [facility] re Color, UA Yellow [facility] Glucose, UA Negative Negative - 1999(110) ++++ mg/dL [facility] Interpretation and review of laboratory results Abnormal [facility] Ketones, UA Negative Negative - 160(16) ++++ mg/dL [facility] Leukocytes, UA Positive Negative - 500+++ Ren/mcL [facility] Comment on above: small Nitrite, UA Negative Negative - Positive [facility] pH, UA 7 5 - 9 [facility] e Protein, UA Negative Negative - 1999(20) ++++ mg/dL [facility] Spec Grav, UA 1.02 1 - 1.03 [facility] Urobilinogen, UA 0.2 0.2 - 12 mg/dL [facility] .Glu 1 Hron 06-03-2024 Glucose [Mass/Vol] 180 mg/dL Normal 70-199 [facility] Comment on above: Performed By: #### R UB #### [place] [address] .Glu 2 Hron 06-03-2024 Glucose [Mass/Vol] 163 mg/dL High 70-139 [facility] Comment on above: Result Comment: A 2 Hour glucose of less than 140 mg/dL is normal. A value of more than 200 mg/dL after 2 hours indicates diabetes. A value between 140 and 199 mg/dL indicates pre-diabetes. Performed By: #### . Glucose 2 Hour #### [address] [address] .Glu 3 Hron 06-03-2024 Glucose [Mass/Vol] 69 mg/dL Low 70-99 [facility] Comment on above: Performed By: #### R UB #### [address] [address] .Glu Baseon 06-03-2024 Glucose [Mass/Vol] 108 mg/dL High 70-99 [facility] Comment on above: Performed By: #### R UB #### [facility] [address] [place] [address] POC Glucon 06-03-2024 Glucose [Mass/Vol] 120 mg/dL Normal 78-120 [facility] Comment on above: Performed By: #### R UB #### [facility] [address] [place] [address] Urinalysis macro (dipstick) panel (U)on 05-25-2024 Bilirubin, UA Negative Negative - 4(70) +++ mg/dL [facility] Healthcare Blood, UA Negative Negative - 50 Kyle/mcL [facility] Healthcare Clarity, UA Clear [facility] Color, UA Yellow [facility] Glucose, UA Positive Negative - 1999(110) ++++ mg/dL [facility] Interpretation and review of laboratory results Abnormal [facility] Healthcare Ketones, UA Negative Negative - 160(16) ++++ mg/dL [facility] Healthcare Leukocytes, UA Negative Negative - 500+++ Ren/mcL [facility] Healthcare Nitrite, UA Negative Negative - Positive [facility] pH, UA 7 5 - 9 [facility] Protein, UA Negative Negative - 1999(20) ++++ mg/dL [facility] Spec Grav, UA 1.02 1 - 1.03 [facility] care Urobilinogen, UA 1.0 0.2 - 12 mg/dL [facility] Urinalysis macro (dipstick) panel (U)on 04-24-2024 Bilirubin, UA Negative Negative - 4(70) +++ mg/dL [facility] Blood, UA Negative Negative - 50 Kyle/mcL [facility] Clarity, UA Clear [facility] Color, UA Light Yellow [facility] are Glucose, UA Negative Negative - 1999(110) ++++ mg/dL [facility] Interpretation and review of laboratory results Abnormal [facility] Ketones, UA Negative Negative - 160(16) ++++ mg/dL [facility] Leukocytes, UA Trace Negative - 500+++ Ren/mcL [facility] Nitrite, UA Negative Negative - Positive [facility] pH, UA 6.0 5 - 9 [facility] Protein, UA Negative Negative - 1999(20) ++++ mg/dL [facility] Spec Grav, UA 1.015 1 - 1.03 [facility] Urobilinogen, UA 1.0 0.2 - 12 mg/dL [facility] e GLUCOSE TOLERANCE 3 HOURon 0 04-01-2024 GLUCOSE TOLERANCE 3 HOUR High mg/dL [facility] Comment on above: GLU FAST 109H (<95) Col: 04/01/24 0839 GLU 1HR 138 (<180) Col: 04/01/24 0945 GLU 2HR 128 (<155) Col: 04/01/24 1043 GLU 3HR 104 (<140) Col: 04/01/24 1143 Interpretation and review of laboratory results Abnormal [facility] e URETHRITIS/DISCHARGE PLUS VA GINITIS (HTRX)on 03-29-2024 ATOPOBIUM VAGINAE 0.000 [facility] ATOPOBIUM VAGINAE Not detected [facility] BVAB 2,3 (BACTERIAL VAGINOSIS ASSOCIATED BACTERIA 2, 3); MOBILUNCUS SPP 0.000 [facility] BVAB 2,3 (BACTERIAL VAGINOSIS ASSOCIATED BACTERIA 2, 3); MOBILUNCUS SPP Not detected [facility] SERAFIN ALBICANS, PARAPSILOSIS, TROPICALIS 0.000 [facility] SERAFIN ALBICANS, PARAPSILOSIS, TROPICALIS Not detected [facility]AFIN GLABRATA 0.000 [facility] GLABRATA Not detected [facility] SERAFIN KRUSEI 0.000 [facility] KRUSEI Not detected [facility]care CHLAMYDIA TRACHOMATIS 0.000 [facility] CHLAMYDIA TRACHOMATIS Not detected [facility] GARDNERELLA VAGINALIS 0.000 [facility] GARDNERELLA VAGINALIS Not detected [facility] MEGASPHAERA (TYPES 1, 2) 0.000 [facility] MEGASPHAERA (TYPES 1, 2) Not detected [facility] MYCOPLASMA GENITALIUM 0.000 [facility] MYCOPLASMA GENITALIUM Not detected [facility] NEISSERIA GONORRHOEAE 0.000 [facility] NEISSERIA GONORRHOEAE Not detected [facility] TRICHOMONAS VAGINALIS 0.000 [facility] TRICHOMONAS VAGINALIS Not detected [facility] macro (dipstick) panel (U)on 03-28-2024 Bilirubin, UA Negative Negative - 4(70) +++ mg/dL [facility] Blood, UA Negative Negative - 50 Kyle/mcL [facility] Clarity, UA Clear [facility] re Color, UA Yellow [facility] Glucose, UA Negative Negative - 1999(110) ++++ mg/dL [facility] Interpretation and review of laboratory results Abnormal [facility] Ketones, UA Negative Negative - 160(16) ++++ mg/dL [facility] Leukocytes, UA Trace Negative - 500+++ Ren/mcL [facility] Nitrite, UA Negative Negative - Positive [facility] pH, UA 6.5 5 - 9 [facility] Protein, UA Negative Negative - 1999(20) ++++ mg/dL [facility] Spec Grav, UA 1.020 1 - 1.03 [facility] Urobilinogen, UA 0.2 0.2 - 12 mg/dL [facility] CBCon 03-18-2024 Erythrocyte distribution width (RBC) [Ratio] 13.0 % Normal 11.6-14.8 [facility] Comment on above: Performed By: #### R UB #### [place] [address] Hematocrit (Bld) [Volume fraction] 36.7 % Normal 36.0-46.0 [facility] Comment on above: Performed By: #### R UB #### [place] [id number] Hemoglobin (Bld) [Mass/Vol] 12.6 g/dL Normal 12.0-16.0 [facility] Comment on above: Performed By: #### R UB #### [place] [id number] MCH (RBC) [Entitic mass] 31.8 pg Normal 27.0-35.0 [facility] Comment on above: Performed By: #### R UB #### [place] [id number] MCHC 34.2 % Normal 31.0-37.0 [facility] Comment on above: Performed By: #### R UB #### [place] [id number] MCV (RBC) [Entitic vol] 92.9 fL Normal 80.0-100.0 [facility] Comment on above: Performed By: #### R UB #### [address] [address] Platelet 295 x10*3/mcL Normal 150-450 [facility] Comment on above: Performed By: #### R UB #### [address] [address] Platelet mean volume (Bld) [Entitic vol] 8.7 fL Normal 6.7-10.6 [facility] Comment on above: Performed By: #### R UB #### [address] [address] RBC 3.95 x10*6/mcL Normal 3.80-5.20 [facility] Comment on above: Performed By: #### R UB #### [address] [address] WBC 11.6 x10*3/mcL High 4.5-11.0 [facility] Comment on above: Performed By: #### R UB #### [address] [address] Gest Diab Scn (ACOG)on 03-18 History of diabetes or gastric bypass? Unknown Normal [facility] Comment on above: Performed By: #### G DS #### [address] [address] Glucose [Mass/Vol] 136 mg/dL High 70-134 [facility] Comment on above: Result Comment: Acco rding to the ADA, a glucose threshold of > 139 mg/dL after a 50-gram load identifies approximately 80% of women with gestational diabetes mellitus, while the sensitivity is further increased to approximately 90% by a threshold of >129 mg/dL. Performed By: #### G DS #### [address] [address] Trep Abon 02-01-2024 Treponema Total Ab <0.10 Normal [facility] Comment on above: Performed By: #### C [id number] #### [address] [address] Treponema Total Ab Interp Negative Normal Negative [facility] Comment on above: Result Comment: No s erologic evidence of syphilis. No follow- up necessary unless clinically indicated (eg, early syphilis). Performed By: #### C [id number] #### [place] [id number] HIV1/2 Ab,Ag Scnon HIV-1/2 Ab,Ag 0.26 Normal [facility] Comment on above: Performed By: #### C [id number] #### [place] [id number] HIV-1/2 Ab,Ag Interp Non-Reactive Normal Non-Reactive [facility] Comment on above: Performed By: #### C [id number] #### [address] [address] Hep Bs Agon 01-31-2024 Hep Bs Ag Interp Non-Reactive Normal Non-Reactive [facility] Comment on above: Performed By: #### H BSAG #### [place] [id number] Hep C Ab w/reflex HCV RNA Qn t, PCRon 01-31-2024 Hep C IgG Interp Non-Reactive Normal Non-Reactive [facility] Comment on above: Performed By: #### H CV #### [address] [address] C Urineon 01-30-2024 C Urine ------- Final 30-50,000 cfu/ml Mixed gram positive alicia isolated. This urine contains 3 or more organisms which is inconsistent with clean catch collection. Consider the possibility of contamination during collection. No identification or susceptibility performed as results would be misleading Normal [facility] Comment on above: Performed By: #### U RC #### [address] [address] ABO/Rhon 01-29-2024 ABO/Rh ABO/Rh: A POS Normal [facility] Comment on above: Performed By: #### A BAN #### [facility] (UNKNOWN) [address] [place] [address] CBC w/ Diffon 01-29-2024 Erythrocyte distribution width (RBC) [Ratio] 12.0 % Normal 11.6-14.8 [facility] Comment on above: Performed By: #### R UB #### [address] [address] Hematocrit (Bld) [Volume fraction] 37.7 % Normal 36.0-46.0 [facility] Comment on above: Performed By: #### R UB #### [place] [id number] Hemoglobin (Bld) [Mass/Vol] 12.8 g/dL Normal 12.0-16.0 [facility] Comment on above: Performed By: #### R UB #### [address] [address] MCH (RBC) [Entitic mass] 31.0 pg Normal 27.0-35.0 [facility] Comment on above: Performed By: #### R UB #### [address] [address] MCHC 34.0 % Normal 31.0-37.0 [facility] Comment on above: Performed By: #### R UB #### [address] [address] MCV (RBC) [Entitic vol] 91.1 fL Normal 80.0-100.0 [facility] Comment on above: Performed By: #### R UB #### [address] [address] Platelet 370 x10*3/mcL Normal 150-450 [facility] Comment on above: Performed By: #### R UB #### [address] [address] Platelet mean volume (Bld) [Entitic vol] 8.0 fL Normal 6.7-10.6 [facility] Comment on above: Performed By: #### R UB #### [address] [address] RBC 4.13 x10*6/mcL Normal 3.80-5.20 [facility] Comment on above: Performed By: #### R UB #### [address] [address] WBC 12.3 x10*3/mcL High 4.5-11.0 [facility] Comment on above: Performed By: #### R UB #### [address] [address] Diff Autoon 01-29-2024 Baso Absolute 0.0 x10*3/mcL Normal 0.0-0.2 [facility] Comment on above: Performed By: #### . Automated Diff #### [address] [address] Basophils/100 WBC (Bld) 0.4 % Normal 0.0-1.5 [facility] Comment on above: Performed By: #### . Automated Diff #### [address] [address] Eos Absolute 0.0 x10*3/mcL Normal 0.0-0.4 [facility] Comment on above: Performed By: #### . Automated Diff #### [address] [address] Eosinophils/100 WBC (Bld) 0.3 % Normal 0.0-5.4 [facility] Comment on above: Performed By: #### . Automated Diff #### [address] [address] Lymph Absolute 2.0 x10*3/mcL Normal 1.0-4.8 [facility] Comment on above: Performed By: #### . Automated Diff #### [address] [address] Lymphocytes/100 WBC (Bld) 16.2 % Low 27.2-40.8 [facility] Comment on above: Performed By: #### . Automated Diff #### [address] [address] [place] Absolute 0.6 x10*3/mcL Normal 0.1-1.1 [facility] Comment on above: Performed By: #### . Automated Diff #### [address] [address] Monocytes/100 WBC (Bld) 4.6 % Normal 3.7-11.9 [facility] Comment on above: Performed By: #### . Automated Diff #### [address] [address] Neutro Absolute 9.7 x10*3/mcL High 1.8-7.7 [facility] Comment on above: Performed By: #### . Automated Diff #### [address] [address] Neutro Auto 78.5 % High 47.2-70.8 [facility] Comment on above: Performed By: #### . Automated Diff #### [address] [address] Hgb A1con 01-29-2024 Glucose [Mass/Vol] 105 mg/dL Normal 68-114 [facility] Comment on above: Result Comment: Math ematical Calc approx. The mean gluc equivalency of A1c Performed By: #### R UB #### [address] [address] Hgb A1c 5.3 % A1c Normal 4.0-5.6 [facility] Comment on above: Result Comment: Refe rence Range: 4.0 - 5.6 % Normal 5.7 - 6.4 % Pre-Diabetes > 6.5 % Diabetes Performed By: #### R UB #### [address] [address] Pren ABSCon 01-29-2024 Pren ABSC Negative Normal [facility] Comment on above: Performed By: #### R UB #### [address] [address] Rubella IgGon 01-29-2024 Rubella IgG Ab Interp Positive Normal [facility] Comment on above: Result Comment: The presence of detectable IgG-class antibodies indicates immunity to the rubella virus through prior immunization or exposure. Individuals testing reactive (positive) are considered immune to rubella infection. This result was obtained with the Access Rubella IgG EIA. Despite calibration by means of a reference preparation, values obtained with different sole conditioner's assay methods may not be used interchangeably. The magnitude of the reported IgG level CANNOT be correlated to an endpoint titer. Performed By: #### R UB #### [address] [address] Coding Summary.on 01-31-2020 Coding Summary. CODING DATE: 01/31/2020 FINAL [facility] STATUS: Home (Routine DC) PAYOR: Commercial Insurance ADMIT DX: REASON FOR VISIT DX: Z01.84 Encounter for antibody response examination FINAL DX: PRINCIPAL: Z01.84 Encounter for antibody response examination SECONDARY: Z11.59 Encounter for screening for other viral diseases PYMT PROC [facility] STAT DESCRIPTION DOCTOR NAME DATE NOTE: The code number assigned matches the documented diagnosis and / or procedure in the patient's chart. However, the narrative phrase printed from the coding software may appear abbreviated, or result in slightly different terminology. Coded By: Jocy Munroe Date Saved: 01/31/2020 07:26 pm Normal [facility] Physician Orderon 01-05-2020 Physician Order [id number] Normal [facility] Vital Signs Date Time Vital Sign Value Performing Clinician Faci lity 08-08-2024 15:09-0500 Body mass index (BMI) [Ratio] 30.72 kg/m2 [employer] Work Phone: [facility] 08-08-2024 15:09-0500 Body weight 78.65 kg Remy Flor DO Work Phone: [facility] 08-08-2024 15:09-0500 Diastolic blood pressure 84 mm[Hg] Remy Flor DO Work Phone: [facility] 08-08-2024 15:09-0500 Systolic blood pressure 120 mm[Hg] Remy Flor DO Work Phone: [facility] 08-01-2024 15:05-0500 Body mass index (BMI) [Ratio] 30.72 kg/m2 Remy Flor DO Work Phone: [facility] 08-01-2024 15:05-0500 Body weight 78.65 kg Remy Flor DO Work Phone: [facility] 08-01-2024 15:05-0500 Diastolic blood pressure 70 mm[Hg] Remy Flor DO Work Phone: [facility] 08-01-2024 15:05-0500 Systolic blood pressure 120 mm[Hg] Remy Flor DO Work Phone: [facility] 07-17-2024 16:07-0500 Body mass index (BMI) [Ratio] 30.89 kg/m2 Remy Flor DO Work Phone: [facility] 07-17-2024 16:07-0500 Body weight 79.11 kg Remy Flor DO Work Phone: [facility] 07-17-2024 16:07-0500 Diastolic blood pressure 80 mm[Hg] Remy Flor DO Work Phone: [facility] 07-17-2024 16:07-0500 Systolic blood pressure 122 mm[Hg] Remy Flor DO Work Phone: [facility] 07-05-2024 16:18-0500 Body mass index (BMI) [Ratio] 30.65 kg/m2 Remy Flor DO Work Phone: [facility] 07-05-2024 16:18-0500 Body weight 78.47 kg Remy Flor DO Work Phone: [facility] 07-05-2024 16:18-0500 Diastolic blood pressure 70 mm[Hg] Remy Flor DO Work Phone: [facility] 07-05-2024 16:18-0500 Systolic blood pressure 118 mm[Hg] Remy Flor DO Work Phone: [facility] 06-19-2024 15:50-0500 Body mass index (BMI) [Ratio] 31.18 kg/m2 Remy Flor DO Work Phone: [facility] 06-19-2024 15:50-0500 Body weight 79.83 kg Remy Flor DO Work Phone: [facility] 06-19-2024 15:50-0500 Diastolic blood pressure 72 mm[Hg] Remy Flor DO Work Phone: [facility] 06-19-2024 15:50-0500 Systolic blood pressure 118 mm[Hg] Remy Flor DO Work Phone: [facility] 05-25-2024 16:00-0400 Body mass index (BMI) [Ratio] 30.61 kg/m2 Jenifer SHEEHAN Work Phone: [facility] 05-25-2024 16:00-0400 Body weight 78.38 kg Jenifer SHEEHAN Work Phone: [facility] 05-25-2024 16:00-0400 Diastolic blood pressure 74 mm[Hg] Jenifer Latif PA Work Phone: [facility] 05-25-2024 16:00-0400 Systolic blood pressure 110 mm[Hg] Jenifer Latif PA Work Phone: [facility] 04-24-2024 14:42-0400 Body mass index (BMI) [Ratio] 29.58 kg/m2 Remy Flor DO Work Phone: [facility] 04-24-2024 14:42-0400 Body weight 75.75 kg Remy Flor DO Work Phone: [facility] 04-24-2024 14:42-0400 Diastolic blood pressure 76 mm[Hg] Remy Flor DO Work Phone: [facility] 04-24-2024 14:42-0400 Systolic blood pressure 114 mm[Hg] Remy Flor DO Work Phone: [facility] 03-28-2024 14:01-0400 Body mass index (BMI) [Ratio] 29.23 kg/m2 Jenifer SHEEHAN Work Phone: [facility] 03-28-2024 14:01-0400 Body weight 74.84 kg Jenifer SHEEHAN Work Phone: [facility] 03-28-2024 14:01-0400 Diastolic blood pressure 74 mm[Hg] Jenifer SHEEHAN Work Phone: [facility] 03-28-2024 14:01-0400 Systolic blood pressure 116 mm[Hg] Jenifer SHEEHAN Work Phone: [facility] Encounters Encounter Date Encounter Type Care Provider Facility Start: 08-08-2024 End: 08-08-2024 flow sheet Remy Flor DO Work Phone: [facility] Comment on above: Third trimester preg matthias; 36 weeks gestation of ; Gestational diabetes mellitus (GDM), antepartum, gestational diabetes method of control unspecified Start: 08-01-2024 End: 08-01-2024 ambulatory REMY FLOR Not Available Start: 08-01-2024 End: 08-01-2024 flow sheet Remy Flor DO Work Phone: [facility] Comment on above: 35 weeks gestation o f ; Third trimester Start: 08-01-2024 End: 08-01-2024 Bamboo flowsheet Remy Flor DO Work Phone: [facility] Start: 08-01-2024 End: 08-08-2024 Bamboo flowsheet Remy Flor DO Work Phone: [facility] Start: 08-01-2024 End: 08-08-2024 Clinisync Result Encounter Remy Flor DO Work Phone: [facility] Unsolicited Start: 07-17-2024 End: 07-17-2024 flow sheet Remy [...] 06-03-2024 End: 06-03-2024 ambulatory Jenifer Latif PA-C Facility:[facility] Start: 05-25-2024 End: 05-25-2024 ambulatory JENIFER LATIF Not Available Start: 05-25-2024 End: 05-25-2024 flow sheet Jenifer SHEEHAN Work Phone: [facility] Comment on above: 26 weeks gestation o f ; Second trimester ; Elevated glucose tolerance test Start: 04-24-2024 End: 04-24-2024 flow sheet Remy Flor DO Work Phone: [facility] Comment on above: Second trimester pre gnancy; 21 weeks gestation of Start: 04-24-2024 End: 04-24-2024 ambulatory REMY FLOR Not Available Start: 04-24-2024 End: 04-24-2024 Bamboo flowsheet Remy Flor DO Work Phone: [facility] Start: 04-24-2024 End: 04-24-2024 Bamboo flowsheet Remy Flor DO Work Phone: [facility] Start: 04-01-2024 End: 04-01-2024 Clinisync Result Encounter Remy Flor DO Work Phone: [facility] External Department Unsolicited Start: 04-01-2024 End: 04-01-2024 Clinisync Result Encounter Remy Flor DO Work Phone: [facility] Unsolicited Start: 03-28-2024 End: 03-28-2024 Bamboo flowsheet Jenifer SHEEHAN Work Phone: [facility] Start: 03-28-2024 End: 03-29-2024 Bamboo flowsheet Jenifer SHEEHAN Work Phone: [facility] Start: 03-28-2024 End: 03-29-2024 [...] 03-18-2024 End: 03-18-2024 ambulatory Remy Ray DO Facility:[facility] Start: 02-29-2024 End: 02-29-2024 ambulatory REMY RAY Not Available Start: 01-29-2024 End: 01-29-2024 ambulatory Remy Ray DO Facility:[facility] Start: 01-21-2024 End: 01-21-2024 ambulatory REMY RAY Not Available Start: 08-16-2023 End: 08-16-2023 ambulatory REMY RAY Not Available Start: 08-11-2022 End: 08-11-[address] REMY RAY Facility: Procedures Date Procedure Procedure Detail Performing Clinician Start: 08-08-2024 Urnls dip stick/tabl et rgnt non-auto w/o micrscp Remy Flor DO Work Phone: Start: 08-01-2024 Urnls dip stick/tabl et rgnt non-auto w/o micrscp Remy Flor DO Work Phone: Start: 08-01-2024 BOX TEST Remy Fazi o DO Work Phone: Start: 07-17-2024 Urnls dip [...] Visit [facility] [address] [place] [id number] Remy Ray, DO [address] [place] [address] [facility] Start: 08-15-2024 End: 08-15-2024 Patient encounter procedure 08/15/2024 2:50 PM EST Routine [facility] [address] [place] [phone] Remy Ray DO [address] [place] [address] [facility] Start: 08-08-2024 End: 08-08-2024 Patient encounter procedure 08/08/2024 2:50 PM EST Routine [facility] [address] [place] [address] Remy Ray, DO [address] [place] [address] [facility] Start: 08-01-2024 End: 08-01-2024 Patient encounter procedure 08/01/2024 2:40 PM EST Routine [facility] [address] [place] [phone] Remy Ray, DO [address] [place] [address] [facility] Start: 08-01-2024 End: 08-01-2025 [...] PM EDT Routine [facility] [address] [facility] [place] [address] Jenifer Latif PA [address] [place] [address] [facility] Start: 05-25-2024 End: 05-25-2025 Measurement of glucose 3 hours after glucose challenge for glucose tolerance test Glucose tolerance, 3 hours Lab Routine Elevated glucose tolerance test Expected: 05/25/2024 (Approximate), Expires: 05/25/2025 [facility] Work Phone: Comment on above: Expected: 05/25/2024 (Approximate), Expires: 05/25/2025 Start: 04-24-2024 End: 04-24-2024 Patient encounter procedure [facility] Comment on above: Arrived Start: 04-24-2024 End: 04-24-2024 Professional / ancillary services management 04/24/2024 1:30 PM EDT Ancillary Procedure [facility] [address] [place] [address] [facility] Start: 03-28-2024 End: [...] anatomic survey Expected: 03/28/2024 (Approximate), Expires: 03/28/2025 [facility] Comment on above: Expected: 03/28/2024 (Approximate), Expires: 03/28/2025 CHLAMYDIA TRACHOMATI S (GENITO/STI) CHLAMYDIA TRACHOMATIS (GENITO/STI) Lab Routine Exposure to STD Ordered: 03/28/2024 [facility] Comment on above: Ordered: 03/28/2024 Neisseria gonorrhoea e DNA [Presence] in Unspecified specimen by EFRAIN with probe detection Neisseria gonorrhea DNA probe, direct Lab Routine Exposure to STD Ordered: 03/28/2024 [facility] Comment on above: Ordered: 03/28/2024 SURESWAB(R) ADVANCED VAGINITIS PLUS, TMA SURESWAB(R) ADVANCED VAGINITIS PLUS, TMA Pathology and Cytology Routine Exposure to STD Ordered: 03/28/2024 [facility] Work Phone: Comment on above: Ordered: 03/28/2024 Payers Date Payer Category Payer [facility] [id number] 2024 Unknown [id number] 2023 Private Health Insurance [facility] [place] [id number] 2023 Unknown 2023 Unknown [id number] 2021 Medicaid [id number] 1990 Unknown [id number] [id number]. 593 1990 Unknown [id number] 2.16.840.1.880218.3.579.2. 196 1990 Unknown [id number] 2.16.840.1.536736.3.579.2. 196 1990 Unknown [id number] 2.16.840.1.141604.3.579.2. 196 1990 Unknown [id number] 2.16.840.1.515220.3.579.2. 1259 1990 Unknown [id number] 2.16.840.1.455701.3.579.2. 1259 1990 Unknown [id number] 2.16.840.1.977335.3.579.2. 1259 1990 Unknown [id number] 2.16.840.1.345915.3.579.2. 1259 1990 Unknown [id number] 2.16.840.1.443022.3.579.2. 1259 1990 Unknown [id number] 2.16.840.1.809830.3.579.2. 1259 1990 Unknown [id number] 2.16.840.1.899780.3.579.2. 1259 1990 Unknown [id number] 2.16.840.1.538653.3.579.2. 1259 1990 Unknown [id number] 2.16.840.1.117150.3.579.2. 1259 1990 Unknown [id number] 2.16.840.1.878627.3.579.2. 1259 1959 Unknown [id number] Social History Date Type Detail Facility Start: 07-28-2023 Tobacco smoking stat NHIS Never smoked tobacco [facility] Start: 07-28-2023 [...] Start: 08-11-2023 Sexual orientation Heterosexual (fin ding) [facility] Medical Equipment Procedure Code Equipment Code Equipment Origin al Text Equipment Identifier Dates 1 strip by In Vi tro route Daily Use in the morning prior to breakfast, 1 hour after each meal for a total of 4times daily. [id number] Start: 06-19-2024 End: 07-19-2024 1 each by In Vit ro route Daily Use to check FSBS four times daily [id number] Start: 06-19-2024 End: 07-19-2024 Use as instructed [id number] Start: 07-05-2024 End: 08-08-2024 1 each by In Vit ro route Daily Use to check FSBS four times daily [id number] Start: 07-14-2024 End: 08-13-2024 Use as instructed [id number] Start: 08-08-2024 End: 08-08-2025 Use as instructed [id number] Start: 08-08-2024 Clinical Notes 03-28-2024 to 08-08-2024 Monica Casey LPN - 08/08/2024 2:50 PM Rupal Casey LPN - 08/01/2024 2:40 PM Louis Little LPN - 07/17/2024 3:40 PM Rupal Casey LPN - 07/05/2024 3:30 PM EST Note Date & Type Note Facility 08-08-2024 History of Presen t illness Narrative Reason [...] Succinate, Sleep, (UNISOM PO) Take by mouth glucose blood test strip Use as instructed insulin syringe 29G X 1/2 0.5 mL [...] nursing note reviewed. Exam conducted with a blow moulding machine operator present. Vitals: Estimated body mass index is 30.72 kg/m as calculated from the following: Height as of 08/11/22: 5' 3 . Weight as of this encounter: 173 lb 6.4 oz. BP: 120/84 Patient's last menstrual period was 11/25/2023. ASSESSMENT & PLAN ICD-10-CM 1. Third trimester Z34.93 POCT urinalysis dipstick manually resulted 2. 36 weeks gestation of Z3A.36 3. Gestational diabetes mellitus (GDM), antepartum, gestational diabetes method of control unspecified O24.419 insulin syringe 29G X 1/2 0.5 mL [facility] glucose blood test strip Return OB: Patient presents today for a routine obstetrics appointment. Patient is currently 36w5d . Patient states she is doing well but has complaints of being tired due to current . Patient has verbalizes frequent movement. labor precautions was discussed/given and patient was instructed to perform kick counts three times a day. Pt to continue NST/BPP- pt to be induced on 08/16/24- induction consents signed and faxed. Orders Placed This Encounter Procedures POCT urinalysis dipstick manually resulted Follow Up: Patient is to return to office in 1 week for routine OB appointment. Documented by Monica Casey LPN on behalf of: Remy Ray DO documented in this encounter [facility] 08-01-2024 History of Presen t illness Narrative [...] nursing note reviewed. Exam conducted with a blow moulding machine operator present. Vitals: Estimated body mass index is [...] Remy Ray DO documented in this encounter [facility] 07-17-2024 History of Presen t illness Narrative [...] nursing note reviewed. Exam conducted with a blow moulding machine operator present. Vitals: Estimated body mass index is [...] Remy Ray DO documented in this encounter [facility] 07-05-2024 History of Presen t [...] nursing note reviewed. Exam conducted with a blow moulding machine operator present. Vitals: Estimated body mass index is [...] Remy Ray DO documented in this encounter [facility] 06-19-2024 History of Presen t [...] nursing note reviewed. Exam conducted with a blow moulding machine operator present. Vitals: Estimated body mass index is [...] Remy Ray DO documented in this encounter [facility] 05-25-2024 History of Presen t [...] Onset Hypertension Father Sergio Casillas Osteoarthritis Father Serigo Casillas Cancer Other Grandfather SURGICAL HISTORY Past [...] of: AGUILA Carbone documented in this encounter [facility] 04-24-2024 History of Presen t [...] nursing note reviewed. Exam conducted with a blow moulding machine operator present. Vitals: Estimated body mass index is [...] Remy Ray DO documented in this encounter [facility] 03-28-2024 History of Presen t [...] hour glucose orders to have done at [facility] prior to next visit. Pt verbally understood. [...] HealthcareEvaluation note* Diagnosis Third trimester state, incidental 36 weeks gestation of Gestational diabetes mellitus (GDM), antepartum, gestational diabetes method of control unspecified documented in this encounter [facility] Summary Purpose Family History No Family History Records FoundNo Family History Records FoundNo Family History Records FoundNo Family History Records Found Advance Directives No Advanced Directives Records FoundNo Advanced Directives Records FoundNo Advanced Directives Records FoundNo Advanced Directives Records Found Additional Source Comments INFORMATION SOURCE (unrecogn ized section and content) DATE CREATED AUTHOR 02/10/2020 Michael Suresh [facility] DATE CREATED AUTHOR AUTHOR'S ORGANIZ ATION 08/12/2022 [facility] DATE CREATED AUTHOR AUTHOR'S ORGANIZ ATION 07/06/2024 [facility] DATE CREATED AUTHOR AUTHOR'S ORGANIZ ATION 08/07/2024 [facility] EPIC Reason for Visit [...] BE BASED ON THE PRIMARY CLINICAL RECORDS. [facility] [employer] [facility]. provides no warranty or guarantee of the accuracy or completeness of information in this document.
[2024-08-11 17:01] VITALS: BP 135/94; PULSE 95
[2024-08-11 17:22] VITALS: BP 133/86; PULSE 99
[2024-08-11 17:42] VITALS: BP 132/88; PULSE 99
== END 2024-08-11 18:10 | disposition home or self-care (01) ==
LOC: FBCO 00:21 → FBC 16:53
PROVIDERS: PCP Nurse Practitioner Family; Visit Provider Obstetrics & Gynecology
DX: O24.419 Gestational diabetes mellitus in pregnancy, unspecified control (principal)
CPT/HCPCS: 59025

== ENCOUNTER 2024-08-15 00:40 | Outpatient (OUT) | payer BC, SELFPAY ==
--- OUTSIDE RECORDS SUMMARY | 2024-08-15 00:44 | XMS_ITS | CCD ---
Author Organization [facility] Care Team Providers Care Press Manager Name Role Phone DR REMY RAY Admitting Unavailable FLOR, DR ALBERTO Attending Unavailable LEXI ZHAO Primary Care Unavailable FLOR, DR ALBERTO Consulting Unavailable Unavailable Primary Care Provider Unavailcresencio Latif PA-C, Jenifer Blanc Attending Unavailable Flor [...] tablet 3 01/21/2024 Active polyethylene glycol 3350 49828 mg powder for oral solution (20 sources) [...] BOX TEST RESULT SEE SCANNED REPORT [facility] BOX TEST SENT OUT GROUP B CULTURE NO [facility] BOX1 [facility] BOX2 08/01/24 [facility] Urinalysis macro (dipstick) panel (U)on 08-08-2024 Bilirubin, UA Negative Negative - 4(70) +++ mg/dL [facility] Blood, UA Negative Negative - 50 Kyle/mcL [facility] Clarity, UA Clear [facility] re Color, UA Yellow [facility] Glucose, UA Negative Negative - 1999(110) ++++ mg/dL [facility] Interpretation and review of laboratory results Abnormal [facility] Ketones, UA Positive Negative - 160(16) ++++ mg/dL [facility] Leukocytes, UA Trace Negative - 500+++ Ren/mcL [facility] Nitrite, UA Negative Negative - Positive [facility] pH, UA 6.5 5 - 9 [facility] Protein, UA Positive Negative - 1999(20) ++++ mg/dL [facility] Spec Grav, UA 1.03 1 - 1.03 [facility] Urobilinogen, UA 0.2 0.2 - 12 mg/dL [facility] macro (dipstick) panel (U)on 08-01-2024 Bilirubin, UA Negative Negative - 4(70) +++ mg/dL [facility] Blood, UA Positive Negative - 50 Kyle/mcL [facility] Healthcare Comment on above: trace-intact Clarity, UA Clear [facility] re Color, UA Yellow [facility] Glucose, UA Negative Negative - 1999(110) ++++ mg/dL [facility] Interpretation and review of laboratory results Abnormal [facility] Ketones, UA Positive Negative - 160(16) ++++ mg/dL [facility] Comment on above: 15 Leukocytes, UA Positive Negative - 500+++ Ren/mcL [facility] Comment on above: small Nitrite, UA Negative Negative - Positive [facility] pH, UA 6.5 5 - 9 [facility] Protein, UA Positive Negative - 1999(20) ++++ mg/dL [facility] Comment on above: 30 Spec Grav, UA 1.025 1 - 1.03 [facility] care Urobilinogen, UA 0.2 0.2 - 12 mg/dL [facility] macro (dipstick) panel (U)on 07-17-2024 Bilirubin, UA Negative Negative - 4(70) +++ mg/dL [facility] Blood, UA Negative Negative - 50 Kyle/mcL [facility] Healthcare Clarity, UA Clear [facility] Color, UA Yellow [facility] Glucose, UA Negative Negative - 1999(110) ++++ mg/dL [facility] Interpretation and review of laboratory results Abnormal [facility] Ketones, UA Negative Negative - 160(16) ++++ mg/dL [facility] Leukocytes, UA Trace Negative - 500+++ Ren/mcL [facility] Nitrite, UA Negative Negative - Positive [facility] pH, UA 7 5 - 9 [facility] Protein, UA Negative Negative - 1999(20) ++++ mg/dL [facility] Spec Grav, UA 1.015 1 - 1.03 [facility] Urobilinogen, UA 0.2 0.2 - 12 mg/dL [facility] Urinalysis macro (dipstick) panel (U)on 07-05-2024 Bilirubin, UA Negative Negative - 4(70) +++ mg/dL [facility] Blood, UA Negative Negative - 50 Kyle/mcL [facility] Clarity, UA Clear [facility] re Color, UA Yellow [facility] Glucose, UA Negative Negative - 1999(110) ++++ mg/dL [facility] Interpretation and review of laboratory results Abnormal [facility] Ketones, UA Positive Negative - 160(16) ++++ mg/dL [facility] Comment on above: 15 Leukocytes, UA Positive Negative - 500+++ Ren/mcL [facility] Healthcare Comment on above: small Nitrite, UA Negative Negative - Positive [facility] pH, UA 7 5 - 9 [facility] Protein, UA Negative Negative - 1999(20) ++++ mg/dL [facility] Spec Grav, UA 1.02 1 - 1.03 [facility] care Urobilinogen, UA 0.2 0.2 - 12 mg/dL [facility] Urinalysis macro (dipstick) panel (U)on 06-19-2024 Bilirubin, UA Negative Negative - 4(70) +++ mg/dL [facility] Blood, UA Positive Negative - 50 Kyle/mcL [facility] Comment on above: trace Clarity, UA Clear [facility], UA Yellow [facility] Glucose, UA Negative Negative - 1999(110) ++++ mg/dL [facility] Interpretation and review of laboratory results Abnormal [facility] Ketones, UA Negative Negative - 160(16) ++++ mg/dL [facility] Leukocytes, UA Positive Negative - 500+++ Ren/mcL [facility] Comment on above: small Nitrite, UA Negative Negative - Positive [facility] pH, UA 7 5 - 9 [facility] e Protein, UA Negative Negative - 1999(20) ++++ mg/dL [facility] Spec Grav, UA 1.02 1 - 1.03 [facility] Urobilinogen, UA 0.2 0.2 - 12 mg/dL [facility] .Glu 1 Hron 06-03-2024 Glucose [Mass/Vol] 180 mg/dL Normal 70-199 [facility] Comment on above: Performed By: #### R UB #### [place] [address] .Glu 2 Hron 06-03-2024 Glucose [Mass/Vol] 163 mg/dL High 70-139 [facility] Comment on above: Result Comment: A 2 Hour glucose of less than 140 mg/dL is normal. A value of more than 200 mg/dL after 2 hours indicates diabetes. A value between 140 and 199 mg/dL indicates pre-diabetes. Performed By: #### . Glucose 2 Hour #### [address] [address] .Glu 3 Hron 06-03-2024 Glucose [Mass/Vol] 69 mg/dL Low 70-99 [facility] Comment on above: Performed By: #### R UB #### [address] [address] .Glu Baseon 06-03-2024 Glucose [Mass/Vol] 108 mg/dL High 70-99 [facility] Comment on above: Performed By: #### R UB #### [facility] [address] [place] [address] POC Glucon 06-03-2024 Glucose [Mass/Vol] 120 mg/dL Normal 78-120 [facility] Comment on above: Performed By: #### R UB #### [facility] [address] [place] [address] Urinalysis macro (dipstick) panel (U)on 05-25-2024 Bilirubin, UA Negative Negative - 4(70) +++ mg/dL [facility] Blood, UA Negative Negative - 50 Kyle/mcL [facility] Healthcare Clarity, UA Clear [facility] Color, UA Yellow [facility] Glucose, UA Positive Negative - 1999(110) ++++ mg/dL [facility] Interpretation and review of laboratory results Abnormal [facility] Healthcare Ketones, UA Negative Negative - 160(16) ++++ mg/dL [facility] Leukocytes, UA Negative Negative - 500+++ Ren/mcL [facility] Healthcare Nitrite, UA Negative Negative - Positive [facility] pH, UA 7 5 - 9 [facility] Protein, UA Negative Negative - 1999(20) ++++ mg/dL [facility] Spec Grav, UA 1.02 1 - 1.03 [facility] care Urobilinogen, UA 1.0 0.2 - 12 mg/dL [facility] Urinalysis macro (dipstick) panel (U)on 04-24-2024 Bilirubin, UA Negative Negative - 4(70) +++ mg/dL [facility] Blood, UA Negative Negative - 50 Kyle/mcL [facility] Healthcare Clarity, UA Clear [facility] Color, UA Light Yellow [facility] are Glucose, UA Negative Negative - 1999(110) ++++ mg/dL [facility] Interpretation and review of laboratory results Abnormal [facility] Healthcare Ketones, UA Negative Negative - 160(16) ++++ mg/dL [facility] Leukocytes, UA Trace Negative - 500+++ Ren/mcL [facility] Nitrite, UA Negative Negative - Positive [facility] pH, UA 6.0 5 - 9 [facility] Protein, UA Negative Negative - 1999(20) ++++ mg/dL [facility] Spec Grav, UA 1.015 1 - 1.03 [facility] Urobilinogen, UA 1.0 0.2 - 12 mg/dL [facility] e GLUCOSE TOLERANCE 3 HOURon 0 04-01-2024 GLUCOSE TOLERANCE 3 HOUR High mg/dL [facility] Comment on above: GLU FAST 109H (<95) Col: 04/01/24 0839 GLU 1HR 138 (<180) Col: 04/01/24 0945 GLU 2HR 128 (<155) Col: 04/01/24 1043 GLU 3HR 104 (<140) Col: 04/01/24 1143 Interpretation and review of laboratory results Abnormal [facility] URETHRITIS/DISCHARGE PLUS VA GINITIS (HTRX)on 03-29-2024 ATOPOBIUM VAGINAE 0.000 [facility] ATOPOBIUM VAGINAE Not detected [facility] BVAB 2,3 (BACTERIAL VAGINOSIS ASSOCIATED BACTERIA 2, 3); MOBILUNCUS SPP 0.000 [facility] BVAB 2,3 (BACTERIAL VAGINOSIS ASSOCIATED BACTERIA 2, 3); MOBILUNCUS SPP Not detected [facility] SERAFIN ALBICANS, PARAPSILOSIS, TROPICALIS 0.000 [facility] SERAFIN ALBICANS, PARAPSILOSIS, TROPICALIS Not detected [facility] SERAFIN GLABRATA 0.000 [facility] SERAFIN GLABRATA Not detected [facility] ealthcare SERAFIN KRUSEI 0.000 [facility]alt h[facility] SERAFIN KRUSEI Not detected [facility] lthcare CHLAMYDIA TRACHOMATIS 0.000 [facility] CHLAMYDIA TRACHOMATIS Not detected [facility] GARDNERELLA VAGINALIS 0.[address] [facility] GARDNERELLA VAGINALIS Not detected [facility] MEGASPHAERA (TYPES 1, 2) 0.000 [facility] MEGASPHAERA (TYPES 1, 2) Not detected [facility] MYCOPLASMA GENITALIUM 0.[address] [facility] MYCOPLASMA GENITALIUM Not detected [facility] NEISSERIA GONORRHOEAE 0.[address] [facility] NEISSERIA GONORRHOEAE Not detected [facility] TRICHOMONAS VAGINALIS 0.[address] [facility] TRICHOMONAS VAGINALIS Not detected [facility] Urinalysis macro (dipstick) panel (U)on 03-28-2024 Bilirubin, UA Negative Negative - 4(70) +++ mg/dL [facility] Blood, UA Negative Negative - 50 Kyle/mcL [facility] Clarity, UA Clear [facility] re Color, UA Yellow [facility] Glucose, UA Negative Negative - 1999(110) ++++ mg/dL [facility] Interpretation and review of laboratory results Abnormal [facility] Ketones, UA Negative Negative - 160(16) ++++ mg/dL [facility] Leukocytes, UA Trace Negative - 500+++ Ren/mcL [facility] Nitrite, UA Negative Negative - Positive [facility] pH, UA 6.5 5 - 9 [facility] Protein, UA Negative Negative - 1999(20) ++++ mg/dL [facility] Spec Grav, UA 1.020 1 - 1.03 [facility] Urobilinogen, UA 0.2 0.2 - 12 mg/dL [facility] CBCon 03-18-2024 Erythrocyte distribution width (RBC) [Ratio] 13.0 % Normal 11.6-14.8 [facility] Comment on above: Performed By: #### R UB #### [place] [id number] Hematocrit (Bld) [Volume fraction] 36.7 % Normal 36.0-46.0 [facility] Comment on above: Performed By: #### R UB #### [place] [id number] Hemoglobin (Bld) [Mass/Vol] 12.6 g/dL Normal 12.0-16.0 [facility] Comment on above: Performed By: #### R UB #### [place] [id number] MCH (RBC) [Entitic mass] 31.8 pg Normal 27.0-35.0 [facility] Comment on above: Performed By: #### R UB #### [place] [id number] MCHC 34.2 % Normal 31.0-37.0 [facility] Comment on above: Performed By: #### R UB #### [place] [id number] MCV (RBC) [Entitic vol] 92.9 fL Normal 80.0-100.0 [facility] Comment on above: Performed By: #### R UB #### [address] [address] Platelet 295 x10*3/mcL Normal 150-450 [facility] Comment on above: Performed By: #### R UB #### [address] [address] Platelet mean volume (Bld) [Entitic vol] 8.7 fL Normal 6.7-10.6 [facility] Comment on above: Performed By: #### R UB #### [address] [address] RBC 3.95 x10*6/mcL Normal 3.80-5.20 [facility] Comment on above: Performed By: #### R UB #### [address] [address] WBC 11.6 x10*3/mcL High 4.5-11.0 [facility] Comment on above: Performed By: #### R UB #### [address] [address] Gest Diab Scn (ACOG)on 03-18 History of diabetes or gastric bypass? Unknown Normal [facility] Comment on above: Performed By: #### G DS #### [address] [address] Glucose [Mass/Vol] 136 mg/dL High 70-134 [facility] Comment on above: Result Comment: Acco rding to the ADA, a glucose threshold of > 139 mg/dL after a 50-gram load identifies approximately 80% of women with gestational diabetes mellitus, while the sensitivity is further increased to approximately 90% by a threshold of >129 mg/dL. Performed By: #### G DS #### [address] [address] Trep Abon 02-01-2024 Treponema Total Ab <0.[address] [facility] Comment on above: Performed By: #### C [id number] #### [address] [address] Treponema Total Ab Interp Negative Normal Negative [facility] Comment on above: Result Comment: No s erologic evidence of syphilis. No follow- up necessary unless clinically indicated (eg, early syphilis). Performed By: #### C [id number] #### [address] [address] HIV1/2 Ab,Ag Scnon HIV-1/2 Ab,Ag 0.26 Normal [facility] Comment on above: Performed By: #### C [id number] #### [address] [address] HIV-1/2 Ab,Ag Interp Non-Reactive Normal Non-Reactive [facility] Comment on above: Performed By: #### C [id number] #### [address] [address] Hep Bs Agon 01-31-2024 Hep Bs Ag Interp Non-Reactive Normal Non-Reactive [facility] Comment on above: Performed By: #### H BSAG #### [address] [address] Hep C Ab w/reflex HCV RNA Qn t, PCRon 01-31-2024 Hep C IgG Interp Non-Reactive Normal Non-Reactive [facility] Comment on above: Performed By: #### H CV #### [address] [address] C Urineon 01-30-2024 C Urine ------- Final 30-50,000 cfu/ml Mixed gram positive alicia isolated. This urine contains 3 or more organisms which is inconsistent with clean catch collection. Consider the possibility of contamination during collection. No identification or susceptibility performed as results would be misleading Normal [facility] Comment on above: Performed By: #### U RC #### [address] [address] ABO/Rhon 01-29-2024 ABO/Rh ABO/Rh: A POS Normal [facility] Comment on above: Performed By: #### A BAN #### [facility] (UNKNOWN) [address] [place] [id number] CBC w/ Diffon 01-29-2024 Erythrocyte distribution width (RBC) [Ratio] 12.0 % Normal 11.6-14.8 [facility] Comment on above: Performed By: #### R UB #### [address] [address] Hematocrit (Bld) [Volume fraction] 37.7 % Normal 36.0-46.0 [facility] Comment on above: Performed By: #### R UB #### [address] [address] Hemoglobin (Bld) [Mass/Vol] 12.8 g/dL Normal 12.0-16.0 [facility] Comment on above: Performed By: #### R UB #### [address] [address] MCH (RBC) [Entitic mass] 31.0 pg Normal 27.0-35.0 [facility] Comment on above: Performed By: #### R UB #### [address] [address] MCHC 34.0 % Normal 31.0-37.0 [facility] Comment on above: Performed By: #### R UB #### [address] [address] MCV (RBC) [Entitic vol] 91.1 fL Normal 80.0-100.0 [facility] Comment on above: Performed By: #### R UB #### [address] [address] Platelet 370 x10*3/mcL Normal 150-450 [facility] Comment on above: Performed By: #### R UB #### [address] [address] Platelet mean volume (Bld) [Entitic vol] 8.0 fL Normal 6.7-10.6 [facility] Comment on above: Performed By: #### R UB #### [address] [address] RBC 4.13 x10*6/mcL Normal 3.80-5.20 [facility] Comment on above: Performed By: #### R UB #### [address] [address] WBC 12.3 x10*3/mcL High 4.5-11.0 [facility] Comment on above: Performed By: #### R UB #### [address] [address] Diff Autoon 01-29-2024 Baso Absolute 0.0 x10*3/mcL Normal 0.0-0.2 [facility] Comment on above: Performed By: #### . Automated Diff #### [address] [address] Basophils/100 WBC (Bld) 0.4 % Normal 0.0-1.5 [facility] Comment on above: Performed By: #### . Automated Diff #### [address] [address] Eos Absolute 0.0 x10*3/mcL Normal 0.0-0.4 [facility] Comment on above: Performed By: #### . Automated Diff #### [address] [address] Eosinophils/100 WBC (Bld) 0.3 % Normal 0.0-5.4 [facility] Comment on above: Performed By: #### . Automated Diff #### [address] [address] Lymph Absolute 2.0 x10*3/mcL Normal 1.0-4.8 [facility] Comment on above: Performed By: #### . Automated Diff #### [address] [address] Lymphocytes/100 WBC (Bld) 16.2 % Low 27.2-40.8 [facility] Comment on above: Performed By: #### . Automated Diff #### [address] [address] Summit Absolute 0.6 x10*3/mcL Normal 0.1-1.1 [facility] Comment on above: Performed By: #### . Automated Diff #### [address] [address] Monocytes/100 WBC (Bld) 4.6 % Normal 3.7-11.9 [facility] Comment on above: Performed By: #### . Automated Diff #### [address] [address] Neutro Absolute 9.7 x10*3/mcL High 1.8-7.7 [facility] Comment on above: Performed By: #### . Automated Diff #### [address] [address] Neutro Auto 78.5 % High 47.2-70.8 [facility] Comment on above: Performed By: #### . Automated Diff #### [address] [address] Hgb A1con 01-29-2024 Glucose [Mass/Vol] 105 mg/dL Normal 68-114 [facility] Comment on above: Result Comment: Math ematical Calc approx. The mean gluc equivalency of A1c Performed By: #### R UB #### [address] [address] Hgb A1c 5.3 % A1c Normal 4.0-5.6 [facility] Comment on above: Result Comment: Refe rence Range: 4.0 - 5.6 % Normal 5.7 - 6.4 % Pre-Diabetes > 6.5 % Diabetes Performed By: #### R UB #### [address] [address] Pren ABSCon 01-29-2024 Pren ABSC Negative Normal [facility] Comment on above: Performed By: #### R UB #### [address] [address] Rubella IgGon 01-29-2024 Rubella IgG Ab Interp Positive Normal [facility] Comment on above: Result Comment: The presence of detectable IgG-class antibodies indicates immunity to the rubella virus through prior immunization or exposure. Individuals testing reactive (positive) are considered immune to rubella infection. This result was obtained with the Access Rubella IgG EIA. Despite calibration by means of a reference preparation, values obtained with different assembly repairer's assay methods may not be used interchangeably. The magnitude of the reported IgG level CANNOT be correlated to an endpoint titer. Performed By: #### R UB #### [address] [address] Coding Summary.on 01-31-2020 Coding Summary. CODING DATE: 01/31/2020 FINAL [facility] STATUS: Home (Routine DC) PAYOR: Commercial [...] Munroe Date Saved: 01/31/2020 07:[address] [facility] Physician Orderon 01-05-2020 Physician Order [id number] [facility] Vital Signs Date Time Vital Sign Value Performing Clinician Keira araujo 08-08-2024 15:09-0500 Body mass index (BMI) [Ratio] 30.72 kg/m2 Remy Flor DO Work Phone: [facility] 08-08-2024 15:09-0500 Body weight 78.65 kg Remy Flor DO Work Phone: [facility] 08-08-2024 15:09-0500 Diastolic blood pressure 84 mm[Hg] Remy Flor DO Work Phone: [facility] 08-08-2024 15:09-0500 Systolic blood pressure 120 mm[Hg] Remy Flor DO Work Phone: [facility] 08-01-2024 15:05-0500 Body mass index (BMI) [Ratio] 30.72 kg/m2 Remy Flor DO Work Phone: [facility] 08-01-2024 15:05-0500 Body weight 78.65 kg Remy Flor DO Work Phone: [facility] 08-01-2024 15:05-0500 Diastolic blood pressure 70 mm[Hg] Remy Flor DO Work Phone: [facility] 08-01-2024 15:05-0500 Systolic blood pressure 120 mm[Hg] Remy Flor DO Work Phone: [facility] 07-17-2024 16:07-0500 Body mass index (BMI) [Ratio] 30.89 kg/m2 Remy Flor DO Work Phone: [facility] 07-17-2024 16:07-0500 Body weight 79.11 kg Remy Flor DO Work Phone: [facility] 07-17-2024 16:07-0500 Diastolic blood pressure 80 mm[Hg] Remy Flor DO Work Phone: [facility] 07-17-2024 16:07-0500 Systolic blood pressure 122 mm[Hg] Remy Flor DO Work Phone: [facility] 07-05-2024 16:18-0500 Body mass index (BMI) [Ratio] 30.65 kg/m2 Remy Flor DO Work Phone: [facility] 07-05-2024 16:18-0500 Body weight 78.47 kg Remy Flor DO Work Phone: [facility] 07-05-2024 16:18-0500 Diastolic blood pressure 70 mm[Hg] Remy Flor DO Work Phone: [facility] 07-05-2024 16:18-0500 Systolic blood pressure 118 mm[Hg] Remy Flor DO Work Phone: [facility] 06-19-2024 15:50-0500 Body mass index (BMI) [Ratio] 31.18 kg/m2 Remy Flor DO Work Phone: [facility] 06-19-2024 15:50-0500 Body weight 79.83 kg Remy Flor DO Work Phone: [facility] 06-19-2024 15:50-0500 Diastolic blood pressure 72 mm[Hg] Remy Flor DO Work Phone: [facility] 06-19-2024 15:50-0500 Systolic blood pressure 118 mm[Hg] Remy Flor DO Work Phone: [facility] 05-25-2024 16:00-0400 Body mass index (BMI) [Ratio] 30.61 kg/m2 Jenifer SHEEHAN Work Phone: [facility] 05-25-2024 16:00-0400 Body weight 78.38 kg Jenifer SHEEHAN Work Phone: [facility] 05-25-2024 16:00-0400 Diastolic blood pressure 74 mm[Hg] Jenifer SHEEHAN Work Phone: [facility] 05-25-2024 16:00-0400 Systolic blood pressure 110 mm[Hg] Jenifer SHEEHAN Work Phone: [facility] 04-24-2024 14:42-0400 Body mass index (BMI) [Ratio] 29.58 kg/m2 Remy Flor DO Work Phone: [facility] 04-24-2024 14:42-0400 Body weight 75.75 kg Remy Flor DO Work Phone: [facility] 04-24-2024 14:42-0400 Diastolic blood pressure 76 mm[Hg] Remy Flor DO Work Phone: [facility] [facility] 04-24-2024 14:42-0400 Systolic blood pressure 114 mm[Hg] Remy Flor DO Work Phone: [facility] 03-28-2024 14:01-0400 Body mass index (BMI) [Ratio] 29.23 kg/m2 Jenifer SHEEHAN Work Phone: [facility] 03-28-2024 14:01-0400 Body weight 74.84 kg Jenifer SHEEHAN Work Phone: [facility] 03-28-2024 14:01-0400 Diastolic blood pressure 74 mm[Hg] Jenifer SHEEHAN Work Phone: [facility] 03-28-2024 14:01-0400 Systolic blood pressure 116 mm[Hg] Jenifer SHEEHAN Work Phone: [facility] Encounters Encounter Date Encounter Type Care Provider Facility Start: 08-08-2024 End: 08-08-2024 ambulatory REMY FLOR Not Available Start: 08-08-2024 End: 08-08-2024 flow sheet Remy [...] Start: 06-19-2024 End: 06-19-2024 Bamboo flowsheet Remy Lfor DO Work Phone: [facility] Start: [...] Visit [facility] [address] [place] [id number] Remy Ray, DO [address] [place] [address] [facility] Start: 08-15-2024 End: 08-15-2024 Patient encounter procedure 08/15/2024 2:50 PM EST Routine [facility] [address] [place] [id number] Remy Ray, DO [address] [place] [address] [facility] Start: 08-08-2024 End: 08-08-2024 Patient encounter procedure 08/08/2024 2:50 PM EST Routine [facility] [address] [facility] [place] [address] Remy Ray, DO [address] [place] [address] [facility] Start: 08-01-2024 End: 08-01-2024 Patient encounter procedure 08/01/2024 2:40 PM EST Routine [facility] [address] [facility] [place] [phone] Remy Ray, DO [address] [place] [address] [facility] Start: 08-01-2024 End: 08-01-2025 [...] MTHFR mutation Expected: 07/05/2024 (Approximate), Expires: 07/05/2025 [facility] Comment on above: Expected: 07/05/2024 (Approximate), Expires: 07/05/2025 Start: 06-19-2024 End: 06-19-2024 Patient encounter procedure [facility] Comment on above: Arrived Start: 05-25-2024 End: 05-25-2024 Patient encounter procedure 05/25/2024 3:50 PM EDT Routine [facility] [address] [facility] [place] [phone] Jenifer Latif PA [address] [place] [address] [facility] Start: 05-25-2024 End: 05-25-2025 Measurement of glucose 3 hours after glucose challenge for glucose tolerance test Glucose tolerance, 3 hours Lab Routine Elevated glucose tolerance test Expected: 05/25/2024 (Approximate), Expires: 05/25/2025 [facility] Work Phone: Comment on above: Expected: 05/25/2024 (Approximate), Expires: 05/25/2025 Start: 04-24-2024 End: 04-24-2024 Patient encounter procedure [facility] Comment on above: Arrived Start: 04-24-2024 End: 04-24-2024 Professional / ancillary services management 04/24/2024 1:30 PM EDT Ancillary Procedure [facility] [address] [facility] [place] [address] [facility] Start: 03-28-2024 End: 04-27-2024 Alpha fetoprotein, maternal Alpha fetoprotein, maternal Lab Routine Need for maternal serum alpha-protein (MSAFP) screening Expected: 03/28/2024 (Approximate), Expires: 04/27/2024 [facility] Comment on above: Expected: 03/28/2024 (Approximate), Expires: 04/27/2024 Start: 03-28-2024 End: 03-28-2025 US for US OB ANATOMY SINGLE W US OB CERVICAL LENGTH Imaging Routine Screening, , for anatomic survey Expected: 03/28/2024 (Approximate), Expires: 03/28/2025 [facility] Comment on above: Expected: 03/28/2024 (Approximate), Expires: 03/28/2025 CHLAMYDIA TRACHOMATI S (GENITO/STI) CHLAMYDIA TRACHOMATIS (GENITO/STI) Lab Routine Exposure to STD Ordered: 03/28/2024 [facility] Comment on above: Ordered: 03/28/2024 Neisseria gonorrhoea e DNA [Presence] in Unspecified specimen by EFRAIN with probe detection Neisseria gonorrhea DNA probe, direct Lab Routine Exposure to STD Ordered: 03/28/2024 [facility] Comment on above: Ordered: 03/28/2024 SURESWAB(R) ADVANCED VAGINITIS PLUS, TMA SURESWAB(R) ADVANCED VAGINITIS PLUS, TMA Pathology and Cytology Routine Exposure to STD Ordered: 03/28/2024 [facility] Work Phone: Comment on above: Ordered: 03/28/2024 Payers Date Payer Category Payer [facility] er [id number] 2024 Unknown [id number] 2023 Private Health Insurance [facility] [id number] 2023 Unknown 2023 Unknown [id number] 2021 Medicaid [id number] 1990 Unknown [id number] 2.16.840.1.897058.3.579.2. 593 1990 Unknown [id number] 2.16.840.1.890484.3.579.2. 196 1990 Unknown [id number] 2.16.840.1.596021.3.579.2. 196 1990 Unknown [id number] 2.16.840.1.227637.3.579.2. 196 1990 Unknown [id number] 2.16.840.1.307591.3.579.2. 1259 1990 Unknown [id number] 2.16.840.1.914014.3.579.2. 1259 1990 Unknown [id number] 2.16.840.1.620682.3.579.2. 1259 1990 Unknown [id number] 2.16.840.1.247073.3.579.2. 1259 1990 Unknown [id number] 2.16.840.1.020550.3.579.2. 1259 1990 Unknown [id number] 2.16.840.1.844009.3.579.2. 1259 1990 Unknown [id number] 2.16.840.1.753858.3.579.2. 1259 1990 Unknown [id number] 2.16.840.1.416676.3.579.2. 1259 1990 Unknown [id number] 2.16.840.1.680662.3.579.2. 1259 1990 Unknown [id number] 2.16.840.1.341366.3.579.2. 1259 1990 Unknown [id number] 2.16.840.1.140135.3.579.2. 1259 1959 Unknown [id number] Social History Date Type Detail Facility [facility]: [facility] Start: 07-28-2023 [...] Start: 08-11-2023 Sexual orientation Heterosexual (fin ding) [facility] Medical Equipment Procedure Code Equipment Code Equipment Origin al Text Equipment Identifier Dates 1 strip by In Vi tro route Daily Use in the morning prior to breakfast, 1 hour after each meal for a total of 4times daily. [id number] Start: 06-19-2024 End: 07-19-2024 1 each by In Vit ro route Daily Use to check FSBS four times daily [id number] Start: 06-19-2024 End: 07-19-2024 Use as instructed [id number] Start: 07-05-2024 End: 08-08-2024 1 each by In Vit ro route Daily Use to check FSBS four times daily [id number] Start: 07-14-2024 End: 08-13-2024 Use as instructed [id number] Start: 08-08-2024 End: 08-08-2025 Use as instructed [id number] Start: 08-08-2024 Clinical Notes 03-28-2024 to 08-08-2024 Monica Casey LPN - 08/08/2024 2:50 PM Rupal Casey, HOSPITAL STAFF PHARMACIST - 08/01/2024 2:40 PM Louis Little, HOSPITAL STAFF PHARMACIST - 07/17/2024 3:40 PM Rupal Casey, HOSPITAL STAFF PHARMACIST - 07/05/2024 3:30 PM EST Note Date [...] FOR 30 DAYS Blood Glucose Monitoring Suppl (D-Open English Glucometer) w/Device kit 1 kit, Does not [...] nursing note reviewed. Exam conducted with a mercerizing range feeder present. Vitals: Estimated body mass index is [...] syringe 29G X 1/2 0.5 mL misc glucose blood test strip Return OB: Patient [...] Remy Ray DO documented in this encounter [facility] 08-01-2024 History of Presen t illness Narrative [...] nursing note reviewed. Exam conducted with a mercerizing range feeder present. Vitals: Estimated body mass index is [...] Remy Ray DO documented in this encounter [facility] 07-17-2024 History of Presen t illness Narrative [...] nursing note reviewed. Exam conducted with a mercerizing range feeder present. Vitals: Estimated body mass index is [...] Remy Ray DO documented in this encounter [facility] 07-05-2024 History of Presen t illness Narrative [...] nursing note reviewed. Exam conducted with a mercerizing range feeder present. Vitals: Estimated body mass index is [...] Remy Ray DO documented in this encounter [facility] 06-19-2024 History of Presen t illness Narrative [...] nursing note reviewed. Exam conducted with a mercerizing range feeder present. Vitals: Estimated body mass index is [...] Remy Ray DO documented in this encounter [facility] 05-25-2024 History of Presen t illness Narrative [...] of: AGUILA Carbone documented in this encounter [facility] 04-24-2024 History of Presen t illness Narrative [...] nursing note reviewed. Exam conducted with a mercerizing range feeder present. Vitals: Estimated body mass index is [...] Remy Ray DO documented in this encounter [facility] 03-28-2024 History of Presen t illness Narrative [...] hour glucose orders to have done at [facility] prior to next visit. Pt verbally [...] content) DATE CREATED AUTHOR 02/10/2020 Michael Suresh [facility] DATE CREATED AUTHOR AUTHOR'S ORGANIZ ATION 08/12/2022 [facility] DATE CREATED AUTHOR AUTHOR'S ORGANIZ ATION 07/06/2024 [facility] DATE CREATED AUTHOR AUTHOR'S ORGANIZ ATION 08/11/2024 [facility] EPIC Reason for Visit [...] BE BASED ON THE PRIMARY CLINICAL RECORDS. [facility] [employer] [facility]. provides no warranty or guarantee of the accuracy or completeness of information in this document.
[2024-08-15 17:03] VITALS: BP 132/89; PULSE 93
--- NOTE | 2024-08-15 17:03 | US_ITS ---
[address] [address] Patient Name: KATHERINE SPAIN MRN: [id number] date: 1990 Sex: F Assigned Patient Location: [facility] Current Patient Location: [facility] Accession/Order Number: [id number] Exam Date: 08/15/2024 17:10 Report Date: 08/15/2024 23:36 At the request of: REMY GIPSON Procedure: US OB BPP w non-stress EXAMINATION: US OB BPP w non-stress HISTORY:GDM 024.419 COMPARISON: Ultrasound OB biophysical 08/08/2024 TECHNIQUE: Ultrasound biophysical profile was performed in the radiology department. BREATHING MOVEMENTS: 2 GROSS BODY MOVEMENTS: 0 TONE: 2 QUALITATIVE AMNIOTIC FLUID VOLUME: 2 PRESENTATION: CEPHALIC HEART RATE: 137.76 bpm AMNIOTIC FLUID VOLUME: 10.88 cm GESTATIONAL AGE: 37 weeks 5 days US/US OB BPP w non-stress IMPRESSION: Total biophysical profile score: 6 Electronically authenticated by: RENEE NAVARRO Date: 08/15/2024 23:36
--- NOTE | 2024-08-15 18:47 | PC.NURSE ---
JUNIE and BPP results reported to Dr. Ray on the phone.
== END 2024-08-15 18:37 | disposition home or self-care (01) ==
LOC: FBCO 00:40 → FBC 16:57
PROVIDERS: PCP Nurse Practitioner Family; Visit Provider Obstetrics & Gynecology
DX: O24.419 Gestational diabetes mellitus in pregnancy, unspecified control (principal); Z3A.37 37 weeks gestation of pregnancy
CPT/HCPCS: 76818

== ENCOUNTER 2024-08-16 05:05 | Inpatient (IN) | payer BC, SELFPAY ==
[2024-08-16] VITALS (53 sets, daily range): BP systolic 95–148; BP diastolic 55–95; PULSE 71–123; TEMP 36.2–36.6
--- OUTSIDE RECORDS SUMMARY | 2024-08-16 05:08 | XMS_ITS | CCD ---
Author Organization [facility] Care Team Providers Care Test Fixture Designer Name Role Phone DR REMY RAY Admitting [...] tablet 3 01/21/2024 Active polyethylene glycol 3350 89364 mg powder for oral solution (20 sources) [...] GROUP B CULTURE NO [facility] BOX1 [facility] Healthcar e BOX2 08/01/24 [facility] GROUP B [facility] e Urinalysis macro (dipstick) panel (U)on 08-08-2024 Bilirubin, UA Negative Negative - 4(70) +++ mg/dL [facility] Blood, UA Negative Negative - 50 Kyle/mcL [facility] Clarity, UA Clear [facility] re Color, UA Yellow [facility] Glucose, UA Negative Negative - 1999(110) ++++ mg/dL [facility] Interpretation and review of laboratory results Abnormal [facility] Ketones, UA Positive Negative - 160(16) ++++ mg/dL [facility] Leukocytes, UA Trace Negative - 500+++ Ren/mcL [facility] Nitrite, UA Negative Negative - Positive [facility] pH, UA 6.5 5 - 9 [facility] Protein, UA Positive Negative - 1999(20) ++++ mg/dL [facility] Spec Grav, UA 1.03 1 - 1.03 [facility] Urobilinogen, UA 0.2 0.2 - 12 mg/dL [facility]inal[facility] macro (dipstick) panel (U)on 08-01-2024 Bilirubin, UA Negative Negative - 4(70) +++ mg/dL [facility] Blood, UA Positive Negative - 50 Kyle/mcL [facility] Healthcare Comment on above: trace-intact Clarity, UA Clear [facility] re Color, UA Yellow [facility] Glucose, UA Negative Negative - 1999(110) ++++ mg/dL [facility] Interpretation and review of laboratory results Abnormal [facility] Ketones, UA Positive Negative - 160(16) ++++ mg/dL [facility] Comment on above: 15 Leukocytes, UA Positive Negative - 500+++ Ren/mcL [facility] Comment on above: small Nitrite, UA Negative Negative - Positive [facility] pH, UA 6.5 5 - 9 [facility] Protein, UA Positive Negative - 1999(20) ++++ mg/dL [facility] Comment on above: 30 Spec Grav, UA 1.025 1 - 1.03 Located within [facility] care Urobilinogen, UA 0.2 0.2 - 12 mg/dL [facility] Urinalysis macro (dipstick) panel (U)on 07-17-2024 Bilirubin, UA Negative Negative - 4(70) +++ mg/dL [facility] Blood, UA Negative Negative - 50 Kyle/mcL [facility] Healthcare Clarity, UA Clear [facility] [...] Hospital pH, UA 7 5 - 9 [facility] Protein, UA Negative Negative - 1999(20) ++++ mg/dL [facility] Spec Grav, UA 1.015 1 - 1.03 [facility] Urobilinogen, UA 0.2 0.2 - 12 mg/dL [facility] Urinalysis macro (dipstick) panel (U)on 07-05-2024 Bilirubin, UA Negative Negative - 4(70) +++ mg/dL [facility] Blood, UA Negative Negative - 50 Kyle/mcL [facility] Clarity, UA Clear [facility] re Color, UA Yellow [facility] Glucose, UA Negative Negative - 1999(110) ++++ mg/dL [facility] Interpretation and review of laboratory results Abnormal [facility] Ketones, UA Positive Negative - 160(16) ++++ mg/dL [facility] Comment on above: 15 Leukocytes, UA Positive Negative - 500+++ Ren/mcL [facility] Healthcare Comment on above: small Nitrite, UA Negative Negative - Positive [facility] pH, UA 7 5 - 9 [facility] Protein, UA Negative Negative - 1999(20) ++++ mg/dL [facility] Spec Grav, UA 1.02 1 - 1.03 Located [facility] care Urobilinogen, UA 0.2 0.2 - 12 mg/dL [facility] Urinalysis macro (dipstick) panel (U)on 06-19-2024 Bilirubin, UA Negative Negative - 4(70) +++ mg/dL [facility] Blood, UA Positive Negative - 50 Kyle/mcL [facility] Comment on above: trace Clarity, UA Clear [facility] Color, UA Yellow [facility] e Glucose, UA Negative Negative - 1999(110) ++++ mg/dL [facility] Interpretation and review of laboratory results Abnormal [facility] Ketones, UA Negative Negative - 160(16) ++++ mg/dL [facility] Leukocytes, UA Positive Negative - 500+++ Ren/mcL [facility] Comment on above: small Nitrite, UA Negative Negative - Positive [facility] pH, UA 7 5 - 9 [facility] e Protein, UA Negative Negative - 1999(20) ++++ mg/dL [facility] Spec Grav, UA 1.02 1 - 1.03 [facility] Urobilinogen, UA 0.2 0.2 - 12 mg/dL [facility] Health[facility] .Glu 1 Hron 06-03-2024 Glucose [Mass/Vol] 180 mg/dL Normal 70-199 [facility] Comment on above: Performed By: #### R UB #### [place] [address] .Glu 2 Hron 06-03-2024 Glucose [Mass/Vol] 163 mg/dL High 70-139 [facility] Comment on above: Result Comment: A 2 Hour glucose of less than 140 mg/dL is normal. A value of more than 200 mg/dL after 2 hours indicates diabetes. A value between 140 and 199 mg/dL indicates pre-diabetes. Performed By: #### . Glucose 2 Hour #### [address] [address] .Glu 3 Hron 06-03-2024 Glucose [Mass/Vol] 69 mg/dL Low 70-99 [facility] Comment on above: Performed By: #### R UB #### [address] [address] .Glu Baseon 06-03-2024 Glucose [Mass/Vol] 108 mg/dL High 70-99 [facility] Comment on above: Performed By: #### R UB #### [facility] [address] [place] [address] POC Glucon 06-03-2024 Glucose [Mass/Vol] 120 mg/dL Normal 78-120 [facility] Comment on above: Performed By: #### R UB #### [facility] [address] [place] [address] Urinalysis macro (dipstick) panel (U)on 05-25-2024 Bilirubin, UA Negative Negative - 4(70) +++ mg/dL [facility] Blood, UA Negative Negative - 50 Kyle/mcL [facility] Healthcare Clarity, UA Clear [facility] Color, UA Yellow [facility] Glucose, UA Positive Negative - 1999(110) ++++ mg/dL [facility] Interpretation and review of laboratory results Abnormal [facility] Healthcare Ketones, UA Negative Negative - 160(16) ++++ mg/dL [facility] Leukocytes, UA Negative Negative - 500+++ Ren/mcL [facility] Healthcare Nitrite, UA Negative Negative - Positive [facility] pH, UA 7 5 - 9 [facility] Protein, UA Negative Negative - 1999(20) ++++ mg/dL [facility] Spec Grav, UA 1.02 1 - 1.03 [facility] care Urobilinogen, UA 1.0 0.2 - 12 mg/dL [facility] Urinalysis macro (dipstick) panel (U)on 04-24-2024 Bilirubin, UA Negative Negative - 4(70) +++ mg/dL [facility] Blood, UA Negative Negative - 50 Kyle/mcL [facility] Healthcare Clarity, UA Clear [facility] Color, UA Light Yellow [facility] are Glucose, UA Negative Negative - 1999(110) ++++ mg/dL [facility] Interpretation and review of laboratory results Abnormal [facility] Healthcare Ketones, UA Negative Negative - 160(16) ++++ mg/dL [facility] Leukocytes, UA Trace Negative - 500+++ Ren/mcL [facility] Healthcare Nitrite, UA Negative Negative - Positive [facility] pH, UA 6.0 5 - 9 [facility] Protein, UA Negative Negative - 1999(20) ++++ mg/dL [facility] Spec Grav, UA 1.015 1 - 1.03 [facility] Urobilinogen, UA 1.0 0.2 - 12 mg/dL [facility] e GLUCOSE TOLERANCE 3 HOURon 0 04-01-2024 GLUCOSE TOLERANCE 3 HOUR High mg/dL [facility] Comment on above: GLU FAST 109H (<95) Col: 04/01/24 0839 GLU 1HR 138 (<180) Col: 04/01/24 0945 GLU 2HR 128 (<155) Col: 04/01/24 1043 GLU 3HR 104 (<140) Col: 04/01/24 1143 Interpretation and review of laboratory results Abnormal [facility] URETHRITIS/DISCHARGE PLUS VA GINITIS (HTRX)on 03-29-2024 ATOPOBIUM VAGINAE 0.000 [facility] ATOPOBIUM VAGINAE Not detected [facility] BVAB 2,3 (BACTERIAL VAGINOSIS ASSOCIATED BACTERIA 2, 3); MOBILUNCUS SPP 0.000 [facility] BVAB 2,3 (BACTERIAL VAGINOSIS ASSOCIATED BACTERIA 2, 3); MOBILUNCUS SPP Not detected [facility] SERAFIN ALBICANS, PARAPSILOSIS, TROPICALIS 0.000 [facility] SERAFIN ALBICANS, PARAPSILOSIS, TROPICALIS Not detected [facility] SERAFIN GLABRATA 0.000 [facility] SER[facility] GLABRATA Not detected [facility]althcare SERAFIN KRUSEI 0.000 [facility]alt [facility] SERAFIN KRUSEI Not detected [facility] lthcare CHLAMYDIA TRACHOMATIS 0.000 [facility] CHLAMYDIA TRACHOMATIS Not detected [facility] TRICHOMONAS VAGINALIS Not detected [facility] Urinalysis macro (dipstick) panel (U)on 03-28-2024 Bilirubin, UA Negative Negative - 4(70) +++ mg/dL [facility] Blood, UA Negative Negative - 50 Kyle/mcL [facility] Clarity, UA Clear [facility] Health[facility] re Color, UA Yellow [facility] Health[facility] e Glucose, UA Negative Negative - 1999(110) ++++ mg/dL [facility] Interpretation and review of laboratory results Abnormal [facility] Ketones, UA Negative Negative - 160(16) ++++ mg/dL [facility] Leukocytes, UA Trace Negative - 500+++ Ren/mcL [facility] Nitrite, UA Negative Negative - Positive [facility] pH, UA 6.5 5 - 9 [facility] Protein, UA Negative Negative - 1999(20) ++++ mg/dL [facility] Spec Grav, UA 1.020 1 - 1.03 [facility] Urobilinogen, UA 0.2 0.2 - 12 mg/dL [facility] CBCon 03-18-2024 Erythrocyte distribution width (RBC) [Ratio] 13.0 % Normal 11.6-14.8 [facility] Comment on above: Performed By: #### R UB #### [place] [id number] Hematocrit (Bld) [Volume fraction] 36.7 % Normal 36.0-46.0 [facility] Comment on above: Performed By: #### R UB #### [place] [id number] Hemoglobin (Bld) [Mass/Vol] 12.6 g/dL Normal 12.0-16.0 [facility] Comment on above: Performed By: #### R UB #### [place] [id number] MCH (RBC) [Entitic mass] 31.8 pg Normal 27.0-35.0 [facility] Comment on above: Performed By: #### R UB #### [place] [id number] MCHC 34.2 % Normal 31.0-37.0 [facility] Comment on above: Performed By: #### R UB #### [place] [id number] MCV (RBC) [Entitic vol] 92.9 fL Normal 80.0-100.0 [facility] Comment on above: Performed By: #### R UB #### [address] [address] Platelet 295 x10*3/mcL Normal 150-450 [facility] Comment on above: Performed By: #### R UB #### [address] [address] Platelet mean volume (Bld) [Entitic vol] 8.7 fL Normal 6.7-10.6 [facility] Comment on above: Performed By: #### R UB #### [address] [address] RBC 3.95 x10*6/mcL Normal 3.80-5.20 [facility] Comment on above: Performed By: #### R UB #### [address] [address] WBC 11.6 x10*3/mcL High 4.5-11.0 [facility] Comment on above: Performed By: #### R UB #### [address] [address] Gest Diab Scn (ACOG)on 03-18 History of diabetes or gastric bypass? Unknown Normal [facility] Comment on above: Performed By: #### G DS #### [address] [address] Glucose [Mass/Vol] 136 mg/dL High 70-134 [facility] Comment on above: Result Comment: Acco rding to the ADA, a glucose threshold of > 139 mg/dL after a 50-gram load identifies approximately 80% of women with gestational diabetes mellitus, while the sensitivity is further increased to approximately 90% by a threshold of >129 mg/dL. Performed By: #### G DS #### [address] [address] Trep Abon 02-01-2024 Treponema Total Ab <0.10 Normal [facility] Comment on above: Performed By: #### C [id number] #### [address] [address] Treponema Total Ab Interp Negative Normal Negative [facility] Comment on above: Result Comment: No s erologic evidence of syphilis. No follow- up necessary unless clinically indicated (eg, early syphilis). Performed By: #### C [id number] #### [address] [address] HIV1/2 Ab,Ag Scnon HIV-1/2 Ab,Ag 0.26 Normal [facility] Comment on above: Performed By: #### C [id number] #### [address] [address] HIV-1/2 Ab,Ag Interp Non-Reactive Normal Non-Reactive [facility] Comment on above: Performed By: #### C [id number] #### [address] [address] Hep Bs Agon 01-31-2024 Hep Bs Ag Interp Non-Reactive Normal Non-Reactive [facility] Comment on above: Performed By: #### H BSAG #### [address] [address] Hep C Ab w/reflex HCV RNA Qn t, PCRon 01-31-2024 Hep C IgG Interp Non-Reactive Normal Non-Reactive [facility] Comment on above: Performed By: #### H CV #### [address] [address] C Urineon 01-30-2024 C Urine ------- Final 30-50,000 cfu/ml Mixed gram positive alicia isolated. This urine contains 3 or more organisms which is inconsistent with clean catch collection. Consider the possibility of contamination during collection. No identification or susceptibility performed as results would be misleading Normal [facility] Comment on above: Performed By: #### U RC #### [address] [address] ABO/Rhon 01-29-2024 ABO/Rh ABO/Rh: A POS Normal [facility] Comment on above: Performed By: #### A BAN #### [facility] (UNKNOWN) [address] [place] [address] CBC w/ Diffon 01-29-2024 Erythrocyte distribution width (RBC) [Ratio] 12.0 % Normal 11.6-14.8 [facility] Comment on above: Performed By: #### R UB #### [address] [address] Hematocrit (Bld) [Volume fraction] 37.7 % Normal 36.0-46.0 [facility] Comment on above: Performed By: #### R UB #### [address] [address] Hemoglobin (Bld) [Mass/Vol] 12.8 g/dL Normal 12.0-16.0 [facility] Comment on above: Performed By: #### R UB #### [address] [address] MCH (RBC) [Entitic mass] 31.0 pg Normal 27.0-35.0 [facility] Comment on above: Performed By: #### R UB #### [address] [address] MCHC 34.0 % Normal 31.0-37.0 [facility] Comment on above: Performed By: #### R UB #### [address] [address] MCV (RBC) [Entitic vol] 91.1 fL Normal 80.0-100.0 [facility] Comment on above: Performed By: #### R UB #### [address] [address] Platelet 370 x10*3/mcL Normal 150-450 [facility] Comment on above: Performed By: #### R UB #### [address] [address] Platelet mean volume (Bld) [Entitic vol] 8.0 fL Normal 6.7-10.6 [facility] Comment on above: Performed By: #### R UB #### [address] [address] RBC 4.13 x10*6/mcL Normal 3.80-5.20 [facility] Comment on above: Performed By: #### R UB #### [address] [address] WBC 12.3 x10*3/mcL High 4.5-11.0 [facility] Comment on above: Performed By: #### R UB #### [address] [address] Diff Autoon 01-29-2024 Baso Absolute 0.0 x10*3/mcL Normal 0.0-0.2 [facility] Comment on above: Performed By: #### . Automated Diff #### [address] [address] Basophils/100 WBC (Bld) 0.4 % Normal 0.0-1.5 [facility] Comment on above: Performed By: #### . Automated Diff #### [address] [address] Eos Absolute 0.0 x10*3/mcL Normal 0.0-0.4 [facility] Comment on above: Performed By: #### . Automated Diff #### [address] [address] Eosinophils/100 WBC (Bld) 0.3 % Normal 0.0-5.4 [facility] Comment on above: Performed By: #### . Automated Diff #### [address] [address] Lymph Absolute 2.0 x10*3/mcL Normal 1.0-4.8 [facility] Comment on above: Performed By: #### . Automated Diff #### [address] [address] Lymphocytes/100 WBC (Bld) 16.2 % Low 27.2-40.8 [facility] Comment on above: Performed By: #### . Automated Diff #### [address] [address] [place] Absolute 0.6 x10*3/mcL Normal 0.1-1.1 [facility] Comment on above: Performed By: #### . Automated Diff #### [address] [address] Monocytes/100 WBC (Bld) 4.6 % Normal 3.7-11.9 [facility] Comment on above: Performed By: #### . Automated Diff #### [address] [address] Neutro Absolute 9.7 x10*3/mcL High 1.8-7.7 [facility] Comment on above: Performed By: #### . Automated Diff #### [address] [address] Neutro Auto 78.5 % High 47.2-70.8 [facility] Comment on above: Performed By: #### . Automated Diff #### [address] [address] Hgb A1con 01-29-2024 Glucose [Mass/Vol] 105 mg/dL Normal 68-114 [facility] Comment on above: Result Comment: Math ematical Calc approx. The mean gluc equivalency of A1c Performed By: #### R UB #### [address] [address] Hgb A1c 5.3 % A1c Normal 4.0-5.6 [facility] Comment on above: Result Comment: Refe rence Range: 4.0 - 5.6 % Normal 5.7 - 6.4 % Pre-Diabetes > 6.5 % Diabetes Performed By: #### R UB #### [address] [address] Pren ABSCon 01-29-2024 Pren ABSC Negative Normal [facility] Comment on above: Performed By: #### R UB #### [address] [address] Rubella IgGon 01-29-2024 Rubella IgG Ab Interp [...] a reference preparation, values obtained with different steeping press operator's assay methods may not be used interchangeably. The magnitude of the reported IgG level CANNOT be correlated to an endpoint titer. Performed By: #### R UB #### [address] [address] Coding Summary.on 01-31-2020 Coding Summary. CODING DATE: 01/31/2020 FINAL [facility] STATUS: Home (Routine DC) PAYOR: Commercial [...] Munroe Date Saved: 01/31/2020 07:26 pm Normal [facility] Physician Orderon 01-05-2020 Physician Order [id number] Normal [facility] Vital Signs Date Time Vital Sign Value Performing Clinician Keira araujo 08-08-2024 15:09-0500 Body mass index (BMI) [Ratio] 30.72 kg/m2 Remy Flor DO Work Phone: [facility] 08-08-2024 15:09-0500 Body weight 78.65 kg Remy Flor DO Work Phone: [facility] 08-08-2024 15:09-0500 Diastolic blood pressure 84 mm[Hg] Remy Flor DO Work Phone: [facility] 08-08-2024 15:09-0500 Systolic blood pressure 120 mm[Hg] Remy Flor DO Work Phone: [facility] 08-01-2024 15:05-0500 Body mass index (BMI) [Ratio] 30.72 kg/m2 Remy Flor DO Work Phone: [facility] 08-01-2024 15:05-0500 Body weight 78.65 kg Remy Flor DO Work Phone: [facility] 08-01-2024 15:05-0500 Diastolic blood pressure 70 mm[Hg] Remy Flor DO Work Phone: [facility] 08-01-2024 15:05-0500 Systolic blood pressure 120 mm[Hg] Remy Flor DO Work Phone: [facility] 07-17-2024 16:07-0500 Body mass index (BMI) [...] pressure 116 mm[Hg] Jenifer SHEEHAN Work Phone: [facility] Healthcare Encounters Encounter Date Encounter [...] trimester Start: 07-17-2024 End: 07-17-2024 ambulatory REMY LFOR Not Available Start: 07-17-2024 End: 07-17-2024 Bamboo [...] 06-03-2024 End: 06-03-2024 ambulatory Jenifer Latif PA-C Facility:[facility] Start: 05-25-2024 End: 05-25-2024 ambulatory [...] 03-18-2024 End: 03-18-2024 ambulatory Remy Ray DO Facility:[facility] Start: 02-29-2024 End: 02-29-2024 ambulatory REMY RAY Not Available Start: 01-29-2024 End: 01-29-2024 ambulatory Remy Ray DO Facility:[facility] Start: 01-21-2024 End: 01-21-2024 ambulatory [...] Visit [facility] [address] [place] [id number] Remy Ray, DO [address] [place] [address] [facility] Start: 08-15-2024 End: 08-15-2024 Patient encounter procedure 08/15/2024 2:50 PM EST Routine [facility] [address] [place] [id number] Remy Ray, DO [address] [place] [address] [facility] Start: 08-08-2024 End: 08-08-2024 Patient encounter procedure 08/08/2024 2:50 PM EST Routine [facility] [address] [facility] [place] [address] Remy Ray, DO [address] [place] [address] [facility] Start: 08-01-2024 End: 08-01-2024 Patient encounter procedure 08/01/2024 2:40 PM EST [facility] [address] [facility] [phone] Remy Ray, DO [address] [place] [address] [facility] Start: 08-01-2024 End: 08-01-2025 [...] Start: 06-19-2024 End: 06-19-2024 Patient encounter procedure [facility] Comment on above: Arrived Start: 05-25-2024 End: 05-25-2024 Patient encounter procedure 05/25/2024 3:50 PM EDT Routine [facility] [address] [facility] [place] [phone] Jenifer Latif PA [address] [place] [address] [facility] Start: 05-25-2024 End: 05-25-2025 Measurement of glucose 3 hours after glucose challenge for glucose tolerance test Glucose tolerance, 3 hours Lab Routine Elevated glucose tolerance test Expected: 05/25/2024 (Approximate), Expires: 05/25/2025 [facility] Work Phone: Comment on above: Expected: 05/25/2024 (Approximate), Expires: 05/25/2025 Start: 04-24-2024 End: 04-24-2024 Patient encounter procedure [facility] OB Comment on above: Arrived Start: 04-24-2024 End: 04-24-2024 Professional / ancillary services management 04/24/2024 1:30 PM EDT Ancillary Procedure [facility] [address] [facility] [place] [address] [facility] Start: 03-28-2024 End: 04-27-2024 [...] anatomic survey Expected: 03/28/2024 (Approximate), Expires: 03/28/2025 [facility] Healthcare Comment on above: Expected: 03/28/2024 [...] Cytology Routine Exposure to STD Ordered: 03/28/2024 [facility] Healthcare Work Phone: Comment on above: Ordered: 03/28/2024 Payers Date Payer Category Payer [facility] er Subscriber Plan / Payer (Effective 2024-Present) Name: Ary Ellis Member ID: [id number] Relation to Subscriber: Spouse Name: JENARO ELLIS Subscriber ID: [id number] Date of : 1990 Address: [place] [address] Payer ID: Not on file Type: Not on file Address: [facility] [address] [place] [address] [id number] 2024 Unknown [id number] 2023 Private Health Insurance [facility] [id number] 2023 Unknown 2023 Unknown [id number] 2021 Medicaid [id number] 1990 Unknown [id number] [id number]. 593 1990 Unknown [id number] [id number]. 196 1990 Unknown [id number] 2.16.840.1.535906.3.579.2. 196 1990 Unknown [id number] 2.16.840.1.298519.3.579.2. 196 1990 Unknown [id number] 2.16.840.1.132436.3.579.2. 1259 1990 Unknown [id number] 2.16.840.1.270502.3.579.2. 1259 1990 Unknown [id number] 2.16.840.1.328982.3.579.2. 1259 1990 Unknown [id number] 2.16.840.1.427216.3.579.2. 1259 1990 Unknown [id number] 2.16.840.1.919678.3.579.2. 1259 1990 Unknown [id number] [id number] 1990 Unknown [id number] 1259 1990 Unknown [id number] 1259 1990 Unknown [id number] 1259 1990 Unknown [id number] 1259 1990 Unknown [id number] 1259 1959 Unknown [id number] Social History Date Type Detail Facility Start: 07[facility]28-2023 [facility] [...] Start: 08-11-2023 Sexual orientation Heterosexual (fin ding) [facility] Medical Equipment Procedure Code Equipment Code Equipment Origin al Text Equipment Identifier Dates 1 strip by In Vi tro route Daily Use in the morning prior to breakfast, 1 hour after each meal for a total of 4times daily. [id number] Start: 06-19-2024 End: 07-19-2024 1 each by In Vit ro route Daily Use to check FSBS four times daily [id number] Start: 06-19-2024 End: 07-19-2024 Use as instructed [id number] Start: 07-05-2024 End: 08-08-2024 1 each by In Vit ro route Daily Use to check FSBS four times daily [id number] Start: 07-14-2024 End: 08-13-2024 Use as instructed [id number] Start: 08-08-2024 End: 08-08-2025 Use as instructed [id number] Start: 08-08-2024 Clinical Notes 03-28-2024 to 08-08-2024 Monica Casey LPN - 08/08/2024 2:50 PM Rupal Casey, [facility] - 08/01/2024 2:40 PM Louis Little, [facility] - 07/17/2024 3:40 PM Rupal Casey, [employer] - 07/05/2024 3:30 PM EST Note Date [...] FOR 30 DAYS Blood Glucose Monitoring Suppl ([employer] Glucometer) w/Device kit 1 kit, Does not [...] nursing note reviewed. Exam conducted with a technical support technician present. Vitals: Estimated body mass index is [...] documented in this encounter [facility] 08-01-2024 History of Presen t illness Narrative [...] nursing note reviewed. Exam conducted with a technical support technician present. Vitals: Estimated body mass index is [...] documented in this encounter [facility] 07-17-2024 History of Presen t illness [...] nursing note reviewed. Exam conducted with a technical support technician present. Vitals: Estimated body mass index is [...] nursing note reviewed. Exam conducted with a technical support technician present. Vitals: Estimated body mass index is [...] Hypertension Father Sergio Casillas Osteoarthritis Father Sergio Casillsa Cancer Other Grandfather SURGICAL HISTORY Past Surgical [...] nursing note reviewed. Exam conducted with a technical support technician present. Vitals: Estimated body mass index is [...] nursing note reviewed. Exam conducted with a technical support technician present. Vitals: Estimated body mass index is [...] hour glucose orders to have done at [facility] prior to next visit. Pt verbally [...] CREATED AUTHOR 02/10/2020 Michael Suresh [facility] DATE CREATED AUTHOR AUTHOR'S ORGANIZ ATION 08/12/2022 [facility] DATE CREATED AUTHOR AUTHOR'S ORGANIZ ATION 07/06/2024 [facility] DATE CREATED AUTHOR AUTHOR'S ORGANIZ ATION 08/11/2024 [facility] EPIC Reason [...] BE BASED ON THE PRIMARY CLINICAL RECORDS. [facility] [employer] [facility]. provides no warranty or guarantee of the accuracy or completeness of information in this document.
[2024-08-16] MEDS: 0.9 % SODIUM CHLORIDE 1,000 ML 125 ML IV ×3 (06:15→15:43)
[2024-08-16] MEDS: AMPICILLIN SODIUM 2,000 MG in 0.9 % SODIUM CHLORIDE 100 ML 200 MG IV (06:15)
[2024-08-16] MEDS: OXYTOCIN/0.9 % SODIUM CHLORIDE 10 UNITS/500 ML PLAST..BAG 6 UNIT IV (06:15)
[2024-08-16 06:16] LABS: Hemoglobin 12.4 g/dL (12.0-16.0); Mean Corpuscular HGB Conc 35.4 g/dL (29.9-35.2); Mean Corpuscular Hemoglobin 33.1 pg (26.7-34.0); Mean Corpuscular Volume 93.3 fL (81.0-99.0); Mean Platelet Volume 12.2 fL (9.5-13.5); Platelet Count 190 10^3/uL (150-450); Red Blood Count 3.75 10^6/uL (4.20-5.40); Red Cell Distribution Width 13.1 % (11.0-15.0)
[2024-08-16 06:27] LABS: Amphetamine Screen Urine NEGATIVE (NEGATIVE); Barbiturates Screen Urine NEGATIVE (NEGATIVE); Benzodiazepines Screen Urine NEGATIVE (NEGATIVE); Buprenorphine Screen Urine NEGATIVE (NEGATIVE); Cannabinoid Screen Urine NEGATIVE (NEGATIVE); Cocaine Screen Urine NEGATIVE (NEGATIVE); Methadone Screen Urine NEGATIVE (NEGATIVE); Methamphetamines Screen Urine NEGATIVE (NEGATIVE); Opiate Screen Urine NEGATIVE (NEGATIVE); Oxycodone Screen Urine NEGATIVE (NEGATIVE); Phencyclidine Screen Urine NEGATIVE (NEGATIVE); Tricyclic Antidepressant Urine NEGATIVE (NEGATIVE)
[2024-08-16] MEDS: AMPICILLIN SODIUM 1,000 MG in 0.9 % SODIUM CHLORIDE 50 ML 100 MG IV ×3 (09:48→17:52)
[2024-08-16] MEDS: ROPIVACAINE HCL/PF 400 MG/200 ML PREMIX 6 MG EPIDURAL (15:45)
[2024-08-16] MEDS: EPHEDRINE SULFATE 50 MG/ML VIAL IV (15:50)
[2024-08-16] MEDS: OXYTOCIN/0.9 % SODIUM CHLORIDE 20 UNITS/1,000 ML PLAST..BAG 125 UNIT IV (19:00)
--- NOTE | 2024-08-16 19:10 | PM.OBPRCVD ---
Procedure Intrapartal events: None Induction method: per pitocin protocol Delivery augmentation: rupture of membranes and pitocin Delivery monitor: external FHT and external uterine Route of delivery: Episiotomy Description: midline L&D Laceration Description: perineal - 2nd degree Delivery repair: Vicryl Estimated blood loss (mL): 250 Anesthesia type: Epidural Disposition: floor Infant Delivery date: 08/16/24 Gender: female presentation: vertex Placental delivery description: Spontaneous cord description: 3 Vessels
[2024-08-17] VITALS (8 sets, daily range): BP systolic 132–149; BP diastolic 79–99; PULSE 68–93; TEMP 36.4–36.9
--- NOTE | 2024-08-17 00:36 | P.OBPN_ITS ---
OB - PN: Subj Subjective Patient comments: no complaints and pain well controlled [place] status: doing well Exam Constitutional Vital Signs, click to edit/add: Last Vital Signs Temp 97.7 F 08/16/24 16:00 Pulse 96 H 08/16/24 21:31 Resp 16 08/16/24 06:27 BP 127/70 08/16/24 21:31 O2 Del Method Room Air 08/16/24 06:27 Documenting provider has reviewed patient's vital signs: yes Common normals: no apparent distress Respiratory Common normals: clear to auscultation bilaterally Cardio Common normals: regular rate and regular rhythm GI Common normals: Normal to inspection, nondistended, normoactive bowel sounds present Extremity Common normals: no clubbing, cyanosis or edema and no calf tenderness Results Labs Labs: Short CBC 08/16/24 Range/Units 06:04 WBC 10.0 (4.0-11.0) 10^3/uL Hgb 12.4 (12.0-16.0) g/dL Hct 35.0 L (36.0-48.0) % Plt Count 190 (150-450) 10^3/uL OB - PN: A/P Plan - Vaginal Delivery day: 1 Plan: routine care Time Spent with Patient Time: Total time spent is greater than 50% in coordination of care (as documented) at patient's floor/unit and/or counseling patient: Total time spent with greater than 50% in coordination of care (as documented) at patient's floor/unit and/or counseling patient: less than 15 minutes
[2024-08-17] MEDS: BENZOCAINE/MENTHOL 85 GRAM SPRAY BOTTLE 1 APPLIC TOPICAL (01:14)
[2024-08-17] MEDS: GLYCERIN/WITCH HAZEL PADS 1 PAD TOPICAL (01:17)
[2024-08-17 06:43] LABS: Basophils Percent Auto 0.1 % (0.2-2.0); Eosinophils Percent Auto 0.3 % (0.9-7.0); Hematocrit 34.2 % (36.0-48.0); Hemoglobin 11.9 g/dL (12.0-16.0); Immature Granulocytes Abs Auto 0.09 10^3/uL (0.00-0.03); Immature Granulocytes Pct Auto 0.6 % (0.0-0.5); Lymphocytes Absolute Auto 1.7 10^3/uL (1.2-3.8); Lymphocytes Percent Auto 11.7 % (20.5-60.0); Mean Corpuscular HGB Conc 34.8 g/dL (29.9-35.2); Mean Corpuscular Hemoglobin 32.9 pg (26.7-34.0); Mean Corpuscular Volume 94.5 fL (81.0-99.0); Mean Platelet Volume 11.9 fL (9.5-13.5); Monocytes Absolute Auto 0.7 10^3/uL (0.3-0.8); Neutrophils Absolute Auto 12.1 10^3/uL (1.4-6.5); Neutrophils Percent Auto 82.3 % (43.0-75.0); Platelet Count 197 10^3/uL (150-450); Red Blood Count 3.62 10^6/uL (4.20-5.40); Red Cell Distribution Width 13.2 % (11.0-15.0); White Blood Count 14.7 10^3/uL (4.0-11.0)
[2024-08-17] MEDS: DOCUSATE SODIUM 100 MG CAPSULE PO (08:35)
[2024-08-17] MEDS: ENOXAPARIN SODIUM 40 MG/0.4 ML SYRINGE SUBQ (11:41)
[2024-08-18 08:28] VITALS: BP 131/88; PULSE 81
[2024-08-18 08:30] VITALS: TEMP 36.1
--- NOTE | 2024-08-18 09:01 | P.OBPN_ITS ---
OB - PN: Subj Subjective Patient comments: no complaints and pain well controlled [place] status: doing well Exam Constitutional Vital Signs, click to edit/add: Last Vital Signs Temp 97 F L 08/18/24 08:30 Pulse 81 08/18/24 08:28 Resp 14 08/18/24 08:30 BP 131/88 08/18/24 08:28 O2 Del Method Room Air 08/18/24 08:30 Documenting provider has reviewed patient's vital signs: yes Common normals: no apparent distress Respiratory Common normals: normal respiratory effort and clear to auscultation bilaterally Cardio Common normals: regular rate and regular rhythm GI Common normals: Normal to inspection, nondistended, normoactive bowel sounds present Extremity Common normals: no clubbing, cyanosis or edema OB - PN: A/P Plan - Vaginal Delivery day: 2 Plan: routine care, discharge home and follow up 6 weeks Time Spent with Patient Time: Total time spent is greater than 50% in coordination of care (as documented) at patient's floor/unit and/or counseling patient: Total time spent with greater than 50% in coordination of care (as documented) at patient's floor/unit and/or counseling patient: less than 15 minutes
[2024-08-18] MEDS: DOCUSATE SODIUM 100 MG CAPSULE PO (11:52)
[2024-08-18] MEDS: ENOXAPARIN SODIUM 40 MG/0.4 ML SYRINGE SUBQ (11:52)
== END 2024-08-18 12:55 | disposition home or self-care (01) | DRG 807 ==
PROVIDERS: Admitting Provider Obstetrics & Gynecology; PCP Nurse Practitioner Family; Visit Provider Obstetrics & Gynecology
DX: O24.424 Gestational diabetes mellitus in childbirth, insulin controlled (principal); Z37.0 Single live birth; O16.4 Unspecified maternal hypertension, complicating childbirth; O70.1 Second degree perineal laceration during delivery; Z3A.37 37 weeks gestation of pregnancy; O99.824 Streptococcus B carrier state complicating childbirth
CPT/HCPCS: 36415; 51702; 59050; 80307; 85025; 85027; 86850; 86900; 86901; J0290; J1650; J2795

== ENCOUNTER 2024-08-24 08:26 | Outpatient (OUT) | payer BC, SELFPAY ==
--- OUTSIDE RECORDS SUMMARY | 2024-08-24 08:31 | XMS_ITS | CCD ---
Author Organization [facility] Care Team Providers Care Drafter Detail Name Role Phone DR REMY RAY Admitting [...] Glucose Monitoring Suppl (D-Care Glucometer) w/Device kit (14 sources) Start: 06-19-2024 End: 06-19-2025 Blood Glucose [...] insulin isophane, human 100 unt/ml injectable suspension (13 sources) Start: 07-05-20 End: 10-05-19 inject 5 [...] tablet 3 01/21/2024 Active polyethylene glycol 3350 60826 mg powder for oral solution (20 sources) [...] mellitus in , unspecified control] 07-05-2024 Episodic Residual codes; unclassified (2 sources) [...] sexual mode of transmission] 03-28-2024 Episodic Other and delivery including normal (20 sources) Second trimester ; Translations: [Encounter for supervision of normal , unspecified, second trimester] Onset: 04-24-2024 05-25-2024 Episodic Other screening for suspected conditions (not mental disorders or infectious disease) (4 sources) Alpha-fetoprotein blood test status; Translations: [Encounter for screening for raised alphafetoprotein level] 03-28-2024 Episodic Residual codes; unclassified (20 sources) Gestation period, 21 weeks; Translations: [21 weeks gestation of ] Onset: 04-24-2024 04-24-2024 Episodic Results Test Name Value Interpretation Reference Range Facil ity ALL CBC WITH AUTO DIFFon BASOPHILS ABSOLUTE AUTO 0 [facility] Basophils/100 WBC (Bld) 0.1 % Low 0.2 - 2.0 % [facility] Eosinophils/100 WBC (Bld) 0.3 % Low 0.9 - 7.0 % [facility] Erythrocyte distribution width (RBC) [Ratio] 13.2 % 11.0 - 15.0 % [facility] Hematocrit (Bld) [Volume fraction] 34.2 % Low 36.0 - 48.0 % [facility] Hemoglobin (Bld) [Mass/Vol] 11.9 g/dL Low 12.0 - 16.0 g/dL [facility] IMMATURE GRANULOCYTES ABS AUTO 0.09 High [facility] Immature granulocytes/100 WBC (Bld) 0.6 % High 0.0 - 0.5 % [facility] Interpretation and review of laboratory results Abnormal [facility] LYMPHOCYTES ABSOLUTE AUTO 1.7 [facility] Lymphocytes/100 WBC (Bld) 11.7 % Low 20.5 - 60.0 % [facility] MCH (RBC) [Entitic mass] 32.9 pg 26.7 - 34.0 pg [facility] MCHC (RBC) [Mass/Vol] 34.8 g/dL 29.9 - 35.2 g/dL [facility] MCV (RBC) [Entitic vol] 94.5 fL 81.0 - 99.0 fL [facility] MONOCYTES ABSOLUTE AUTO 0.7 [facility] Monocytes/100 WBC (Bld) 5 % 1.7 - 12.0 % [facility] NEUTROPHILS ABSOLUTE AUTO 12.1 High [facility] Neutrophils/100 WBC (Bld) 82.3 % High 43.0 - 75.0 % [facility] Platelet mean volume (Bld) [Entitic vol] 11.9 fL 9.5 - 13.5 fL [facility] EO # 0 [facility] PLT 197 [facility] RBC 3.62 Low [facility] WBC 14.7 High [facility] HMHP CBC WITH PLATELET NO DI FFERENTIALon 08-16-2024 Erythrocyte distribution width (RBC) [Ratio] 13.1 % 11.0 - 15.0 % [facility] Hematocrit (Bld) [Volume fraction] 35 % Low 36.0 - 48.0 % [facility] Hemoglobin (Bld) [Mass/Vol] 12.4 g/dL 12.0 - 16.0 g/dL [facility] Interpretation and review of laboratory results Abnormal [facility] MCH (RBC) [Entitic mass] 33.1 pg 26.7 - 34.0 pg [facility] MCHC (RBC) [Mass/Vol] 35.4 g/dL High 29.9 - 35.2 g/dL [facility] MCV (RBC) [Entitic vol] 93.3 fL 81.0 - 99.0 fL [facility] Platelet mean volume (Bld) [Entitic vol] 12.2 fL 9.5 - 13.5 fL [facility] RBC 3.75 Low [facility] TB WBC 10 [facility] BOX TESTon 08-08-2024 BOX TEST RESULT SEE SCANNED REPORT N [facility] BOX TEST SENT OUT GROUP B CULTURE NO [facility] BOX1 [facility] BOX2 08/01/24 [facility] GROUP B [facility] Urinalysis macro (dipstick) panel (U)on 08-08-2024 Bilirubin, UA Negative Negative - 4(70) +++ mg/dL [facility] Blood, UA Negative Negative - 50 Kyle/mcL [facility] Clarity, UA Clear [facility] re Color, UA Yellow [facility] Glucose, UA Negative Negative - 1999(110) ++++ mg/dL [facility] Interpretation and review of laboratory results Abnormal [facility] Ketones, UA Positive Negative - 160(16) ++++ mg/dL [facility] Leukocytes, UA Trace Negative - 500+++ Ren/mcL [facility] Nitrite, UA Negative Negative - Positive [facility] pH, UA 6.5 5 - 9 [facility] Protein, UA Positive Negative - 1999(20) ++++ mg/dL [facility] Spec Grav, UA 1.03 1 - 1.03 [facility] Urobilinogen, UA 0.2 0.2 - 12 mg/dL [facility] Urinalysis macro (dipstick) panel (U)on 08-01-2024 Bilirubin, UA Negative Negative - 4(70) +++ mg/dL [facility] Blood, UA Positive Negative - 50 Kyle/mcL [facility] Comment on above: trace-intact Clarity, UA Clear [facility] re Color, UA Yellow [facility] Glucose, UA Negative Negative - 1999(110) ++++ mg/dL [facility] Interpretation and review of laboratory results Abnormal [facility] Ketones, UA Positive Negative - 160(16) ++++ mg/dL [facility] Comment on above: 15 Leukocytes, UA Positive Negative - 500+++ Ren/mcL [facility] Comment on above: small Nitrite, UA Negative Negative - Positive [facility] pH, UA 6.5 5 - 9 [facility] Protein, UA Positive Negative - 1999(20) ++++ mg/dL [facility] Comment on above: 30 Spec Grav, UA 1.025 1 - 1.03 [facility] Urobilinogen, UA 0.2 0.2 - 12 mg/dL [facility] Urinalysis macro (dipstick) panel (U)on 07-17-2024 Bilirubin, UA Negative Negative - 4(70) +++ mg/dL [facility] Blood, UA Negative Negative - 50 Kyle/mcL [facility] Clarity, UA Clear [facility] re Color, UA Yellow [facility] Glucose, UA Negative Negative - 1999(110) ++++ mg/dL [facility] Interpretation and review of laboratory results Abnormal [facility] Ketones, UA Negative Negative - 160(16) ++++ mg/dL [facility] Leukocytes, UA Trace Negative - 500+++ Ren/mcL [facility] Nitrite, UA Negative Negative - Positive [facility] pH, UA 7 5 - 9 [facility] Protein, UA Negative Negative - 1999(20) ++++ mg/dL [facility] Spec Grav, UA 1.015 1 - 1.03 [facility] care Urobilinogen, UA 0.2 0.2 - 12 mg/dL [facility] Urinalysis macro (dipstick) panel (U)on 07-05-2024 Bilirubin, UA Negative Negative - 4(70) +++ mg/dL [facility] Blood, UA Negative Negative - 50 Kyle/mcL [facility] Clarity, UA Clear [facility] re Color, UA Yellow [facility] Glucose, UA Negative Negative - 1999(110) ++++ mg/dL [facility] Interpretation and review of laboratory results Abnormal [facility] Ketones, UA Positive Negative - 160(16) ++++ mg/dL [facility] Comment on above: 15 Leukocytes, UA Positive Negative - 500+++ Ren/mcL [facility] Comment on above: small Nitrite, UA Negative Negative - Positive [facility] pH, UA 7 5 - 9 [facility] Protein, UA Negative Negative - 1999(20) ++++ mg/dL [facility] Spec Grav, UA 1.02 1 - 1.03 [facility] care Urobilinogen, UA 0.2 0.2 - 12 mg/dL [facility] Urinalysis macro (dipstick) panel (U)on 06-19-2024 Bilirubin, UA Negative Negative - 4(70) +++ mg/dL [facility] Blood, UA Positive Negative - 50 Kyle/mcL [facility] Comment on above: trace Clarity, UA Clear [facility]ca re Color, UA Yellow [facility] Glucose, UA Negative Negative - 1999(110) ++++ mg/dL [facility] Interpretation and review of laboratory results Abnormal [facility] Ketones, UA Negative Negative - 160(16) ++++ mg/dL [facility] Leukocytes, UA Positive Negative - 500+++ Ren/mcL [facility] Comment on above: small Nitrite, UA Negative Negative - Positive [facility] pH, UA 7 5 - 9 [facility] Protein, UA Negative Negative - 1999(20) ++++ mg/dL [facility] Spec Grav, UA 1.02 1 - 1.03 [facility] care Urobilinogen, UA 0.2 0.2 - 12 mg/dL [facility] .Glu 1 Hron 06-03-2024 Glucose [Mass/Vol] 180 mg/dL Normal 70-199 [facility] Comment on above: Performed By: #### R UB #### [address] [address] .Glu 2 Hron 06-03-2024 Glucose [Mass/Vol] 163 mg/dL High 70-139 [facility] Comment on above: Result Comment: A 2 Hour glucose of less than 140 mg/dL is normal. A value of more than 200 mg/dL after 2 hours indicates diabetes. A value between 140 and 199 mg/dL indicates pre-diabetes. Performed By: #### . Glucose 2 Hour #### [place] [id number] .Glu 3 Hron 06-03-2024 Glucose [Mass/Vol] 69 mg/dL Low 70-99 [facility] Comment on above: Performed By: #### R UB #### [place] [id number] .Glu Baseon 06-03-2024 Glucose [Mass/Vol] 108 mg/dL High 70-99 [facility] Comment on above: Performed By: #### R UB #### [place] [id number] POC Glucon 06-03-2024 Glucose [Mass/Vol] 120 mg/dL Normal 78-120 [facility] Comment on above: Performed By: #### R UB #### [place] [id number] Urinalysis macro (dipstick) panel (U)on 05-25-2024 Bilirubin, UA Negative Negative - 4(70) +++ mg/dL [facility] Blood, UA Negative Negative - 50 Kyle/mcL [facility] Clarity, UA Clear [facility], UA Yellow [facility] Glucose, UA Positive Negative - 1999(110) ++++ mg/dL [facility] Interpretation and review of laboratory results Abnormal [facility] Ketones, UA Negative Negative - 160(16) ++++ mg/dL [facility] Leukocytes, UA Negative Negative - 500+++ Ren/mcL [facility] Nitrite, UA Negative Negative - Positive [facility] pH, UA 7 5 - 9 [facility] e Protein, UA Negative Negative - 1999(20) ++++ mg/dL [facility] Spec Grav, UA 1.02 1 - 1.03 [facility] Urobilinogen, UA 1.0 0.2 - 12 mg/dL [facility] Urinalysis macro (dipstick) panel (U)on 04-24-2024 Bilirubin, UA Negative Negative - 4(70) +++ mg/dL [facility] Blood, UA Negative Negative - 50 Kyle/mcL [facility] Clarity, UA Clear [facility] re Color, UA Light Yellow [facility] are Glucose, UA Negative Negative - 1999(110) ++++ mg/dL [facility] Interpretation and review of laboratory results Abnormal [facility] Ketones, UA Negative Negative - 160(16) ++++ mg/dL [facility] Leukocytes, UA Trace Negative - 500+++ Ren/mcL [facility] Nitrite, UA Negative Negative - Positive [facility] pH, UA 6.0 5 - 9 [facility] e Protein, UA Negative Negative - 1999(20) ++++ mg/dL [facility] Spec Grav, UA 1.015 1 - 1.03 [facility] Urobilinogen, UA 1.0 0.2 - 12 mg/dL [facility] e GLUCOSE TOLERANCE 3 HOURon 0 04-01-2024 GLUCOSE TOLERANCE 3 HOUR High mg/dL [facility] Comment on above: GLU FAST 109H (<95) Col: 04/01/24 0839 GLU 1HR 138 (<180) Col: 04/01/24 0945 GLU 2HR 128 (<155) Col: 04/01/24 1043 GLU 3HR 104 (<140) Col: 04/01/24 1143 Interpretation and review of laboratory results Abnormal [facility] URETHRITIS/DISCHARGE PLUS VA GINITIS (HTRX)on 03-29-2024 ATOPOBIUM VAGINAE 0.000 [facility] ATOPOBIUM VAGINAE Not detected [facility] BVAB 2,3 (BACTERIAL VAGINOSIS ASSOCIATED BACTERIA 2, 3); MOBILUNCUS SPP 0.000 [facility] BVAB 2,3 (BACTERIAL VAGINOSIS ASSOCIATED BACTERIA 2, 3); MOBILUNCUS SPP Not detected [facility] SERAFIN ALBICANS, PARAPSILOSIS, TROPICALIS 0.000 [facility] SERAFIN ALBICANS, PARAPSILOSIS, TROPICALIS Not detected [facility] SERAFIN GLABRATA 0.000 [facility] SERAFIN GLABRATA Not detected [facility] SERAFIN KRUSEI 0.000 [facility] SERAFIN KRUSEI Not detected [facility] CHLAMYDIA TRACHOMATIS 0.000 [facility] CHLAMYDIA TRACHOMATIS Not detected [facility] GARDNERELLA VAGINALIS 0.000 [facility] GARDNERELLA VAGINALIS Not detected [facility] MEGASPHAERA (TYPES 1, 2) 0.000 [facility] MEGAS[facility] (TYPES 1, 2) Not detected [facility] MYCOPLASMA GENITALIUM 0.000 [facility] MYCOPLASMA GENITALIUM Not detected [facility] NEISSERIA GONORRHOEAE 0.000 [facility] NEISSERIA GONORRHOEAE Not detected [facility] TRICHOMONAS VAGINALIS 0.000 [facility] TRICHOMONAS VAGINALIS Not detected [facility] Urinalysis macro (dipstick) panel (U)on 03-28-2024 Bilirubin, UA Negative Negative - 4(70) +++ mg/dL [facility] Blood, UA Negative Negative - 50 Kyle/mcL [facility] Clarity, UA Clear [facility] re Color, UA Yellow [facility] Glucose, UA Negative Negative - 1999(110) ++++ mg/dL [facility] Interpretation and review of laboratory results Abnormal [facility] Ketones, UA Negative Negative - 160(16) ++++ mg/dL [facility] Leukocytes, UA Trace Negative - 500+++ Ren/mcL [facility] Nitrite, UA Negative Negative - Positive [facility] pH, UA 6.5 5 - 9 [facility] Protein, UA Negative Negative - 1999(20) ++++ mg/dL [facility] Spec Grav, UA 1.020 1 - 1.03 [facility] Urobilinogen, UA 0.2 0.2 - 12 mg/dL [facility] CBCon 03-18-2024 Erythrocyte distribution width (RBC) [Ratio] 13.0 % Normal 11.6-14.8 [facility] Comment on above: Performed By: #### R UB #### [facility] [address] [place] [address] Hematocrit (Bld) [Volume fraction] 36.7 % Normal 36.0-46.0 [facility] Comment on above: Performed By: #### R UB #### [address] [address] Hemoglobin (Bld) [Mass/Vol] 12.6 g/dL Normal 12.0-16.0 [facility] Comment on above: Performed By: #### R UB #### [address] [address] MCH (RBC) [Entitic mass] 31.8 pg Normal 27.0-35.0 [facility] Comment on above: Performed By: #### R UB #### [address] [address] MCHC 34.2 % Normal 31.0-37.0 [facility] Comment on above: Performed By: #### R UB #### [address] [address] MCV (RBC) [Entitic vol] 92.9 fL Normal 80.0-100.0 [facility] Comment on above: Performed By: #### R UB #### [address] [address] Platelet 295 x10*3/mcL Normal 150-450 [facility] Comment on above: Performed By: #### R UB #### [address] [address] Platelet mean volume (Bld) [Entitic vol] 8.7 fL Normal 6.7-10.6 [facility] Comment on above: Performed By: #### R UB #### [address] [address] RBC 3.95 x10*6/mcL Normal 3.80-5.20 [facility] Comment on above: Performed By: #### R UB #### [address] [address] WBC 11.6 x10*3/mcL High 4.5-11.0 [facility] Comment on above: Performed By: #### R UB #### [address] [address] Gest Diab Scn (ACOG)on 03-18 History of diabetes or gastric bypass? Unknown Normal [facility] Comment on above: Performed By: #### G DS #### [address] [address] Glucose [Mass/Vol] 136 mg/dL High 70-134 [facility] Comment on above: Result Comment: Acco rding to the ADA, a glucose threshold of > 139 mg/dL after a 50-gram load identifies approximately 80% of women with gestational diabetes mellitus, while the sensitivity is further increased to approximately 90% by a threshold of >129 mg/dL. Performed By: #### G DS #### [address] [address] Trep Abon 02-01-2024 Treponema Total Ab <0.10 Normal [facility] Comment on above: Performed By: #### C [id number] #### [address] [address] Treponema Total Ab Interp Negative Normal Negative [facility] Comment on above: Result Comment: No s erologic evidence of syphilis. No follow- up necessary unless clinically indicated (eg, early syphilis). Performed By: #### C [id number] #### [address] [address] HIV1/2 Ab,Ag Scnon HIV-1/2 Ab,Ag 0.26 Normal [facility] Comment on above: Performed By: #### C [id number] #### [address] [address] HIV-1/2 Ab,Ag Interp Non-Reactive Normal Non-Reactive [facility] Comment on above: Performed By: #### C [id number] #### [address] [address] Hep Bs Agon 01-31-2024 Hep Bs Ag Interp Non-Reactive Normal Non-Reactive [facility] Comment on above: Performed By: #### H BSAG #### [address] [address] Hep C Ab w/reflex HCV RNA Qn t, PCRon 01-31-2024 Hep C IgG Interp Non-Reactive Normal Non-Reactive [facility] Comment on above: Performed By: #### H CV #### [address] [address] C Urineon 01-30-2024 C Urine ------- Final 30-50,000 cfu/ml Mixed gram positive alicia isolated. This urine contains 3 or more organisms which is inconsistent with clean catch collection. Consider the possibility of contamination during collection. No identification or susceptibility performed as results would be misleading Normal [facility] Comment on above: Performed By: #### U RC #### [address] [address] ABO/Rhon 01-29-2024 ABO/Rh ABO/Rh: A POS Normal [facility] Comment on above: Performed By: #### A BAN #### [facility] (UNKNOWN) [address] [place] [address] CBC w/ Diffon 01-29-2024 Erythrocyte distribution width (RBC) [Ratio] 12.0 % Normal 11.6-14.8 [facility] Comment on above: Performed By: #### R UB #### [address] [address] Hematocrit (Bld) [Volume fraction] 37.7 % Normal 36.0-46.0 [facility] Comment on above: Performed By: #### R UB #### [address] [address] Hemoglobin (Bld) [Mass/Vol] 12.8 g/dL Normal 12.0-16.0 [facility] Comment on above: Performed By: #### R UB #### [address] [address] MCH (RBC) [Entitic mass] 31.0 pg Normal 27.0-35.0 [facility] Comment on above: Performed By: #### R UB #### [address] [address] MCHC 34.0 % Normal 31.0-37.0 [facility] Comment on above: Performed By: #### R UB #### [place] [id number] MCV (RBC) [Entitic vol] 91.1 fL Normal 80.0-100.0 [facility] Comment on above: Performed By: #### R UB #### [place] [id number] Platelet 370 x10*3/mcL Normal 150-450 [facility] Comment on above: Performed By: #### R UB #### [place] [id number] Platelet mean volume (Bld) [Entitic vol] 8.0 fL Normal 6.7-10.6 [facility] Comment on above: Performed By: #### R UB #### [place] [id number] RBC 4.13 x10*6/mcL Normal 3.80-5.20 [facility] Comment on above: Performed By: #### R UB #### [place] [id number] WBC 12.3 x10*3/mcL High 4.5-11.0 [facility] Comment on above: Performed By: #### R UB #### [place] [id number] Diff Autoon 01-29-2024 Baso Absolute 0.0 x10*3/mcL Normal 0.0-0.[address] [facility] Comment on above: Performed By: #### . Automated Diff #### [place] [id number] Basophils/100 WBC (Bld) 0.4 % Normal 0.0-1.5 [facility] Comment on above: Performed By: #### . Automated Diff #### [address] [address] Eos Absolute 0.0 x10*3/mcL Normal 0.0-0.4 [facility] Comment on above: Performed By: #### . Automated Diff #### [address] [address] Eosinophils/100 WBC (Bld) 0.3 % Normal 0.0-5.4 [facility] Comment on above: Performed By: #### . Automated Diff #### [address] [address] Lymph Absolute 2.0 x10*3/mcL Normal 1.0-4.8 [facility] Comment on above: Performed By: #### . Automated Diff #### [address] [address] Lymphocytes/100 WBC (Bld) 16.2 % Low 27.2-40.8 [facility] Comment on above: Performed By: #### . Automated Diff #### [address] [address] Martin Absolute 0.6 x10*3/mcL Normal 0.1-1.[address] [facility] Comment on above: Performed By: #### . Automated Diff #### [address] [address] Monocytes/100 WBC (Bld) 4.6 % Normal 3.7-11.9 [facility] Comment on above: Performed By: #### . Automated Diff #### [address] [address] Neutro Absolute 9.7 x10*3/mcL High 1.8-7.7 [facility] Comment on above: Performed By: #### . Automated Diff #### [address] [address] Neutro Auto 78.5 % High 47.2-70.8 [facility] Comment on above: Performed By: #### . Automated Diff #### [address] [address] Hgb A1con 01-29-2024 Glucose [Mass/Vol] 105 mg/dL Normal 68-114 [facility] Comment on above: Result Comment: Math ematical Calc approx. The mean gluc equivalency of A1c Performed By: #### R UB #### [place] [id number] Hgb A1c 5.3 % A1c Normal 4.0-5.6 [facility] Comment on above: Result Comment: Refe rence Range: 4.0 - 5.6 % Normal 5.7 - 6.4 % Pre-Diabetes > 6.5 % Diabetes Performed By: #### R UB #### [address] [address] Pren ABSCon 01-29-2024 Pren ABSC Negative Normal [facility] Comment on above: Performed By: #### R UB #### [address] [address] Rubella IgGon 01-29-2024 Rubella IgG Ab Interp Positive Normal [facility] Comment on above: Result Comment: The presence of detectable IgG-class antibodies indicates immunity to the rubella virus through prior immunization or exposure. Individuals testing reactive (positive) are considered immune to rubella infection. This result was obtained with the Access Rubella IgG EIA. Despite calibration by means of a reference preparation, values obtained with different photofinishing laboratory worker's assay methods may not be used interchangeably. The magnitude of the reported IgG level CANNOT be correlated to an endpoint titer. Performed By: #### R UB #### [address] [address] Coding Summary.on 01-31-2020 Coding Summary. CODING DATE: 01/31/2020 [facility] STATUS: Home (Routine DC) PAYOR: Commercial [...] Jocy Munroe Date Saved: 01/31/2020 07:26 pm [facility] Physician Orderon 01-05-2020 Physician Order [id number] [facility] Vital Signs Date Time Vital Sign Value Performing Clinician Keira lemosy 08-08-2024 15:09-0500 Body mass index (BMI) [Ratio] 30.72 kg/m2 Remy Flor DO Work Phone: [facility] 08-08-2024 15:09-0500 Body weight 78.65 kg Remy Flor DO Work Phone: [facility] 08-08-2024 15:09-0500 Diastolic blood pressure 84 mm[Hg] Remy Flor DO Work Phone: [facility] 08-08-2024 15:09-0500 Systolic blood pressure 120 mm[Hg] Remy Flor DO Work Phone: [facility] 08-01-2024 15:05-0500 Body mass index (BMI) [Ratio] 30.72 kg/m2 Remy Flor DO Work Phone: [facility] 08-01-2024 15:05-0500 Body weight 78.65 kg Remy Flor DO Work Phone: [facility] 08-01-2024 15:05-0500 Diastolic blood pressure 70 mm[Hg] Remy Flor DO Work Phone: [facility] [facility] 08-01-2024 15:05-0500 Systolic blood pressure 120 mm[Hg] Remy Flor DO Work Phone: [facility] 07-17-2024 16:07-0500 Body mass index (BMI) [Ratio] 30.89 kg/m2 Remy Flor DO Work Phone: [facility] 07-17-2024 16:07-0500 Body weight 79.11 kg Remy Flor DO Work Phone: [facility] 07-17-2024 16:07-0500 Diastolic blood pressure 80 mm[Hg] Remy Flor DO Work Phone: [facility] 07-17-2024 16:07-0500 Systolic blood pressure 122 mm[Hg] Remy Flor DO Work Phone: [facility] 07-05-2024 16:18-0500 Body mass index (BMI) [Ratio] 30.65 kg/m2 Remy Flor DO Work Phone: [facility] 07-05-2024 16:18-0500 Body weight 78.47 kg Remy Flor DO Work Phone: [facility] 07-05-2024 16:18-0500 Diastolic blood pressure 70 mm[Hg] Remy Flor DO Work Phone: [facility] 07-05-2024 16:18-0500 Systolic blood pressure 118 mm[Hg] Remy Flor DO Work Phone: [facility] 06-19-2024 15:50-0500 Body mass index (BMI) [Ratio] 31.18 kg/m2 Remy Flor DO Work Phone: [facility] 06-19-2024 15:50-0500 Body weight 79.83 kg Remy Flor DO Work Phone: [facility] 06-19-2024 15:50-0500 Diastolic blood pressure 72 mm[Hg] Remy Flor DO Work Phone: [facility] 06-19-2024 15:50-0500 Systolic blood pressure 118 mm[Hg] Remy Flor DO Work Phone: [facility] 05-25-2024 16:00-0400 Body mass index (BMI) [Ratio] 30.61 kg/m2 Jenifer Marjan PA Work Phone: [facility] 05-25-2024 16:00-0400 Body weight 78.38 kg Jenifer SHEEHAN Work Phone: [facility] 05-25-2024 16:00-0400 Diastolic blood pressure 74 mm[Hg] Jenifer Latif PA Work Phone: [facility] 05-25-2024 16:00-0400 Systolic blood pressure 110 mm[Hg] Jenifer Latif PA Work Phone: [facility] 04-24-2024 14:42-0400 Body mass index (BMI) [Ratio] 29.58 kg/m2 Remy Flor DO Work Phone: [facility] 04-24-2024 14:42-0400 Body weight 75.75 kg Remy Flor DO Work Phone: [facility] 04-24-2024 14:42-0400 Diastolic blood pressure 76 mm[Hg] Remy Flor DO Work Phone: [facility] 04-24-2024 14:42-0400 Systolic blood pressure 114 mm[Hg] Remy Flor DO Work Phone: [facility] 03-28-2024 14:01-0400 Body mass index (BMI) [Ratio] 29.23 kg/m2 Jenifer SHEEHAN Work Phone: [facility] 03-28-2024 14:01-0400 Body weight 74.84 kg Jenifer SHEEHAN Work Phone: [facility] 03-28-2024 14:01-0400 Diastolic blood pressure 74 mm[Hg] Jenifer Latif PA Work Phone: [facility] 03-28-2024 14:01-0400 Systolic blood pressure 116 mm[Hg] Jenifer SHEEHAN Work Phone: [facility] Encounters Encounter Date Encounter Type Care Provider Facility Start: 08-17-2024 End: 08-17-2024 Clinisync Result Encounter Remy Flor DO Work Phone: [facility] External Department Unsolicited Start: 08-17-2024 End: 08-17-2024 Clinisync Result Encounter Remy Flor DO Work Phone: [facility] External Department Unsolicited Start: 08-16-2024 End: 08-16-2024 Clinisync Result Encounter Remy Flor DO Work Phone: [facility] Unsolicited Start: 08-16-2024 End: 08-16-2024 Clinisync Result Encounter Remy Flor DO Work Phone: [facility] Unsolicited Start: 08-08-2024 End: 08-08-2024 ambulatory REMY FLOR [...] Third trimester Start: 07-17-2024 End: 07-17-2024 ambulatory RMEY FLOR Not Available Start: 07-17-2024 End: 07-17-2024 [...] 06-03-2024 End: 06-03-2024 ambulatory Jenifer Latif PA-C Facility:[facility] Start: 05-25-2024 End: 05-25-2024 ambulatory JENIFER [...] 03-18-2024 End: 03-18-2024 ambulatory Remy Ray DO Facility:[facility] Start: 02-29-2024 End: 02-29-2024 ambulatory REMY RAY Not Available Start: 01-29-2024 End: 01-29-2024 ambulatory Remy Ray DO Facility:[facility] Start: 01-21-2024 End: 01-21-2024 ambulatory REMY RAY Not Available Start: 08-16-2023 End: 08-16-2023 ambulatory REMY CUNNINGHAMO Not Available Start: 08-11-2022 End: 08-11-[address] REMY RAY Facility: Procedures Date Procedure Procedure Detail Performing Clinician Start: 08-17-2024 ALL CBC WITH AUTO DIFF Remy Flor DO Work Phone: Start: 08-16-2024 [facility] CBC WITH PLATEL ET NO DIFFERENTIAL Remy Flor DO Work Phone: Start: 08-08-2024 Urnls dip stick/tabl et rgnt [...] Visit [facility] [address] [place] [address] Remy Ray DO [address] [place], [place] [id number] [facility] Start: 08-15-2024 End: 08-15-2024 Patient encounter procedure 08/15/2024 2:50 PM EST Routine [facility] [address] [place] [id number] Remy Ray DO [address] [place] [address] [facility] Start: 08-08-2024 End: 08-08-2024 Patient encounter procedure 08/08/2024 2:50 PM EST Routine [facility] [address] [place] [address] Remy Ray DO [address] [place] [address] [facility] Start: 08-01-2024 End: 08-01-2024 Patient encounter procedure 08/01/2024 2:40 PM EST Routine [facility] [address] [facility] [place] [phone] Remy Ray, DO [address] [facility] [address] [place] [address] [facility] Start: 08-01-2024 End: 08-01-2025 [...] Start: 06-19-2024 End: 06-19-2024 Patient encounter procedure [facility] Comment on above: Arrived Start: 05-25-2024 End: 05-25-2024 Patient encounter procedure 05/25/2024 3:50 PM EDT Routine [facility] [address] [facility] [place] [id number] Jenifer Latif PA [address] [place] [address] [facility] Start: 05-25-2024 End: 05-25-2025 Measurement of glucose 3 hours after glucose challenge for glucose tolerance test Glucose tolerance, 3 hours Lab Routine Elevated glucose tolerance test Expected: 05/25/2024 (Approximate), Expires: 05/25/2025 [facility] Work Phone: Comment on above: Expected: 05/25/2024 (Approximate), Expires: 05/25/2025 Start: 04-24-2024 End: 04-24-2024 Patient encounter procedure [facility] Comment on above: Arrived Start: 04-24-2024 End: 04-24-2024 Professional / ancillary services management 04/24/2024 1:30 PM EDT Ancillary Procedure [facility] [address] [place] [id number] [facility] Start: 03-28-2024 End: 04-27-2024 Alpha fetoprotein, maternal Alpha fetoprotein, maternal Lab Routine Need for maternal serum alpha-protein (MSAFP) screening Expected: 03/28/2024 (Approximate), Expires: 04/27/2024 [facility] Comment on above: Expected: 03/28/2024 (Approximate), Expires: 04/27/2024 Start: 03-28-2024 End: 03-28-2025 US for US OB ANATOMY SINGLE W US OB CERVICAL LENGTH Imaging Routine Screening, , for anatomic survey Expected: 03/28/2024 (Approximate), Expires: 03/28/2025 [facility] Comment on above: Expected: 03/28/2024 (Approximate), Expires: 03/28/2025 CHLAMYDIA TRACHOMATI S (GENITO/STI) CHLAMYDIA TRACHOMATIS (GENITO/STI) Lab Routine Exposure to STD Ordered: 03/28/2024 [facility] Comment on above: Ordered: 03/28/2024 Neisseria gonorrhoea e DNA [Presence] in Unspecified specimen by EFRAIN with probe detection Neisseria gonorrhea DNA probe, direct Lab Routine Exposure to STD Ordered: 03/28/2024 [facility] Comment on above: Ordered: 03/28/2024 SURESWAB(R) ADVANCED VAGINITIS PLUS, TMA SURESWAB(R) ADVANCED VAGINITIS PLUS, TMA Pathology and Cytology Routine Exposure to STD Ordered: 03/28/2024 [facility] Work Phone: Comment on above: Ordered: 03/28/2024 Payers Date Payer Category Payer [facility] [id number] 2024 Unknown [id number] 2023 Private Health Insurance [facility] [id number] 2023 Unknown 2023 Unknown [id number] 2021 Medicaid [id number] 1990 Unknown [id number] 2.16.840.1.386564.3.579.2. 593 1990 Unknown [id number] 2.16.840.1.414577.3.579.2. 196 1990 Unknown [id number] 2.16.840.1.785432.3.579.2. 196 1990 Unknown [id number] 2.16.840.1.727487.3.579.2. 196 1990 Unknown [id number] 2.16.840.1.442745.3.579.2. 1259 1990 Unknown [id number] 2.16.840.1.322111.3.579.2. 1259 1990 Unknown [id number] 2.16.840.1.992346.3.579.2. 1259 1990 Unknown [id number] 2.16.840.1.567160.3.579.2. 1259 1990 Unknown [id number] 2.16.840.1.572915.3.579.2. 1259 1990 Unknown [id number] 2.16.840.1.706292.3.579.2. 1259 1990 Unknown [id number] 2.16.840.1.506643.3.579.2. 1259 1990 Unknown [id number] 2.16.840.1.886834.3.579.2. 1259 1990 Unknown [id number] 2.16.840.1.336963.3.579.2. 1259 1990 Unknown [id number] 2.16.840.1.253120.3.579.2. 1259 1990 Unknown [id number] 2.16.840.1.420601.3.579.2. 1259 1959 Unknown [id number] Social History Date Type Detail Facility Start: [facility]28-[facility]23 [facility] Start: 07-28-2023 Tobacco use and exposure [...] Gender identity Identifies as female gender (finding) [facility] Start: 08-11-2023 Sexual orientation Heterosexual (fin ding) [facility] Medical Equipment Procedure Code Equipment Code Equipment Origin al Text Equipment Identifier Dates 1 strip by In Vi tro route Daily Use in the morning prior to breakfast, 1 hour after each meal for a total of 4times daily. [id number] Start: 06-19-2024 End: 07-19-2024 1 each by In Vit ro route Daily Use to check FSBS four times daily [id number] Start: 06-19-2024 End: 07-19-2024 Use as instructed [id number] Start: 07-05-2024 End: 08-08-2024 1 each by In Vit ro route Daily Use to check FSBS four times daily [id number] Start: 07-14-2024 End: 08-13-2024 Use as instructed [id number] Start: 08-08-2024 End: 08-08-2025 Use as instructed [id number] Start: 08-08-2024 Clinical Notes 03-28-2024 to 08-08-2024 Monica Casey LPN - 08/08/2024 2:50 PM Rupal Casey LPN - 08/01/2024 2:40 PM Louis Little LPN - 07/17/2024 3:40 PM Rupal Casey [employer] PAYABLE BOOKKEEPER - 07/05/2024 3:30 PM EST Note Date [...] nursing note reviewed. Exam conducted with a instrument/control technician present. Vitals: Estimated body mass index [...] Remy Ray DO documented in this encounter [facility] 08-01-2024 History of Presen t illness Narrative [...] nursing note reviewed. Exam conducted with a instrument/control technician present. Vitals: Estimated body mass index [...] Remy Ray DO documented in this encounter [facility] 07-17-2024 History of Presen t illness Narrative [...] nursing note reviewed. Exam conducted with a instrument/control technician present. Vitals: Estimated body mass index [...] Remy Ray DO documented in this encounter [facility] 07-05-2024 History of Presen t illness Narrative [...] nursing note reviewed. Exam conducted with a instrument/control technician present. Vitals: Estimated body mass index [...] Remy Ray DO documented in this encounter [facility] 06-19-2024 History of Presen t illness Narrative [...] nursing note reviewed. Exam conducted with a instrument/control technician present. Vitals: Estimated body mass index [...] Remy Ray DO documented in this encounter [facility] 05-25-2024 History of Presen t illness Narrative [...] of: AGUILA Carbone documented in this encounter [facility] 04-24-2024 History of Presen t illness Narrative [...] nursing note reviewed. Exam conducted with a instrument/control technician present. Vitals: Estimated body mass index [...] Remy Ray DO documented in this encounter [facility] 03-28-2024 History of Presen t illness Narrative [...] hour glucose orders to have done at [facility] prior to next visit. Pt verbally understood. [...] content) DATE CREATED AUTHOR 02/10/2020 Michael Suresh [facility] DATE CREATED AUTHOR AUTHOR'S ORGANIZ ATION 08/12/2022 Vika Cannon [facility] DATE CREATED AUTHOR AUTHOR'S ORGANIZ ATION 07/06/2024 [facility] DATE CREATED AUTHOR AUTHOR'S ORGANIZ ATION 08/11/2024 [facility] EPIC Reason for [...] ON THE PRIMARY CLINICAL RECORDS. [facility] [employer] provides no warranty or guarantee of the accuracy or completeness of information in this document.
[2024-08-24 14:16] VITALS: BP 128/85; PULSE 73; TEMP 36.5; O2SAT 99
--- NOTE | 2024-08-24 14:16 | PC.NURSE ---
Sam Mcallister and 8 day old Lizett arrive for follow up appointment. Ary states only coern is if baby is gaining weight and cause of continued sore nipples. VSS and assessment WNL for Ary. Denies complaints and reports vaginal discharge is mapping analyst than period flow. Baby Lizett is awake and fussy. Noted to have cobble stones on lips, upper lip frenulum blanches when lip rolled. Tongue tether noted upon assessment. Discussed with parents and both states we were asking ourselves that over the weekend Mom reports tenderness and tight pinch when baby latches. Left nipple with small open area at tip and crease line noted as well. Mom states I finally got the right nipple to heal in last day. Vss and assessment WNL for Lizett. Weight increase from discharge weight. multiple wets and yellow seedy stools counted per parents.No questions on infant care. Given referral information for evaluation of lip and tongue tie by pediatric dentist. Parents will call and schedule follow up with LC once infant has been evaluated. Home at this time. No further concerns voiced.
== END 2024-08-24 14:22 | disposition home or self-care (01) ==
LOC: FBCO 08:28
PROVIDERS: PCP Nurse Practitioner Family; Visit Provider Obstetrics & Gynecology
DX: Z39.1 Encounter for care and examination of lactating mother (principal)

== ENCOUNTER 2024-12-21 20:29 | Outpatient (REF) | payer BC, SELFPAY | END 2024-12-21 20:30 | disposition home or self-care (01) | LOC: LAB 20:29 | PROVIDERS: PCP Nurse Practitioner Family; Visit Provider Physician Assistant | DX: Z01.419 Encounter for gynecological examination (general) (routine) without abnormal findings (principal) | CPT/HCPCS: 87624; 88175 ==

== ENCOUNTER 2025-05-05 07:45 | Outpatient (OUT) | payer BC, SELFPAY ==
--- OUTSIDE RECORDS SUMMARY | 2023-02-23 11:30 | XMS_ITS | Continuity of Care Document ---
Author Organization [facility] Address [address] [place] [address] Phone Care Team Providers Care Recruitment Consultant Name Role Phone Chanadriana DARLEENEddaha Unavailable Unavailable Allergies, Adverse Reactions, Alerts Substance Reaction Status Criticality No Known Allergies Active No Inform ation Medications Medication Instructions Dosage Effective Dates (start - stop) Status Comments sertraline 50 mg tablet take 1 tablet by oral route every day 50 MG - Active norethindrone (contraceptive) 0.35 mg tablet take 1 tablet by oral route every day 1.00 tablet - Active Aspirin Low Dose 81 mg tablet,delayed release take 1 tablet by oral route every day 81 MG - Active 28 mg iron-800 mcg tablet - Active Vitamin D3 25 mcg (1,000 unit) capsule - Active Procedures Procedure Date Prophylaxis Adult [facility] [place] Dis Feb Oral Hygiene Instruction Oral Hygiene Instruction Treatment Completed Resin Composite 2s; Posterior 3 Oral Hygiene Instruction Resin Composite 2s; Posterior 3 Resin Composite 1s; Posterior 3 Bitewings Four Films Prophylaxis Adult High Risk [facility] [place] Dis Jul Oral Hygiene Instruction Periodic Oral Eval Estab Patient 2022 Resin Composite 3s; Posterior 2 Resin Composite 3s; Posterior 2 Oral Hygiene Instruction [facility] [place] Dis Jan Oral Hygiene Instruction Prophylaxis Adult Intraoral-complete Series (bw) Comp Oral Eval New/estab Patient 2020 Oral Hygiene Instruction [facility] [place] Dis Jun Oral Hygiene Instruction Advance Directives Directive Yes / No Effective Date File Name No Information Encounters Encounter Description Practice Location Reason(s) For Visit Diagnoses Date Provider Providers Copied on Encounter [facility], [address] [place] [address], [id number], [place] tel:[phone] [facility] [place] ([place] complaint) Encounter for screening for dental disorders Wendy Srivastava. . tel:[phone] [facility], [address] [place] [address], [id number], [place] tel:[phone] Dental Clinic fILL (chief complaint) Encounter for screening for dental disorders Katy FLAHERTYS Robert. [address] [place] [address], [id number], [place]. tel:[phone] [facility], [address] [place] [address], [id number], [place] tel:[phone] Dental Clinic filling (chief complaint) Encounter for screening for dental disorders Katy FLAHERTYS Robert. [address] [place] [address], [id number], [place]. tel:[phone] [facility], [address] [place] [address], [id number], [place] tel:[phone] Dental Clinic Adult Prophy (chief complaint) Encounter for screening for dental disorders Katy DDS Robert. [address] [place] [address], [id number], [place]. tel:[phone] [facility], [address] [place] [address], [id number], [place] tel:[phone] Dental Clinic filling (chief complaint) Encounter for screening for dental disorders Katy FLAHERTYS Robert. [address] [place], [address], [place]. tel:[phone] [facility], [address] [place] [address], [id number], [place] tel:[phone] Dental Clinic matilda (chief complaint) Encounter for screening for dental disorders Katy Jones. [address] [place], [address], [place]. tel:[phone] [facility], [address] [place] [address], [id number], [place] tel:[phone] Dental Clinic prophy (chief complaint) Encounter for screening for dental disorders Katy Jones. [address] [place], [address], [place]. tel:[phone] [facility], [address] [place] [address], [id number], [place] tel:[phone] Dental Clinic Dental New (chief complaint) Encounter for screening for dental disorders Froylan Akins. [address], [place], [id number], [place]. tel:[phone] Family History Family Member Type Diagnosis Age At Onset Father Problem hypertension Mother Problem Cause of Aneurism Father Problem Alive and well Father Problem High Cholesterol Payers Payer name Insurance type Covered alliance party ID Maryellen jones(s) D [employer] [facility] [id number] D Medicaid [facility] [id number] Social History Type Description Quantity Date Captured Comments Alcohol Use Details Unknown Caffeine Use Details Unknown Tobacco Use Status Current non-smoker Smoking Status Never smoker Sex Female Sexual Orientation Straight or heterosexual Gender Identity Female Vital Signs Date / Time: Height Weight BMI Pulse Rate Blood Pressure Temperature Respiratory Rate Body Surface Area Head Circumference Head Circ. Percentile Wt./[place]. Percentile BMI percentile Pulse Ox Inhaled Ox 3:55 PM 94 /min 150/63 mm[Hg] 94.70 F Chief Complaint And Reason For Visit From encounter dated '02/23/2023 15:30'. [place] (chief complaint). Description: [place] Reason For Referral Reason For Referral No Information Plan Of Treatment Date Type Action Status Goal PRAPARE ASSESSMENT. Due on A due Goal Influenza vaccine. Due on Au due Goal Depression screening. Due on due Goal Tdap Vaccine. Due on 2022 due Goal RLP. Due on due Goal Tdap. Due on due Goal Tdap Vaccine. Due on 2022 due Goal Hep A. Due on du e Goal PRAPARE ASSESSMENT. Due on M due Goal Depression screening. Due on due Goal Influenza vaccine. Due on due Goal RLP. Due on due Goal Tdap. Due on due Goal Tdap. Due on due Goal Influenza vaccine. Due on due Goal RLP. Due on due Goal PRAPARE ASSESSMENT. Due on due Goal Depression screening. Due on due Goal Hep A. Due on du e Goal Tdap Vaccine. Due on 2022 due Goal Depression screening. Due on due Goal Influenza vaccine. Due on due Goal Tdap. Due on due Goal Tdap Vaccine. Due on 2022 due Goal PRAPARE ASSESSMENT. Due on due Goal RLP. Due on due Goal Tdap. Due on due Goal Depression screening. Due on due Goal RLP. Due on due Goal Influenza vaccine. Due on De due Goal PRAPARE ASSESSMENT. Due on due Goal PRAPARE ASSESSMENT. Due on S due Goal Influenza vaccine. Due on due Goal Tdap. Due on due Goal Depression screening. Due on due Goal RLP. Due on due Goal Depression screening. Due on due Goal Influenza vaccine. Due on due Goal RLP. Due on due Goal Tdap. Due on due History Of Present Illness Encounter Date Complaint History Of Prese nt Illness [place] AGUILA fILL filling filling Adult Prophy Adult Prophy filling continue with tr eatment matilda matilda prophy prophy Dental New Dental New Functional Status Date Functional Assessmen t No Information Instructions Date Instruction Additional Infor mation No Information Assessments Type Assessment Date No Information Patient Care Teams Name Effective Dates (start - stop) Status Members No Information
--- OUTSIDE RECORDS SUMMARY | 2025-04-27 07:15 | XMS_ITS ---
Author Organization [facility] in [place] Address [address] [place] [address] Care Team Providers Care Instrument Maker And Repairer Name Role Phone Jo Ann Trevizo Primary Care Provider [phone] Allergies No Known Allergies REASON FOR VISIT yearly wellness Medications Medication SIG (Take, Route, Frequency, Duration) Notes Start Date End Date Status Aspirin Adult Low Dose 81 MG 1 tablet Orally Once a day Active Slynd 4 MG 1 tablet Orally Once a day Active Sertraline HCl 50 MG as directed Orally Once a day; Duration: 90 days take 1/2 tablet po daily for first week than increase dose to 1 tablet po daily Active Active Vitamin D Active Social History Tobacco Use: Social History Observation Description Date Details (start date - stop date) Never Smoker NA - NA Tobacco Use/Smoking Question Answer Notes Patient is a nonsmoker AUDIT-C (Standard) Question Answer Notes Did you have a drink contain ing alcohol in the past year? Yes How often did you have a dri nk containing alcohol in the past year? Monthly or less (1 point) How many drinks did you have on a typical day when you were drinking in the past year? 3 or 4 drinks (1 point) How often did you have six o r more drinks on one occasion in the past year? 2 to 3 times per week (3 points) Points 5 Interpretation Positive Vital Signs Weight 164.8 lbs 04/27/2025 Height 63 in 04/27/2025 Blood pressure systolic 122 mm Hg 04/27/20 25 Blood pressure diastolic 70 mm Hg 025 BMI 29.19 kg/m2 04/27/2025 Encounters Encounter Location Date Provider Diagnosis [facility] [address] [place] [address] 04/27/2025 Jo Ann Trevizo Anxiety disorder, unspecified F41.9 and Wellness examination Z00.00 Assessments Encounter Date Diagnosis (ICD Code) Assessment Notes Treatment Notes Treatment Clinical Notes Section Notes 04/27/2025 Anxiety disorder, unspecified (ICD-10 - F41.9) consider counseling 04/27/2025 Wellness examination (ICD-10 - Z00.00) ROS done exam done Plan Of Treatment Medication Medication Name Sig Start Date Stop Date Notes Sertraline HCl 50 MG as directed Orally Once a day; Duration: 90 days take 1/2 tablet po daily for first week than increase dose to 1 tablet po daily Treatment Notes Assessment Notes Anxiety disorder, unspecified consider c bell Wellness examination ROS done exam done Pending Test Test Name Order Date HEMOGLOBIN A1C (GLYCO) 04/27/2025 IRON, TOTAL 04/27/2025 LIPID PANEL (CHOL/TRIG/HDL/LDL) 04/27/20 25 VITAMIN D, 25 LEVEL (TOTAL) 04/27/2025 Insulin Level 04/27/2025 THYROID PANEL (T4/TSH/FREE T3) CMP (COMP MET CLANCY) w/eGFR CKD-EPI 2024 CBC WITH DIFF 04/27/2025 Next Appt Details Follow Up: 1 Year,Randa ivy n: Provider Name:Jo Ann roberts, 05/02/2026 11:00:00 AM, [address] [place], [address], Progress Notes * Ary SPAIN ADOB: [birth year] (35 yo F)Acc No.[id number]:04/27/2025 Progress Note Patient: Rima CHASE Ary Taylor Provider: Yousuf Trevizo ([facility]), CONCRETE SMOOTHER :1990 A ge:34 Y S ex:Female Date:04/27/2025 Address:[facility] [address] [place], [id number] Check In:11:09 AM ESTCheck O ut:11:28 AM EST Subjective: * Chief Complaints: * 1 . Yearly wellness. * HPI: G eneral: anxiety , some SOB restart has 8 month old , girl 4 yo son Flor wellness labs BH. D epression Screening: PHQ-2 (2015 Edition) L ittle interest or pleasure in doing things??Not at all F eeling down, depressed, or hopeless? S everal days T otal Score 1 * ROS: G eneral/Constitutional: Anxiety a dmits. F ever d enies. H eadache d enies. W eight loss d enies. O phthalmologic: Discharge d enies. E ye Pain d enies. I tching and redness d enies. E NT: Nasal discharge d enies. N jose congestion d enies.?Sore throat d enies. C ardiovascular: Chest tightness/ heavy pressure d enies. R apid heart rate d enies. S welling of extremities d enies. C hest pain d enies. ? R espiratory: Productive cough d enies. C hest pain d enies. C ough d enies. S hortness of breath d enies. W heezing d enies. ? G astrointestinal: Abdominal pain d enies. C onstipation d enies. D ecreased appetite d enies. D iarrhea d enies. N ausea d enies. V omiting?denies. G enitourinary: Urinary incontinence d enies. P ainful urination d enies. M usculoskeletal: Back pain d enies. N jessika pain d enies. M uscle aches d enies. S kin: Rash d enies. S kin lesion(s) d enies. ? * Active Problem List E66.3 Over weight Modified On:11/05/2022/U Status:confirmed R42 Light headedness Modified On:11/05/2022U Status:confirmed Z00.00 Wellness examination Modified On:11/09/2022/U Status:confirmed H65.92 Left serous otitis m edia Modified On:11/05/2022U Status:confirmed Z83.49 Family history of 5, 10-methylenetetrahydofolate deficiency Modified On:11/05/2022/U Status:confirmed F41.9 Anxiety disorder, un specified Modified On:11/09/2022W/U Status:confirmed * Medical History: L eft serous otitis media, Over weight, Light headedness, Family history of 5, 10-methylenetetrahydofolate deficiency, Wellness examination. * Surgical History: W isdom Teeth Extraction 2005. * Family History: F ather: alive, hypertension, Hypercholesterolemia, osteoarthritis. M other: , pulmonary embolism. S ister(s): alive, blood clot. S on(s): alive. 2 sister(s) - healthy. 1 son(s) - healthy. . * Social History: T obacco Use: T obacco Use/Smoking P atient is a n onsmoker D rug/Alcohol: A NELLY-C (Standard) D id you have a drink containing alcohol in the past year? Y es H ow often did you have a drink containing alcohol in the past year? M onthly or less (1 point) H ow many drinks did you have on a typical day when you were drinking in the past year? 3 or 4 drinks (1 point) H ow often did you have six or more drinks on one occasion in the past year? 2 to 3 times per week (3 points) P oints 5 I nterpretation P ositive * Medications: T aking Aspirin Adult Low Dose(Aspirin) 81 MG Tablet Delayed Release 1 tablet Orally Once a day , Taking , Taking Slynd(Drospirenone) 4 MG Tablet 1 tablet Orally Once a day , Taking Vitamin D , Not-Taking/PRN Sertraline HCl 50 MG Tablet 1 tablet Orally Once a day , Medication List reviewed and reconciled with the patient * Allergies: N .K.D.A. Objective: * Vitals: W t:164.8lbs, Ht: 63 in, BP:122/70mm Hg, BMI:29.19Index, Ht-cm: 160.02 cm, Wt-k.75 kg. * Examination: G eneral Examinations: GENERAL APPEARANCE: a lert and oriented, i n no acute distress. EYES: c onjunctiva normal, sclera non-icteric. NOSE: n ormal external appearance. LYMPH NODES: n ormal, no cervical, axillary, or inguinal adenopathy. LUNGS: c lear to auscultation bilaterally. CARDIO: r egular rate and rhythm, S1, S2 normal. ABDOMEN: s oft, nontender. MUSCULOSKELETAL: G ait and station normal. SKIN: w arm and dry. Assessment: * Assessment: 1. A nxiety disorder, unspecified - F41.9 (Primary) 2 . W ellness examination - Z00.00 Plan: * Treatment: 2. W ellness examination L AB: HEMOGLOBIN A1C (GLYCO) L AB: IRON, TOTAL L AB: LIPID PANEL (CHOL/TRIG/HDL/LDL) L AB: VITAMIN D, 25 LEVEL (TOTAL) L AB: Insulin Level L AB: THYROID PANEL (T4/TSH/FREE T3) L AB: CMP (COMP MET CLANCY) w/eGFR CKD-EPI L AB: CBC WITH DIFF Notes: ROS done exam done * Preventive Medicine: Screenings/Counseling: B MO ACTION PLAN Above Normal BMI Follow-up D ietary management education, guidance, and counseling * Follow Up: 1 Year,prn * * Sign off status: Completed Visit Status: C HK (Check Out) true * Provider: Yousuf Trevizo ([facility]), CONCRETE SMOOTHER Date: Generated for Elba finch/Lamont/eTransmitting on: 07:49 AM EDT History and Physical Notes * HPI (History of Present Illness) Category Sub-Category Detail Notes Category Not es General anxiety , some SOB restart has 8 month old , girl 4 yo son Flor wellness labs Depression Screening PHQ-2 (2015 Edition) Little interest or pleasure in doing things?: Not at all Feeling down, depressed, or hopeless?: S everal days Total Score: 1 Examination Category Sub-Category Detail Notes Category Not es General Examinations GENERAL APPEARANCE: alert a nd oriented, in no acute distress EYES: conjunctiva normal, sclera non-icteric EARS: NOSE: normal external appe arance THROAT: CARDIO: regular rate and rhy thm, S1, S2 normal LUNGS: clear to auscultatio n bilaterally ABDOMEN: soft, nontender SKIN: warm and dry BACK: MUSCULOSKELETAL: Gait and station nor mal LYMPH NODES: normal, no cervical, axillary, or inguinal adenopathy
--- OUTSIDE RECORDS SUMMARY | 2025-05-05 07:48 | XMS_ITS | CCD ---
Author Organization [facility] Care Team Providers Care Senior Oracle Developer Name Role Phone DR REMY RAY Admitting Unavailable FLOR, DR ALBERTO Attending Unavailable LEXI ZHAO Primary Care Unavailable FLOR, DR ALBERTO Consulting Unavailable Unavailable Primary Care Provider Unavailabl e FLOR, REMY Attending Unavailable FLOR, REMY Attending Unavailable FLOR, REMY Attending Unavailable BHAVYA, JENIFER Attending Unavailable FLOR, REMY Attending Unavailable BHAVYA, JENIFER Attending Unavailable FLOR, REMY Attending Unavailable FLOR, REMY Attending Unavailable FLOR, REMY Attending Unavailable FLOR, REMY Attending Unavailable FLOR, REMY Attending Unavailable Flor DO, Remy Cross Attending Unavaila ble Bhavya GUPTA, Jenifer Blanc Attending Unavailable Khaidjah GUPTA, Dinah Garrison Attending Unavailab levon Lucio PA-C, Dinah Garrison Attending Unavailab levon Lucio PA-C, Dinah Garrison Attending Unavailab levon Markham MD, Jean-Paul Ramos Attending Unavai lable Flor DO, Remy Cross Attending Unavaila ble Medications Current Medications Medication Drug Class(es) Dates [...] 3 03/28/2024 07/17/2024 Discontinued Blood Glucose Monitoring Sup pl (D-Care Glucometer) w/Device kit (16 sources) Start: 06-19-2024 End: 09-28-20[address] (D-Care Glucometer) w/Device kit Indications: Gestational diabetes mellitus (GDM), antepartum, gestational diabetes method of control unspecified , Elevated glucose tolerance test 1 kit Daily Use four times daily to check FSBS. In the morning prior to breakfast & 1 hour after each meal for a total of 4times daily. 1 kit 06/19/2024 09/28/2024 Discontinued Start: 06-19-2024 End: 06-19-[address] (D-Care Glucometer) w/Device kit Indications: Gestational diabetes [...] the same time Active Docusate (20 sources) End: 09-28-2024 Docusate Sodium (COLACE PO) Take by mouth 09/28/2024 Discontinued Docusate Sodium (COLACE PO) Take by mouth Active Doxylamine Succinate, Sleep, (UNISOM PO) (20 sources) End: 09-28-2024 Doxylamine Succinate, Sleep, (UNISOM PO) Take by mouth 09/28/2024 Discontinued Doxylamine Succi chidi, Sleep, (UNISOM PO) Take by mouth Active drospirenone 4 mg oral tablet (6 sources) Progestin Start: 09-28-2024 take 1 tablet by mouth once daily Drospirenone (Slynd) 4 MG tablet Indications: Encounter for initial prescription of contraceptive pills Take 1 each by mouth Daily 28 tablet 11 09/28/2024 Active 0.4 ml enoxaparin sodium 100 mg/ml prefilled syringe (2 sources) Low Molecular Weight Heparin Start: 08-18-2024 End: 09-28-2024 inject 0.4 mL by subcutaneous injection once daily Enoxaparin Sodium (Lovenox) 40 MG/0.4ML solution prefilled syringe Indications: MTHFR mutation , state Inject 0.4 mL as directed Daily Lovenox 40mg SubQ daily for 6 weeks. 16.8 mL 08/18/2024 09/28/2024 Discontinued (Other) insulin isophane, human 100 unt/ml injectable suspension (15 sources) Start: 07-05-2024 End: 10-04-2024 inject 5 [IU] by subcutaneous injection at bedtime insulin NPH, Isophane, (NovoLIN N) 100 UNIT/ML injection Indications: Gestational diabetes mellitus (GDM), antepartum, gestational diabetes method of control unspecified Inject 5 Units under the skin at bedtime 10 mL 2 07/06/2024 09/28/2024 Discontinued isopropyl alcohol 0.7 ml/ml medicated pad (6 sources) Start: 06-19-2024 End: 07-19-2024 Alcohol Swabs (Alcohol Prep Pad) 70 % pads Indications: Gestational diabetes mellitus (GDM), antepartum, gestational diabetes method of control unspecified , Elevated glucose tolerance test Apply 1 Pad topically Daily Use four times daily to check FSBS. 150 each 3 06/19/2024 07/19/2024 Active ondansetron 4 mg oral tablet (20 sources) Serotonin-3 Receptor Antagonist Start: 04-27-2024 End: 09-28-2024 take 1 tablet by mouth every six hours as needed for nausea and vomiting and nausea and nausea ondansetron (Zofran) 4 MG tablet Indications: Nausea Take 1 tablet (4 mg) by mouth every 6 (six) hours if needed for nausea or vomiting for up to 120 doses Take 1 tablet by mouth every 6 hours as needed for nausea. 30 tablet 3 04/27/2024 09/28/2024 Discontinued Start: 01-21-2024 take 1 tablet by chip [...] tablet 3 01/21/2024 Active polyethylene glycol 3350 09926 mg powder for oral solution (20 sources) Osmotic Laxative End: 09-28-2024 polyethylene glycol, PEG, 3350 (Miralax) 17 g packet Take by mouth 09/28/2024 Discontinued Vit-Fe Fumarate-FA (PNV Plus Multivitamin) 27-1 MG [...] Classification Problem Date Documented Da te Episodic/Chronic Contraceptive and procreative management (2 sources) Patient encounter status; Translations: [Encounter for initial prescription of contraceptive pills] 09-28-2024 Episodic Diabetes mellitus without complication (2 sources) Abnormal [...] Results Test Name Value Interpretation Reference Range Facility IGP,APTIMA HPV,AGE GDLNon AGE GDLN ACOG TESTING Note . [facility] Comment on above: TESTS RESULT FLAG UN ITS REF RANGE LAB Clinician Provided Cytology Information Source.............Cervix;Endocervix No. of containers..01 ThinPrep Vial Age Algo ACOG Lesley... FLAG LEGEND: L-Low Normal,H-High Normal,LL-Alert Low,HH-Alert High <-Panic Low,>-Panic High,A-Abnormal,AA-Critical Abnormal Performed at: 01 =G [facility] [place] [address] Violet Dixon MD, HPV APTIMA Negative Negative [facility] Comment on above: This nucleic acid am plification test detects fourteen high- risk HPV types (16,18,31,33,35,39,45,51,52,56,58,59,66,68) without differentiation. Performed at: = - [facility] [id number] Instruction Assistant Principal: Violet Dixon MD, Phone: [phone] Performed at: - [address] [id number] Instruction Assistant Principal: Violet Dixon MD, Phone: [phone] IGP, APTIMA HPV, RFX 16/18,45 Note . [facility] Comment on above: TESTS RESULT FLAG UN ITS REF RANGE LAB DIAGNOSIS: 02 NEGATIVE FOR INTRAEPITHELIAL LESION OR MALIGNANCY. Specimen adequacy: 02 Satisfactory for evaluation. Endocervical and/or squamous metaplastic cells (endocervical component) are present. Performed by: 02 Dev Mireles, Security Tech ([facility]) . 02 Note: Note 02 The Pap smear is a screening test designed to aid in the detection of premalignant and malignant conditions of the uterine cervix. It is not a diagnostic procedure and should not be used as the sole means of detecting cervical cancer. Both false-positive and false-negative reports do occur. Test Methodology: Note 02 This liquid based ThinPrep(R) pap test was screened with the use of an image guided system. HPV Genotype Reflex Note 02 Criteria not met, HPV Genotype not performed. FLAG LEGEND: L-Low Normal,H-High Normal,LL-Alert Low,HH-Alert High <-Panic Low,>-Panic High,A-Abnormal,AA-Critical Abnormal Performed at: 02 [facility] [address] [place] [address] Violet Dixon MD, BRUSH-SPATULA CERVIX ENDOCERVIX [facility] cricket 12-21-2024 Orthopedic Office/Clinic Note Chief Complaint Patient here symptom check left wrist DeQuervain's tenosynovitis s/p OT. Patient states doing well. States Overall 100% improvement. PT at [facility] for HE[facility]. History of Present Illness 34 year-old established female patient presents for FU of left wrist de Quervains tenosynovitis after bracing, rest, OT HEP. She states that occasionally she can feel a nonpainful pull but it is near 100% improved with conservative treatment. Review of Systems Constitutional Head Nose Mouth Throat Cardio/Respiratory Hematologic Chills: No Headache: No Shortness of Breath: No History of DVT: No Fever: No Sore Throat: No Chest Pain: No History of Claudication: No Ear Pain: No Palpitation: No History of Aneurysm: No History of Gangrene: No Genitourinary Musculoskeletal Psychiatric Vascular Burning: No Muscle Weakness: No Anxiety: Yes Blood Disorder: No Pain: No Joint Pain: No Depression: No Numbness: No Gastrointestinal Dermatology Rheumatologic Problems: No Rash: No History of Rheumatic Arthritis: No Pain: No Pruritus: No History of Gout: No History of Lupus: No Physical Exam Vitals & Measurements HR: 75 (Peripheral) BP: 132/93 HT: 161.5 cm WT: 71.4 kg (Dosing) WT: 71.4 kg BMI: 27.37 Left wrist- skin intact, no large area of swelling- very mild just proximal to radial styloid, no tenderness or crepitance, no snapping or popping, FROM, cellar hand strength intact, thumb strength intact Additional Vitals BP Position/Location: Sitting, Left arm Assessment and Plan: 1. De Quervain's tenosynovitis, left Continue conservative treatment. She has resumed ADLs without difficulty. If new symptoms or recurrent symptoms, make FU appointment otherwise FU prn. Medical Decision Making Chronic conditions NOT treated during this visit that affected my overall medical decision making: [] Treatment plans discussed but not opted for at this time: [] Prescribed medication that requires intensive monitoring for toxicity: [] I have reviewed the patient?s medication list for medication interactions/contrain dications and/or for upcoming procedures: [yes or no] Time Spent with the Patient I have personally spent 5 minutes on this date, directly related to today's patient visit, including pre and post visit work, for this date of service. Time listed does not include time spent on separately billable services. Problem List/Past Medical History Ongoing Anxiety Methylenetetrahydrofo late reductase deficiency Historical Chickenpox Fracture Procedure/Surgical History wisdom teeth Medications Aspir 81, 81 mg, Oral, Daily CeleBREX 200 mg oral capsule, 200 mg= 1 caps, Oral, BID, 1 refills Multi Vitamin+, 1 tabs, Oral, Daily Vitamin D3 5000 intl units oral tablet, 125 mcg= 1 tabs, Oral, Daily Allergies No Known Allergies Social History Alcohol Current, 1-2 times per month Substance Abuse Denies All Tobacco Never (less than 100 in lifetime) Use:. Family History Bleeding disorder: Mother and Grandmother (M). Cancer of colon: Grandmother (P). Hyperlipidemia: Father. Hypertension: Father. Health Status Family Member(s) Electronically signed by Dinah Lucio PA-C 12/21/24 15:[address] [facility] Orthopedic Office/Clinic Not cricket 11-08-2024 Orthopedic Office/Clinic Note Chief Complaint Patient here for left wrist pain. States was having numbness and tingling in the hand while she was that has since resolved. Now has pain on the thumb side for one month. NKI. Has tried bracing and tylenol. XR today BVO. History of Present Illness 34 year-old RHD female presents with and children c/o left radial sided wrist pain x one month w/NKI. Patient states it started about 2-4 weeks after giving to her daughter. Pain with use of the thumb especially with gripping or holding her daughter. Earlier on she saw some improvement but the last week it has worsened. No catching or snapping. She has tried tylenol and ice as well as activity modification. She had gestation neuropathy in her hands presumptively carpal tunnel syndrome which resolved after the of her child. She denies N/T presently. On 81mg aspirin d/t MTHFR. Review of Systems Constitutional Head Nose Mouth Throat Cardio/Respiratory Hematologic Chills: No Headache: No Shortness of Breath: No History of DVT: No Fever: No Sore Throat: No Chest Pain: No History of Claudication: No Ear Pain: No Palpitation: No History of Aneurysm: No History of Gangrene: No Genitourinary Musculoskeletal Psychiatric Vascular Burning: No Muscle Weakness: Yes Anxiety: Yes Blood Disorder: Yes Pain: No Joint Pain: Yes Depression: No Numbness: No Gastrointestinal Dermatology Rheumatologic Problems: No Rash: No History of Rheumatic Arthritis: No Pain: No Pruritus: No History of Gout: No History of Lupus: No Physical Exam Vitals & Measurements HR: 80 (Peripheral) BP: 123/85 HT: 160.02 cm WT: 71.2 kg WT: 71.2 kg (Dosing) BMI: 27.81 Body Part: Left hand/wrist General- A&Ox3, pleasant, cooperative Vital Signs- See above Inspection- skin intact, (+) small amount edema just proximal to the radial styloid, (-) ecchymosis, (-) deformity, (-) atrophy, (-) mass Palpation- (+) point tenderness just proximal to radial styloid over EPB and APL, no snapping palpated, no other areas of tenderness, mass: none ROM- wrist: intact, full cellar hand, full finger range Strength- 4+/5 Special Tests- (+) finkelsteins Neurovascular- intact Joints above and below WNL Additional Vitals BP Position/Location: Sitting, Right arm Assessment/Plan 1. De Quervain's tenosynovitis, left I reviewed the xrays and diagnosis with the patient. Discussed conservative treatment vs surgical intervention. She would like a trial of conservative treatment and wait to consider surgical intervention because her sister's wedding is coming up mid-November. OT rx provided, topical cream, tylenol, thumb spica brace, avoiding wide gripping as able. Discussed risk vs reward of taking an NSAID with her aspirin. We elected to try celebrex which has a better history with being taken in combination with blood thinners . This has been escribed and NSAID handout given. FU in 4-6 weeks after the wedding for a symptom check, sooner if need be. Discussed side effects of NSAID as well as s/s of worsening that would prompt an earlier FU and recurrence of her N/T. Ordered: Referral to Occupational Therapy Orders: External Referral Medical Decision Making Chronic conditions NOT treated during this visit that affected my overall medical decision making: [] Treatment plans discussed but not opted for at this time: [] Prescribed medication that requires intensive monitoring for toxicity: [] I have reviewed the patient?s medication list for medication interactions/contrain dications and/or for upcoming procedures: [yes or no] Time Spent with the Patient I have personally spent 25 minutes on this date, directly related to today's patient visit, including pre and post visit work, for this date of service. Time listed does not include time spent on separately billable services. Problem List/Past Medical History Ongoing Anxiety Methylenetetrahydrofo late reductase deficiency Historical Chickenpox Fracture Procedure/Surgical History wisdom teeth Medications Aspir 81, 81 mg, Oral, Daily Multi Vitamin+, 1 tabs, Oral, Daily Vitamin D3 5000 intl units oral tablet, 125 mcg= 1 tabs, Oral, Daily Allergies No Known Allergies Social History Alcohol Current, 1-2 times per month Substance Abuse Denies All Tobacco Never (less than 100 in lifetime) Use:. Family History Bleeding disorder: Mother and Grandmother (M). Cancer of colon: Grandmother (P). Hyperlipidemia: Father. Hypertension: Father. Health Status Family Member(s) Diagnostic Results XR Wrist 3 or More Views Left 11/08/24 09:18:20 IMPRESSION: Slightly negative ulnar variance 2 to 3 mm. No scapholunate widening. No instability pattern. No advanced degenerative changes are identified. No evidence of fracture or dislocation. No abnormal soft tissue calcifications jjd Signed By: Jean-Paul Markham MD Electronically signed by (more content not included)... Normal [facility] XR Wrist 3 or More Views [place] 11-08-2024 XR Wrist 3 or More Views Left _EXAM: 3 views left wrist IMPRESSION: Slightly negative ulnar variance 2 to 3 mm. No scapholunate widening. No instability pattern. No advanced degenerative changes are identified. No evidence of fracture or dislocation. No abnormal soft tissue calcifications jjd Final Signed by: Jean-Paul Markham MD Signed (Electronic Signature): 11/08/2024 9:27 am Transcribed DT/TM: 11/08/2024 9:27 (If Report Is Signed, Electronically Signed in Other Vendor System) Normal [facility] ALL CBC WITH AUTO DIFFon BASOPHILS ABSOLUTE AUTO 0 [facility] Basophils/100 WBC (Bld) 0.1 % Low 0.2 - 2.0 % [facility] Eosinophils/100 WBC (Bld) 0.3 % Low 0.9 - 7.0 % [facility] Erythrocyte distribution width (RBC) [Ratio] 13.2 % 11.0 - 15.0 % [facility] Hemat[facility]Bld[facility] [Volume fraction] 34.2 % Low 36.0 - 48.0 % [facility] Hemoglobin (Bld) [Mass/Vol] 11.9 g/dL Low 12.0 - 16.0 g/dL [facility] IMMATURE GRANULOCYTES ABS AUTO 0.09 High [facility] Immature granulocytes/100 WBC (Bld) 0.6 % High 0.0 - 0.5 % [facility] Interpretation and review of laboratory results Abnormal [facility] LYMPHOCYTES ABSOLUTE AUTO 1.7 [facility] Lymphocytes/100 WBC (Bld) 11.7 % Low 20.5 - 60.0 % [facility] MCH (RBC) [Entitic mass] 32.9 pg 26.7 - 34.0 pg [facility] MCHC (RBC) [Mass/Vol] 34.8 g/dL 29.9 - 35.2 g/dL [facility] MCV (RBC) [Entitic vol] 94.5 fL 81.0 - 99.0 fL [facility] MONOCYTES ABSOLUTE AUTO 0.7 [facility] Monocytes/100 WBC (Bld) 5 % 1.7 - 12.0 % [facility] NEUTROPHILS ABSOLUTE AUTO 12.1 High [facility] Neutrophils/100 WBC (Bld) 82.3 % High 43.0 - 75.0 % [facility] Platelet mean volume (Bld) [Entitic vol] 11.9 fL 9.5 - 13.5 fL [facility] Healthc are TBH EO # 0 [facility] TBH PLT 197 [facility] TB RBC 3.62 Low [facility] TB WBC 14.7 High [facility] HMHP CBC WITH PLATELET NO DI FFERENTIALon 08-16-2024 Erythrocyte distribution width (RBC) [Ratio] 13.1 % 11.0 - 15.0 % [facility] Hematocrit (Bld) [Volume fraction] 35 % Low 36.0 - 48.0 % [facility] Hemoglobin (Bld) [Mass/Vol] 12.4 g/dL 12.0 - 16.0 g/dL [facility] Interpretation and review of laboratory results Abnormal [facility] MCH (RBC) [Entitic mass] 33.1 pg 26.7 - 34.0 pg [facility] MCHC (RBC) [Mass/Vol] 35.4 g/dL High 29.9 - 35.2 g/dL [facility] MCV (RBC) [Entitic vol] 93.3 fL 81.0 - 99.0 fL [facility] Platelet mean volume (Bld) [Entitic vol] 12.2 fL 9.5 - 13.5 fL [facility] Healthc are TBH PLT 190 [facility] TB[facility] RBC 3.75 Low [facility] TBH WBC 10 [facility] BOX TESTon 08-08-2024 BOX TEST RESULT SEE SCANNED REPORT N [facility] BOX TEST SENT OUT GROUP B CULTURE NO [facility] BOX1 [facility] Healthcar e BOX2 08/01/24 [facility] GROUP B [facility] Urinalysis macro (dipstick) panel (U)on 08-08-2024 Bilirubin, UA Negative Negative - 4(70) +++ mg/dL [facility] Blood, UA Negative Negative - 50 Kyle/mcL [facility] Clarity, UA Clear [facility] re Color, UA Yellow [facility] e Glucose, UA Negative Negative - 1999(110) ++++ mg/dL [facility] Interpretation and review of laboratory results Abnormal [facility] Ketones, UA Positive Negative - 160(16) ++++ mg/dL [facility] Leukocytes, UA Trace Negative - 500+++ Ren/mcL [facility] Nitrite, UA Negative Negative - Positive [facility] pH, UA 6.5 5 - 9 [facility] Protein, UA Positive Negative - 1999(20) ++++ mg/dL [facility] Spec Grav, UA 1.03 1 - 1.03 [facility] Urobilinogen, UA 0.2 0.2 - 12 mg/dL [facility] macro (dipstick) panel (U)on 08-01-2024 Bilirubin, UA Negative Negative - 4(70) +++ mg/dL [facility] Blood, UA Positive Negative - 50 Kyle/mcL [facility] Comment on above: trace-intact Clarity, UA Clear [facility] re Color, UA Yellow [facility] Glucose, UA Negative Negative - 1999(110) ++++ mg/dL [facility] Interpretation and review of laboratory results Abnormal [facility] Ketones, UA Positive Negative - 160(16) ++++ mg/dL [facility] Comment on above: 15 Leukocytes, UA Positive Negative - 500+++ Ren/mcL [facility] Comment on above: small Nitrite, UA Negative Negative - Positive [facility] pH, UA 6.5 5 - 9 [facility] Protein, UA Positive Negative - 1999(20) ++++ mg/dL [facility] Comment on above: 30 Spec Grav, UA 1.025 1 - 1.03 [facility] Urobilinogen, UA 0.2 0.2 - 12 mg/dL [facility] Ur[facility] macro (dipstick) panel (U)on 07-17-2024 Bilirubin, UA Negative Negative - 4(70) +++ mg/dL [facility] Blood, UA Negative Negative - 50 Kyle/mcL [facility] Clarity, UA Clear [facility] Healthca re Color, UA Yellow [facility] Health[facility] e Glucose, UA Negative Negative - 1999(110) ++++ mg/dL [facility] Interpretation and review of laboratory results Abnormal [facility] Ketones, UA Negative Negative - 160(16) ++++ mg/dL [facility] Leukocytes, UA Trace Negative - 500+++ Ren/mcL [facility] Nitrite, UA Negative Negative - Positive [facility] pH, UA 7 5 - 9 [facility] Health[facility] e Protein, UA Negative Negative - 1999(20) ++++ mg/dL [facility] Spec Grav, UA 1.015 1 - 1.03 [facility] Urobilinogen, UA 0.2 0.2 - 12 mg/dL [facility] Urinalysis macro (dipstick) panel (U)on 07-05-2024 Bilirubin, UA Negative Negative - 4(70) +++ mg/dL [facility] Blood, UA Negative Negative - 50 Ykle/mcL [facility] Healthcare Clarity, UA Clear [facility] Color, UA Yellow [facility] Glucose, UA Negative Negative - 1999(110) ++++ mg/dL [facility] Interpretation and review of laboratory results Abnormal [facility] Ketones, UA Positive Negative - 160(16) ++++ mg/dL [facility] Comment on above: 15 Leukocytes, UA Positive Negative - 500+++ Ren/mcL [facility] Comment on above: small Nitrite, UA Negative Negative - Positive [facility] pH, UA 7 5 - 9 [facility] Protein, UA Negative Negative - 1999(20) ++++ mg/dL [facility] Spec Grav, UA 1.02 1 - 1.03 [facility] Urobilinogen, UA 0.2 0.2 - 12 mg/dL [facility] Urinalysis macro (dipstick) panel (U)on 06-19-2024 Bilirubin, UA Negative Negative - 4(70) +++ mg/dL [facility] Blood, UA Positive Negative - 50 Kyle/mcL [facility] Comment on above: trace Clarity, UA Clear [facility] re Color, UA Yellow [facility] Glucose, UA Negative Negative - 1999(110) ++++ mg/dL [facility] Interpretation and review of laboratory results Abnormal [facility] Ketones, UA Negative Negative - 160(16) ++++ mg/dL [facility] Leukocytes, UA Positive Negative - 500+++ Ren/mcL [facility] Comment on above: small Nitrite, UA Negative Negative - Positive [facility] [facility] pH, UA 7 5 - 9 [facility] Healthcar e Protein, UA Negative Negative - 1999(20) ++++ mg/dL [facility] Spec Grav, UA 1.02 1 - 1.03 [facility] Urobilinogen, UA 0.2 0.2 - 12 mg/dL [facility] Health[facility] e .Glu 1 Hron 06-03-2024 Glucose [Mass/Vol] 180 mg/dL Normal 70-199 [facility] Comment on above: Performed By: #### . Glucose 1 Hour #### [facility] [address] [place] [address] .Glu 2 Hron 06-03-2024 Glucose [Mass/Vol] 163 mg/dL High 70-139 [facility] Comment on above: Result Comment: A 2 Hour glucose of less than 140 mg/dL is normal. A value of more than 200 mg/dL after 2 hours indicates diabetes. A value between 140 and 199 mg/dL indicates pre-diabetes. Performed By: #### . Glucose 3 Hour #### [address] [address] .Glu 3 Hron 06-03-2024 Glucose [Mass/Vol] 69 mg/dL Low 70-99 [facility] Comment on above: Performed By: #### . Glucose 3 Hour #### [address] [address] .Glu Baseon 06-03-2024 Glucose [Mass/Vol] 108 mg/dL High 70-99 [facility] Comment on above: Performed By: #### . Glucose Baseline #### [place] [id number] POC Glucon 06-03-2024 Glucose [Mass/Vol] 120 mg/dL Normal 78-120 [facility] Comment on above: Performed By: #### . Glucose 3 Hour #### [place] [id number] Urinalysis macro (dipstick) panel (U)on 05-25-2024 Bilirubin, UA Negative Negative - 4(70) +++ mg/dL [facility] Blood, UA Negative Negative - 50 Kyle/mcL [facility] Clarity, UA Clear [facility] re Color, UA Yellow [facility] Healthcar e Glucose, UA Positive Negative - 1999(110) ++++ mg/dL [facility] Interpretation and review of laboratory results Abnormal [facility] Ketones, UA Negative Negative - 160(16) ++++ mg/dL [facility] Leukocytes, UA Negative Negative - 500+++ Ren/mcL [facility] Nitrite, UA Negative Negative - Positive [facility] pH, UA 7 5 - 9 [facility], UA Negative Negative - 1999(20) ++++ mg/dL [facility] Spec Grav, UA 1.02 1 - 1.03 [facility] care Urobilinogen, UA 1.0 0.2 - 12 mg/dL [facility] Urinalysis macro (dipstick) panel (U)on 04-24-2024 Bilirubin, UA Negative Negative - 4(70) +++ mg/dL [facility] Blood, UA Negative Negative - 50 Kyle/mcL [facility] Clarity, UA Clear [facility] re Color, UA Light Yellow [facility] are Glucose, UA Negative Negative - 1999(110) ++++ mg/dL [facility] Interpretation and review of laboratory results Abnormal [facility] Ketones, UA Negative Negative - 160(16) ++++ mg/dL [facility] Leukocytes, UA Trace Negative - 500+++ Ren/mcL [facility] Nitrite, UA Negative Negative - Positive [facility] pH, UA 6.0 5 - 9 [facility] e Protein, UA Negative Negative - 1999(20) ++++ mg/dL [facility] Spec Grav, UA 1.015 1 - 1.03 [facility] Urobilinogen, UA 1.0 0.2 - 12 mg/dL [facility] GLUCOSE TOLERANCE 3 HOURon 0 04-01-2024 GLUCOSE TOLERANCE 3 HOUR High mg/dL [facility] Comment on above: GLU FAST 109H (<95) Col: 04/01/24 0839 GLU 1HR 138 (<180) Col: 04/01/24 0945 GLU 2HR 128 (<155) Col: 04/01/24 1043 GLU 3HR 104 (<140) Col: 04/01/24 1143 Interpretation and review of laboratory results Abnormal [facility] e URETHRITIS/DISCHARGE PLUS VA GINITIS (HTRX)on 03-29-2024 ATOPOBIUM VAGINAE 0.000 [facility] ATOPOBIUM VAGINAE Not detected [facility] BVAB 2,3 (BACTERIAL VAGINOSIS ASSOCIATED BACTERIA 2, 3); MOBILUNCUS SPP 0.000 [facility] BVAB 2,3 (BACTERIAL VAGINOSIS ASSOCIATED BACTERIA 2, 3); MOBILUNCUS SPP Not detected [facility] SERAFIN ALBICANS, PARAPSILOSIS, TROPICALIS 0.000 [facility] SERAFIN ALBICANS, PARAPSILOSIS, TROPICALIS Not detected [facility] SERAFIN GLABRATA 0.000 [facility] SERAFIN GLABRATA Not detected [facility]althcare SERAFIN KRUSEI 0.[address] [facility] SERAFIN KRUSEI Not detected [facility] CHLAMYDIA TRACHOMATIS 0.000 [facility] CHLAMYDIA TRACHOMATIS Not detected [facility] GARDNERELLA VAGINALIS 0.000 [facility] GARDNERELLA VAGINALIS Not detected [facility] MEGASPHAERA (TYPES 1, 2) 0.000 [facility] MEGASPHAERA (TYPES 1, 2) Not detected [facility] MYCOPLASMA GENITALIUM 0.000 [facility] MYCOPLASMA GENITALIUM Not detected [facility] NEISSERIA GONORRHOEAE 0.000 [facility] NEISSERIA GONORRHOEAE Not detected [facility] TRICHOMONAS VAGINALIS 0.000 [facility] TRICHOMONAS VAGINALIS Not detected [facility] Urinalysis macro (dipstick) panel (U)on 03-28-2024 Bilirubin, UA Negative Negative - 4(70) +++ mg/dL [facility] Blood, UA Negative Negative - 50 Kyle/mcL [facility] Clarity, UA Clear [facility] re Color, UA Yellow [facility] Healthcar e Glucose, UA Negative Negative - 1999(110) ++++ mg/dL [facility] Interpretation and review of laboratory results Abnormal [facility] Ketones, UA Negative Negative - 160(16) ++++ mg/dL [facility] Leukocytes, UA Trace Negative - 500+++ Ren/mcL [facility] Nitrite, UA Negative Negative - Positive [facility] pH, UA 6.5 5 - 9 [facility] Protein, UA Negative Negative - 1999(20) ++++ mg/dL [facility] Spec Grav, UA 1.020 1 - 1.03 [facility] Urobilinogen, UA 0.2 0.2 - 12 mg/dL [facility] CBCon 03-18-2024 Erythrocyte distribution width (RBC) [Ratio] 13.0 % Normal 11.6-14.8 [facility] Comment on above: Performed By: #### C BCI #### [facility] [address] [place] [address] Hematocrit (Bld) [Volume fraction] 36.7 % Normal 36.0-46.0 [facility] Comment on above: Performed By: #### C BCI #### [facility] [address] [place] [address] Hemoglobin (Bld) [Mass/Vol] 12.6 g/dL Normal 12.0-16.0 [facility] Comment on above: Performed By: #### C BCI #### [address] [address] MCH (RBC) [Entitic mass] 31.8 pg Normal 27.0-35.0 [facility] Comment on above: Performed By: #### C BCI #### [address] [address] MCHC 34.2 % Normal 31.0-37.0 [facility] Comment on above: Performed By: #### C BCI #### [address] [address] MCV (RBC) [Entitic vol] 92.9 fL Normal 80.0-100.0 [facility] Comment on above: Performed By: #### C BCI #### [address] [address] Platelet 295 x10*3/mcL Normal 150-450 [facility] Comment on above: Performed By: #### C BCI #### [address] [address] Platelet mean volume (Bld) [Entitic vol] 8.7 fL Normal 6.7-10.6 [facility] Comment on above: Performed By: #### C BCI #### [address] [address] RBC 3.95 x10*6/mcL Normal 3.80-5.20 [facility] Comment on above: Performed By: #### C BCI #### [address] [address] WBC 11.6 x10*3/mcL High 4.5-11.0 [facility] Comment on above: Performed By: #### C BCI #### [address] [address] Gest Diab Scn (ACOG)on 03-18 History of diabetes or gastric bypass? Unknown Normal [facility] Comment on above: Performed By: #### . Glucose 3 Hour #### [address] [place] [address] Glucose [Mass/Vol] 136 mg/dL High 70-134 [facility] Comment on above: Result Comment: Acco rding to the ADA, a glucose threshold of > 139 mg/dL after a 50-gram load identifies approximately 80% of women with gestational diabetes mellitus, while the sensitivity is further increased to approximately 90% by a threshold of >129 mg/dL. Performed By: #### . Glucose 3 Hour #### [address] [address] Trep Abon 02-01-2024 Treponema Total Ab <0.10 Normal [facility] Comment on above: Performed By: #### . Glucose 3 Hour #### [address] [address] Treponema Total Ab Interp Negative Normal Negative [facility] Comment on above: Result Comment: No s erologic evidence of syphilis. No follow- up necessary unless clinically indicated (eg, early syphilis). Performed By: #### . Glucose 3 Hour #### [address] [address] HIV1/2 Ab,Ag Scnon HIV-1/2 Ab,Ag 0.[address] [facility] Comment on above: Performed By: #### . Glucose 3 Hour #### [address] [address] HIV-1/2 Ab,Ag Interp Non-Reactive Normal Non-Reactive [facility] Comment on above: Performed By: #### . Glucose 3 Hour #### [address] [address] Hep Bs Agon 01-31-2024 Hep Bs Ag Interp Non-Reactive Normal Non-Reactive [facility] Comment on above: Performed By: #### . Glucose 3 Hour #### [address] [address] Hep C Ab w/reflex HCV RNA Qn t, PCRon 01-31-2024 Hep C IgG Interp Non-Reactive Normal Non-Reactive [facility] Comment on above: Performed By: #### . Glucose 3 Hour #### [address] [address] C Urineon 01-30-2024 C Urine - ---- Final 30-50,000 cfu/ml Mixed gram positive alicia isolated. This urine contains 3 or more organisms which is inconsistent with clean catch collection. Consider the possibility of contamination during collection. No identification or susceptibility performed as results would be misleading Normal [facility] Comment on above: Performed By: #### U RC #### [address] [address] ABO/Rhon 01-29-2024 ABO/Rh ABO/Rh: A POS Normal [facility] Comment on above: Performed By: #### A BAN #### [facility] (UNKNOWN) [address] [place] [address] CBC w/ Diffon 01-29-2024 Erythrocyte distribution width (RBC) [Ratio] 12.0 % Normal 11.6-14.8 [facility] Comment on above: Performed By: #### C BC #### [address] [address] Hematocrit (Bld) [Volume fraction] 37.7 % Normal 36.0-46.0 [facility] Comment on above: Performed By: #### C BC #### [address] [address] Hemoglobin (Bld) [Mass/Vol] 12.8 g/dL Normal 12.0-16.0 [facility] Comment on above: Performed By: #### C BC #### [address] [address] MCH (RBC) [Entitic mass] 31.0 pg Normal 27.0-35.0 [facility] Comment on above: Performed By: #### C BC #### [address] [address] MCHC 34.0 % Normal 31.0-37.0 [facility] Comment on above: Performed By: #### C BC #### [address] [address] MCV (RBC) [Entitic vol] 91.1 fL Normal 80.0-100.0 [facility] Comment on above: Performed By: #### C BC #### [address] [address] Platelet 370 x10*3/mcL Normal 150-450 [facility] Comment on above: Performed By: #### C BC #### [address] [address] Platelet mean volume (Bld) [Entitic vol] 8.0 fL Normal 6.7-10.6 [facility] Comment on above: Performed By: #### C BC #### [address] [address] RBC 4.13 x10*6/mcL Normal 3.80-5.20 [facility] Comment on above: Performed By: #### C BC #### [address] [address] WBC 12.3 x10*3/mcL High 4.5-11.0 [facility] Comment on above: Performed By: #### C BC #### [address] [address] Diff Autoon 01-29-2024 Baso Absolute 0.0 x10*3/mcL Normal 0.0-0.2 [facility] Comment on above: Performed By: #### . Automated Diff #### [address] [address] Basophils/100 WBC (Bld) 0.4 % Normal 0.0-1.5 [facility] Comment on above: Performed By: #### . Automated Diff #### [address] [place] [address] Eos Absolute 0.0 x10*3/mcL Normal 0.0-0.4 [facility] Comment on above: Performed By: #### . Automated Diff #### [address] [address] Eosinophils/100 WBC (Bld) 0.3 % Normal 0.0-5.4 [facility] Comment on above: Performed By: #### . Automated Diff #### [address] [address] Lymph Absolute 2.0 x10*3/mcL Normal 1.0-4.8 [facility] Comment on above: Performed By: #### . Automated Diff #### [address] [address] Lymphocytes/100 WBC (Bld) 16.2 % Low 27.2-40.8 [facility] Comment on above: Performed By: #### . Automated Diff #### [address] [address] [place] Absolute 0.6 x10*3/mcL Normal 0.1-1.1 [facility] Comment on above: Performed By: #### . Automated Diff #### [address] [address] Monocytes/100 WBC (Bld) 4.6 % Normal 3.7-11.9 [facility] Comment on above: Performed By: #### . Automated Diff #### [address] [address] Neutro Absolute 9.7 x10*3/mcL High 1.8-7.7 [facility] Comment on above: Performed By: #### . Automated Diff #### [address] [address] Neutro Auto 78.5 % High 47.2-70.8 [facility] Comment on above: Performed By: #### . Automated Diff #### [address] [address] Hgb A1con 01-29-2024 Glucose [Mass/Vol] 105 mg/dL Normal 68-114 [facility] Comment on above: Result Comment: Math ematical Calc approx. The mean gluc equivalency of A1c Performed By: #### H BA1C #### [address] [address] Hgb A1c 5.3 % A1c Normal 4.0-5.6 [facility] Comment on above: Result Comment: Refe rence Range: 4.0 - 5.6 % Normal 5.7 - 6.4 % Pre-Diabetes > 6.5 % Diabetes Performed By: #### H BA1C #### [address] [address] Pren ABSCon 01-29-2024 P[address] Negative Normal [facility] Comment on above: Performed By: #### A SRG #### [facility] (UNKNOWN) [address] [place] [address] Rubella IgGon 01-29-2024 Rubella IgG Ab Interp Positive Normal [facility] Comment on above: Result Comment: The presence of detectable IgG-class antibodies indicates immunity to the rubella virus through prior immunization or exposure. Individuals testing reactive (positive) are considered immune to rubella infection. This result was obtained with the Access Rubella IgG EIA. Despite calibration by means of a reference preparation, values obtained with different tire regrooving machine operator's assay methods may not be used interchangeably. The magnitude of the reported IgG level CANNOT be correlated to an endpoint titer. Performed By: #### C BCI #### [place] [id number] Coding Summary.on 01-31-2020 Coding Summary. CODING DATE: 01/31/2020 FINAL [facility] STATUS: Home (Routine DC) PAYOR: Commercial [...] Jocy Munroe Date Saved: 01/31/2020 07:26 pm [facility] Physician Orderon 01-05-2020 Physician Order [id number] 0CD:[id number] [facility] Vital Signs Date Time Vital Sign Value Performing Clinician Keira araujo 12-21-2024 11:28-0400 Body mass index (BMI) [Ratio] 27.35 kg/m2 Remy Flor DO Work Phone: [facility] 12-21-2024 11:28-0400 Body weight 70.03 kg Remy Flor DO Work Phone: [facility] 12-21-2024 11:28-0400 Diastolic blood pressure 80 mm[Hg] Remy Flor DO Work Phone: [facility] 12-21-2024 11:28-0400 Systolic blood pressure 122 mm[Hg] Remy Flor DO Work Phone: [facility] 09-28-2024 12:00-0500 Body mass index (BMI) [Ratio] 27.53 kg/m2 Remy Flor DO Work Phone: [facility] 09-28-2024 12:00-0500 Body weight 70.49 kg Remy Flor DO Work Phone: [facility] 09-28-2024 12:00-0500 Diastolic blood pressure 80 mm[Hg] Remy Flor DO Work Phone: [facility] 09-28-2024 12:00-0500 Systolic blood pressure 110 mm[Hg] Remy Flor DO Work Phone: [facility] 08-08-2024 15:09-0500 Body mass index (BMI) [Ratio] 30.72 kg/m2 Remy Flor DO Work Phone: [facility] 08-08-2024 15:09-0500 Body weight 78.65 kg Remy Flor DO Work Phone: [facility] 08-08-2024 15:09-0500 Diastolic blood pressure 84 mm[Hg] Remy Flor DO Work Phone: [facility] 08-08-2024 15:09-0500 Systolic blood pressure 120 mm[Hg] Remy Flor DO Work Phone: [facility] 08-01-2024 15:05-0500 Body mass index (BMI) [Ratio] 30.72 kg/m2 Remy Flor DO Work Phone: [facility] 08-01-2024 15:05-0500 Body weight 78.65 kg Remy Flor DO Work Phone: [facility] 08-01-2024 15:05-0500 Diastolic blood pressure 70 mm[Hg] Remy Flor DO Work Phone: [facility] 08-01-2024 15:05-0500 Systolic blood pressure 120 mm[Hg] Remy Flor DO Work Phone: [facility] 07-17-2024 16:07-0500 Body mass index (BMI) [Ratio] 30.89 kg/m2 Remy Flor DO Work Phone: [facility] 07-17-2024 16:07-0500 Body weight 79.11 kg Remy Flor DO Work Phone: [facility] 07-17-2024 16:07-0500 Diastolic blood pressure 80 mm[Hg] Remy Flor DO Work Phone: [facility] 07-17-2024 16:07-0500 Systolic blood pressure 122 mm[Hg] Remy Flor DO Work Phone: [facility] 07-05-2024 16:18-0500 Body mass index (BMI) [Ratio] 30.65 kg/m2 Remy Flor DO Work Phone: [facility] 07-05-2024 16:18-0500 Body weight 78.47 kg Remy Flor DO Work Phone: [facility] 07-05-2024 16:18-0500 Diastolic blood pressure 70 mm[Hg] Remy Flor DO Work Phone: [facility] 07-05-2024 16:18-0500 Systolic blood pressure 118 mm[Hg] Remy Flor DO Work Phone: [facility] 06-19-2024 15:50-0500 Body mass index (BMI) [Ratio] 31.18 kg/m2 Remy Flor DO Work Phone: [facility] 06-19-2024 15:50-0500 Body weight 79.83 kg Remy Flor DO Work Phone: [facility] 06-19-2024 15:50-0500 Diastolic blood pressure 72 mm[Hg] Remy Flor DO Work Phone: [facility] 06-19-2024 15:50-0500 Systolic blood pressure 118 mm[Hg] Remy Flor DO Work Phone: [facility] 05-25-2024 16:00-0400 Body mass index (BMI) [Ratio] 30.61 kg/m2 Jenifer SHEEHAN Work Phone: [facility] 05-25-2024 16:00-0400 Body weight 78.38 kg Jenifer SHEEHAN Work Phone: [facility] 05-25-2024 16:00-0400 Diastolic blood pressure 74 mm[Hg] Jenifer Latif PA Work Phone: [facility] 05-25-2024 16:00-0400 Systolic blood pressure 110 mm[Hg] Jenifer Latif PA Work Phone: [facility] 04-24-2024 14:42-0400 Body mass index (BMI) [Ratio] 29.58 kg/m2 Remy Flor DO Work Phone: [facility] 04-24-2024 14:42-0400 Body weight 75.75 kg Remy Flor DO Work Phone: [facility] 04-24-2024 14:42-0400 Diastolic blood pressure 76 mm[Hg] Remy Flor DO Work Phone: [facility] 04-24-2024 14:42-0400 Systolic blood pressure 114 mm[Hg] Remy Flor DO Work Phone: [facility] 03-28-2024 14:01-0400 Body mass index (BMI) [Ratio] 29.23 kg/m2 Jenifer SHEEHAN Work Phone: [facility] 03-28-2024 14:01-0400 Body weight 74.84 kg Jenifer SHEEHAN Work Phone: [facility] 03-28-2024 14:01-0400 Diastolic blood pressure 74 mm[Hg] Jenifer SHEEHAN Work Phone: [facility] 03-28-2024 14:01-0400 Systolic blood pressure 116 mm[Hg] Jenifer SHEEHAN Work Phone: [facility] Healthcare Encounters Encounter Date Encounter Type Care Provider Facility Start: 12-21-2024 End: 12-21-2024 ambulatory Dinah Lucio PA-C Facility:[facility] Start: 12-21-2024 End: 12-21-2024 Bamboo flowsheet Remy Flor DO Work Phone: [facility] Start: 12-21-2024 End: 12-26-2024 Bamboo flowsheet Remy Flor DO Work Phone: [facility] Start: 12-21-2024 End: 12-26-2024 Clinisync Result Encounter Jenifer SHEEHAN Work Phone: [facility] External Department Unsolicited Start: 12-21-2024 End: 12-21-2024 Patient encounter procedure Remy Flor DO Work Phone: [facility] Work Phone: Start: 12-21-2024 End: 12-21-2024 Periodic preventive med est patient 18-39 yrs Remy Flor DO Work Phone: [facility] Comment on above: Well woman exam with routine gynecological exam Start: 12-21-2024 End: 12-21-2024 ambulatory REMY FLOR Not Available Start: 11-20-2024 End: 12-26-2024 Unknown Dinah Lucio PA-C Facility:[facility] Start: 11-08-2024 End: 11-08-2024 ambulatory Dinah Lucio PA-C Facility:[facility] Start: 09-28-2024 End: 09-28-2024 care visit Remy Flor DO Work Phone: [facility] Comment on above: 6 weeks f ollow-up; Encounter for initial prescription of contraceptive pills Start: 09-28-2024 End: 09-28-2024 ambulatory REMY FLOR Not Available Start: 08-17-2024 End: 08-17-2024 Clinisync Result Encounter Remy Flor DO Work Phone: [facility] Unsolicited Start: 08-17-2024 End: 08-17-2024 [...] REMY FLOR Not Available Start: 08-01-2024 End: 01-07-2025 flow sheet Remy Flor DO Work Phone: [...] 06-03-2024 End: 06-03-2024 ambulatory Jenifer Latif PA-C Facility:[facility] Start: 05-25-2024 End: 05-25-2024 ambulatory [...] Result Encounter Remy Flor DO Work Phone: [facility] External Department Unsolicited Start: 04-01-2024 End: [...] 03-18-2024 End: 03-18-2024 ambulatory Remy Ray DO Facility:[facility] Start: 02-29-2024 End: 02-29-2024 ambulatory REMY RAY Not Available Start: 01-29-2024 End: 01-29-2024 ambulatory Remy Ray DO Facility:[facility] Start: 01-21-2024 End: 01-21-2024 ambulatory REMY RAY Not Available Start: 08-11-2022 End: 08-11-[address] REMY RAY Facility:[facility] Procedures Date Procedure Procedure Detail Performing Clinician Start: 12-21-2024 IGP,APTIMA HPV,AGE GDLN Jenifer SHEEHAN Work Phone: Start: 08-17-2024 ALL CBC WITH AUTO DIFF [...] Treatment Date Care Activity Detail Author Start: 12-31-2025 End: 12-31-2025 Patient encounter procedure 12/31/2025 1:00 PM EDT Office Visit [facility] [address] [address] Remy Ray, DO [address] [place] [address] [facility] Start: 12-21-2024 End: 12-21-2024 Patient encounter procedure [facility] Comment on above: Arrived Start: 08-21-2024 End: 08-21-2024 Patient encounter procedure 08/21/2024 2:00 PM EST Office Visit [facility] [address] [id number] Remy Ray, DO [address] [place] [address] [facility] Start: 08-15-2024 End: 08-15-2024 Patient encounter procedure 08/15/2024 2:50 PM EST Routine [facility] [address] [place] [id number] Remy Ray, DO [address] [place] [address] [facility] Start: 08-08-2024 End: 08-08-2024 Patient encounter procedure 08/08/2024 2:50 PM EST Routine [facility] [address] [place] [id number] Remy Ray, DO [address] [place] [address] [facility] Start: 08-01-2024 End: 08-01-2024 Patient encounter procedure 08/01/2024 2:40 PM EST Routine [facility] [address] [place] [id number] Remy Ray, DO [address] [place] [address] [facility] Start: 08-01-2024 End: 08-01-2025 [...] Routine [facility] [address] [place] [id number] Jenifer Latif PA [address] [place] [address] [facility] Start: 05-25-2024 End: 05-25-2025 Measurement of glucose 3 hours after glucose challenge for glucose tolerance test Glucose tolerance, 3 hours Lab Routine Elevated glucose tolerance test Expected: 05/25/2024 (Approximate), Expires: 05/25/2025 [facility] Work Phone: Comment on above: Expected: 05/25/2024 (Approximate), Expires: 05/25/2025 Start: 04-24-2024 End: 04-24-[address] [facility] Comment on above: Arrived Start: 04-24-2024 End: 04-24-2024 Professional / ancillary services management 04/24/2024 1:30 PM EDT [address] [facility] [address] [place] [address] [facility] Start: 03-28-2024 End: 04-27-2024 Alpha fetoprotein, maternal Alpha fetoprotein, maternal Lab Routine Need for maternal serum alpha-protein (MSAFP) screening Expected: 03/28/2024 (Approximate), Expires: 04/27/2024 [facility] Comment on above: Expected: 03/28/2024 (Approximate), Expires: 04/27/2024 Start: 03-28-2024 End: 03-28-2025 US for US OB ANATOMY SINGLE W US OB CERVICAL LENGTH Imaging Routine Screening, , for anatomic survey Expected: 03/28/2024 (Approximate), Expires: 03/28/2025 [facility] Comment on above: Expected: 03/28/2024 (Approximate), Expires: 03/28/2025 CHLAMYDIA TRACHOMATI S (GENITO/STI) CHLAMYDIA TRACHOMATIS (GENITO/STI) Lab Routine Exposure to STD Ordered: 03/28/2024 [facility] Comment on above: Ordered: 03/28/2024 Cytology Cervical or vaginal smear or scraping study Pap Smear Pathology and Cytology Routine Well woman exam with routine gynecological exam Ordered: 12/21/2024 [facility] Work Phone: Comment on above: Ordered: 12/21/2024 Human papilloma viru s DNA [Presence] in Unspecified specimen by Probe with amplification HPV DNA probe, amplified Microbiology Routine Well woman exam with routine gynecological exam Ordered: 12/21/2024 [facility] Comment on above: Ordered: 12/21/2024 Neisseria gonorrhoea e DNA [Presence] in Unspecified specimen by EFRAIN with probe detection Neisseria gonorrhea DNA probe, direct Lab Routine Exposure to STD Ordered: 03/28/2024 [facility] Comment on above: Ordered: 03/28/2024 SURESWAB(R) ADVANCED VAGINITIS PLUS, TMA SURESWAB(R) ADVANCED VAGINITIS PLUS, TMA Pathology and Cytology Routine Exposure to STD Ordered: 03/28/2024 [facility] Healthcare Work Phone: Comment on above: Ordered: 03/28/2024 Payers Date Payer Category Payer [facility] [id number] 2024 Unknown [id number] 2023 Private Health Insurance [facility] [id number] 2023 Unknown [id number] 2023 Unknown [id number] 1990 Unknown [id number] 2.16.840.1.603714.3.579.2 .593 1990 Unknown [id number] 2.16.840.1.503079.3.579.2 .9 1990 Unknown [id number] 2.16.840.1.143358.3.579.2 .1259 1990 Unknown [id number] 2.16.840.1.142496.3.579.2 .9 1990 Unknown [id number] 2.16.840.1.140682.3.579.2 .9 1990 Unknown [id number] 2.16.840.1.222182.3.579.2 .9 1990 Unknown [id number] 2.16.840.1.937107.3.579.2 .1259 1990 Unknown [id number] 2.16.840.1.510872.3.579.2 .9 1990 Unknown [id number] 2.16.840.1.020725.3.579.2 .1259 1990 Unknown [id number] 2.16.840.1.710230.3.579.2 .1259 1990 Unknown [id number] 2.16.840.1.131793.3.579.2 .1259 1990 Unknown [id number] 2.16.840.1.313102.3.579.2 .1259 1990 Unknown [id number] 2.16.840.1.314257.3.579.2 .1259 1990 Unknown [id number] 2.16.840.1.799906.3.579.2 .196 1990 Unknown [id number] 2.16.840.1.926322.3.579.2 .196 1990 Unknown [id number] 2.16.840.1.385927.3.579.2 .196 1990 Unknown [id number] 2.16.840.1.530143.3.579.2 .196 1990 Unknown [id number] 2.16.840.1.502063.3.579.2 .196 1990 Unknown [id number] 2.16.840.1.263950.3.579.2 .196 1990 Unknown [id number] 2.16.840.1.135827.3.579.2 .196 1959 Unknown [id number] Social History Date Type Detail Facility Start: 07-28-2023 Tobacco smoking stat [facility] Never smoked tobacco [facility] Start: 07-28-2023 Tobacco use and exposure Smokeless t obacco non-user [facility] Start: 04-24-2024 End: 12-21-2024 Alcoholic beverage intake Current drinker of alcohol (finding) [facility] Start: 01-21-2024 End: 04-24-2024 Alcoholic beverage intake [facility] Start: 08-16-2023 End: 01-21-2024 Tobacco use panel [facility] Start: 07-28-2023 Alcohol Comment Occasional alcohol u se [facility] Start: 12-09-2023 [facility] Start: 1990 Sex assigned at Female [facility] Start: 08-11-2023 Gender identity Identifies as female gender (finding) [facility] Start: 08-11-2023 Sexual orientation Heterosexual (fin ding) [facility] Medical Equipment Procedure Code Equipment Code Equipment Origin al Text Equipment Identifier Dates 1 strip by In Vi tro route Daily Use in the morning prior to breakfast, 1 hour after each meal for a total of 4times daily. [id number] Start: 06-19-2024 End: 07-19-2024 1 each by In Vit ro route Daily Use to check FSBS four times daily [id number] Start: 06-19-2024 End: 07-19-2024 Use as instructed [id number] Start: 07-05-2024 End: 08-08-2024 1 each by In Vit ro route Daily Use to check FSBS four times daily [id number] Start: 07-14-2024 End: 08-13-2024 Use as instructed [id number] Start: 08-08-2024 End: 08-08-2025 Use as instructed [id number] Start: 08-08-2024 End: 09-28-2024 Clinical Notes 03-28-2024 to 12-21-2024 Sadaf Little, TAR DISTRIBUTOR OPERATOR - 12/21/2024 11:30 AM Armida Ray, DO - 09/28/2024 11:50 AM Rupal Casey, TAR DISTRIBUTOR OPERATOR - 08/08/2024 2:50 PM Rupal Casey, TAR DISTRIBUTOR OPERATOR - 08/01/2024 2:40 PM EST Note Date & Type Note Facility 12-21-2024 History of Presen t illness Narrative Reason for Appointment: Patient ID: Ary Ellis is a 34 y.o. female who presents for Well Women Visit Patient presents today for Annual Exam. MEDICATIONS Current Outpatient Medications Medication Instructions aspirin (Aspirin Low Dose) 81 MG EC tablet TAKE 1 TABLET BY MOUTH EVERY DAY FOR 30 DAYS Cholecalciferol (Vitamin D) 125 MCG (5000 UT) capsule cholecalciferol (Vitamin D-3) 10 MCG (400 UNIT) tablet Every 24 hours Drospirenone (Slynd) 4 MG tablet 1 each, Oral, Daily Vit-Fe Fumarate-FA (PNV Plus Multivitamin) 27-1 MG [...] appearance. She is well-developed. Genitourinary: Vulva normal. Right Adnexa: not tender and no mass present. Left Adnexa: not tender and no mass present. No cervical discharge. Breasts: Breasts are soft. Right: Normal. Left: Normal. HENT: Head: Normocephalic. Nose: Nose normal. Mouth/Throat: Mouth: Mucous membranes are moist. Cardiovascular: Rate and Rhythm: Normal rate and regular rhythm. Pulmonary: Effort: Pulmonary effort is normal. Breath sounds: Normal breath sounds. Abdominal: General: Bowel sounds are normal. There is no distension. Palpations: Abdomen is soft. Tenderness: There is no abdominal tenderness. There is no guarding or rebound. Musculoskeletal: General: No swelling. Normal range of motion. Cervical back: Normal range of motion. Right lower leg: No edema. Left lower leg: No edema. Neurological: General: No focal deficit present. Mental Status: She is alert and oriented to person, place, and time. Skin: General: Skin is warm and dry. Psychiatric: Mood and Affect: Mood normal. Behavior: Behavior normal. Vitals and nursing note reviewed. Exam conducted with a event planner present. Vitals: Estimated body mass index is 27.35 kg/m as calculated from the following: Height as of 08/11/22: 5' 3 . Weight as of this encounter: 154 lb 6.4 oz. BP: 122/80 Patient's last menstrual period was 12/20/2024. ASSESSMENT & PLAN ICD-10-CM 1. Well woman exam with routine gynecological exam Z01.419 Pap Smear HPV DNA probe, amplified Annual Exam: Patient presents today for an annual exam. Patient states she is doing well and has no complaints. Pap was obtained without difficulty. Patient is currently still . Orders Placed This Encounter Procedures HPV DNA probe, amplified Follow Up: Patient is to return in one year for annual unless needed otherwise. Documented by Sadaf Little LPN on behalf of: emmy carbone documented in this encounter [facility] 09-28-2024 History of Presen t illness Narrative Reason for Appointment: Patient ID: Ary Ellis is a 34 y.o. female who presents for 6wk pp Patient presents today for Post Follow Up appointment. Current Medications: has a current medication list which includes the following prescription(s): aspirin, vitamin d, cholecalciferol, slynd, and pnv plus multivitamin. Medical History: Active Ambulatory Problems Diagnosis Date Noted 21 weeks gestation of 04/24/2024 Second trimester 04/24/2024 Resolved Ambulatory Problems Diagnosis Date Noted No Resolved Ambulatory Problems Past Medical History: Diagnosis Date BMI 23.0-23.9, adult Depression screening Encounter for well woman exam Family history of diabetes mellitus Family history of pulmonary embolism Mother currently breast-feeding MTHFR gene mutation hypertension Family History Problem Relation Name Age of Onset Hypertension Father Sergio Casillas Osteoarthritis Father Sergio Casillas Cancer Other Grandfather Social History Tobacco Use Smoking status: Never Smokeless tobacco: Never Substance Use Topics Alcohol use: Yes Alcohol/week: 5.0 standard drinks of alcohol Types: 5 Cans of beer per week Comment: Occasional alcohol use Drug use: Never Past Surgical History: Procedure Laterality Date MOUTH SURGERY 2006 No Known Allergies Review of Systems: Review of Systems All other systems reviewed and are negative. Objective Physical Exam Constitutional: Appearance: Normal appearance. She [...] nursing note reviewed. Exam conducted with a event planner present. Vitals: Estimated body mass index is 27.53 kg/m as calculated from the following: Height as of 08/11/22: 5' 3 . Weight as of this encounter: 155 lb 6.4 oz. BP: 110/80 Patient's last menstrual period was 11/25/2023. Assessment/Plan Encounter Diagnosis: ICD-10-CM 1. 6 weeks follow-up Z39.2 2. Encounter for initial prescription of contraceptive pills Z30.011 Drospirenone (Slynd) 4 MG tablet Post Follow Up: Patient presents today for 6 week visit. Patient is s/p Vaginal delivery. Patient states depression but denies suicidal and homicidal ideations. All options were discussed with the patient regarding control and patient desires oral contraception . Pt to start slynd Follow Up: Patient is to return for annual unless needed otherwise. Documented by Remy Ray DO on behalf of: Remy Ray DO documented in this encounter [facility] 08-08-2024 History of Presen t illness Narrative [...] nursing note reviewed. Exam conducted with a event planner present. Vitals: Estimated body mass index is [...] insulin syringe 29G X 1/2 0[facility] Return OB: Patient [...] Remy Ray DO documented in this encounter [facility] 08-01-2024 History of Presen t illness Narrative Reason for Appointment: Patient ID: Ary Ellis is a 34 y.o. female who presents for Routine Visit Patient presents today for Return OB appointment. MEDICATIONS Current Outpatient Medications Medication Instructions aspirin (Aspirin Low Dose) 81 MG EC tablet TAKE 1 TABLET BY MOUTH EVERY DAY FOR 30 DAYS Blood Glucose Monitoring Suppl ([employer] Glucometer) w/Device kit 1 kit, Does not [...] nursing note reviewed. Exam conducted with a event planner present. Vitals: Estimated body mass index is [...] Remy Ray DO documented in this encounter [facility] 07-17-2024 History of Presen t illness [...] FOR 30 DAYS Blood Glucose Monitoring Suppl ([employer] Glucometer) w/Device kit 1 kit, Does not [...] nursing note reviewed. Exam conducted with a event planner present. Vitals: Estimated body mass index is [...] DO documented in this encounter [facility] 07-05-2024 History of Presen t illness Narrative [...] FOR 30 DAYS Blood Glucose Monitoring Suppl ([employer] Glucometer) w/Device kit 1 kit, Does not [...] nursing note reviewed. Exam conducted with a event planner present. Vitals: Estimated body mass index is [...] Remy Ray DO documented in this encounter [facility] 06-19-2024 History of Presen t illness [...] nursing note reviewed. Exam conducted with a event planner present. Vitals: Estimated body mass index is [...] Remy Ray DO documented in this encounter [facility] 05-25-2024 History of Presen t illness [...] of: AGUILA Carbone documented in this encounter [facility] 04-24-2024 History of Presen t illness [...] nursing note reviewed. Exam conducted with a event planner present. Vitals: Estimated body mass index is [...] Remy Ray DO documented in this encounter [facility] 03-28-2024 History of Presen t illness [...] hour glucose orders to have done at [facility] prior to next visit. Pt verbally [...] control unspecified documented [facility] this encounter [facility]* Diagnosis 6 weeks follow-up Encounter for initial prescription of contraceptive pills documented in this encounter [facility]* Diagnosis Well woman exam with routine gynecological exam Routine gynecological examination documented in this encounter [facility] Summary Purpose Family History No Family History Records FoundNo Family History Records FoundNo Family History Records FoundNo Family History Records Found Advance Directives No Advanced Directives Records FoundNo Advanced Directives Records FoundNo Advanced Directives Records FoundNo Advanced Directives Records Found Additional Source Comments INFORMATION SOURCE (unrecogn ized section and content) DATE CREATED AUTHOR 02/10/2020 [facility] DATE CREATED AUTHOR AUTHOR'S ORGANIZ ATION 08/12/2022 [facility] DATE CREATED AUTHOR AUTHOR'S ORGANIZ ATION 12/23/[address] [facility] DATE CREATED AUTHOR AUTHOR'S ORGANIZ ATION 12/26/2024 [facility] Reason for Visit (unrecogniz ed section and content) Reason Comments Routine Visit Reason Comments 6wk pp Reason Comments Well Women Visit FOR RECORDS PERTAINING TO PATIENTS WHO [...] BE BASED ON THE PRIMARY CLINICAL RECORDS. [facility]. provides no warranty or guarantee of the accuracy or completeness of information in this document.
--- OUTSIDE RECORDS SUMMARY | 2025-05-05 07:49 | XMS_ITS | Encounter Summary ---
Author Organization [facility] Address [address] [place] [address] Care Team Providers Care Carton Machine Operator Name Role Phone Unavailable Primary Care Provider Unavailabl e Encounter Details Date Type Department Care Team (Late st Contact Info) Description 08/25/2024 Abstract [facility] [address] [address] Sadaf Little LPN Social History Tobacco Use Types Packs/Day Years Used Date Smoking Tobacco: Never Smokeless Tobacco: Never Alcohol Use Standard Drinks/Week Comments Yes 5 (1 standard drink = 0.6 oz pur e alcohol) Occasional alcohol use Comments Yes Sex and Gender Information Value Date Recorded Sex Assigned at Female 08/11/2023 3:15 PM EST Legal Sex Female 11:47 PM EDT Gender Identity Female 08/11/2023 3:15 PM EST Sexual Orientation Straight 08/11/2023 3: 15 PM EST documented as of this encounter Plan of Treatment Upcoming Encounters Date Type Department Care Team (Late st Contact Info) Description 12/31/2025 1:00 PM EDT Office Visit [facility]nadra [facility]ILLO [address] [address] Cesar aRy DO [address] [place], [place] [id number] documented as of this encounter Visit Diagnoses Not on filedocumented in this encounter
--- OUTSIDE RECORDS SUMMARY | 2025-05-05 07:49 | XMS_ITS | Encounter Summary ---
Author Organization [facility] Address [address] [place] [address] Care Team Providers Care Painting Trades Worker Name Role Phone Unavailable Primary Care Provider Unavailabl e Encounter Details Date Type Department Care Team (Late Contact Info) Description 02/21/2024 Abstract [facility] [address] [place] [address] Cesar Ray DO [facility] [place], [facility]11 Social History Tobacco Use Types Packs/Day Years [...] Description 12/31/2025 1:00 PM EDT Office Visit [facility] [address] [place] [address] Cesar Ray DO [address] [place], [facility]11 documented as of this encounter Visit Diagnoses Not on filedocumented in this encounter
--- OUTSIDE RECORDS SUMMARY | 2025-05-05 07:49 | XMS_ITS | Encounter Summary ---
Author Organization [facility] Address [address] [place] [address] Care Team Providers Care Foreign Languages Department Chair Name Role Phone Unavailable Primary Care Provider Unavailabl e Encounter Details Date Type Department Care Team (Late Contact Info) Description 02/01/2024 Abstract [facility] [address] [place] [address] Cesar Ray DO [facility] [place], [facility]11 Social History Tobacco Use Types [...] Office Visit [facility] [address] [place] [address] Cesar Ray DO [address] [place], [facility]11 documented as of this encounter Visit Diagnoses Not on filedocumented in this encounter
--- OUTSIDE RECORDS SUMMARY | 2025-05-05 07:49 | XMS_ITS | Encounter Summary ---
Author Organization [facility] Address [address] [place] [address] Care Team Providers Care Supervisor Stage Carpentry Name Role Phone Unavailable Primary Care Provider Unavailabl e Encounter Details Date Type Department Care Team (Late Contact Info) Description 08/08/2024 Abstract [facility] [address] [place] [address] Cesar Ray DO [address] [place], [facility]11 Social History Tobacco Use Types Packs/Day Years [...] Office Visit [facility] [address] [place] [address] Cesar Ray DO [address] [place], [facility]11 documented as of this encounter Visit Diagnoses Not on filedocumented in this encounter
--- OUTSIDE RECORDS SUMMARY | 2025-05-05 07:49 | XMS_ITS | Encounter Summary ---
Author Organization [facility] Address [address] [place] [address] Care Team Providers Care Certified Hyperbaric Technologist Name Role Phone Unavailable Primary Care Provider Unavailabl e Encounter Details Date Type Department Care Team (Late st Contact Info) Description 01/21/2024 Clinisync Result Encounter [facility] External Department Unsolicited Remy Ray, DO [address] [place], [place] [id number] Social History Tobacco Use Types Packs/Day Years [...] 12/31/2025 1:00 PM EDT Office Visit [facility] [address] [place] [address] Remy Ray DO [address] [place] [address] documented as of this encounter Procedures Procedure Name Priority Date/Time Associated Diagnosis Comments US OB TRANSVAGINAL 01/21/2024 9: 09 AM EDT documented in this encounter Results * US OB TRANSVAGINAL (01/21/2024 9:09 AM EDT) Anatomical Region Laterality Modality Other 01/21/2024 9:09 AM EDT Narrative 01/21/2024 9:12 [place] [address] Ultrasound Report Signed Patient: ARY ELLIS MR#: [id number] : 1990 Acct:[id number] Age/Sex: 33 / F ADM Date: 01/21/24 Loc: [facility] Attending Dr: Remy Ray D.O. Ordering Physician: Remy Ray D.O. Date of Service: 01/21/24 Procedure(s): US OB transvaginal Accession Number(s): [id number] cc: Remy Ray D.O.; Physician,Non-Staff M.D. [facility] [place] [address] Patient Name: ARY ELLIS MRN: [id number] date: 1990 Sex: F Assigned Patient Location: [facility] Current Patient Location: [facility] Accession/Order Number: [id number] Exam Date: 01/21/2024 08:31 Report Date: 01/21/2024 09:09 At the request of: REMY RAY Procedure: US OB transvaginal EXAMINATION: US OB transvaginal HISTORY: MISSED MENSES COMPARISON: No relevant comparison available. FINDINGS: Woo intrauterine gestation Gestational sac: 3.07 cm, 8 weeks 0 days CRL: 1.27 cm, 7 weeks 3 days Yolk sac: 3.3 mm Heart rate: 167 bpm Cervix: Closed, 4.7 cm The uterus is normal, anteverted, anteflexed The right ovary is not visualized The left ovary measures 5.7 x 4.1 x 4.3 cm. 4.6 cm area of anechoic echogenicity possibly corpus luteal cyst Clinical age: 8 weeks 1 day Clinical SANGEETA: 08/31/2024 Ultrasound age: 7 weeks 3 days Ultrasound SANGEETA: 09/05/2024 US/US OB transvaginal IMPRESSION: Viable woo intrauterine gestation measuring 7 weeks 3 days Electronically authenticated by: CHLOE SANTO Date: 01/21/2024 09:09 Dictated By: Chloe Santo M.D. Signed By: 01/21/24911 DD/ 8 TD/TT: Property Appraiser: Procedure Note Radiology, Radiologist, MD - 01/21/2024 [place] [address] Ultrasound Report Signed Patient: ARY ELLIS AMR#: [id number] : 1990Acct:[id number] Age/Sex: 33 / FADM Date: 01/21/24 Loc: [facility] Attending Dr: Remy Ray D.O. Ordering Physician: Remy Ray D.O. Date of Service: 01/21/24 Procedure(s): US OB transvaginal Accession Number(s): [id number] cc: Remy Ray D.O.; Physician,Non-Staff [place] [address] Patient Name: ARY ELLIS MRN: [id number] date: 1990 Sex: F Assigned Patient Location: [facility] Current Patient Location: [facility] Accession/Order Number: [id number] Exam Date: 01/21/2024 08:31 Report Date: 01/21/2024 09:09 At the request of: REMY RAY Procedure: US OB transvaginal EXAMINATION: US OB transvaginal HISTORY: MISSED MENSES COMPARISON: No relevant comparison available. FINDINGS: Woo intrauterine gestation Gestational sac: 3.07 cm, 8 weeks 0 days CRL: 1.27 cm, 7 weeks 3 days Yolk sac: 3.3 mm Heart rate: 167 bpm Cervix: Closed, 4.7 cm The uterus is normal, anteverted, anteflexed The right ovary is not visualized The left ovary measures 5.7 x 4.1 x 4.3 cm. 4.6 cm area of anechoic echogenicity possibly corpus luteal cyst Clinical age: 8 weeks 1 day Clinical SANGEETA: 08/31/2024 Ultrasound age: 7 weeks 3 days Ultrasound SANGEETA: 09/05/2024 US/US OB transvaginal IMPRESSION: Viable woo intrauterine gestation measuring 7 weeks 3 days Electronically authenticated by: CHLOE SANTO Date: 01/21/2024 09:09 Dictated By: Chloe Santo M.D. Signed By:01/21/24911 DD/ 8 TD/TT: Property Appraiser: us Remy Flor DO [facility] Final Result documented in this encounter Visit Diagnoses Not on filedocumented in this encounter
--- OUTSIDE RECORDS SUMMARY | 2025-05-05 07:49 | XMS_ITS | Encounter Summary ---
Author Organization [facility] Address [address] [place] [address] Care Team Providers Care Model Technician Name Role Phone Unavailable Primary Care Provider Unavailabl e Encounter Details Date Type Department Care Team (Late Contact Info) Description 08/16/2024 Abstract [facility] [address] [place] [address] Cesar Ray DO [facility] [place], [facility]11 Social History Tobacco Use Types Packs/Day [...] Office Visit [facility] [address] [place] [address] Cesar Ray DO [address] [place], [facility]11 documented as of this encounter Visit Diagnoses Not on filedocumented in this encounter
--- OUTSIDE RECORDS SUMMARY | 2025-05-05 07:49 | XMS_ITS | Encounter Summary ---
Author Organization [facility] Address [address] [place] [address] Care Team Providers Care Bar Examiner Name Role Phone Unavailable Primary Care Provider Unavailabl e Encounter Details Date Type Department Care Team (Late st Contact Info) Description 01/03/2025 Orders Only [facility] Kassandra JARAMILLO [address] [place] [address] Cinthia Tellez MA Social History Tobacco Use Types Packs/Day Years Used Date Smoking Tobacco: Never Smokeless Tobacco: Never Alcohol Use Standard Drinks/Week Comments Yes 5 (1 standard drink = 0.6 oz pur e alcohol) Occasional alcohol use Comments No Sex and Gender Information Value Date Recorded [...] 1:00 PM EDT Office Visit [facility] [address] [facility] [place] [address] Cesar Ray DO [address] [place] [address] documented as of this encounter Procedures Procedure Name Priority Date/Time Associated Diagnosis Comments PAP SMEAR Routine 12/21/2024 12:00 AM EDT documented in this encounter Results * Pap Smear (12/21/2024 12:00 AM EDT) Swab Cervical swab / Unknown us [facility] ORDERABLES Final Re sult EXTERNAL LAB documented in this encounter Visit Diagnoses Not on filedocumented in this encounter
--- OUTSIDE RECORDS SUMMARY | 2025-05-05 07:49 | XMS_ITS | Encounter Summary ---
Author Organization [facility] Address [address] [place] [place] [address] Care Team Providers Care Pin Drafter Operator Name Role Phone Unavailable Primary Care Provider Unavailabl e Encounter Details Date Type Department Care Team (Late Contact Info) Description 01/21/2024 Abstract [facility] JARAMILLO [address] [place] [address] Cesar Ray DO [facility] [place], [facility]11 Social History Tobacco Use Types Packs/Day [...] Office Visit [facility] JARAMILLO [address] [place] [address] Cesar Ray DO [address] [place], [facility]11 documented as of this encounter Visit Diagnoses Not on filedocumented in this encounter
--- OUTSIDE RECORDS SUMMARY | 2025-05-05 07:49 | XMS_ITS | Encounter Summary ---
Author Organization [facility] Address [address] [place] [address] Care Team Providers Care Laundry Tech Name Role Phone Unavailable Primary Care Provider Unavailabl e Encounter Details Date Type Department Care Team (Late Contact Info) Description 08/14/2024 Abstract [facility] JARAMILLO [address] [place] [address] Cesar Ray DO [address] [place], [facility]11 Social History Tobacco Use Types Packs/Day [...] [address] Cesar Ray DO [address] [place], [facility]11 documented as of this encounter Visit Diagnoses Not on filedocumented in this encounter
--- OUTSIDE RECORDS SUMMARY | 2025-05-05 07:49 | XMS_ITS | Clinical Summary ---
Author Organization [facility] Address [address] [facility] [place] [address] Care Team Providers Care Nuisance Wildlife Trapper Name Role Phone Unavailable Primary Care Provider Unavailabl e Allergies No known active allergies Medications cholecalciferol (Vitamin D-3) 10 MCG (400 UNIT) tablet 1 (one) time each day at the same time Active Cholecalciferol (Vitamin D) 125 MCG (5000 UT) capsule Active Vit-Fe Fumarate-FA (PNV Plus Multivitamin) 27-1 MG tabletIndications: Encounter for supervision of normal , unspecified, unspecified trimester ([facility]) Take 1 tablet by mouth Daily 30 tablet 11 4 Active aspirin (Aspirin Low Dose) 81 MG EC tabletIndications: Encounter for supervision of normal , unspecified, unspecified trimester ([facility]) TAKE 1 TABLET BY MOUTH EVERY DAY FOR 30 DAYS 30 tablet 3 4 Active Drospirenone (Slynd) 4 MG tabletIndications: Encounter for initial prescription of contraceptive pills Take 1 each by mouth Daily 28 tablet 11 5 Active Active Problems Problem Noted Date Diagnosed Date 21 weeks gestation of ([facility]) 2023 Second trimester ([facility]) 04/24/2024 Family History Medical History Relation Name Comments Hypertension Father Sergio Casillas Osteoarthritis Father Sergio Casillas Cancer Other Grandfather Relation Name Status Comments Father Sergio Casillas Other Social History Tobacco Use Types Packs/Day Years Used Date Smoking Tobacco: Never Smokeless Tobacco: Never Tobacco Cessation:Counseling Given: Not Answered Alcohol Use Standard Drinks/Week Comments Yes 5 (1 standard drink = 0.6 oz pur e alcohol) Occasional alcohol use Comments No Sex and Gender Information Value Date Recorded Sex Assigned at Female 08/11/2023 3:15 PM EST Legal Sex Female 11:47 PM EDT Gender Identity Female 08/11/2023 3:15 PM EST Sexual Orientation Straight 08/11/2023 3: 15 PM EST Last Filed Vital Signs Vital Sign Reading Time Taken Comments Blood Pressure 122/80 12/21/2024 11:28 AM EDT Pulse - - Temperature - - Respiratory Rate - - Oxygen Saturation - - Inhaled Oxygen Concentration - - Weight 70 kg (154 lb 6.4 oz) 12/21/2024 11:28 AM EDT Height 160 cm (5' 3 ) 08/11/2022 12:00 PM EST Body Mass Index 27.35 08/11/2022 12:00 PM EST Plan of Treatment Upcoming Encounters Date Type Department Care Team (Late st Contact Info) Description 12/31/2025 1:00 PM EDT Office Visit [facility] [address] [place] [address] Cesar Ray DO [address] [place] [address] Insurance [facility]
--- OUTSIDE RECORDS SUMMARY | 2025-05-05 07:49 | XMS_ITS | Encounter Summary ---
Author Organization [facility] Address [address] [place] [address] Care Team Providers Care Nutrition Helper Name Role Phone Unavailable Primary Care Provider Unavailabl e Encounter Details Date Type Department Care Team (Late Contact Info) Description 01/21/2024 Abstract [facility] JARAMILLO [address] [place] [address] Cesar Ray DO [facility] [place], [facility]11 Social History Tobacco Use Types Packs/Day [...] Office Visit [facility] JARAMILLO [address] [place] [address] Cesar Ray DO [address] [place], [facility]11 documented as of this encounter Visit Diagnoses Not on filedocumented in this encounter
--- OUTSIDE RECORDS SUMMARY | 2025-05-05 07:49 | XMS_ITS | Encounter Summary ---
Author Organization [facility] Address [address] [place] [address] Care Team Providers Care Wool Shearing Supervisor Name Role Phone Unavailable Primary Care Provider Unavailabl e Encounter Details Date Type Department Care Team (Late st Contact Info) Description 04/24/2024 Clinisync Result Encounter [facility] External Department Unsolicited Ty Latif PA [address] [facility] [address] [place], [facility]11 Social History [...] EDT Office Visit [facility] K[facility]andra OBG[facility] [address] [facility] [place] [address] Cesar Ray DO [address] [facility] [address] [place], [place] [address] documented as of this encounter Procedures Procedure Name Priority Date/Time Associated Diagnosis Comments US OB ANATOMY 04/24/2024 2:35 PM EDT documented in this encounter Results * US OB ANATOMY (04/24/2024 2:35 PM EDT) Anatomical Region Laterality Modality Other 04/24/2024 2:35 PM EDT Narrative 04/24/2024 2:37 [place] [address] Ultrasound Report Signed Patient: ARY ELLIS MR#: [id number] : 1990 Acct:[id number] Age/Sex: 33 / F ADM Date: 04/24/24 Loc: [facility] Attending Dr: Ty Latif Ordering Physician: Ty Latif Date of Service: 04/24/24 Procedure(s): US OB anatomy Accession Number(s): [id number] cc: Ty Laitf; LEXI ZHAO [place] [address] Patient Name: ARY ELLIS MRN: [id number] date: 1990 Sex: F Assigned Patient Location: [facility] Current Patient Location: [facility] Accession/Order Number: [id number] Exam Date: 04/24/2024 13:34 Report Date: 04/24/2024 14:35 At the request of: TY LATIF Procedure: US OB anatomy EXAMINATION: US OB anatomy, US OB cervical length HISTORY: anatomic survey COMPARISON: Ultrasound OB transvaginal 01/13/2024 TECHNIQUE: Transabdominal sonographic examination was performed for obstetrical and evaluation. FINDINGS: Number: 1 Heart Rate: 143 bpm H.B. /min Amniotic Fluid Volume: Subjectively normal Placental Location: Anterior-fundal with lower margin 5.5 cm from os. Cervix Length: 5.42 cm ; closed BIOMETRY: BPD: 4.79 cm; 20 weeks 3 days; 11.40 % HC: 19.17 cm; 21 weeks 3 days; 32.80 % AC: 15.85 cm 21 weeks 0 days; 24.20 % FL: 3.60 cm; 21 weeks 3 days; 34.60 % EFW:375.10 g; 24.90 % FL/AC: 22.71 FL/BPD: 75.16 HC/AC: 1.21 GESTATIONAL AGE: Age by EDC: 21 weeks 4 days Age by current US: 21 weeks 1 day SANGEETA by current US: 2024-09-03 SANGEETA by EDC: 2024-08-31 US/US OB anatomy IMPRESSION: 1. Single live intrauterine with growth detailed above. Electronically authenticated by: ALBER RODRÍGUEZ Date: 04/24/2024 14:35 Dictated By: Alber Rodríguez M.D. Signed By: 04/24/24 143 DD/ 34 TD/TT: Automotive Sales Associate: Procedure Note Radiology, Radiologist, MD - 04/24/2024 [facility] [place] [id number] Ultrasound Report Signed Patient: ARY ELLIS AMR#: [id number] : 1990Acct:[id number] Age/Sex: 33 / FADM Date: 04/24/24 Loc: [facility] Attending Dr: Ty Latif Ordering Physician: Ty Latif Date of Service: 04/24/24 Procedure(s): US OB anatomy Accession Number(s): [id number] cc: Ty Latif; LEXI ZHAO [address] [address] Patient Name: ARY ELLIS MRN: [id number] date: 1990 Sex: F Assigned Patient Location: [facility] Current Patient Location: [facility] Accession/Order Number: [id number] Exam Date: 04/24/2024 13:34 Report Date: 04/24/2024 14:35 At the request of: TY LATIF Procedure: US OB anatomy EXAMINATION: US OB anatomy, US OB cervical length HISTORY: anatomic survey COMPARISON: Ultrasound OB transvaginal 01/13/2024 TECHNIQUE: Transabdominal sonographic examination was performed for obstetrical and evaluation. FINDINGS: Number: 1 Heart Rate: 143 bpm H.B. /min Amniotic Fluid Volume: Subjectively normal Placental Location: Anterior-fundal with lower margin 5.5 cm from os. Cervix Length: 5.42 cm ; closed BIOMETRY: BPD: 4.79 cm; 20 weeks 3 days; 11.40 % HC: 19.17 cm; 21 weeks 3 days; 32.80 % AC: 15.85 cm 21 weeks 0 days; 24.20 % FL: 3.60 cm; 21 weeks 3 days; 34.60 % EFW:375.10 g; 24.90 % FL/AC: 22.71 FL/BPD: 75.16 HC/AC: 1.21 GESTATIONAL AGE: Age by EDC: 21 weeks 4 days Age by current US: 21 weeks 1 day SANGEETA by current US: 2024-09-03 SANGEETA by EDC: 2024-08-31 US/US OB anatomy IMPRESSION: 1. Single live intrauterine with growth detailed above. Electronically authenticated by: ALBER RODRÍGUEZ Date: 04/24/2024 14:35 Dictated By: Alber Rodríguez M.D. Signed By:04/24/24 1437 DD/ 34 TD/TT: Automotive Sales Associate: Ty [facility] Final Result documented in this encounter Visit Diagnoses Not on filedocumented in this encounter
--- OUTSIDE RECORDS SUMMARY | 2025-05-05 07:49 | XMS_ITS | Encounter Summary ---
Author Organization [facility] Address [address] [place] [address] Care Team Providers Care [place] Supervisor Name Role Phone Unavailable Primary Care Provider Unavailabl e Encounter Details Date Type Department Care Team (Late Contact Info) Description 07/20/2024 Abstract [facility] JARAMILLO [address] [place] [address] Cesar Ray DO [facility] [place], [facility]11 Social History Tobacco Use Types Packs/Day [...] Description 12/31/2025 1:00 PM EDT Office Visit LUCY JARAMILLO [address] [place] [address] Cesar Ray DO [address] [place], [facility]11 documented as of this encounter Visit Diagnoses Not on filedocumented in this encounter
--- OUTSIDE RECORDS SUMMARY | 2025-05-05 07:49 | XMS_ITS | Encounter Summary ---
Author Organization [facility] Address [address] [place] [address] Care Team Providers Care Spring Setter Name Role Phone Unavailable Primary Care Provider Unavailabl e Encounter Details Date Type Department Care Team (Late Contact Info) Description 03/28/2024 Abstract [facility] JARAMILLO [address] [place] [address] Cesar Ray DO [facility] [place], [facility]11 Social History Tobacco Use Types Packs/Day Years [...] Office Visit LUCY JARAMILLO [address] [place] [address] Cesar Ray DO [address] [place], [facility]11 documented as of this encounter Visit Diagnoses Not on filedocumented in this encounter
--- OUTSIDE RECORDS SUMMARY | 2025-05-05 07:49 | XMS_ITS | Encounter Summary ---
Author Organization [facility] Address [address] [place] [address] Care Team Providers Care Ultimate Hoops Referee Name Role Phone Unavailable Primary Care Provider Unavailabl e Encounter Details Date Type Department Care Team (Late Contact Info) Description 07/04/2024 Abstract [facility] JARAMILLO [address] [place] [address] Cesar Ray DO [facility] [place], [facility]11 Social History Tobacco Use Types Packs/Day Years [...] Office Visit LUCY JARAMILLO [address] [place] [address] Cesar Ray DO [address] [place], [facility]11 documented as of this encounter Visit Diagnoses Not on filedocumented in this encounter
--- OUTSIDE RECORDS SUMMARY | 2025-05-05 07:49 | XMS_ITS | Patient Health Record ---
Author Organization [facility] in [place] Address [address] [place] [address] Care Team Providers Care Merchant Mariner Name Role Phone Jo Ann Trevizo Primary Care Provider Allergies No Known Allergies Results Component Value Reference Range Notes DRUG SCREEN RAPID (URINE) Reviewed date:08/16/2024 11:57:43 AM Interpretation: Performing Lab: Notes/Report: [facility] , Cannabinoid Screen Urine NEGATIVE NEGATIVE Phencyclidine Screen Urine NEGATIVE NEGATIVE Cocaine Screen Urine NEGATIVE NEGATIVE Methamphetamines Screen Urine NEGATIVE NEGATIVE Opiate Screen Urine NEGATIVE NEGATIVE Amphetamine Screen Urine NEGATIVE NEGATIVE Benzodiazepines Screen Urine NEGATIVE NEGATIVE Tricyclic Antidepressant Urine NEGATIVE NEGATIVE Methadone Screen Urine NEGATIVE NEGATIVE Barbiturates Screen Urine NEGATIVE NEGATIVE Oxycodone Screen Urine NEGATIVE NEGATIVE Buprenorphine Screen Urine NEGATIVE NEGATIVE DRUG CLASS TEST SYSTEM CUT-OFF CONCENTRATIONS ARE FOLLOWS: AMP (Amphetamine): 500 ng/mL BAR (Barbiturates): 200 ng/mL BZO (Benzodiazepines): 150 ng/mL BUP (Buprenorphine): 10 ng/mL KAREEM (Cocaine): 150 ng/mL mAMP (Methamphetamine): 500 ng/mL MTD (Methadone): 200 ng/mL OPI (Opiates): 100 ng/mL OXY (Oxycodone): 100 ng/mL PCP (Phencyclidine): 25 ng/mL THC (Cannabinoids): 50 ng/mL TCA (Trycyclic Antidepressants): 300 ng/mL Performing Lab: see note ML - [facility] LB CBC no Diff (Hemogram) Reviewed date:08/16/2024 11:57:43 AM Interpretation: Performing Lab: Notes/Report: [facility] , White Blood Count 10.0 4.0-11.0 10 3/uL Red Blood Count 3.75 4.20-5.40 10 6/uL Hemoglobin 12.4 12.0-16.0 g/dL Hematocrit 35.0 36.0-48.0 % Mean Corpuscular Volume 93.3 81.0-99.0 fL Mean Corpuscular Hemoglobin 33.1 26.7-34.0 pg Mean Corpuscular HGB Conc 35.4 29.9-35.2 g/dL Red Cell Distribution Width 13.1 11.0-15.0 % Platelet Count 190 150-450 10 3/uL Mean Platelet Volume 12.2 9.5-13.5 fL Performing Lab: see note ML - [facility] LB CBC AUTO DIFF Reviewed date:08/17/2024 10:32:00 AM Interpretation: Performing Lab: Notes/Report: [facility] , White Blood Count 14.7 4.0-11.0 10 3/uL Red Blood Count 3.62 4.20-5.40 10 6/uL Hemoglobin 11.9 12.0-16.0 g/dL Hematocrit 34.2 36.0-48.0 % Mean Corpuscular Volume 94.5 81.0-99.0 fL Mean Corpuscular Hemoglobin 32.9 26.7-34.0 pg Mean Corpuscular HGB Conc 34.8 29.9-35.2 g/dL Red Cell Distribution Width 13.2 11.0-15.0 % Platelet Count 197 150-450 10 3/uL Mean Platelet Volume 11.9 9.5-13.5 fL Neutrophils Percent Auto 82.3 43.0-75.0 % Lymphocytes Percent Auto 11.7 20.5-60.0 % Monocytes Percent Auto 5.0 1.7-12.0 % Eosinophils Percent Auto 0.3 0.9-7.0 % Basophils Percent Auto 0.1 0.2-2.0 % Immature Granulocytes Pct Auto 0.6 0.0-0.5 % Neutrophils Absolute Auto 12.1 1.4-6.5 10 3/uL Lymphocytes Absolute Auto 1.7 1.2-3.8 10 3/uL Monocytes Absolute Auto 0.7 0.3-0.8 10 3/uL Eosinophils Absolute Auto 0.0 0.0-0.7 10 3/uL Basophils Absolute Auto 0.0 0.0-0.1 10 3/uL Immature Granulocytes Abs Auto 0.09 0.00-0.03 10 3/uL Performing Lab: see note ML - [facility] LB IGP,Aptima HPV,Age Gdln Reviewed date:12/26/2024 12:46:47 PM Interpretation: Performing Lab: Notes/Report: BRUSH-SPATULA CERVIX ENDOCERVIX [facility] , Age Gdln ACOG Testing Note . TESTS RESULT FLAG UNITS REF RANGE LAB Clinician Provided Cytology Information Source.............Cervi x;Endocervix No. of containers..01 ThinPrep Vial Age Algo ACOG Lesley... 30-65 01 FLAG LEGEND: L-Low Normal,H-High Normal,LL-Alert Low,HH-Alert High <-Panic Low,>-Panic High,A-Abnormal,AA-Criti gonzales Abnormal Performed at: 01 =G [facility] [address] [place] [address] Violet Dixon MD, IGP, Aptima HPV, rfx 16/18,45 Note . TESTS RESULT FLAG UNITS REF RANGE LAB DIAGNOSIS: 02 NEGATIVE FOR INTRAEPITHELIAL LESION OR MALIGNANCY. Specimen adequacy: 02 Satisfactory for evaluation. Endocervical and/or squamous metaplastic cells (endocervical component) are present. Performed by: 02 Dev Mireles Network Manager ([facility]) . 02 Note: Note 02 The Pap [...] L-Low Normal,H-High Normal,LL-Alert Low,HH-Alert High <-Panic Low,>-Panic High,A-Abnormal,AA-Criti gonzales Abnormal Performed at: [address] [address] Violet Dixon MD, HPV Aptima Negative Negative This nucleic acid amplification test detects fourteen high- risk HPV types (16,18,31,33,35,39,45,51 ,52,56,58,59,66,68) without differentiation. Performed at: = - [facility] [id number] Nursery Technician: Violet Dixon MD, Phone: [phone] Performed at: [facility] [id number] Nursery Technician: Violet Dixon MD, Phone: [phone] Performing Lab: see note LC - [facility] LB US OB BPP w non-stress Reviewed date:09/14/2024 03:44:15 PM Interpretation: Performing Lab: Notes/Report: Source Facility: [place] [address] Ultrasound Report Signed Patient: KATHERINE SPAIN MR#: [id number] : 1990 Acct:[id number] Age/Sex: 34 / F ADM Date: 08/08/24 Loc: [facility]BCO Attending Dr: Remy Ray D.O. Ordering Physician: Remy Ray D.O. Date of Service: 08/08/24 Procedure(s): US OB BPP w non-stress Accession Number(s): [id number] cc: JO ANN TREVIZO ; Remy Ray D.O. The [place] [address] Patient Name: KATHERINE SPAIN MRN: [id number] date: 1990 Sex: F Assigned Patient Location: [facility] Current Patient Location: Accession/Order Number: [id number] Exam Date: 08/08/2024 19:06 Report Date: 08/09/2024 04:40 At the request of: REMY RAY Procedure: US OB BPP w non-stress EXAMINATION: US OB BPP w non-stress HISTORY:GESTATIONAL DIABETES MELLITUS O24.419 COMPARISON: Ultrasound OB biophysical 08/01/2024 TECHNIQUE: Ultrasound biophysical profile was performed in the radiology department. BREATHING MOVEMENTS: 2 GROSS BODY MOVEMENTS: 2 TONE: 2 QUALITATIVE AMNIOTIC FLUID VOLUME: 2 PRESENTATION: Cephalic HEART RATE: 123 AMNIOTIC FLUID VOLUME: 12.4 cm; normal range GESTATIONAL AGE: 36 weeks 5 days US/US OB BPP w non-stress IMPRESSION: Total biophysical profile score: 8 Electronically authenticated by: ALBER RODRÍGUEZ Date: 08/09/2024 04:40 Dictated By: Alber Rodríguez M.D. Signed By: 08/09/24441 DD/ 9 TD/TT: Reproductive Surgeon: US OB growth Reviewed date:09/14/2024 03:44:33 PM Interpretation: Performing Lab: Notes/Report: Source Facility: [place] [address] Ultrasound Report Signed Patient: KATHERNIE SPAIN MR#: [id number] : 1990 Acct:[id number] Age/Sex: 34 / F ADM Date: 08/01/24 Loc: FBCO Attending Dr: Remy Ray D.O. Ordering Physician: Remy Ray D.O. Date of Service: 08/01/24 Procedure(s): US OB growth Accession Number(s): [id number] cc: JO ANN TREVIZO ; Remy Ray D.O. [place] [address] Patient Name: KATHERINE SPAIN MRN: [facility]:[id number] date: 1990 Sex: F Assigned Patient Location: [facility] Current Patient Location: [facility] Accession/Order Number: [id number] Exam Date: 08/01/2024 17:55 Report Date: 08/02/2024 07:17 At the request of: REMY RAY Procedure: US OB growth EXAMINATION: US OB growth HISTORY: GDM O24.419 COMPARISON: No relevant comparison available. FINDINGS: Heart Rate: 135.68 bpm Amniotic Fluid Volume: 15.0 cm, largest fluid pocket 5.2 cm Number: 1 Position: Cephalic presentation longitudinal lie BIOMETRY: BPD: 8.31 cm; 33 weeks 3 days; 5.50 % HC: 31.99 cm; 36 weeks 0 days; 26.30 % AC: 30.76 cm; 34 weeks 5 days; 29.70 % FL: 6.77 cm; 34 weeks 6 days; 21.40 % EFW: 2502.05 g; 23.80 %, 5 lbs. 8 oz. FL/AC: 22.00 FL/BPD: 81.46 HC/AC: 1.04 GESTATIONAL AGE: Age by EDC: 35 weeks 5 days SANGEETA by EDC: 2024-08-31 Age by US: 34 weeks 5 days SANGEETA by US: 2024-09-07 US/US OB growth IMPRESSION: BPD at the 5th percentile, otherwise normal interval growth Electronically authenticated by: CHLOE SANTO Date: 08/02/2024 07:17 Dictated By: Chloe Santo M.D. Signed By: 08/02/24719 DD/ 6 TD/TT: Reproductive Surgeon: US OB BPP w non-stress Reviewed date:09/14/2024 03:44:47 PM Interpretation: Performing Lab: Notes/Report: Source Facility: [place] [address] Ultrasound Report Signed Patient: KATHERINE SPAIN MR#: [id number] : 1990 Acct:[id number] Age/Sex: 34 / F ADM Date: 08/01/24 Loc: FBCO Attending Dr: Remy Ray D.O. Ordering Physician: Remy Ray D.O. Date of Service: 08/01/24 Procedure(s): US OB BPP w non-stress Accession Number(s): [id number] cc: JO ANN TREVIZO ; Remy Ray D.O. [facility] [place] [address] Patient Name: KATHERINE SPAIN MRN: [id number] date: 1990 Sex: F Assigned Patient Location: [facility] Current Patient Location: Accession/Order Number: [id number] Exam Date: 08/01/2024 17:55 Report Date: 08/02/2024 07:15 At the request of: REMY RAY Procedure: US OB BPP w non-stress EXAMINATION: US OB BPP w non-stress HISTORY: GDM O24.419 COMPARISON: No relevant comparison available. TECHNIQUE: Ultrasound biophysical profile was performed in the radiology department. non-reactive stress testing was performed by nursing staff in the birthing center. FINDINGS: BREATHING MOVEMENTS: 2 GROSS BODY MOVEMENTS: 2 TONE: 2 QUALITATIVE AMNIOTIC FLUID VOLUME: 2 PRESENTATION: CEPHALIC HEART RATE: 135.68 bpm AMNIOTIC FLUID VOLUME: 15.0 GESTATIONAL AGE: 35 weeks 5 days US/US OB BPP w non-stress IMPRESSION: Total biophysical profile score: 8 Electronically authenticated by: CHLOE SANTO Date: 08/02/2024 07:15 Dictated By: Chloe Santo M.D. Signed By: 08/02/2418 DD/ 4 TD/TT: Reproductive Surgeon: US OB BPP w non-stress Reviewed date:07/28/2024 10:57:14 AM Interpretation: Performing Lab: Notes/Report: Source Facility: [place] [address] Ultrasound Report Signed Patient: KATHERINE SPAIN MR#: [id number] : 1990 Acct:[id number] Age/Sex: 34 / F ADM Date: 07/25/24 Loc: US Attending Dr: Remy Ray D.O. Ordering Physician: Remy Ray D.O. Date of Service: 07/25/24 Procedure(s): US OB BPP w non-stress Accession Number(s): [id number] cc: JO ANN TREVIZO ; Remy Ray D.O. [place] [id number] Patient Name: KATHERINE SPAIN MRN: [id number] date: 1990 Sex: F Assigned Patient Location: [facility] Current Patient Location: Accession/Order Number: [id number] Exam Date: 07/25/2024 16:53 Report Date: 07/26/2024 03:28 At the request of: REMY RAY Procedure: US OB BPP w non-stress EXAMINATION: US OB BPP w non-stress HISTORY:GESTATIONAL DIABETES MELLITUS O24.419 COMPARISON: Ultrasound OB biophysical 07/17/2024 TECHNIQUE: Ultrasound biophysical profile was performed in the radiology department. BREATHING MOVEMENTS: 2 GROSS BODY MOVEMENTS: 2 TONE: 2 QUALITATIVE AMNIOTIC FLUID VOLUME: 2 PRESENTATION: CEPHALIC HEART RATE: 142.11 bpm AMNIOTIC FLUID VOLUME: 13.89 cm GESTATIONAL AGE: 34 weeks 5 days US/US OB BPP w non-stress IMPRESSION: Total biophysical profile score: 8 Electronically authenticated by: ALBER RODRÍGUEZ Date: 07/26/2024 03:28 Dictated By: Alber Rodríguez M.D. Signed By: 07/26/240 DD/ 7 TD/TT: Reproductive Surgeon: US OB growth Reviewed date:07/12/2024 10:27:40 AM Interpretation: Performing Lab: Notes/Report: Source Facility: [place] [address] [place] [address] Ultrasound Report Signed Patient: KATHERINE SPAIN MR#: [id number] : 1990 Acct:[id number] Age/Sex: 34 / F ADM Date: 07/11/24 Loc: FBCO Attending Dr: Remy Ray D.O. Ordering Physician: Remy Ray D.O. Date of Service: 07/11/24 Procedure(s): US OB growth Accession Number(s): [id number] cc: JO ANN TREVIZO ; Remy Ray D.O. The [place] [address] Patient Name: KATHERINE SPAIN MRN: [id number] date: 1990 Sex: F Assigned Patient Location: [facility] Current Patient Location: [facility] Accession/Order Number: [id number] Exam Date: 07/11/2024 17:33 Report Date: 07/12/2024 05:50 At the request of: REMY RAY Procedure: US OB growth EXAMINATION: US OB growth HISTORY: GDM COMPARISON: No relevant comparison available. FINDINGS: Heart Rate: 141.36 bpm Amniotic Fluid Volume: 12.0 cm; normal range. Number: 1 Position: CEPHALIC BIOMETRY: BPD: 7.93 cm; 31 weeks 6 days; 18.80 % HC: 29.68 cm; 32 weeks 6 days; 17 % AC: 27.59 cm; 31 weeks 5 days; 20.60 % FL: 6.14 cm; 31 weeks 6 days; 17.80 % EFW: 1851.40 g; 17.40 % FL/AC: 22.27 FL/BPD: 77.45 HC/AC: 1.08 GESTATIONAL AGE: Age by EDC: 32 weeks 5 days SANGEETA by EDC: 2024-08-31 Age by US: 32 weeks 1 day SANGEETA by US: 2024-09-04 US/US OB growth IMPRESSION: 1. Single live intrauterine with growth detailed above. Electronically authenticated by: ALBER RODRÍGUEZ Date: 07/12/2024 05:50 Dictated By: Alber Rodríguez M.D. Signed By: 07/12/2453 DD/ TD/TT: Reproductive Surgeon: US OB BPP w non-stress Reviewed date:07/12/2024 10:27:40 AM Interpretation: Performing Lab: Notes/Report: Source Facility: [place] [address] Ultrasound Report Signed Patient: KATHERINE SPAIN MR#: [id number] : 1990 Acct:[id number] Age/Sex: 34 / F ADM Date: 07/11/24 Loc: [facility] Attending Dr: Remy Ray D.O. Ordering Physician: Remy Ray D.O. Date of Service: 07/11/24 Procedure(s): US OB BPP w non-stress Accession Number(s): [id number] cc: JO ANN TREVIZO ; Remy Ray D.O. [facility] [place] [address] Patient Name: KATHERINE SPAIN MRN: [id number] date: 1990 Sex: F Assigned Patient Location: [facility] Current Patient Location: [facility] Accession/Order Number: [id number] Exam Date: 07/11/2024 17:33 Report Date: 07/12/2024 05:49 At the request of: REMY RAY Procedure: US OB BPP w non-stress EXAM: US OB BPP w non-stress HISTORY: GDM COMPARISON: Obstetric ultrasound dated 04/24/2024. TECHNIQUE: Routine sonographic biophysical profile examination. FINDINGS: breathing movement: Adequate, score 2 gross body movement: Adequate, score 2 tone: Adequate, score 2 Amniotic fluid: Adequate, score 2 Total sonographic biophysical profile score: 8/8 Single live intrauterine in cephalic presentation with a heart rate of 141 bpm. Amniotic fluid index 12.0 cm. US/US OB BPP w non-stress IMPRESSION: Normal sonographic biophysical profile score of 8/8. Electronically authenticated by: DANE MEEHAN Date: 07/12/2024 05:49 Dictated By: Dane Meehan M.D. Signed By: 07/12/2452 DD/ TD/TT: Reproductive Surgeon: Type and Screen Reviewed date:08/16/2024 11:57:43 AM Interpretation: Performing Lab: Notes/Report: [facility] , Blood Type A Positive Antibody Screen NEGATIVE US OB BPP w non-stress Reviewed date:09/14/2024 03:43:40 PM Interpretation: Performing Lab: Notes/Report: Source Facility: [place] [address] Ultrasound Report Signed Patient: KATHERINE SPAIN MR#: [id number] : 1990 Acct:[id number] Age/Sex: 34 / F ADM Date: 08/15/24 Loc: FBCO Attending Dr: Remy Ray D.O. Ordering Physician: Remy Ray D.O. Date of Service: 08/15/24 Procedure(s): US OB BPP w non-stress Accession Number(s): [id number] cc: JO ANN TREVIZO ; Remy Ray D.O. The [place] [id number] Patient Name: KATHERINE SPAIN MRN: [id number] date: 1990 Sex: F Assigned Patient Location: [facility] Current Patient Location: [facility] Accession/Order Number: [id number] Exam Date: 08/15/2024 17:10 Report Date: 08/15/2024 23:36 At the request of: REMY RAY Procedure: US OB BPP w non-stress EXAMINATION: US OB BPP w non-stress HISTORY:GDM 024.419 COMPARISON: Ultrasound OB biophysical 08/08/2024 TECHNIQUE: Ultrasound biophysical profile was performed in the radiology department. BREATHING MOVEMENTS: 2 GROSS BODY MOVEMENTS: 0 TONE: 2 QUALITATIVE AMNIOTIC FLUID VOLUME: 2 PRESENTATION: CEPHALIC HEART RATE: 137.76 bpm AMNIOTIC FLUID VOLUME: 10.88 cm GESTATIONAL AGE: 37 weeks 5 days US/US OB BPP w non-stress IMPRESSION: Total biophysical profile score: 6 Electronically authenticated by: ALBER RODRÍGUEZ Date: 08/15/2024 23:36 Dictated By: Alber Rodríguez M.D. Signed By: 08/15/24 2339 DD/ TD/TT: Reproductive Surgeon: Box Test Reviewed date:08/08/2024 09:13:51 AM Interpretation: Performing Lab: Notes/Report: GROUP B [facility] , BOX Test Sent Out GROUP B CULTURE BOX Test Reference Lab [facility] BOX Test Date Sent 08/01/24 BOX Test Result SEE SCANNED REPORT Performing Lab: see note ML - [facility] US OB BPP w non-stress Reviewed date:07/24/2024 08:28:08 AM Interpretation: Performing Lab: Notes/Report: Source Facility: [facility] [place] [address] [place] [address] Ultrasound Report Signed Patient: KATHERINE SPAIN MR#: [id number] : 1990 Acct:[id number] Age/Sex: 34 / F ADM Date: 07/17/24 Loc: FBCO Attending Dr: Remy Ray D.O. Ordering Physician: Remy Ray D.O. Date of Service: 07/17/24 Procedure(s): US OB BPP w non-stress Accession Number(s): [id number] cc: JO ANN TREVIZO ; Remy Ray D.O. The [place] [id number] Patient Name: KATHERINE SPAIN MRN: [facility]:[id number] date: 1990 Sex: F Assigned Patient Location: [facility] Current Patient Location: Accession/Order Number: [id number] Exam Date: 07/17/2024 20:05 Report Date: 07/20/2024 08:07 At the request of: REMY RAY Procedure: US OB BPP w non-stress EXAMINATION: US OB BPP w non-stress HISTORY:GESTATIONAL DIABETES MELLITUS O24.419 COMPARISON: Ultrasound OB biophysical 07/11/2024 TECHNIQUE: Ultrasound biophysical profile was performed in the radiology department. BREATHING MOVEMENTS: 2 GROSS BODY MOVEMENTS: 2 TONE: 2 QUALITATIVE AMNIOTIC FLUID VOLUME: 2 PRESENTATION: CEPHALIC HEART RATE: 138.46 bpm AMNIOTIC FLUID VOLUME: 10.98 cm GESTATIONAL AGE: 33 weeks 4 days US/US OB BPP w non-stress IMPRESSION: Total biophysical profile score: 8 Electronically authenticated by: ALBER RODRÍGUEZ Date: 07/20/2024 08:07 Dictated By: Alber Rodríguez M.D. Signed By: 07/20/24809 DD/ 6 TD/TT: Reproductive Surgeon: Reason For Referral No Information Medications Medication SIG (Take, Route, Frequency, Duration) [...] Question Answer Notes Patient is a nonsmoker Alcohol Screen (Audit-C) Question Answer Notes Did you have a drink contain ing alcohol in the past year? Yes How often did you have 6 or more drinks on one occasion in the past year? Monthly or less (1 point) How many drinks did you have on a typical day when you were drinking in the past year? 1 or 2 drinks (0 point) How often did you have a dri nk containing alcohol in the past year? Never (0 point) Points 1 Interpretation Negative AUDIT-C (Standard) Question Answer Notes Did you [...] week (3 points) Points 5 Interpretation Positive Problems Problem Type SNOMED Code ICD Code Onset Dates Problem Status W/U Status Risk Notes Problem Anxiety disorder (704245084) Anxiety disorder, unspecified (F41.9) Active confirmed Problem Overweight (783166027) Over weight (E66.3) Active confirmed Problem Lightheadedness (453016359) Light headedness (R42) Active confirmed Problem Annual wellness visit (501363175679530) Wellness examination (Z00.00) Active confirmed Problem Non-suppurative otitis media (414932556) Left serous otitis media (H65.92) Active confirmed Problem Family history of endocrine disorders (636356591) Family history of 5, 10-methylenetet rahydofolate deficiency (Z83.49) Active confirmed Vital Signs Blood pressure diastolic 70 mm Hg 04/27/2025 Height 63 in 04/27/2025 Blood pressure systolic 122 mm Hg 04/27/2025 Weight 164.8 lbs 04/27/2025 BMI 29.19 kg/m2 04/27/2025 Encounters Encounter Location Date Provider Diagnosis [facility] [address] [place] [address] 04/27/2025 Jo Ann Trevizo Anxiety disorder, unspecified F41.9 and Wellness examination Z00.00 Assessments Encounter Date Diagnosis (ICD Code) Assessment Notes Treatment Notes Treatment Clinical Notes Section Notes 04/27/2025 Anxiety disorder, unspecified (ICD-10 - F41.9) consider counseling 04/27/2025 Wellness examination (ICD-10 - Z00.00) ROS done exam done Plan Of Treatment Pending Test Test Name Order Date CMP (COMPLETE METABOLIC PANEL) HEMOGLOBIN A1C (GLYCO) 11/09/2022 HEMOGLOBIN A1C (GLYCO) 04/27/2025 IRON, TOTAL 04/27/2025 IRON, TOTAL 11/09/2022 LIPID PANEL (CHOL/TRIG/HDL/LDL) 04/27/20 25 LIPID PANEL (CHOL/TRIG/HDL/LDL) 11/10/19 23 CBC WITH DIFF 11/09/2022 VITAMIN D, 25 LEVEL (TOTAL) 04/27/2025 Insulin Level 04/27/2025 Insulin Level 11/09/2022 STOOL OCCULT BLOOD 11/09/2022 THYROID PANEL (T4/TSH/FREE T3) THYROID PANEL (T4/TSH/FREE T3) 5 CMP (COMP MET CLANCY) w/eGFR CKD-EPI 2024 CBC WITH DIFF 04/27/2025 Next Appt Details Provider Name:Jo Ann roberts, 05/02/2026 11:00:00 AM, [address] [place], [address], Insurance Providers Payer Name Payer Address Payer Phone Subscriber Number Group Number Insured Name Patient Relationship to Insured Coverage Start Date Coverage End Date [employer] ACCESS PPO PLUS LOCAL PLAN [address] [place] [address] [id number] Sam [place] Spouse - patient is the spouse of the insured Medical (General) History Medical History History ICD Code Left serous otitis media H65.92 Over weight E66.3 Light headedness R42 Family history of 5, 10-methylenetetrahy dofolate deficiency Z83.49 Wellness examination Z00.00 Surgical History Surgery Date(Month/Year) Baird Teeth Extraction 2005
--- OUTSIDE RECORDS SUMMARY | 2025-05-05 07:49 | XMS_ITS | Encounter Summary ---
Author Organization [facility] Address [address] [place] [address] Care Team Providers Care Cyber Security Administrator Name Role Phone Unavailable Primary Care Provider Unavailabl e Encounter Details Date Type Department Care Team (Late Contact Info) Description 08/16/2024 Abstract [facility] [address] [place] [address] Cesar Ray DO [facility] [place], [facility] Social History Tobacco Use Types Packs/Day Years [...] Office Visit [facility] [address] [place] [address] Cesar Ray DO [address] [place], [facility] documented as of this encounter Visit Diagnoses Not on filedocumented in this encounter
--- OUTSIDE RECORDS SUMMARY | 2025-05-05 07:49 | XMS_ITS | Encounter Summary ---
Author Organization [facility] Address [address] [place] [address] Care Team Providers Care Welder Operator Name Role Phone Unavailable Primary Care Provider Unavailabl e Encounter Details Date Type Department Care Team (Late st Contact Info) Description 07/26/2024 Clinisync Result Encounter [facility] External Department Unsolicited Remy Ray, DO [address] [place], [place] [id number] Social History Tobacco Use Types Packs/Day Years [...] Visit [facility] [address] [place] [address] Remy Ray DO [address] [place] [address] documented as of this encounter Procedures Procedure Name Priority Date/Time Associated Diagnosis Comments US OB BPP W NON-STRESS 07/26/2024 3:28 AM EST documented in this encounter Results * US OB BPP W NON-STRESS (07/26/2024 3:28 AM EST) Anatomical Region Laterality Modality Other 07/26/2024 3:28 AM EST Narrative 07/26/2024 3:30 [place] [address] Ultrasound Report Signed Patient: ARY ELLIS MR#: [id number] : 1990 Acct:[id number] Age/Sex: 34 / F ADM Date: 07/25/24 Loc: US Attending Dr: Remy Ray D.O. Ordering Physician: Remy Ray D.O. Date of Service: 07/25/24 Procedure(s): US OB BPP w non-stress Accession Number(s): [id number] cc: LEXI ZHAO ; Remy Ray D.O. [place] [address] Patient Name: ARY ELLIS MRN: [id number] date: 1990 Sex: F Assigned Patient Location: [facility] Current Patient Location: Accession/Order Number: [id number] Exam Date: 07/25/2024 16:53 Report Date: 07/26/2024 [...] Dictated By: Alber Rodríguez M.D. Signed By: 07/26/24329 DD/ 7 TD/TT: Armament Installer: Procedure Note Radiology, Radiologist, - 07/26/2024 [place] [address] Ultrasound Report Signed Patient: ARY ELLIS AMR#: [id number] : 1990Acct:[id number] Age/Sex: 34 / FADM Date: 07/25/24 Loc: US Attending Dr: Remy Ray D.O. Ordering Physician: Remy Ray D.O. Date of Service: 07/25/24 Procedure(s): US OB BPP w non-stress Accession Number(s): [id number] cc: LEXI ZHAO ; Remy Ray D.O. The [place] [phone] Patient Name: ARY ELLIS MRN: [id number] date: 1990 Sex: F Assigned Patient Location: [facility] Current Patient Location: Accession/Order Number: [id number] Exam Date: 07/25/2024 16:53 Report Date: 07/26/2024 [...] 03:28 Dictated By: Alber Rodríguez M.D. Signed By:07/26/24329 DD/ 7 TD/TT: Armament Installer: us Remy Ray DO [facility] Final Result documented in this encounter Visit Diagnoses Not on filedocumented in this encounter
--- OUTSIDE RECORDS SUMMARY | 2025-05-05 07:49 | XMS_ITS | Encounter Summary ---
Author Organization [facility] Address [address] [place] [address] Care Team Providers Care Straight Cutter Machine Name Role Phone Unavailable Primary Care Provider Unavailabl e Encounter Details Date Type Department Care Team (Late st Contact Info) Description 08/02/2024 Clinisync Result Encounter [facility] External Department Unsolicited Remy Ray, DO [address] [place], [place] [id number] Social History Tobacco Use Types Packs/Day Years [...] Visit [facility] [address] [place] [address] Remy Ray DO [address] [place] [address] documented as of this encounter Procedures Procedure Name Priority Date/Time Associated Diagnosis Comments US OB GROWTH 08/02/2024 7:17 AM EST documented in this encounter Results * US OB GROWTH (08/02/2024 7:17 AM EST) Anatomical Region Laterality Modality Other 08/02/2024 7:17 AM EST Narrative 08/02/2024 7:20 [place] [address] Ultrasound Report Signed Patient: ARY ELLIS MR#: [id number] : 1990 Acct:[id number] Age/Sex: 34 / F ADM Date: 08/01/24 Loc: [facility] Attending Dr: Remy Ray D.O. Ordering Physician: Remy Ray D.O. Date of Service: 08/01/24 Procedure(s): US OB growth Accession Number(s): [id number] cc: LEXI ZHAO ; Remy Ray D.O. The [place] [id number] Patient Name: ARY ELLIS MRN: [id number] date: 1990 Sex: F Assigned Patient Location: [facility] Current Patient Location: [facility] Accession/Order Number: [id number] Exam Date: 08/01/2024 17:55 Report Date: 08/02/2024 [...] M.D. Signed By: 08/02/24719 DD/ 6 TD/TT: Student Loan Counselor: Procedure Note Radiology, Radiologist, MD - 08/02/2024 [place] [address] Ultrasound Report Signed Patient: ARY ELLIS AMR#: [id number] : 1990Acct:[id number] Age/Sex: 34 / FADM Date: 08/01/24 Loc: [facility] Attending Dr: Remy Ray D.O. Ordering Physician: Remy Ray D.O. Date of Service: 08/01/24 Procedure(s): US OB growth Accession Number(s): [id number] cc: LEXI ZHAO ; Remy Ray D.O. The [address] [address] Patient Name: ARY ELLIS MRN: [id number] date: 1990 Sex: F Assigned Patient Location: [facility] Current Patient Location: [facility] Accession/Order Number: [id number] Exam Date: 08/01/2024 17:55 Report Date: 08/02/2024 [...] 07:17 Dictated By: Chloe Santo M.D. Signed By:08/02/24719 DD/ 6 TD/TT: Student Loan Counselor: us Ermy Flor DO [facility] Final Result documented in this encounter Visit Diagnoses Not on filedocumented in this encounter
--- OUTSIDE RECORDS SUMMARY | 2025-05-05 07:49 | XMS_ITS | Encounter Summary ---
Author Organization [facility] Address [address] [place] [address] Care Team Providers Care Electrical And Instrumentation Mechanic Name Role Phone Unavailable Primary Care Provider Unavailabl e Encounter Details Date Type Department Care Team (Late Contact Info) Description 08/09/2024 Abstract [facility] [address] [place] [address] Cesar Ray DO [facility] [place], [facility]11 Social History Tobacco Use Types Packs/Day Years [...] 12/31/2025 1:00 PM EDT Office Visit [facility] [address] [place] [address] Cesar Ray DO [address] [place], [facility] documented as of this encounter Visit Diagnoses Not on filedocumented in this encounter
--- OUTSIDE RECORDS SUMMARY | 2025-05-05 07:49 | XMS_ITS | Encounter Summary ---
Author Organization [facility] Address [address] [place] [address] Care Team Providers Care Cooker Helper Name Role Phone Unavailable Primary Care Provider Unavailabl e Encounter Details Date Type Department Care Team (Late st Contact Info) Description 08/15/2024 Clinisync Result Encounter [facility] External Department Unsolicited Remy Ray, DO [address] [place], [facility]11 Social History Tobacco Use Types Packs/Day [...] Visit [facility] [address] [place] [address] Remy Ray DO [address] [place] [address] documented as of this encounter Procedures Procedure Name Priority Date/Time Associated Diagnosis Comments US OB BPP W NON-STRESS 08/15/2024 11:36 PM EST documented in this encounter Results * US OB BPP W NON-STRESS (08/15/2024 11:36 PM EST) Anatomical Region Laterality Modality Other 08/15/2024 11:3 6 PM EST Narrative 08/15/2024 11:39 [place] [address] Ultrasound Report Signed Patient: ARY ELLIS MR#: [id number] : 1990 Acct:[id number] Age/Sex: 34 / F ADM Date: 08/15/24 Loc: [facility] Attending Dr: Remy Ray D.O. Ordering Physician: Remy Ray D.O. Date of Service: 08/15/24 Procedure(s): US OB BPP w non-stress Accession Number(s): [id number] cc: LEXI ZHAO ; Remy Ray D.O. The [place] [address] Patient Name: ARY ELLIS MRN: [id number] date: 1990 Sex: F Assigned Patient Location[place] [facility] Current Patient Location: [facility] Accession/Order Number: [id number] Exam Date: 08/15/2024 17:10 Report Date: 08/15/2024 [...] Dictated By: Alber Rodríguez M.D. Signed By: 08/15/242338 DD/ 35 TD/TT: Nutritional Chemist: Procedure Note Radiology, Radiologist, - 08/15/2024 [place] [address] Ultrasound Report Signed Patient: ARY ELLIS AMR#: [id number] : 1990Acct:[id number] Age/Sex: 34 / FADM Date: 08/15/24 Loc: [facility] Attending Dr: Remy Ray D.O. Ordering Physician: Remy Ray D.O. Date of Service: 08/15/24 Procedure(s): US OB BPP w non-stress Accession Number(s): [id number] cc: LEXI ZHAO ; Remy Ray D.O. The [place] [id number] Patient Name: ARY ELLIS MRN: [id number] date: 1990 Sex: F Assigned Patient Location: [facility] Current Patient Location: [facility] Accession/Order Number: [id number] Exam Date: 08/15/2024 17:10 Report Date: 08/15/2024 [...] 23:36 Dictated By: Alber Rodríguez M.D. Signed By:08/15/242338 DD/ 35 TD/TT: Nutritional Chemist: us Remy Amoro DO [facility] Final Result documented in this encounter Visit Diagnoses Not on filedocumented in this encounter
--- OUTSIDE RECORDS SUMMARY | 2025-05-05 07:49 | XMS_ITS | Encounter Summary ---
Author Organization [facility] Address [address] [place] [address] Care Team Providers Care Information Security Officer Name Role Phone Unavailable Primary Care Provider Unavailabl e Encounter Details Date Type Department Care Team (Late Contact Info) Description 08/28/2024 Abstract [facility] [address] [place] [address] Cesar Ray DO [facility] [place], [facility]11 Social History Tobacco Use Types Packs/Day Years [...] Office Visit [facility] [address] [place] [address] Cesar Ray DO [address] [place], [facility]11 documented as of this encounter Visit Diagnoses Not on filedocumented in this encounter
--- OUTSIDE RECORDS SUMMARY | 2025-05-05 07:49 | XMS_ITS | Encounter Summary ---
Author Organization [facility] Address [address] [place] [address] Care Team Providers Care Software Engineering Manager Name Role Phone Unavailable Primary Care Provider Unavailabl e Encounter Details Date Type Department Care Team (Late Contact Info) Description 01/31/2024 Abstract [facility] [address] [place] [address] Cesar Ray DO [facility] [place], [facility]11 Social History Tobacco Use Types [...] Office Visit [facility] [address] [place] [address] Cesar Ray DO [address] [place], [facility]11 documented as of this encounter Visit Diagnoses Not on filedocumented in this encounter
--- OUTSIDE RECORDS SUMMARY | 2025-05-05 07:49 | XMS_ITS | Encounter Summary ---
Author Organization [facility] Address [address] [place] [address] Care Team Providers Care Publication Manager Name Role Phone Unavailable Primary Care Provider Unavailabl e Encounter Details Date Type Department Care Team (Late Contact Info) Description 02/21/2024 Abstract [facility] [address] [place] [address] Cesar Ray DO [facility] [place], [facility]11 Social History Tobacco Use Types Packs/Day [...] Office Visit [facility] [address] [place] [address] Cesar Ray DO [address] [place], [facility]11 documented as of this encounter Visit Diagnoses Not on filedocumented in this encounter
--- OUTSIDE RECORDS SUMMARY | 2025-05-05 07:49 | XMS_ITS | Encounter Summary ---
Author Organization [facility] Address [address] [place] [address] Care Team Providers Care Interior Horticulturist Name Role Phone Unavailable Primary Care Provider Unavailabl e Encounter Details Date Type Department Care Team (Late Contact Info) Description 08/07/2024 Abstract [facility] [address] [place] [address] Cesar Ray DO [address] [place], [facility]11 Social History Tobacco Use Types Packs/Day [...] Office Visit [facility] [address] [place] [address] Cesar Ray DO [address] [place], [facility]11 documented as of this encounter Visit Diagnoses Not on filedocumented in this encounter
--- OUTSIDE RECORDS SUMMARY | 2025-05-05 07:49 | XMS_ITS | Encounter Summary ---
Author Organization [facility] Address [address] [place] [address] Care Team Providers Care Draw Machine Operator Name Role Phone Unavailable Primary Care Provider Unavailabl e Reason for Visit * Reason Comments Med Refill Encounter Details Date Type Department Care Team (Late Contact Info) Description 04/26/2024 Refill [facility] [address] [place], [place] [address] [address] Cesar Ray DO [address] [place] [address] [place], [place] [address] Nausea Social History Tobacco Use Types Packs/Day Years [...] PM EDT Office Visit [facility] [address] [place] [address] Cesar Ray DO [address] [place], [place] [address], [place] [address] documented as of this encounter Visit Diagnoses Diagnosis Nausea Nausea alone documented in this encounter
--- OUTSIDE RECORDS SUMMARY | 2025-05-05 07:49 | XMS_ITS | Encounter Summary ---
Author Organization [facility] Address [address] [place] [address] Care Team Providers Care Barrel Scraper Name Role Phone Unavailable Primary Care Provider Unavailabl e Encounter Details Date Type Department Care Team (Late st Contact Info) Description 08/09/2024 Clinisync Result Encounter [facility] External Department Unsolicited Remy Ray, DO [address] [place], [place] [address] Social History Tobacco Use Types Packs/Day Years [...] Visit [facility] [address] [place] [address] Remy Ray DO [address] [place] [address] documented as of this encounter Procedures Procedure Name Priority Date/Time Associated Diagnosis Comments US OB BPP W NON-STRESS 08/09/2024 4:40 AM EST documented in this encounter Results * US OB BPP W NON-STRESS (08/09/2024 4:40 AM EST) Anatomical Region Laterality Modality Other 08/09/2024 4:40 AM EST Narrative 08/09/2024 4:42 [place] [address] Ultrasound Report Signed Patient: ARY ELLIS MR#: [id number] : 1990 Acct:[id number] Age/Sex: 34 / F ADM Date: 08/08/24 Loc: [facility] Attending Dr: Remy Ray D.O. Ordering Physician: Remy Ray D.O. Date of Service: 08/08/24 Procedure(s): US OB BPP w non-stress Accession Number(s): [id number] cc: LEXI ZHAO ; Remy Ray D.O. The [place] [address] Patient Name: ARY ELLIS MRN: [id number] date: 1990 Sex: F Assigned Patient Location: [facility] Current Patient Location: Accession/Order Number: [id number] Exam Date: 08/08/2024 19:06 Report Date: 08/09/2024 [...] M.D. Signed By: 08/09/24441 DD/ 9 TD/TT: Picking Machine Operator: Procedure Note Radiology, Radiologist, - 08/09/2024 [place] [address] Ultrasound Report Signed Patient: ARY ELLIS AMR#: [id number] : 1990Acct:[id number] Age/Sex: 34 / FADM Date: 08/08/24 Loc: [facility]O Attending Dr: Remy Ray D.O. Ordering Physician: Remy Ray D.O. Date of Service: 08/08/24 Procedure(s): US OB BPP w non-stress Accession Number(s): [id number] cc: LEXI ZHAO ; Remy Ray D.O. The [place] [phone] Patient Name: ARY ELLIS MRN: [id number] date: 1990 Sex: F Assigned Patient Location: [facility] Current Patient Location: Accession/Order Number: [id number] Exam Date: 08/08/2024 19:06 Report Date: 08/09/2024 [...] 04:40 Dictated By: Alber Rodríguez M.D. Signed By:08/09/24441 DD/ 9 TD/TT: Picking Machine Operator: us Remy Ray DO [facility] Final Result documented in this encounter Visit Diagnoses Not on filedocumented in this encounter
--- OUTSIDE RECORDS SUMMARY | 2025-05-05 07:49 | XMS_ITS | Encounter Summary ---
Author Organization [facility] Address [address] [place] [address] Care Team Providers Care Brick Shader Name Role Phone Unavailable Primary Care Provider Unavailabl e Encounter Details Date Type Department Care Team (Late Contact Info) Description 03/21/2024 Abstract [facility] [address] [place] [address] Cesar Ray DO [facility] [place], [facility]11 Social History Tobacco Use Types [...] Office Visit [facility] [address] [place] [address] Cesar Ray DO [address] [place], [facility]11 documented as of this encounter Visit Diagnoses Not on filedocumented in this encounter
--- OUTSIDE RECORDS SUMMARY | 2025-05-05 07:49 | XMS_ITS | Encounter Summary ---
Author Organization [facility] Address [address] [place] [address] Care Team Providers Care Egg Trayer Name Role Phone Unavailable Primary Care Provider Unavailabl e Encounter Details Date Type Department Care Team (Late st Contact Info) Description 04/24/2024 Clinisync Result Encounter NOMS External Department Unsolicited Ty Latif PA [address] [facility] [address] [place], [facility]11 Social History Tobacco Use Types [...] EDT Office Visit [facility] [address] [facility] [place] [address] Cesar Ray DO [address] [facility] [address] [place], [place] [address] documented as of this encounter Procedures Procedure Name Priority Date/Time Associated Diagnosis Comments US OB CERVICAL LENGTH 04/24/2024 2:35 PM EDT documented in this encounter Results * US OB CERVICAL LENGTH (04/24/2024 2:35 PM EDT) Anatomical Region Laterality Modality Other 04/24/2024 2:35 PM EDT Narrative 04/24/2024 2:37 PM EDT [address] [address] Ultrasound Report Signed Patient: ARY ELLIS MR#: [id number] : 1990 Acct:[id number] Age/Sex: 33 / F ADM Date: 04/24/24 Loc: [facility] Attending Dr: Ty Latif Ordering Physician: Ty Latif Date of Service: 04/24/24 Procedure(s): US OB cervical length Accession Number(s): [id number] cc: Ty Latif; LEXI ZHAO [place] [id number] Patient Name: ARY LELIS MRN: [id number] date: 1990 Sex: F Assigned Patient Location: [facility] Current Patient Location: [facility] Accession/Order Number: [id number] Exam Date: 04/24/2024 13:34 Report Date: 04/24/2024 14:35 At the request of: TY LATIF Procedure: US OB cervical length EXAMINATION: US OB anatomy, US OB cervical [...] 2024-09-03 SANGEETA by EDC: 2024-08-31 US/US OB cervical length IMPRESSION: 1. Single live intrauterine with growth detailed above. Electronically authenticated by: ALBER RODRÍGUEZ Date: 04/24/2024 14:35 Dictated By: Alber Rodríguez M.D. Signed By: 04/24/24 143 DD/ 34 TD/TT: Commercial Baking Teacher: Procedure Note Radiology, Radiologist, MD - 04/24/2024 [place] [address] Ultrasound Report Signed Patient: ARY ELLIS AMR#: [id number] : 1990Acct:[id number] Age/Sex: 33 / FADM Date: 04/24/24 Loc: [facility] Attending Dr: Ty Latif Ordering Physician: Ty Latif Date of Service: 04/24/24 Procedure(s): US OB cervical length Accession Number(s): [id number] cc: Ty Latif; LEXI ZHAO [address] [address] Patient Name: ARY ELLIS MRN: [id number] date: 1990 Sex: F Assigned Patient Location: [facility] Current Patient Location: [facility] Accession/Order Number: [id number] Exam Date: 04/24/2024 13:34 Report Date: 04/24/2024 14:35 At the request of: TY LATIF Procedure: US OB cervical length EXAMINATION: US OB anatomy, US OB cervical [...] 2024-09-03 SANGEETA by EDC: 2024-08-31 US/US OB cervical length IMPRESSION: 1. Single live intrauterine with growth detailed above. Electronically authenticated by: ALBER RODRÍGUEZ Date: 04/24/2024 14:35 Dictated By: Alber Rodríguez M.D. Signed By:04/24/24 1437 DD/ 34 TD/TT: Commercial Baking Teacher: Ty SHEEHAN [facility] Final Result documented in this encounter Visit Diagnoses Not on filedocumented in this encounter
--- OUTSIDE RECORDS SUMMARY | 2025-05-05 07:49 | XMS_ITS | Encounter Summary ---
Author Organization [facility] Address [address] [place] [address] Care Team Providers Care Delivery Tech Name Role Phone Unavailable Primary Care Provider Unavailabl e Encounter Details Date Type Department Care Team (Late Contact Info) Description 08/08/2024 Abstract [facility] [address] [place] [address] Cesar Ray DO [address] [place], [facility]11 Social History Tobacco Use Types Packs/Day [...] [address] Cesar Ray DO [address] [place], [facility]11 documented as of this encounter Visit Diagnoses Not on filedocumented in this encounter
--- OUTSIDE RECORDS SUMMARY | 2025-05-05 07:49 | XMS_ITS | Encounter Summary ---
Author Organization [facility] Address [address] [place] [address] Care Team Providers Care Collar Turner Name Role Phone Unavailable Primary Care Provider Unavailabl e Encounter Details Date Type Department Care Team (Late st Contact Info) Description 07/20/2024 Clinisync Result Encounter [facility] External Department Unsolicited Remy Ray, DO [address] [place], [place] [address] Social History Tobacco Use Types Packs/Day Years [...] Visit [facility] [address] [place] [address] Remy Ray DO [address] [place] [address] documented as of this encounter Procedures Procedure Name Priority Date/Time Associated Diagnosis Comments US OB BPP W NON-STRESS 07/20/2024 8:07 AM EST documented in this encounter Results * US OB BPP W NON-STRESS (07/20/2024 8:07 AM EST) Anatomical Region Laterality Modality Other 07/20/2024 8:07 AM EST Narrative 07/20/2024 8:10 [place] [address] Ultrasound Report Signed Patient: ARY ELLIS MR#: [id number] : 1990 Acct:[id number] Age/Sex: 34 / F ADM Date: 07/17/24 Loc: [facility] Attending Dr: Remy Ray D.O. Ordering Physician: Remy Ray D.O. Date of Service: 07/17/24 Procedure(s): US OB BPP w non-stress Accession Number(s): [id number] cc: LEXI ZHAO ; Remy Ray D.O. The [place] [address] Patient Name: ARY ELLIS MRN: [id number] date: 1990 Sex: F Assigned Patient Location: [facility] Current Patient Location: Accession/Order Number: [id number] Exam Date: 07/17/2024 20:05 Report Date: 07/20/2024 [...] M.D. Signed By: 07/20/24809 DD/ 6 TD/TT: Cargo Services Coordinator: Procedure Note Radiology, Radiologist, - 07/20/2024 [place] [address] Ultrasound Report Signed Patient: ARY ELLIS AMR#: [id number] : 1990Acct:[id number] Age/Sex: 34 / FADM Date: 07/17/24 Loc: [facility]O Attending Dr: Remy Ray D.O. Ordering Physician: Remy Ray D.O. Date of Service: 07/17/24 Procedure(s): US OB BPP w non-stress Accession Number(s): [id number] cc: LEXI ZHAO ; Remy Ray D.O. The [place] [phone] Patient Name: ARY ELLIS MRN: [id number] date: 1990 Sex: F Assigned Patient Location: [facility] Current Patient Location: Accession/Order Number: [id number] Exam Date: 07/17/2024 20:05 Report Date: 07/20/2024 [...] 08:07 Dictated By: Alber Rodríguez M.D. Signed By:07/20/24809 DD/ 0807 TD/TT: Cargo Services Coordinator: us Remy Amoro DO [facility] Final Result documented in this encounter Visit Diagnoses Not on filedocumented in this encounter
--- OUTSIDE RECORDS SUMMARY | 2025-05-05 07:49 | XMS_ITS | Encounter Summary ---
Author Organization [facility] Address [address] [place] [address] Care Team Providers Care Metal Trim Erector Name Role Phone Unavailable Primary Care Provider Unavailabl e Encounter Details Date Type Department Care Team (Late Contact Info) Description 07/06/2024 Abstract [facility] [address] [place] [address] Cesar Ray DO [facility] [place], [facility]11 Social History Tobacco Use Types Packs/Day [...] Office Visit LUCY JARAMILLO [address] [place] [address] Cesar Ray DO [address] [place], [facility]11 documented as of this encounter Visit Diagnoses Not on filedocumented in this encounter
--- OUTSIDE RECORDS SUMMARY | 2025-05-05 07:49 | XMS_ITS | Encounter Summary ---
Author Organization [facility] Address [address] [place] [address] Care Team Providers Care Family Dentist Name Role Phone Unavailable Primary Care Provider Unavailabl e Encounter Details Date Type Department Care Team (Late st Contact Info) Description 07/12/2024 Clinisync Result Encounter [facility] External Department Unsolicited Remy aRy, DO [address] [place], [place] [id number] Social History Tobacco Use Types Packs/Day Years [...] Visit [facility] [address] [place] [address] Remy Ray DO [address] [place] [address] documented as of this encounter Procedures Procedure Name Priority Date/Time Associated Diagnosis Comments US OB GROWTH 07/12/2024 5:50 AM EST documented in this encounter Results * US OB GROWTH (07/12/2024 5:50 AM EST) Anatomical Region Laterality Modality Other 07/12/2024 5:50 AM EST Narrative 07/12/2024 5:53 [place] [address] Ultrasound Report Signed Patient: ARY ELLIS MR#: [id number] : 1990 Acct:[id number] Age/Sex: 34 / F ADM Date: 07/11/24 Loc: [facility] Attending Dr: Remy Ray D.O. Ordering Physician: Remy Ray D.O. Date of Service: 07/11/24 Procedure(s): US OB growth Accession Number(s): [id number] cc: LEXI ZHAO ; Remy Ray D.O. [facility] [place] [id number] Patient Name: ARY ELLIS MRN: [id number] date: 1990 Sex: F [place] [facility] [place] [facility] [place]/Order Number: [id number] Exam Date: 07/11/2024 17:33 Report Date: 07/12/2024 [...] Dictated By: Alber Rodríguez M.D. Signed By: 07/12/24 0553 DD/ 0550 TD/TT: Purification Supervisor: Procedure Note Radiology, Radiologist, MD - 07/12/2024 [place] [address] Ultrasound Report Signed Patient: ARY ELLIS AMR#: [id number] : 1990Acct:[id number] Age/Sex: 34 / FADM Date: 07/11/24 Loc: [facility] Attending Dr: Remy Ray D.O. Ordering Physician: Remy Ray D.O. Date of Service: 07/11/24 Procedure(s): US OB growth Accession Number(s): [id number] cc: LEXI ZHAO ; Remy Ray D.O. [facility] [place] [id number] Patient Name: ARY ELLIS MRN: [id number] date: 1990 Sex: F [place] [facility] [place] [facility] [place]ion/Order Number: [id number] Exam Date: 07/11/2024 17:33 Report Date: 07/12/2024 [...] 05:50 Dictated By: Alber Rodríguez M.D. Signed By:07/12/24 0553 DD/ 0550 TD/TT: Purification Supervisor: us Remy Ray DO [facility] Final Result documented in this encounter Visit Diagnoses Not on filedocumented in this encounter
--- OUTSIDE RECORDS SUMMARY | 2025-05-05 07:49 | XMS_ITS | Encounter Summary ---
Author Organization [facility] Address [address] [place] [address] Care Team Providers Care Graphics Programmer Name Role Phone Unavailable Primary Care Provider Unavailabl e Encounter Details Date Type Department Care Team (Late Contact Info) Description 08/10/2024 Abstract [facility] [address] [place] [address] Cesar Ray DO [address], [facility] Social History Tobacco Use Types Packs/Day Years [...] [address] Cesar Ray DO [address], [facility] documented as of this encounter Visit Diagnoses Not on filedocumented in this encounter
--- OUTSIDE RECORDS SUMMARY | 2025-05-05 07:49 | XMS_ITS | Clinical Summary ---
Author Organization [facility] Address [address] [place] [address] Care Team Providers Care Bakery Helper Name Role Phone Pcp, No Primary Care Provider [phone] Source Comments This information has been disclosed to you from confidential records protectedfrom disclosure by state law. You shall make no further disclosure of thisinformation without the specific, written, and informed release of theindividual to whom it pertains, or as otherwise permitted by law. A generalauthorization for the release of medical or other information is not sufficientfor the purposes of therelease of HIV test results or diagnoses. [id number] Allergies No known active allergies Medications No known medications Active Problems Problem Noted Date Diagnosed Date Well woman exam with routine gynecological exam 05/22/2019 Assessment & Plan (05/22/2019 2:23 PM EDT): Discussed current ASCCP pap guidelines pap sent Encourage folic acid, dietary calcium, exercise, yearly flu shot & breast awareness RTO 1 year or PRN Recommend pt establish My Chart & check any results there Advised will be called with abnormal results Closed fracture of right hand 11/21/2018 Immunizations Immunization Administration Dates Next Due Td 11/05/2018 Family History Medical History Relation Comments Arthritis Father Hyperlipidemia Father Hypertension Father Deep vein thrombosis Maternal Uncle Other Mother mthfr Pulmonary embolism Mother dvt Relation Status Comments Father Alive Maternal Uncle Mother Social History Tobacco Use Types Packs/Day Years Used Date Smoking Tobacco: Never Smokeless Tobacco: Never Alcohol Use Standard Drinks/Week Comments Yes 0 (1 standard drink = 0.6 oz pur e alcohol) occas PHQ-2 Answer Date Recorded PHQ-2 Score 0 05/22/2019 Comments No Sex and Gender Information Value Date Recorded Sex Assigned at Not on file Legal Sex Female 2:36 PM EDT Gender Identity Not on file Sexual Orientation Not on file Last Filed Vital Signs Vital Sign Reading Time Taken Comments Blood Pressure 135/94 05/22/2019 1:59 PM EDT Pulse 83 05/22/2019 1:59 PM EDT Temperature 36.9 C (98.4 F) 03/17/2019 3:20 PM EDT Respiratory Rate 18 03/14/2019 10:26 AM EDT Oxygen Saturation 99% 11/16/2018 3:08 PM EDT Inhaled Oxygen Concentration 99% 11/16/2018 3 :08 PM EDT Weight 60.8 kg (134 lb) 05/22/2019 1:59 PM EDT Height 160 cm (5' 3 ) 05/22/2019 1:59 PM EDT Body Mass Index 23.74 05/22/2019 1:59 PM EDT Plan of Treatment Not on [place] [address] [address] HEALTH Care Teams Bakery Helper Relationship Specialty Start Date End Date Pcp, No No Address PCP - General 04/11/24
--- OUTSIDE RECORDS SUMMARY | 2025-05-05 07:50 | XMS_ITS | Encounter Summary ---
Author Organization [facility] Address [address] [place] [address] Care Team Providers Care Table Games Floor Supervisor Name Role Phone Unavailable Primary Care Provider Unavailabl e Encounter Details Date Type Department Care Team (Late st Contact Info) Description 08/02/2024 Clinisync Result Encounter [facility] External Department Unsolicited Remy Ray, DO [address] [place], [place] [id number] Social History Tobacco Use Types Packs/Day Years [...] Visit [facility] [address] [place] [address] Remy Ray DO [address] [place] [address] documented as of this encounter Procedures Procedure Name Priority Date/Time Associated Diagnosis Comments US OB BPP W NON-STRESS 08/02/2024 7:15 AM EST documented in this encounter Results * US OB BPP W NON-STRESS (08/02/2024 7:15 AM EST) Anatomical Region Laterality Modality Other 08/02/2024 7:15 AM EST Narrative 08/02/2024 7:18 [place] [address] Ultrasound Report Signed Patient: ARY ELLIS MR#: [id number] : 1990 Acct:[id number] Age/Sex: 34 / F ADM Date: 08/01/24 Loc: [facility] Attending Dr: Remy Ray D.O. Ordering Physician: Remy Ray D.O. Date of Service: 08/01/24 Procedure(s): US OB BPP w non-stress Accession Number(s): [id number] cc: LEXI ZHAO ; Remy Ray D.O. [address] [place] [address] Patient Name: ARY ELLIS MRN: [id number] date: 1990 Sex: F [place] [facility] [place]: Accession/Order Number: [id number] Exam Date: 08/01/2024 17:55 Report Date: 08/02/2024 [...] Dictated By: Chloe Santo M.D. Signed By: 08/02/24717 DD/ 4 TD/TT: Supervisor Print Line: Procedure Note Radiology, Radiologist, - 08/02/2024 [place] [address] Ultrasound Report Signed Patient: ARY ELLIS AMR#: [id number] : 1990Acct:[id number] Age/Sex: 34 / FADM Date: 08/01/24 Loc: [facility] Attending Dr: Remy Ray D.O. Ordering Physician: Remy Ray D.O. Date of Service: 08/01/24 Procedure(s): US OB BPP w non-stress Accession Number(s): [id number] cc: LEXI ZHAO ; Remy Ray D.O. [facility] [place] [address] Patient Name: ARY ELLIS MRN: [id number] date: 1990 Sex: F Assigned [place] [facility] [place] Location: Accession/Order Number: [id number] Exam Date: 08/01/2024 17:55 Report Date: 08/02/2024 07:15 At the request of: REMY RAY Procedure: US OB BPP w non-stress EXAMINATION: US OB BPP w non-stress HISTORY: GDM O24.419 COMPARISON: No relevant comparison available. TECHNIQUE: Ultrasound biophysical profile was performed in the radiology department. non-reactive stress testing was performed by nursingstaff in the birthing center. FINDINGS: BREATHING MOVEMENTS: 2 GROSS BODY MOVEMENTS: 2 TONE: 2 QUALITATIVE AMNIOTIC FLUID VOLUME: 2 PRESENTATION: CEPHALIC HEART RATE: 135.68 bpm AMNIOTIC FLUID VOLUME: 15.0 GESTATIONAL AGE: 35 weeks 5 days US/US OB BPP w non-stress IMPRESSION: Total biophysical profile score: 8 Electronically authenticated by: CHLOE SANTO Date: 08/02/2024 07:15 Dictated By: Chloe Santo M.D. Signed By:08/02/24717 DD/ 4 TD/TT: Supervisor Print Line: us Remy Ray DO [facility] Final Result documented in this encounter Visit Diagnoses Not on filedocumented in this encounter
[2025-05-05 08:39] LABS: Hematocrit 41.5 % (36.0-48.0); Hemoglobin 14.6 g/dL (12.0-16.0); Immature Granulocytes Abs Auto 0.02 10^3/uL (0.00-0.03); Immature Granulocytes Pct Auto 0.4 % (0.0-0.5); Lymphocytes Absolute Auto 1.9 10^3/uL (1.2-3.8); Mean Corpuscular HGB Conc 35.2 g/dL (29.9-35.2); Mean Corpuscular Hemoglobin 32.2 pg (26.7-34.0); Mean Corpuscular Volume 91.4 fL (81.0-99.0); Platelet Count 320 10^3/uL (150-450); Red Blood Count 4.54 10^6/uL (4.20-5.40); White Blood Count 5.4 10^3/uL (4.0-11.0)
[2025-05-05 09:12] LABS: Iron 158.0 ug/dL (50.0-170.0)
[2025-05-05 09:42] LABS: Alanine Aminotransferase 18 U/L (14-59); Albumin Globulin Ratio 1.1; Albumin Level 4.0 g/dL (3.4-5.0); Alkaline Phosphatase 64 U/L (46-116); Anion Gap 14.8; Aspartate Amino Transferase 13 U/L (15-37); Blood Urea Nitrogen 14.0 mg/dL (7.0-18.0); Calcium 9.0 mg/dL (8.5-10.1); Carbon Dioxide 26.0 mmol/L (21.0-32.0); Chloride 103 mmol/L (98-107); Cholesterol 220 mg/dL (<=200); Estimated GFR (African America >60 (>=60 mL/min/1.73m^2); Estimated GFR (Non-African Ame >60 (>=60 mL/min/1.73m^2); Free T3 3.32 pg/mL (2.18-3.98); Globulin 3.7 g/dL; Glucose 103 mg/dL (74-106); HDL Cholesterol 80 mg/dL (40-60); Potassium 3.8 mmol/L (3.5-5.1); Sodium 140 mmol/L (136-145); Thyroid Stimulating Hormone 3.372 uIU/mL (0.358-3.740); Total Protein 7.7 g/dL (6.4-8.2); Triglycerides 50 mg/dL (<=150); VLDL CHOLESTEROL 10.0 mg/dL
== END 2025-05-05 07:46 | disposition home or self-care (01) ==
PROVIDERS: PCP Nurse Practitioner Family; Visit Provider Nurse Practitioner Family
DX: Z00.00 Encounter for general adult medical examination without abnormal findings (principal)
CPT/HCPCS: 36415; 80053; 80061; 82306; 83036; 83525; 83540; 84436; 84443; 84481; 85025